=== PATIENT | female | born 1980 | race Caucasian/White ===

== ENCOUNTER 2017-07-25 18:23 | Observation (INO) | payer BC ==
--- OUTSIDE RECORDS SUMMARY | 2017-07-25 18:25 | XMS REPORT | Clinical Summary ---
:1980 Author Organization [facility] Address [address] [place] [address] Care Team Providers Name Role Phone Paul Pérez MD Primary Care Provider Allergies Active Allergy Reactions Severity Noted Date Comments Gabapentin Other (See Comments) 10/09/2015 Spasms seizures Current Medications Prescription Sig. Disp. Refills Start Date End Date Status ondansetron (ZOFRAN) 8 MG Take 8 mg by mouth Active tablet every 8 (eight) hours as needed for nausea or vomiting. topiramate (TOPAMAX) 100 Take 100 mg by Active MG tablet mouth 2 (two) times a day. tiZANidine (ZANAFLEX) 2 MG Take 2 mg by mouth Active tablet every 6 (six) hours as needed for muscle spasms. 6 mg promethazine (PHENERGAN) Take 25 mg by Active 25 MG tablet mouth every 8 (eight) hours as needed for nausea or vomiting. estrogens, conjugated, Take 1.25 mg by Active (PREMARIN) 1.25 MG tablet mouth daily. METHOTREXATE, PF, SUBQ Inject 25 mg under Active the skin once a week. Every Tuesday. on hold per patient for 2 weeks because she's taking antibiotics. folic acid (FOLVITE) 1 MG Take 1 mg by mouth Active tablet daily. fentaNYL (DURAGESIC) Place 1 patch on Active the skin every other day. Fentanyl patch12.5 ALPRAZolam (XANAX) 2 MG Take 2 mg by mouth Active tablet daily. FLUoxetine (PROzac) 20 MG Take 20 mg by Active capsule mouth daily. SUMAtriptan succinate 02/16/2016 Active (IMITREX) 6 mg/0.5 mL solution ENBREL SURECLICK 50 mg/mL 03/26/2016 Active (0.98 mL) pen injector fludrocortisone 0.1 mg Take 0.1 mg by Active tablet mouth daily. Active Problems Problem Noted Date Pilonidal cyst 05/16/2016 Rheumatoid arthritis 05/16/2016 Orthostatic hypotension 05/16/2016 Chest pain 05/15/2016 Bradycardia 10/09/2015 Reflex sympathetic dystrophy 10/09/2015 Fibromyalgia 10/09/2015 Immunizations Name Dates Previously Given Next Due INFLUENZA QUAD PF 05/07/2016 Influenza Trivalent 05/14/2014 Tdap 05/07/2016 Social History Tobacco Use Types Packs/Day Years Used Date Current Every Day Smoker Cigarettes 0.5 10 Smokeless Tobacco: Never Used Tobacco Cessation: Ready to Quit: No; Counseling Given: Yes Alcohol Use Drinks/Week oz/Week Comments No Sex Assigned at Date Recorded Not on file Last Filed Vital Signs Not on file Plan of Treatment Health Maintenance Due Date Last Done Comments PAP SMEAR 2001 INFLUENZA VACCINE 10/26/2017 05/07/2016, 05/14/2014 Results Not on fileafter 07/24/2016 Insurance Payer Benefit Plan / Group Subscriber ID Type Phone Address BCBS BS OUT OF STATE xxxxxxxxxxxxxxx PPO [phone] [id number]
[2017-07-25] MEDS ORDERED: NA CHLORIDE 0.9% 2,000 ML ONE (19:14)
[2017-07-25] MEDS ORDERED: ONDANSETRON 4 MG/2 ML VIAL ONE (19:14)
[2017-07-25] MEDS ORDERED: FENTANYL CITR 100 MCG/2 ML ONE (19:14)
[2017-07-25] MEDS ORDERED: PANTOPRAZOLE 40 MG INJ ONE (19:14)
[2017-07-25 20:16] LABS: Absolute Lymphocytes (CBC) 3.5 K/uL (0.7-4.9); Absolute Monocytes 0.6 K/uL (0.1-1.3); Absolute Neutrophil 7.8 K/uL (1.8-8.0); Basophils % 0.6 % (0-1.3); Eosinophils % 0.3 % (0-4.4); Hematocrit 43.3 % (36.0-45.0); MCH 31.7 pg (27.0-35.0); MCV 93.1 fL (80-100); MPV 7.9 fL (7.6-11.3); Monocytes % 5.2 % (3.3-12.3); RBC Red Blood Cell Count 4.65 M/uL (3.86-4.86)
[2017-07-25 20:21] LABS: Protime INR 0.97
[2017-07-25 20:28] LABS: Potassium 3.7 mEq/L (3.6-5.0)
[2017-07-25 20:34] LABS: Albumin 4.7 g/dL (3.2-5.5); Bilirubin Direct 0.1 mg/dL (0-0.2); Bilirubin Total 0.5 mg/dL (0.3-1.2); Magnesium 2.2 mg/dL (1.8-2.5); Protein, Total 8.3 g/dL (6.0-8.3)
[2017-07-25 20:37] LABS: CKMB Creatine Kinase MB 2.1 ng/ml (0.3-4.0)
[2017-07-25] MEDS ORDERED: PROMETHAZINE 25 MG/ML VIAL ONE (21:11)
--- NOTE | 2017-07-25 21:46 | ER ---
Nurse's Notes [facility] Name: Yun Saxena Age: 37 yrs Sex: Female : 1980 Arrival Date: 07/25/2017 Time: 18:25 Bed 30 Private MD: Ankur Koenig S Diagnosis: Abdominal tenderness;Other chest pain Presentation: 07/25 18:31 Presenting complaint: Patient states: N/V/D, upper abdominal pain, and abdominal hb swelling x 3 days. Pain radiated to chest and mid back. Denies fever. Hx diverticulitis, pancreatitis. Transition of care: patient was not received from another setting of care. Onset of symptoms was July 23, 2017. Initial Sepsis Screen: Does the patient meet any 2 criteria? No. Patient's initial sepsis screen is negative. Does the patient have a suspected source of infection? No. Patient's initial sepsis screen is negative. Care prior to arrival: None. 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 [Active]; Prozac 20 mg Oral cap 1 cap once daily [Active]; Xanax 2 mg Oral tab daily [Active]; Zofran (as hydrochloride) 8 mg Oral tab 1 tab as needed [Active]; 07/26 00:47 fentanyl 75 mcg/hr transdermal pt72 [Active]; tizanidine 4 mg oral tab [Active]; tl3 Topamax 150 mg Oral tab 2 caps daily [Active]; topiramate 150 mg oral CSpX 2 caps once daily [Active]; 00:49 Humira subcutaneous 50mg subcutaneous every two weeks [Active]; tl3 - PMHx: 07/25 18:35 Arthritis; complex regional pain syndrome stage 4; Fibromyalgia; Migraines; Reflective hb Sympathetic Dystrophy; Rheumatoid Arthritis; Pancreatitis; Diverticulitis; - PSHx: 18:35 Hysterectomy; Cholecystectomy; Hip - RIGHT; Tubal ; Back; Multiple abdoiminal hb sx; - Immunization history:: Adult Immunizations up to date. - Social history:: Smoking status: Patient/guardian denies using tobacco. Screenin:45 Abuse screen: Denies threats or abuse. Nutritional screening: No deficits noted. tl3 Tuberculosis screening: No symptoms or risk factors identified. Fall Risk None identified. Assessment: 18:45 General: Appears distressed, uncomfortable, obese, well groomed, well developed, well tl3 nourished, Behavior is cooperative, appropriate for age, anxious, restless. Pain: Complains of pain in left upper quadrant and right upper quadrant and epigastric area Pain currently is 10 out of 10 on a pain scale. Neuro: Level of Consciousness is awake, alert, obeys commands, Oriented to person, place, time, situation, Appropriate for age. Cardiovascular: Heart tones S1 S2 present Capillary refill < 3 seconds in bilateral fingers Patient's skin is warm and dry. Respiratory: Airway is patent Trachea midline Respiratory effort is even, labored, Respiratory pattern is regular, symmetrical, Breath sounds are clear bilaterally. GI: Bowel sounds present X 4 quads. Abdomen is tender to palpation X 4 quads. : No signs and/or symptoms were reported regarding the genitourinary system. EENT: No signs and/or symptoms were reported regarding the EENT system. Derm: No signs and/or symptoms reported regarding the dermatologic system. Musculoskeletal: No signs and/or symptoms reported regarding the musculoskeletal system. 20:20 Reassessment: No changes from previously documented assessment. Patient and/or family tl3 updated on plan of care and expected duration. Pain level reassessed. Patient is alert, oriented x 3, equal unlabored respirations, skin warm/dry/pink. pt still very uncomfortable, IV via ultrasound placed and meds given, xray at bedside. 21:26 Reassessment: No changes from previously documented assessment. Patient and/or family tl3 updated on plan of care and expected duration. Pain level reassessed. Patient is alert, oriented x 3, equal unlabored respirations, skin warm/dry/pink. 22:53 Reassessment: No changes from previously documented assessment. Patient and/or family tl3 updated on plan of care and expected duration. Pain level reassessed. Patient is alert, oriented x 3, equal unlabored respirations, skin warm/dry/pink. pt returned from CT. 07/26 00:11 Reassessment: No changes from previously documented assessment. Patient and/or family tl3 updated on plan of care and expected duration. Pain level reassessed. Patient is alert, oriented x 3, equal unlabored respirations, skin warm/dry/pink. plans for admit have changed, discharge papers being drawn up. 01:05 Reassessment: Patient appears in no apparent distress at this time. No changes from tl3 previously documented assessment. Patient and/or family updated on plan of care and expected duration. Pain level reassessed. Patient is alert, oriented x 3, equal unlabored respirations, skin warm/dry/pink. spoke with pt about discharge paperwork delay. Vital Signs: 07/25 18:31 BP 151 / 96; Pulse 88; Resp 18; Temp 98.7; Pulse Ox 100% on R/A; Pain 9/10; hb 20:20 BP 131 / 82; Pulse 70; Resp 18; Pulse Ox 100% on R/A; tl3 21:26 BP 141 / 85; Pulse 62; Resp 22; Pulse Ox 99% ; tl3 22:53 Pulse 71; Resp 18; Pulse Ox 100% ; tl3 07/26 00:14 BP 138 / 78; Pulse 70; Resp 18; Pulse Ox 100% ; tl3 01:05 BP 138 / 82; Pulse 62; Resp 18; Pulse Ox 100% ; tl3 ED Course: 07/25 18:25 Patient arrived in ED. as 18:26 Ankur Koenig MD is Private Physician. as 18:33 Triage completed. hb 18:35 Arm band placed on left wrist. hb 18:45 Appears restless. Appears tearful. Awaiting: IV start, Hermila to use ultra sound. tl3 18:45 Patient has correct armband on for positive identification. Placed in gown. Bed in low tl3 position. Side rails up X 1. Adult w/ patient. 18:45 No provider procedures requiring assistance completed. Missed attempt(s): 22 gauge in tl3 left in right wrist. forearm. Bleeding controlled, band aid applied, catheter tip intact. 18:54 Yanick Barker MD is Attending Physician. emily 19:11 Itzel Vang, ИВАН is Primary Nurse. tl3 20:00 Inserted 18 gauge 10 cm midline to right upper basilic vein on second attempt. Line fc with good blood return and flushes well. Blood drawn and sent to lab. 20:17 X-ray(s) taken. tl3 20:30 X-ray completed. Portable x-ray completed in exam room. Patient tolerated procedure kc2 well. 20:30 XRAY Chest (1 view) In Process Unspecified. EDMS 21:43 Hanna Guerra MD is Hospitalizing Provider. [facility] 07/26 01:43 IV discontinued. rk2 Administered Medications: 07/25 20:00 Drug: NS 0.9% 1000 ml Route: IV; Rate: 1 bolus; Site: right upper arm; fc 21:00 Follow up: IV Status: Completed infusion; IV Intake: 1000ml tl3 20:18 Drug: ProTONIX 40 mg Route: IVP; Infused Over: 3 mins; Site: left upper arm; tl3 22:57 Follow up: Response: No adverse reaction tl3 20:18 Drug: fentaNYL (PF) 50 mcg Route: IVP; Infused Over: 3 mins; Site: left upper arm; tl3 22:57 Follow up: Response: No adverse reaction; Pain is decreased tl3 20:18 Drug: Zofran 4 mg Route: IVP; Infused Over: 2 mins; Site: left upper arm; tl3 21:00 Follow up: Response: No adverse reaction tl3 21:24 Drug: fentaNYL (PF) 50 mcg Route: IVP; Infused Over: 3 mins; Site: right upper arm; tl3 22:00 Follow up: Response: No adverse reaction; Pain is decreased tl3 21:24 Drug: Phenergan 12.5 mg Route: IVP; Infused Over: 5 mins; Site: right upper arm; tl3 22:00 Follow up: Response: No adverse reaction; Nausea is decreased tl3 22:56 Drug: NS 0.9% 1000 ml Route: IV; Rate: 125 ml/hr; Site: right upper arm; tl3 22:56 Follow up: IV Status: Completed infusion; IV Intake: 1000ml tl3 Intake: 21:00 IV: 1000ml; Total: 1000ml. tl3 22:56 IV: 1000ml; Total: 2000ml. tl3 Outcome: 21:46 Decision to Hospitalize by Provider. [facility] 07/26 01:43 Discharged to home ambulatory. rk2 Condition: good Discharge instructions given to patient. 01:43 Patient left the ED. rk2 Signatures: Dispatcher [employer] EDYanick Trinh MD MD cha Chretien, Felicia, RN RN Tiesha Leonardo Heather, RN RN Marisol Wilson2 Alicia Ernandez RN RN rk2 Itzel Vang RN RN tl3 Corrections: (The following items were deleted from the chart) 00:51 07/25 18:35 Home Meds: amphetamine sulfate 15 mg Oral 1 tab 2 times per day; [facility] 07/26 00:07/25 18:35 Home Meds: Belbuca 150 mcg buccal film 1 film 2 times per day for Chronic tl3 pain, Severe Pain; 07/26 00:07/25 18:35 Home Meds: clonazepam 1 mg Oral tab 1 tab 2 times per day; [facility] 07/26 00:07/25 18:35 Home Meds: fentanyl 12 mcg/hr Topical pt72 1 patch every 72 hours; [facility] 07/26 00:07/25 18:35 Home Meds: tizanidine 6 mg Oral cap 1 cap as needed; 1-2 caps.; [facility] 07/26 00:07/25 18:35 Home Meds: Topamax 200 mg Oral tab daily; [facility] 07/26 00:07/25 18:35 Home Meds: topiramate 100 mg Oral CSpX 2 caps once daily; [facility] 07/26 00:07/25 18:35 Home Meds: venlafaxine 75 mg Oral cp24 1 cap twice daily.; [facility]
--- NOTE | 2017-07-25 21:47 | EDPHYS ---
Physician Documentation [facility] Name: Yun Saxena Age: 37 yrs Sex: Female : 1980 Arrival Date: 07/25/2017 Time: 18:25 Bed 30 Private MD: Ankur Koenig S ED Physician Yanick Barker HPI: 07/25 19:00 This 37 yrs old Female presents to ER via Ambulatory with complaints of emily Abdominal Pain, Chest Pain, Shortness Of Breath. 19:00 The patient or guardian reports chest pain that is located primarily in the substernal emily area, epigastric area. The pain radiates to Associated signs and symptoms: The patient has no apparent associated signs or symptoms. The chest pain is described as sharp. Severity of pain: At its worst the pain was moderate in the emergency department the pain is unchanged. 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 [Active]; Prozac 20 mg Oral cap 1 cap once daily [Active]; Xanax 2 mg Oral tab daily [Active]; Zofran (as hydrochloride) 8 mg Oral tab 1 tab as needed [Active]; 07/26 00:47 fentanyl 75 mcg/hr transdermal pt72 [Active]; tizanidine 4 mg oral tab [Active]; tl3 Topamax 150 mg Oral tab 2 caps daily [Active]; topiramate 150 mg oral CSpX 2 caps once daily [Active]; 00:49 Humira subcutaneous 50mg subcutaneous every two weeks [Active]; tl3 - PMHx: 07/25 18:35 Arthritis; complex regional pain syndrome stage 4; Fibromyalgia; Migraines; Reflective hb Sympathetic Dystrophy; Rheumatoid Arthritis; Pancreatitis; Diverticulitis; - PSHx: 18:35 Hysterectomy; Cholecystectomy; Hip - RIGHT; Tubal ; Back; Multiple abdoiminal hb sx; - Immunization history:: Adult Immunizations up to date. - Social history:: Smoking status: Patient/guardian denies using tobacco. ROS: 19:01 Constitutional: Negative for fever, chills, and weight loss, Eyes: Negative for injury, emily pain, redness, and discharge, ENT: Negative for injury, pain, and discharge, Neck: Negative for injury, pain, and swelling, Cardiovascular: Negative for chest pain, palpitations, and edema, Respiratory: Negative for shortness of breath, cough, wheezing, and pleuritic chest pain, Back: Negative for injury and pain, : Negative for injury, bleeding, discharge, and swelling, MS/Extremity: Negative for injury and deformity, Skin: Negative for injury, rash, and discoloration, Neuro: Negative for headache, weakness, numbness, tingling, and seizure, Psych: Negative for depression, anxiety, suicide ideation, homicidal ideation, and hallucinations, Allergy/Immunology: Negative for hives, rash, and allergies, Endocrine: Negative for neck swelling, polydipsia, polyuria, polyphagia, and marked weight changes, Hematologic/Lymphatic: Negative for swollen nodes, abnormal bleeding, and unusual bruising. 19:01 Abdomen/GI: Positive for abdominal pain, of the epigastric area, right upper quadrant and left upper quadrant. Exam: 19:01 Constitutional: This is a well developed, well nourished patient who is awake, alert, emily and in no acute distress. Head/Face: Normocephalic, atraumatic. Eyes: Pupils equal round and reactive to light, extra-ocular motions intact. Lids and lashes normal. Conjunctiva and sclera are non-icteric and not injected. Cornea within normal limits. Periorbital areas with no swelling, redness, or edema. ENT: Nares patent. No nasal discharge, no septal abnormalities noted. Tympanic membranes are normal and external auditory canals are clear. Oropharynx with no redness, swelling, or masses, exudates, or evidence of obstruction, uvula midline. Mucous membranes moist. Neck: Trachea midline, no thyromegaly or masses palpated, and no cervical lymphadenopathy. Supple, full range of motion without nuchal rigidity, or vertebral point tenderness. No Meningismus. Chest/axilla: Normal chest wall appearance and motion. Nontender with no deformity. No lesions are appreciated. Cardiovascular: Regular rate and rhythm with a normal S1 and S2. No gallops, murmurs, or rubs. Normal PMI, no JVD. No pulse deficits. Respiratory: Lungs have equal breath sounds bilaterally, clear to auscultation and percussion. No rales, rhonchi or wheezes noted. No increased work of breathing, no retractions or nasal flaring. Back: No spinal tenderness. No costovertebral tenderness. Full range of motion. Female : Normal external genitalia. Skin: Warm, dry with normal turgor. Normal color with no rashes, no lesions, and no evidence of cellulitis. MS/ Extremity: Pulses equal, no cyanosis. Neurovascular intact. Full, normal range of motion. Neuro: Awake and alert, GCS 15, oriented to person, place, time, and situation. Cranial nerves II-XII grossly intact. Motor strength 5/5 in all extremities. Sensory grossly intact. Cerebellar exam normal. Normal gait. Psych: Awake, alert, with orientation to person, place and time. Behavior, mood, and affect are within normal limits. 19:01 Abdomen/GI: Inspection: distension, Bowel sounds: hyperactive, Palpation: moderate abdominal tenderness, severe abdominal tenderness, in the epigastric area, right upper quadrant and left upper quadrant, Liver: no appreciated palpable abnormalities, Hernia: not appreciated. 21:46 Musculoskeletal/extremity: Extremities: all appear grossly normal, with no appreciated emily pain with palpation, DVT Exam: No signs of deep vein thrombosis. no pain, no swelling, no tenderness, negative Homans' sign noted on exam, no appreciated bluish discoloration, no erythema, no increased warmth. Vital Signs: 18:31 BP 151 / 96; Pulse 88; Resp 18; Temp 98.7; Pulse Ox 100% on R/A; Pain 9/10; hb 20:20 BP 131 / 82; Pulse 70; Resp 18; Pulse Ox 100% on R/A; tl3 21:26 BP 141 / 85; Pulse 62; Resp 22; Pulse Ox 99% ; tl3 22:53 Pulse 71; Resp 18; Pulse Ox 100% ; tl3 05 00:14 BP 138 / 78; Pulse 70; Resp 18; Pulse Ox 100% ; tl3 01:05 BP 138 / 82; Pulse 62; Resp 18; Pulse Ox 100% ; tl3 MDM: 07/25 18:54 Patient medically screened. [facility] 19:03 Data reviewed: vital signs, nurses notes, lab test result(s), EKG, radiologic studies, [facility] CT scan, plain films. 07/25 19:00 Order name: Basic Metabolic Panel; Complete Time: 21: [facility] 07/25 19:00 Order name: BNP; Complete Time: 21: [facility] 07/25 19:00 Order name: CBC with Diff; Complete Time: 21: [facility] 07/25 19:00 Order name: Ckmb; Complete Time: : [facility] 07/25 19:00 Order name: CPK; Complete Time: : [facility] 07/25 19:00 Order name: LFT's; Complete Time: : [facility] 07/25 19:00 Order name: Magnesium; Complete Time: : [facility] 07/25 19:00 Order name: PT-INR; Complete Time: : [facility] 07/25 19:00 Order name: Ptt, Activated; Complete Time: 21: [facility] 07/25 19:00 Order name: Troponin (emerg Dept Use Only); Complete Time: : [facility] 07/25 19:00 Order name: XRAY Chest (1 view); Complete Time: 01:11 [facility] 07/25 19:00 Order name: Lipase; Complete Time: 21: [facility] 07/25 19:00 Order name: CT Abd/Pelvis - W/Contrast [facility] 07/25 19:00 Order name: EKG; Complete Time: 19:00 [facility] 07/25 19:00 Order name: Cardiac monitoring; Complete Time: 20:49 [facility] 07/25 19:00 Order name: EKG - Nurse/Tech; Complete Time: 20:49 [facility] 07/25 19:00 Order name: IV Saline Lock; Complete Time: 20:49 [facility] 07/25 19:00 Order name: Labs collected and sent; Complete Time: 20:49 [facility] 07/25 19:00 Order name: O2 Per Protocol; Complete Time: 20:49 [facility] 07/25 19:00 Order name: O2 Sat Monitoring; Complete Time: 20:49 [facility] 07/25 19:00 Order name: Urine Dipstick-Ancillary (obtain specimen); Complete Time: 21:25 [facility] 07/25 21:51 Order name: CONS Physician Consult EDMS Administered Medications: 20:00 Drug: NS 0.9% 1000 ml Route: IV; Rate: 1 bolus; Site: right upper arm; 21:00 Follow up: IV Status: Completed infusion; IV Intake: 1000ml tl3 20:18 Drug: ProTONIX 40 mg Route: IVP; Infused Over: 3 mins; Site: left upper arm; tl3 22:57 Follow up: Response: No adverse reaction tl3 20:18 Drug: fentaNYL (PF) 50 mcg Route: IVP; Infused Over: 3 mins; Site: left upper arm; tl3 22:57 Follow up: Response: No adverse reaction; Pain is decreased tl3 20:18 Drug: Zofran 4 mg Route: IVP; Infused Over: 2 mins; Site: left upper arm; tl3 21:00 Follow up: Response: No adverse reaction tl3 21:24 Drug: fentaNYL (PF) 50 mcg Route: IVP; Infused Over: 3 mins; Site: right upper arm; tl3 22:00 Follow up: Response: No adverse reaction; Pain is decreased tl3 21:24 Drug: Phenergan 12.5 mg Route: IVP; Infused Over: 5 mins; Site: right upper arm; tl3 22:00 Follow up: Response: No adverse reaction; Nausea is decreased tl3 22:56 Drug: NS 0.9% 1000 ml Route: IV; Rate: 125 ml/hr; Site: right upper arm; tl3 22:56 Follow up: IV Status: Completed infusion; IV Intake: 1000ml tl3 Disposition: 07/25/17 21:46 Hospitalization ordered by Hanna Guerra for Observation. Preliminary diagnosis are Abdominal tenderness, Other chest pain. - Bed requested for Telemetry/MedSurg (observation). - Status is Observation. rk2 - Condition is Stable. - Problem is new. - Symptoms have improved. UTI on Admission? No Signatures: Dispatcher [employer] EDMS Rosa Brand RN RN mw Anderson, Corey, MD MD cha Lam, Pin, MD MD pkl Chretien, Felicia, RN RN fc Baxter, Heather, RN RN Alicia Ernandez RN RN rk2 Itzel Vang RN RN tl3 Corrections: (The following items were deleted from the chart) 07/26 00:51 07/25 18:35 Home Meds: amphetamine sulfate 15 mg Oral 1 tab 2 times per day; tl3 07/26 00:51 07/25 18:35 Home Meds: Belbuca 150 mcg buccal film 1 film 2 times per day for Chronic tl3 pain, Severe Pain; 07/27 99:07/25 18:35 Home Meds: clonazepam 1 mg Oral tab 1 tab 2 times per day; [facility] 07/27 99:07/25 18:35 Home Meds: fentanyl 12 mcg/hr Topical pt72 1 patch every 72 hours; [facility] 07/27 99:07/25 18:35 Home Meds: tizanidine 6 mg Oral cap 1 cap as needed; 1-2 caps.; [facility] 07/27 99:07/25 18:35 Home Meds: Topamax 200 mg Oral tab daily; [facility] 07/27 99:07/25 18:35 Home Meds: topiramate 100 mg Oral CSpX 2 caps once daily; [facility] 07/27 99:07/25 18:35 Home Meds: venlafaxine 75 mg Oral cp24 1 cap twice daily.; [facility]3
--- NOTE | 2017-07-25 22:05 | RAD REPORT ---
EXAM DESCRIPTION: Crow Single View07/25/2017 8:34 pm CLINICAL HISTORY: cough COMPARISON: 2016 FINDINGS: The lungs appear clear of acute infiltrate. The heart is normal size IMPRESSION: No acute abnormalities displayed
--- NOTE | 2017-07-26 00:09 | P.HP ---
Certification for Inpatient Patient admitted to: Observation With expected LOS: <2 Midnights Practitioner: I am a practitioner with admitting privileges, knowledge of patient current condition, hospital course, and medical plan of care. Services: Services provided to patient in accordance with Admission requirements found in Title 42 Section 412.3 of the Code of Federal Regulations Patient History Date of Service: 07/26/17 Reason for admission: abdominal pain History of Present Illness: Ms Saxena is a 37 years old woman with multiple medical problems including rheumatoid arthritis, Reflective Sympathetic Dystrophy, who start about 2 days ago with abdominal pain associated with nausea, vomiting and diarrhea. She denied fever or chills. No sweating episodes either. She states that the pain is in epigastric area, constant, 8/10. At arrival to ED she was afebrile, lab work shows WBC count 12K, elevated transaminases (not new), normal lipase. CT abd/pelvis was unremarkable. Allergies gabapentin Allergy (Severe, Verified 09/09/15 22:10) Shortness of breath Home Medications: Estrogens,Conjugated [Premarin] 1.25 mg PO DAILY 06/05/11 Ergocalciferol (Vitamin D2) [Vitamin D] 50,000 unit PO DAILY 08/06/15 Promethazine HCl 25 mg PO PRN 08/06/15 Alprazolam [Xanax Xr] 2 mg PO DAILY 09/09/15 Fluoxetine HCl [Prozac*] 20 mg PO DAILY 09/09/15 Omeprazole [Prilosec] 40 mg PO DAILY #30 capsule. 09/14/15 Fentanyl [Fentanyl] 12 mcg TD SEECOM 10/06/15 - Past Medical/Surgical History Diabetic: No -: Chronic pain syndrome -: Adult defecit disorder -: Depression -: Migraine headache -: Hormone replacement therapy -: Fibromyalgia -: RA -: Pain pump -: hysterectomy -: rufina - Family History Father -: Heart disease, Stroke - Social History Alcohol use: No CD- Drugs: No Caffeine use: No Review of Systems 10-point ROS is otherwise unremarkable Physical Examination - Physical Exam General: Alert, In no apparent distress HEENT: Atraumatic, PERRLA, Mucous membr. moist/pink, EOMI, Sclerae nonicteric Neck: Supple, 2+ carotid pulse no bruit, No LAD, Without JVD or thyroid abnormality Respiratory: Clear to auscultation bilaterally, Normal air movement Cardiovascular: Regular rate/rhythm, Normal S1 S2 Gastrointestinal: Normal bowel sounds, Tenderness (tenderness to palpation in epigastrium) Musculoskeletal: No tenderness Integumentary: No rashes Neurological: Normal speech, Normal strength at 5/5 x4 extr, Normal tone, Normal affect Lymphatics: No axilla or inguinal lymphadenopathy - Studies Laboratory Data (last 24 hrs) 07/25/17 20:00: PT 11.5, INR 0.97, APTT 26.1 07/25/17 20:00: WBC 12.0 H, Hgb 14.7, Hct 43.3, Plt Count 279 07/25/17 20:00: B-Natriuretic Peptide 158 H 07/25/17 20:00: Sodium 138, Potassium 3.7, BUN 13, Creatinine 0.95, Glucose 98, Magnesium 2.2 D, Total Bilirubin 0.5, AST 54 H, ALT 78 H, Alkaline Phosphatase 73, Lipase 34 Assessment and Plan - Problems (Diagnosis) (1) Nausea and vomiting Current Visit: Yes Status: Acute Qualifiers: Vomiting type: unspecified (2) Diarrhea Current Visit: Yes Status: Acute Qualifiers: Diarrhea type: unspecified type Qualified Code(s): R19.7 - Diarrhea, unspecified (3) Abdominal pain Onset Date: 09/10/15 Current Visit: No Status: Acute Qualifiers: Abdominal location: epigastric Qualified Code(s): R10.13 - Epigastric pain - Plan Ms aSxena had a CT abd/pelvis which is negative. No signs of obstruction or intestinal perforation. She is afebrile, WBC mildly elevated. Since her work up is mostly benign, I think she will benefit from outpatient follow up by her PCP. She will be discharge home in stable condition. Will resume her home medication without modifications. - Advance Directives Does patient have a Living Will: No Does patient have a Durable POA for Healthcare: No - Code Status/Comfort Care Code Status Assessed: Yes Code Status: Full Code Home Medications: Estrogens,Conjugated [Premarin] 1.25 mg PO DAILY 06/05/11 Ergocalciferol (Vitamin D2) [Vitamin D] 50,000 unit PO DAILY 08/06/15 Promethazine HCl 25 mg PO PRN 08/06/15 Alprazolam [Xanax Xr] 2 mg PO DAILY 09/09/15 Fluoxetine HCl [Prozac*] 20 mg PO DAILY 09/09/15 Omeprazole [Prilosec] 40 mg PO DAILY #30 capsule. 09/14/15 Fentanyl [Fentanyl] 12 mcg TD SEECOM 10/06/15 Diet: GI soft Activity: Ad av Time spent managing pt's care (in minutes): 60
[2017-07-26 01:47] VITALS: TEMP 98.7
[2017-07-26 01:50] VITALS: O2SAT 100
[2017-07-26 01:53] VITALS: BP 138/82
--- NOTE | 2017-07-26 07:07 | RAD REPORT ---
EXAM DESCRIPTION: CT - Abdomen Pelvis W Contrast - 07/26/2017 4:04 am CLINICAL HISTORY: Abdominal pain. A preliminary written report was provided at the time of the study, and the report was reviewed prio r to final dictation. COMPARISON: CT December 2012 TECHNIQUE: Biphasic, helical CT imaging of the abdomen and pelvis was performed following 100 ml non -ionic IV contrast. Oral contrast was given. All CT scans are performed using dose optimization technique as appropriate and may include automated exposure control or mA/KV adjustment according to patient size. FINDINGS: No suspicious findings in the lung bases. The liver, spleen, and pancreas show no suspicious findings. Liver is borderline fatty infiltrated. S mall accessory splenic nodule noted. Cholecystectomy clips are present with no biliary tree dilatatio n. Symmetric renal function is seen with no hydronephrosis or suspicious renal mass. No pyelonephritis o r acute renal parenchymal process. Urinary bladder is normal. Uterus is absent. Ovaries are absent or atrophic. No gastric dilatation or gastric wall thickening. No dilated large or small bowel loops. Moderate sto ol volume is present in the rectosigmoid colon. Sigmoid colon is quite tortuous and redundant along t he floor of the pelvis. No free air or pneumatosis seen. There is a trace amount of fluid in the dep endent portion of the pelvis. Exam is limited in assessment of the colon, particularly the rectum, fo r mucosal lesions. No hernia, mass or bulky lymphadenopathy. No adrenal abnormality. No suspicious bony findings. IMPRESSION: No obstruction, free air or surgically emergent finding. Trace amount of free fluid in stranding in the dependent portion of the pelvis. Exam is considered li mited in evaluation of the rectum. Cholecystectomy clips with no abnormal biliary tree dilatation. No acute pancreatic finding and the l iver shows borderline fatty infiltration.
--- NOTE | 2017-07-26 14:39 | EKG ---
Test Date: 2017-07-25 Test Time: 20:56:30 Street Vendor: TL MEASUREMENT RESULTS: Intervals: Rate: 58 DC: 150 QRSD: 90 QT: 434 QTc: 426 [place]: P: 29 DC: 150 QRS: 52 T: 21 INTERPRETIVE STATEMENTS: Sinus bradycardia Otherwise normal ECG Compared to ECG 08/06/2015 07:19:37 Sinus rhythm no longer present Early repolarization no longer present Electronically Signed On 07-26-17 14:34:26 CDT by Coleman Singleton
--- NOTE | 2017-07-26 14:39 | EKG ---
Test Date: 2017-07-25 Test Time: 20:57:26 Beef Trimmer: TL MEASUREMENT RESULTS: Intervals: Rate: 61 MA: 152 QRSD: 84 QT: 430 QTc: 432 [place]: P: 52 MA: 152 QRS: 51 T: 18 INTERPRETIVE STATEMENTS: Normal sinus rhythm Normal ECG Compared to ECG 08/06/2015 07:19:37 Early repolarization no longer present Electronically Signed On 07-26-17 14:34:25 CDT by Coleman Singleton
== END 2017-07-26 01:44 | disposition home or self-care (01) ==
LOC: ER 18:23 → ERHOLD 21:48
PROVIDERS: ADMIT Internal Medicine; ATTEND Internal Medicine
DX: R11.2 Nausea with vomiting, unspecified (principal); R19.7 Diarrhea, unspecified; R10.13 Epigastric pain; M06.9 Rheumatoid arthritis, unspecified; G90.50 Complex regional pain syndrome I, unspecified
CPT/HCPCS: 36415; 71045; 74177; 80048; 80076; 82550; 82553; 83690; 83735; 83880; 84484; 85025; 85610; 85730; 93005; 99283; C9113; G0378; J2405; J2550; J3010; J7030; Q9967

== ENCOUNTER 2019-04-23 15:41 | Emergency (ER) | payer BC ==
--- OUTSIDE RECORDS SUMMARY | 2019-04-23 15:45 | XMS REPORT ---
:1980 [facility] Address [address] [place] [address] Dr. Menendez [address] [place] [id number] Care Team Providers Name Role Phone Unavailable Unavailable Unavailable Problems This patient has no known problems. Allergies, Adverse Reactions, Alerts This patient has no known allergies or adverse reactions. Medications This patient has no known medications.
[2019-04-23 16:27] LABS: Basophils % 0.9 % (0-1.3); Hematocrit 42.6 % (36.0-45.0); Lymphocytes % 49.7 % (15.3-44.8); MPV 7.7 fL (7.6-11.3); RBC Red Blood Cell Count 4.52 M/uL (3.86-4.86)
[2019-04-23] MEDS ORDERED: ONDANSETRON 4 MG/2 ML VIAL ONE (16:28)
[2019-04-23] MEDS ORDERED: NA CHLORIDE 0.9% 1,000 ML ONE (16:28)
[2019-04-23] MEDS ORDERED: MORPHINE 4 MG/ML SYR ONE (16:28)
[2019-04-23 16:57] LABS: ALT/SGPT 34 U/L (12-78); AST/SGOT 34 U/L (15-37); Albumin 4.2 g/dL (3.4-5.0); Alkaline Phosphatase 90 U/L (45-117); BUN Blood Urea Nitrogen 13 mg/dL (7-18); Bicarbonate 25 mmol/L (21-32); Bilirubin Direct < 0.1 mg/dL (0-0.2); Bilirubin Total 0.3 mg/dL (0.2-1.0); Glucose Level 89 mg/dL (74-106); Lipase 54 U/L (73-393); Potassium 4.5 mmol/L (3.5-5.1); Protein, Total 8.3 g/dL (6.4-8.2); Sodium Level 138 mmol/L (136-145)
[2019-04-23] MEDS ORDERED: FENTANYL CITR 100 MCG/2 ML ONE (17:26)
--- NOTE | 2019-04-23 17:41 | RAD REPORT ---
EXAM DESCRIPTION: CTAbdomen Pelvis W Contrast - 04/23/2019 5:32 pm CLINICAL HISTORY: Abdominal pain. ABD PAIN COMPARISON: Abdomen Pelvis W Contrast dated 07/25/2017; CT ABD PELVIS W CONTRAST dated 01/03/2013 TECHNIQUE: Biphasic CT imaging of the abdomen and pelvis was performed with 100 ml non-ionic IV cont rast. All CT scans are performed using dose optimization technique as appropriate and may include automated exposure control or mA/KV adjustment according to patient size. FINDINGS: The lung bases are clear. The liver, spleen, pancreas, adrenal glands and kidneys are within normal limits. Cholecystectomy. No bowel obstruction, free air, free fluid or abscess. Moderate stool is present throughout the colon . Normal appendix. No evidence of significant lymphadenopathy. No suspicious bony findings. IMPRESSION: No acute intra-abdominal or pelvic finding. Moderate fecal retention.
--- NOTE | 2019-04-23 17:55 | ER ---
Nurse's Notes [facility] Name: Yun Saxena Age: 39 yrs Sex: Female : 1980 Arrival Date: 04/23/2019 Time: 15:48 Bed 13 Private MD: Diagnosis: Abdominal and pelvic pain Presentation: 04/23 15:50 Presenting complaint: Patient states: i am from dr. Vuong office, i started hurting a tw2 few hours ago, i had an episode Tuesday, with lower right pain, it is better if i pull my knees up to my abdomen, and i am nauseous. Transition of care: patient was not received from another setting of care. Onset of symptoms was April 23, 2019. Risk Assessment: Do you want to hurt yourself or someone else? Patient reports no desire to harm self or others. Initial Sepsis Screen: Does the patient meet any 2 criteria? No. Patient's initial sepsis screen is negative. Does the patient have a suspected source of infection? No. Patient's initial sepsis screen is negative. Care prior to arrival: None. 15:50 Method Of Arrival: Ambulatory tw2 15:50 Acuity: JEAN PIERRE 3 tw2 Triage Assessment: 15:54 General: Appears uncomfortable, Behavior is calm, cooperative, appropriate for age. tw2 Pain: Complains of pain in right lower quadrant. GI: Reports lower abdominal pain, nausea. CABIN CREW: 15:54 LMP N/A - Hysterectomy tw2 Historical: - Allergies: 15:54 GABAPENTIN; tw2 - Home Meds: 15:54 Zofran (as hydrochloride) 8 mg Oral tab 1 tab as needed [Active]; fentanyl 75 mcg/hr tw2 Topical pt72 [Active]; promethazine 25 mg Oral tab 1 tab every 8 hours as needed. [Active]; Phenergan 25 mg/mL injection soln 1 mL [Active]; Emend 80 mg oral cap 1 cap once daily [Active]; folic acid 1 mg Oral tab 1 tab once daily [Active]; Methotrexate Sodium 25mg Oral 0.8 0.8 ml IM once wkly [Active]; topiramate 150 mg Oral CSpX 2 caps once daily [Active]; Xanax 2 mg Oral tab daily [Active]; Topamax 150 mg Oral tab 2 caps daily [Active]; tizanidine 4 mg Oral tab [Active]; Prozac 20 mg Oral cap 1 cap once daily [Active]; Premarin 1.25 mg Oral tab 1 tab once daily [Active]; Humira 50mg subcutaneous every two weeks [Active]; - PMHx: 15:54 Rheumatoid Arthritis; Pancreatitis; Reflective Sympathetic Dystrophy; Diverticulitis; tw2 complex regional pain syndrome stage 4; Arthritis; Fibromyalgia; Migraines; - PSHx: 15:54 Multiple abdoiminal sx; Tubal ; Hysterectomy; Cholecystectomy; Hip - RIGHT; tw2 Back; - Immunization history:: Adult Immunizations. - Coronavirus screen:: The patient has NOT traveled to [place], [place], or [place] in the past 14 days. - Social history:: Smoking status: Patient reports the use of cigarette tobacco products, smokes one-half pack cigarettes per day. - Ebola Screening: : Patient denies travel to an Ebola-affected area in the 21 days before illness onset. Screenin:11 Abuse screen: Denies threats or abuse. Denies injuries from another. Nutritional ca1 screening: No deficits noted. Tuberculosis screening: No symptoms or risk factors identified. Fall Risk IV access (20 points). Assessment: 16:11 General: Appears in no apparent distress. uncomfortable, Behavior is cooperative, ca1 appropriate for age, crying. Pain: Complains of pain in right lower quadrant Pain does not radiate. Pain currently is 10 out of 10 on a pain scale. Quality of pain is described as sharp, Pain began 2 hours ago. Is continuous. Pain: Also complains of nausea. Neuro: Level of Consciousness is awake, alert, obeys commands, Oriented to person, place, time, situation, Appropriate for age. Cardiovascular: Heart tones S1 S2 present Capillary refill Patient's skin is warm and dry. Respiratory: Airway is patent Trachea midline Respiratory effort is even, unlabored, Respiratory pattern is regular, symmetrical, Breath sounds are clear bilaterally. GI: Abdomen is round non-distended, Bowel sounds present X 4 quads. Abd is soft X 4 quads Abdomen is tender to palpation X 4 quads. Reports nausea. : No deficits noted. No signs and/or symptoms were reported regarding the genitourinary system. EENT: No deficits noted. No signs and/or symptoms were reported regarding the EENT system. Derm: Skin is intact, is healthy with good turgor, Skin is pink, warm \T\ dry. Musculoskeletal: Circulation, motion, and sensation intact. Capillary refill < 3 seconds. 17:07 Reassessment: Patient appears in no apparent distress at this time. Patient and/or ca1 family updated on plan of care and expected duration. Pain level reassessed. Patient is alert, oriented x 3, equal unlabored respirations, skin warm/dry/pink. 18:00 Reassessment: Patient appears in no apparent distress at this time. Patient is alert, ca1 oriented x 3, equal unlabored respirations, skin warm/dry/pink. Patient states feeling better. Vital Signs: 15:51 BP 121 / 84; Pulse 85; Resp 17; Temp 98.3(TE); Pulse Ox 95% on R/A; Weight 73.94 kg tw2 (R); Height 5 ft. 2 in. (157.48 cm); Pain 10/10; 17:09 BP 94 / 49; Pulse 68; Resp 17; Pulse Ox 98% on R/A; ca1 18:00 BP 98 / 66; Pulse 73; Resp 17 S; Pulse Ox 98% on R/A; ca1 15:51 Body Mass Index 29.81 (73.94 kg, 157.48 cm) tw2 15:51 and i am on a fentanyl patch as well and i am still hurting tw2 ED Course: 15:48 Patient arrived in ED. mr 15:51 Triage completed. tw2 15:54 Arm band placed on. tw2 15:58 Misty Tucker, RN is Primary Nurse. ca1 16:11 Patient has correct armband on for positive identification. Placed in gown. Bed in low ca1 position. Call light in reach. Side rails up X 1. Pulse ox on. NIBP on. Warm blanket given. 16:11 No provider procedures requiring assistance completed. Initial lab(s) drawn, by me, ca1 sent to lab. Inserted saline lock: 20 gauge in right upper arm, using aseptic technique. Blood collected. 16:12 Rob Etienne FNP-C is PHCP. la1 16:12 Yanick Barker MD is Attending Physician. la1 17:32 CT Abd/Pelvis - IV Contrast Only In Process Unspecified. EDMS 18:15 IV discontinued, intact, bleeding controlled, No redness/swelling at site. Pressure ca1 dressing applied. Administered Medications: 16:25 Drug: NS 0.9% 1000 ml Route: IV; Rate: 1000 ml; Site: right upper arm; ca1 17:25 Follow up: Response: No adverse reaction; IV Status: Completed infusion; IV Intake: ca1 1000ml 16:26 Drug: Zofran 4 mg Route: IVP; Site: right upper arm; ca1 17:25 Follow up: Response: No adverse reaction; Nausea is decreased ca1 16:31 Drug: morphine 4 mg {Note: RASS - 0.} Route: IVP; Site: right upper arm; ca1 17:24 Follow up: Response: No adverse reaction; Pain is unchanged, physician notified; RASS: ca1 Alert and Calm (0) 17:24 Drug: fentaNYL (PF) 50 mcg {Note: RASS - 0.} Route: IVP; Site: right upper arm; ca1 18:07 Follow up: Response: No adverse reaction; Pain is decreased; RASS: Alert and Calm (0) ca1 Intake: 17:25 IV: 1000ml; Total: 1000ml. ca1 Outcome: 17:55 Discharge ordered by MD. nichols 18:15 Discharged to home ambulatory, with significant other. ca1 18:15 Condition: stable 18:15 Discharge instructions given to patient, Instructed on discharge instructions, follow up and referral plans. medication usage, Demonstrated understanding of instructions, follow-up care, medications, Prescriptions given X 1. 18:27 Patient left the ED. ca1 Signatures: Dispatcher [employer] KATELYNNCA Naveen Mary EtienneRob, MILLINERY DEPARTMENT MANAGER-C MILLINERY DEPARTMENT MANAGER-Cla1 Estela Alfonso RN RN tw2 Misty Tucker RN RN ca1
--- NOTE | 2019-04-23 17:55 | EDPHYS ---
Physician Documentation [facility] Name: Yun Saxena Age: 39 yrs Sex: Female : 1980 Arrival Date: 04/23/2019 Time: 15:48 Bed 13 Private MD: ED Physician Yanick Barker HPI: 04/23 17:14 This 39 yrs old Female presents to ER via Ambulatory with complaints of la1 Abdominal Pain. 17:14 The patient presents with abdominal pain right lower quadrant. Onset: The la1 symptoms/episode began/occurred 2 hour(s) ago. The symptoms do not radiate. Associated signs and symptoms: Pertinent negatives: constipation, diarrhea, dysuria, fever, headache, hematuria. The symptoms are described as sharp, stabbing. Modifying factors: The symptoms are alleviated by remaining still, the symptoms are aggravated by. Severity of pain: At its worst the pain was moderate in the emergency department the pain has improved. The patient has not experienced similar symptoms in the past. 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 [Active]; Phenergan 25 mg/mL injection soln 1 mL [Active]; Emend 80 mg oral cap 1 cap once daily [Active]; folic acid 1 mg Oral tab 1 tab once daily [Active]; Methotrexate Sodium 25mg Oral 0.8 0.8 ml IM once wkly [Active]; topiramate 150 mg Oral CSpX 2 caps once daily [Active]; Xanax 2 mg Oral tab daily [Active]; Topamax 150 mg Oral tab 2 caps daily [Active]; tizanidine 4 mg Oral tab [Active]; Prozac 20 mg Oral cap 1 cap once daily [Active]; Premarin 1.25 mg Oral tab 1 tab once daily [Active]; Humira 50mg subcutaneous every two weeks [Active]; - PMHx: 15:54 Rheumatoid Arthritis; Pancreatitis; Reflective Sympathetic Dystrophy; Diverticulitis; tw2 complex regional pain syndrome stage 4; Arthritis; Fibromyalgia; Migraines; - PSHx: 15:54 Multiple abdoiminal sx; Tubal ; Hysterectomy; Cholecystectomy; Hip - RIGHT; tw2 Back; - Immunization history:: Adult Immunizations. - Coronavirus screen:: The patient has NOT traveled to [place], [place], or [place] in the past 14 days. - Social history:: Smoking status: Patient reports the use of cigarette tobacco products, smokes one-half pack cigarettes per day. - Ebola Screening: : Patient denies travel to an Ebola-affected area in the 21 days before illness onset. ROS: 17:16 Constitutional: Negative for fever, chills, and weight loss. la1 17:16 Eyes: Negative for injury, pain, redness, and discharge, Neck: Negative for injury, pain, and swelling, Cardiovascular: Negative for chest pain, palpitations, and edema, Respiratory: Negative for shortness of breath, cough, wheezing, and pleuritic chest pain. 17:16 Back: Negative for injury and pain, : Negative for injury, bleeding, discharge, and swelling, MS/Extremity: Negative for injury and deformity, Skin: Negative for injury, rash, and discoloration, Neuro: Negative for headache, weakness, numbness, tingling, and seizure, Endocrine: Negative for neck swelling, polydipsia, polyuria, polyphagia, and marked weight changes. 17:16 Abdomen/GI: Positive for abdominal pain. Exam: 17:16 Constitutional: This is a well developed, well nourished patient who is awake, alert, la1 and in no acute distress. 17:16 Head/Face: Normocephalic, atraumatic. Eyes: Pupils equal round and reactive to light, extra-ocular motions intact. Lids and lashes normal. Conjunctiva and sclera are non-icteric and not injected. Cornea within normal limits. Periorbital areas with no swelling, redness, or edema. ENT: Mucous membranes moist. Neck: Trachea midline Chest/axilla: Normal chest wall appearance and motion. Cardiovascular: Regular rate and rhythm with a normal S1 and S2. Respiratory: Lungs have equal breath sounds bilaterally, clear to auscultation 17:16 Back: No spinal tenderness. No costovertebral tenderness. Full range of motion. MS/ Extremity: Pulses equal, no cyanosis. Neurovascular intact. Full, normal range of motion. Neuro: Awake and alert, GCS 15, oriented to person, place, time, and situation. 17:16 Constitutional: The patient appears uncomfortable. 17:16 Abdomen/GI: Inspection: abdomen appears normal, Bowel sounds: normal, in all quadrants, Palpation: soft, in all quadrants, moderate abdominal tenderness, in the right lower quadrant, Indicators: McBurney's point is tender, Nam's sign is negative, Rovsing's sign is negative, Obturator sign is negative, Psoas sign is negative. Vital Signs: 15:51 BP 121 / 84; Pulse 85; Resp 17; Temp 98.3(TE); Pulse Ox 95% on R/A; Weight 73.94 kg tw2 (R); Height 5 ft. 2 in. (157.48 cm); Pain 10/10; 17:09 BP 94 / 49; Pulse 68; Resp 17; Pulse Ox 98% on R/A; ca1 18:00 BP 98 / 66; Pulse 73; Resp 17 S; Pulse Ox 98% on R/A; ca1 15:51 Body Mass Index 29.81 (73.94 kg, 157.48 cm) tw2 15:51 and i am on a fentanyl patch as well and i am still hurting tw2 MDM: 16:12 Patient medically screened. la1 17:51 Data reviewed: vital signs, nurses notes, lab test result(s), radiologic studies, I la1 have discussed the patient's presentation/case with the attending Emergency Department Physician; and as a result, I will discharge patient. Data interpreted: Pulse oximetry: on room air is 98 %. Interpretation: normal. Counseling: I had a detailed discussion with the patient and/or guardian regarding: the historical points, exam findings, and any diagnostic results supporting the discharge/admit diagnosis, lab results, radiology results, the need for outpatient follow up, a infertility medical assistant, to return to the emergency department if symptoms worsen or persist or if there are any questions or concerns that arise at home. Medication response: morphine markedly relieved the patient's pain. Symptoms have improved. Response to treatment: the patient's symptoms have markedly improved after treatment, and as a result, I will discharge patient. Special discussion: Based on the history and exam findings, there is no indication for further emergent testing or inpatient evaluation. I discussed with the patient/guardian the need to see the infertility medical assistant for further evaluation of the symptoms. ED course: CT negative for any acute findings, discussed stool retention and need for FU with GI, pt verbalizes understanding, feeling better at this time. Will get OTC stool softeners. Strict return precautions given. 04/23 16:10 Order name: Basic Metabolic Panel; Complete Time: 17:04 ca1 04/23 16:10 Order name: CBC with Diff; Complete Time: 17:04 ca1 04/23 16:10 Order name: Creatinine for Radiology; Complete Time: 17:04 ca1 04/23 16:10 Order name: Hepatic Function; Complete Time: 17:04 ca1 04/23 16:10 Order name: Lipase; Complete Time: 17:04 ca1 04/23 17:55 Order name: Urine Dipstick--Ancillary (enter results) bd 04/23 16:10 Order name: IV Saline Lock; Complete Time: 16:11 ca1 04/23 16:10 Order name: Labs collected and sent; Complete Time: 16:11 ca1 04/23 16:51 Order name: CT Abd/Pelvis - IV Contrast Only; Complete Time: 17:44 la1 04/23 17:55 Order name: Urine --Ancillary (enter results) bd 04/23 17:16 Order name: Urine Dipstick-Ancillary (obtain specimen); Complete Time: 17:48 la1 Administered Medications: 16:25 Drug: NS 0.9% 1000 ml Route: IV; Rate: 1000 ml; Site: right upper arm; ca1 17:25 Follow up: Response: No adverse reaction; IV Status: Completed infusion; IV Intake: ca1 1000ml 16:26 Drug: Zofran 4 mg Route: IVP; Site: right upper arm; ca1 17:25 Follow up: Response: No adverse reaction; Nausea is decreased ca1 16:31 Drug: morphine 4 mg {Note: RASS - 0.} Route: IVP; Site: right upper arm; ca1 17:24 Follow up: Response: No adverse reaction; Pain is unchanged, physician notified; RASS: ca1 Alert and Calm (0) 17:24 Drug: fentaNYL (PF) 50 mcg {Note: RASS - 0.} Route: IVP; Site: right upper arm; ca1 18:07 Follow up: Response: No adverse reaction; Pain is decreased; RASS: Alert and Calm (0) ca1 Disposition: 04/24 08:50 Co-signature as Attending Physician, Yanick Barker MD I agree with the assessment and emily plan of care. Disposition: 04/23/19 17:55 Discharged to Home. Impression: Abdominal and pelvic pain. - Condition is Stable. - Discharge Instructions: Abdominal Pain, Adult, Constipation, Adult, Abdominal Pain, Adult, [id number]. - Prescriptions for Bentyl 20 mg Oral Tablet - take 1 tablet by ORAL route every 6 hours As needed; 20 tablet. - Medication Reconciliation Form, Thank You Letter, Antibiotic Education, Work release form form. - Follow up: Private Physician; When: 2 - 3 days; Reason: Recheck today's complaints, Re-evaluation by your physician. Follow up: Emergency Department; When: As needed; Reason: Worsening of condition. - Problem is new. - Symptoms have improved. Signatures: Dispatcher [employer] Yanick Sotuh MD MD cha Williams, Irene, RN RN iw Rob Etienne, FACE BOSS-C FACE BOSS-Cla1 Estela Alfonso RN RN tw2 Misty Tucker RN RN ca1 Corrections: (The following items were deleted from the chart) 04/23 18:27 17:55 04/23/2019 17:55 Discharged to Home. Impression: Abdominal and pelvic pain. ca1 Condition is Stable. Forms are Medication Reconciliation Form, Thank You Letter, Antibiotic Education, Prescription Opioid Use. Follow up: Private Physician; When: 2 - 3 days; Reason: Recheck today's complaints, Re-evaluation by your physician. Follow up: Emergency Department; When: As needed; Reason: Worsening of condition. Problem is new. Symptoms have improved. la1
[2019-04-23 18:32] VITALS: TEMP 98.3
[2019-04-23 18:34] VITALS: BP 98/66; O2SAT 98
[2019-04-23 20:13] LABS: Urine Blood NEGATIVE (NEG); Urine Glucose NEGATIVE (NEG); Urine Protein NEGATIVE (NEG); Urine Specific Gravity 1.015 (1.005-1.030); Urine pH 8.5 (5.0-7.0)
== END 2019-04-23 18:27 | disposition home or self-care (01) ==
LOC: ER 15:41
DX: R10.2 Pelvic and perineal pain (principal); Z88.8 Allergy status to other drugs, medicaments and biological substances
CPT/HCPCS: 96361; 85025; 80048; 36415; 81025; 80076; 81003; 83690; 74177; 96375; 96374; 99284; Q9967; J3010; J7030; J2405

== ENCOUNTER 2020-01-20 14:18 | Emergency (ER) | payer BC ==
--- OUTSIDE RECORDS SUMMARY | 2020-01-20 14:20 | XMS REPORT | Clinical Summary ---
:1980 Author Organization [facility] Address [address] [place] [address] Care Team Providers Name Role Phone Paul Pérez MD Primary Care Provider Allergies Active Allergy Reactions Severity Noted Date Comments Gabapentin Other (See Comments) 10/09/2015 Spasms seizures Medications Medication Sig Dispensed Refills Start Date End Date Status ondansetron (ZOFRAN) 8 Take 8 mg by 0 Active MG tablet mouth every 8 (eight) hours as needed for nausea or vomiting. topiramate (TOPAMAX) 100 Take 100 mg by 0 Active MG tablet mouth 2 (two) times a day. tiZANidine (ZANAFLEX) 2 Take 2 mg by 0 Active MG tablet mouth every 6 (six) hours as needed for muscle spasms. 6 mg promethazine (PHENERGAN) Take 25 mg by 0 Active 25 MG tablet mouth every 8 (eight) hours as needed for nausea or vomiting. estrogens, conjugated, Take 1.25 mg by 0 Active (PREMARIN) 1.25 MG mouth daily. tablet METHOTREXATE, PF, SUBQ Inject 25 mg 0 Active under the skin once a week. Every Tuesday. on hold per patient for 2 weeks because she's taking antibiotics. folic acid (FOLVITE) 1 Take 1 mg by 0 Active MG tablet mouth daily. fentaNYL (DURAGESIC) Place 1 patch on 0 Active the skin every other day. Fentanyl patch12.5 ALPRAZolam (XANAX) 2 MG Take 2 mg by 0 Active tablet mouth daily. FLUoxetine (PROzac) 20 Take 20 mg by 0 Active MG capsule mouth daily. SUMAtriptan succinate 0 02/16/2016 Active (IMITREX) 6 mg/0.5 mL solution ENBREL SURECLICK 50 0 03/26/2016 Active mg/mL (0.98 mL) pen injector fludrocortisone 0.1 mg Take 0.1 mg by 0 Active tablet mouth daily. Active Problems Problem Noted Date Pilonidal cyst 05/16/2016 Rheumatoid arthritis 05/16/2016 Orthostatic hypotension 05/16/2016 Chest pain 05/15/2016 Bradycardia 10/09/2015 Reflex sympathetic dystrophy 10/09/2015 Fibromyalgia 10/09/2015 Encounters Date Type Specialty Care Team Description 11/28/2019 Hospital Encounter Radiology Augustus Cotto MD Gen eralized contraction of visual field, u nspecified eye 11/28/2019 Travel 11/26/2019 Travel 11/19/2019 Travel 11/14/2019 Travel 11/02/2019 Transcribe Orders Access Augustus Cotto MD Gene ralized contraction of visual field, u nspecified eye (Primary Dx ) after 01/19/2019 Immunizations Name Administration Dates Next Due FLUZONE QUAD PF 05/07/2016 Influenza Trivalent 05/14/2014 Tdap 05/07/2016 Surgical History Surgery Date Site/Laterality Comments CARPAL TUNNEL RELEASE CHOLECYSTECTOMY ECTOPIC SURGERY SPINE SURGERY for leaking spin al fluid TX TILT TABLE EVALUATION 10/14/2015 N/A Procedu re: Ep tilt table test; Surgeon: Bob Casey MD; Location: [facility]; Servi ce: Cardiovascular PROCTOSCOPY, DIAGNOSTIC 05/17/2016 Anus/N/A Procedur e: Incision and Draingae of Pilonidal Cys t ; Surgeon: Ermelinda Larose MD ; Location: [facility]; Servic e: General; Laterality: N/A; Medical History Medical History Date Comments Arthritis, rheumatoid (HCC) Reflex sympathetic dystrophy Migraine Fibromyalgia H/O: hysterectomy Carpal tunnel syndrome, bilateral with s urgery on both hands Complex regional pain syndrome stage 4 Bradycardia Colitis Bladder infection Social History Tobacco Use Types Packs/Day Years Used Date Current Every Day Smoker Cigarettes 0.5 10 Smokeless Tobacco: Never Used Tobacco Cessation: Ready to Quit: No; Co unseling Given: Yes Alcohol Use Drinks/Week oz/Week Comments No Sex Assigned at Date Recorded Not on file Last Filed Vital Signs Not on file Plan of Treatment Health Maintenance Due Date Last Done Comments CERVICAL CANCER SCREENING 05/17/2019 05/17/2016 INFLUENZA VACCINE 10/27/2019 05/07/2016, 05/14/2014 Procedures Procedure Name Priority Date/Time Associated Diagnosis Comme nts MRI BRAIN W WO Routine 11/28/2019 2:26 PM Generalized Result s for this CONTRAST CDT contraction of procedure are in visual field, the results unspecified eye section. after 01/19/2019 Results MRI Brain W Wo Contrast (11/28/2019 2:26 PM CDT) Specimen Narrative Performed At This result has an attachment that is no t available. EXAMINATION: MRI BRAIN W WO CONTRAST HM [facility] COMPARISON: June 29, 2015 CLINICAL HISTORY H53.489 Generalized con traction of visual field unspecified eye, Generalized contraction of visual field unspecified eye. TECHNIQUE: Multiplanar multisequence exa mination was performed with and without contrast FINDINGS: There is no significant diffusion restriction to sugge st acute. The ventricular system and subarachnoid spaces are normal for the patient's age. Tiny T2 signal hyperintensities are seen in the deep white matter appears stable. Previously noted areas of high T1 signal consistent with fat in the frontal horns have significantly regressed with only minimal residual fat signal in the area of the right frontal horn. There is no abnormal enhancing lesion wi thin the brain parenchyma or the leptomeninges. The orbits demonstrate no evidence of ma ss or exophthalmos. The globes, extraocular muscles, and optic nerves are unremarkable. Is no pituitary mass or compression of the optic chias m There are no interval changes since of the brain since 2016 IMPRESSION: No significant orbital or brain lesion. Previously noted fat droplets in the fro ntal horns are near completely resolved. No evidence of compression of the optic chiasm [facility]-[id number] Procedure Note Hm Interface, Radiology Results Incoming - 11/28/2019 2:38 PM CDT EXAMINATION: MRI BRAIN W WO CONTRAST COMPARISON: June 29, 2015 CLINICAL HISTORY H53.489 Generalized con traction of visual field unspecified eye, Generalized contraction of visual field unspecified eye. TECHNIQUE: Multiplanar multisequence exa mination was performed with and without contrast FINDINGS: There is no significant diffusion restri ction to suggest acute. The ventricular system and subarachnoid spaces are normal for the patient's age. Tiny T2 signal hyperintensities are seen in the deep white matter appears stable. Previously noted areas of high T1 signal consistent with fat in the frontal horns have significantly regressed with only minimal residual fat signal in the area of the right frontal horn. There is no abnormal enhancing lesion wi thin the brain parenchyma or the leptomeninges. The orbits demonstrate no evidence of ma ss or exophthalmos. The globes, extraocular muscles, and optic nerves are unremarkable. Is no pituitary mass or compression of t he optic chiasm There are no interval changes since of t he brain since 2016 IMPRESSION: No significant orbital or brain lesion. Previously noted fat droplets in the fro ntal horns are near completely resolved. No evidence of compression of the optic chiasm [facility]-[id number] Performing Organization Address City/State/ZIP Code [facility] [address] [place] [address] after 01/19/2019 Advance Directives For more information, please contact: [phone] Type Date Recorded Patient Director Of Retention Explanati on Advance Directives, Living Will and Medical Power of City Planning Engineer Code Status Date Activated Date Inactivated Comments Full Code 05/16/2016 12:37 AM 05/18/2016 9:12 PM Code Status decision reached by: Patient Full Code 10/09/2015 9:00 PM 10/17/2015 4:40 PM Code Status decision reached by: Patient
--- OUTSIDE RECORDS SUMMARY | 2020-01-20 14:20 | XMS REPORT ---
:1980 Author Organization [employer] Care Team Providers Name Role Phone Roberta Pratt Provider Role Unavailable Allergies, Adverse Reactions, Alerts Substance Reaction Event Type Gabapentin leg cramps Drug Allergy Problems Problem Type Condition Code Onset Dates Condition Statu s Problem Spasm of muscle M62.838 Active Problem Drug or medicinal substance T50.905A Active causing adverse effect in therapeutic use Problem Nausea without vomiting R11.0 Acti ve Problem Rash and nonspecific skin eruption R21 Active Assessment Transaminitis R74.0 Active Problem Vitamin B12 deficiency E53.8 Activ e Assessment Nausea without vomiting R11.0 Acti ve Assessment Vitamin B12 deficiency E53.8 Activ e Problem Psoriatic arthritis L40.50 Active Problem Fatigue R53.83 Active Problem Edema R60.9 Active Problem Transaminitis R74.0 Active Problem Vitamin D deficiency E55.9 Active Assessment Inflammatory 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 Active Assessment Other specified counseling Z71.89 A ctive Assessment Psoriatic arthritis L40.50 Active Problem Other malaise R53.81 Active Problem Myalgia M79.1 Active Assessment Insomnia G47.00 Active Problem Encounter for long-term (current) Z79.899 Active use of other medications Problem Inflammatory 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 Active Assessment Encounter for long-term (current) Z79.899 Active use of other medications Problem Insomnia G47.00 Active Problem Reflex sympathetic dystrophy of G90.59 Active other specified site Medications Medication Code Code Instructions Start End Status Dosage System Date Date Syringe NDC 70730308109 25G X 5/8 SQ May Active injecti on as once a week , directed with 2017 methotrexate Methotrexate Sodium [facility] [address]-5 25 MG/ML Active 0.8 cc 1 Injection once a week Needle (Disp) NDC 0 27G X 3/8 July Active as direc bell subcutaneously 11, once a week 2016 Methotrexate BD Luer-Fabian Syringe ND 03791885590 25G X 5/8" 3 ML Active USE DIRECTED ONCE A WEEK Hydroxychloroquine ND 38657589453 200 MG Active T VIVIAN 1 TABLET Sulfate BY MOUTH TWICE DAILY Humira Pen [facility] 01494894528 40 MG/0.8ML Active INJEC T ONE PEN (40 MG) SUBCUTANEOUSLY EVERY WEEK. REFRIGERATE. Premarin [facility] 64965675294 1.25 MG Orally Active 1 ta blet Once a day Dexilant [facility] 67858194240 60 MG Orally Active 1 caps ule Once a day Methotrexate Sodium [facility] 99329480647 25MG/ML Active INJECT 0.8CC EVERY WEEK Lamictal [facility] [address]-0 Orally three Active 1 ta blet 0 times a day Cimzia [facility] 91920774263 2 X 200 MG Active as direct ed Subcutaneous every 2 weeks Aimovig [facility] 81575541547 70 MG/ML Active 1 capsule Subcutaneous once a month Folic Acid [facility] 68772296700 1 MG orally Active TAKE 1 TABLET daily BY MOUTH EVERY DAY Sumatriptan [facility] 32639130697 4 MG/0.5ML Active as di rected Succinate Subcutaneous twice a day (bid) as needed (prn) Fluoxetine HCl [facility] 11869532198 40 MG Orally Active 1 capsule in Once a day the morning Fludrocortisone [facility] 11459286869 0.1 MG Orally Active 1 tablet Acetate Adderall [facility] 21290085136 15 MG Orally Active 1 tabl et Once a day as needed Fentanyl [facility] 37961778790 100 MCG/HR Active 1 patch to Transdermal skin every 48 hrs Methotrexate Sodium [facility] 62174705290 50 MG/2ML Active as directed Injection once a week Furosemide ND 15171151919 20 mg Orally Active 1 ta blet Once a day as directed Reglan [facility] 43347010956 10 MG Orally Active not def ined four times a day Topamax [facility] 64487012649 300 mg Orally Active 1 tabl et Once a day Xanax XR ND 91981927145 2 MG Orally Active 1 table t Once a day Results No Known Results Summary Purpose [employer] Submission
--- OUTSIDE RECORDS SUMMARY | 2020-01-20 14:20 | XMS REPORT | Continuity of Care Document ---
:1980 Author Organization [employer] Care Team Providers Name Role Phone Entrenarme Unavailable Un available Problems Problem Status Onset Classification Date Comments Sourc e Date Reported Inflammatory Active Problem 01/10/2020 [facility] poly[facility]ropathy [facility] Spasm of muscle Active Problem 01/10/2020 [facility] [place] Reflex sympathetic Active Problem 01/10/2020 [facility] dystrophy of other o f [place] specified site Transaminitis Active Problem 01/10/2020 [facility] [place] Vitamin D Active Problem 01/10/2020 [facility] deficiency of [place] Vitamin B12 Active Problem 01/10/2020 [facility] deficiency of [place] Drug or medicinal Active Problem 01/10/2020 [facility] substance causing of [place] adverse effect in therapeutic use Nausea without Active Problem 01/10/2020 [facility] vomiting of [place] Fatigue Active Problem 01/10/2020 [facility] [place] Edema Active Problem 01/10/2020 [facility] [place] Encounter for Active Diagnosis 01/10/2020 [facility] long-term (current) of [place] use of other medications Insomnia Active Diagnosis 01/10/2020 [facility] [place] Other malaise Active Problem 01/10/2020 [facility] [place] Myalgia Active Problem 01/10/2020 [facility] [place] Rash and Active Problem 01/10/2020 [facility] nonspecific skin of [place] eruption Psoriatic arthritis Active Problem 01/10/2020 [facility] [place] Other specified Active Diagnosis 01/10/2020 [facility] counseling [facility] [place] Rash Active Diagnosis 01/10/2020 [facility] [place] Medications Medication Details Route Status Patient Ordering Order Source Instructions Provider Date Cimzia Starter 2 ml Subcutaneou Active 6 X 200 MG/ML Vo 09/17/ Rheum Kit s Subcutaneous 2019 Ctr of day 0 day 14 [place] and day 28 Cimzia Prefilled 1 ml Subcutaneou Active 2 X 200 MG/ML Vo 09/17 / Rheum s Subcutaneous 2019 Ctr of every 2 weeks [place] Simponi 50 mg Subcutaneou Active 50 MG/0.5ML Vo 09/11/ Rheum s Subcutaneous 2019 Ctr of once a month [place] Kineret 0.67 ml Subcutaneou Active 100 MG/0.67ML Vo 08/01/ Rheum s Subcutaneous 2019 Ctr of once a day [place] Tizanidine HCl 1 tablet as Orally Active 4 MG Orally up Vo 04/18/ Rheum needed to three times 2019 Ctr of a day as needed [place] Folic Acid 1 tablet Orally Active 1 MG Orally Vo 04/18/ Rheum Once a day 2019 [facility] [place] Orencia ClickJect 1 ml Subcutaneou Active 125 MG/ML Vo 12/08/ Rheum s Subcutaneous 2018 Ctr of once a week [place] Tizanidine HCl 1 tablet as Orally Active 4 MG Orally Vo 12/04/ R heum needed Three times a 2018 Ctr of day [place] Phenergan 1 ml as Injection Active 25 MG/ML Vo 11/17/ Rheum needed Injection every 2018 Ctr of 6 hrs [place] Folic Acid 1 tablet Orally Active 1 MG Orally Vo 11/17/ Rheum Once a day 2018 [facility] [place] Tizanidine HCl 1 tablet as Orally Active 4 MG Orally Vo 07/05/ R heum needed four times a 2018 Ctr of day [place] Syringe injection as SQ Active 25G X 5/8 SQ Vo 06/21/ Rheum directed once a week 2017 Ctr of with [place] methotrexate Needle (Disp) as directed subcutaneou Active 27G X 3/8 Vo 08/05/ Rheum sly subcutaneously 2016 Ctr of once a week [place] Methotrexate Needle (Disp) as directed subcutaneou Active 27G X 3/8 Vo 06/10/ Rheum sly subcutaneously 2016 Ctr of once a week [place] with Methotrexate Humira Pen 40 mg Subcutaneou Active 40 MG/0.4ML Vo Rheum s Subcutaneous Ctr of once a week [place] Premarin 1 tablet Orally Active 1.25 MG Orally Vo Rheum Once a day [facility] [place] Sumatriptan as directed Subcutaneou Active 4 MG/0.5ML Vo R heum Succinate s Subcutaneous Ctr of twice a day [place] (bid) as needed (prn) Fluoxetine HCl 1 capsule in Orally Active 40 MG Orally Vo Rheum the morning Once a day [facility] [place] Methotrexate 0.8 cc Injection Active 25 MG/ML Vo Rheum Sodium Injection once Ctr of a week [place] Aimovig not defined NA Active Vo [facility] [place] Dexilant 1 capsule Orally Active 60 MG Orally Vo Rheum Once a day [facility] [place] Promethazine HCl TAKE 1 TABLET NA Active 25 MG Vo R heum BY MOUTH Ctr of EVERY 8 HOURS [place] NEEDED Topamax 1 tablet Orally Active 300 mg Orally Vo Rheum Once a day [facility] [place] Xanax XR 1 tablet Orally Active 2 MG Orally Vo Rheum Once a day [facility] [place] Reglan not defined Orally Active 10 MG Orally Vo Rheum four times a Ctr of day [place] Lamictal 1 tablet Orally Active Orally three Vo Rheum times a day [facility]tr of [place] Fludrocortisone 1 tablet Orally Active 0.1 MG Orally Vo R [facility]um Acetate [facility] [place] Adderall 1 tablet Orally Active 15 MG Orally Vo Rheum Once a day as Ctr of needed [place] Methotrexate INJECT 0.8CC NA Active 25MG/ML Vo Rheum Sodium EVERY WEEK [facility] of [place] Cyanocobalamin not defined NA Active Vo [facility] [place] Fentanyl 1 patch to Transdermal Active 75 MCG/HR Vo Rhe[facility] skin Transdermal Ctr of every 48 hrs [place] Furosemide 1 tablet Orally Active 20 mg Orally Vo Rheum Once a day as Ctr of directed [place] Humira Pen INJECT ONE NA Active 40 MG/0.8ML Vo Rheum PEN (40 MG) Ctr of SUBCUTANEOUSL [place] Y EVERY WEEK. REFRIGERATE. Folic Acid TAKE 1 TABLET NA Active 1 MG Vo Rheum BY MOUTH Ctr of EVERY DAY [place] Cimzia as directed Subcutaneou Active 2 X 200 MG Vo Rheum s Subcutaneous Ctr of every 2 weeks [place] Cyanocobalamin INJECT 2 ML NA Active 1000 MCG/ML Vo R heum INTRAMUSCULAR Ctr of LY EVERY WEEK [place] BD Luer-Fabian USE NA Active 25G X 5/8" 3 ML Vo Rheu m Syringe DIRECTED ONCE Ctr of A WEEK [place] BD Luer-Fabian USE TO INJECT NA Active 25G X 1" 3 ML Vo Rheum Syringe B-12 WEEKLY Ctr of [place] Hydroxychloroquin 1 tablet orally Active 200 MG orally Vo Rheum e Sulfate twice a day Ctr of (bid) [place] Aimovig 1 capsule Subcutaneou Active 70 MG/ML Vo Rheum s Subcutaneous Ctr of once a month [place] Fentanyl 1 patch to Transdermal Active 100 MCG/HR Vo Rheum skin Transdermal Ctr of every 48 hrs [place] Hydroxychloroquin TAKE 1 TABLET NA Active 200 MG Vo Rheum e Sulfate BY MOUTH Ctr of TWICE DAILY [place] Allergies, Adverse Reactions, Alerts Substance Category Reaction Severity Reaction Status Date Comments S ource type Reported Gabapentin Adverse leg cramps Adverse Active Rheum Reaction Reaction 0 [facility] [place] Immunizations No Data Provided for This Section Results No Data Provided for This Section Pathology Reports No Data Provided for This Section Diagnostic Reports No Data Provided for This Section Consultation Notes No Data Provided for This Section Discharge Summaries No Data Provided for This Section History and Physicals No Data Provided for This Section Vital Signs Vital Sign Value Date Comments Source Weight 158.2 12/07/2018 [facility] Height 64 12/07/2018 [facility] Heart Rate 61 12/07/2018 [facility] Diastolic (mm Hg) 71 12/07/2018 [facility] [place] Systolic (mm Hg) 123 12/07/2018 [facility] o f [place] Weight 166.8 07/20/2018 [facility] Height 64 07/20/2018 [facility] Heart Rate 64 07/20/2018 [facility] Diastolic (mm Hg) 76 07/20/2018 [facility] [place] Systolic (mm Hg) 112 07/20/2018 [facility] o [facility] [place] Encounters No Data Provided for This Section Procedures No Data Provided for This Section Assessment and Plan No Data Provided for This Section Plan of Care No Data Provided for This Section Social History No Data Provided for This Section Family History No Data Provided for This Section Advance Directives No Data Provided for This Section Functional Status No Data Provided for This Section
--- OUTSIDE RECORDS SUMMARY | 2020-01-20 14:20 | XMS REPORT ---
[...] and nonspecific skin eruption R21 Active Assessment Nausea without vomiting R11.0 Acti ve Problem Vitamin B12 deficiency E53.8 Activ e Assessment Vitamin B12 deficiency E53.8 Activ e Assessment Encounter for long-term (current) Z79.899 Active use of other medications Problem Psoriatic arthritis L40.50 Active Problem Fatigue R53.83 Active Problem Edema R60.9 Active Problem Transaminitis R74.0 Active Problem Vitamin D deficiency E55.9 Active Assessment Psoriatic arthritis L40.50 Active Assessment Other specified counseling Z71.89 A ctive Assessment Rash R21 Active Problem Other malaise R53.81 Active Problem Myalgia M79.1 Active Problem Encounter for long-term (current) Z79.899 Active use of other medications Problem Inflammatory 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 Active Assessment Insomnia G47.00 Active Problem Insomnia G47.00 Active Problem Reflex sympathetic dystrophy of G90.59 Active other specified site Medications Medication Code Code Instructions Start End Status Dosage System Date Date Needle (Disp) NDC 0 27G X 06/02 Active as direc bell subcutaneously 11, once a week 2016 Methotrexate Cimzia ND 61438243260 2 X 200 MG Inactive as direc bell Subcutaneous every 2 weeks Cyanocobalamin ND 07591656277 1000 MCG/ML Active I NJECT 2 ML INTRAMUSCULAR LY EVERY WEEK Topamax ND 87751773877 300 mg Orally Active 1 tabl et Once a day Sumatriptan ND 70530002683 4 MG/0.5ML Active as di rected Succinate Subcutaneous twice a day (bid) as needed ([place]) [place] [address]-5 Orally three Active 1 ta blet 0 times a day Premarin ND 01448022879 1.25 MG Orally Active 1 ta blet Once a day Xanax XR ND 22774924567 2 MG Orally Active 1 table t Once a day Methotrexate [facility] [address]-4 25 MG/ML Active 0.8 c c Sodium 1 Injection once a week BD Luer-Fabian [facility] 24553130235 25G X 5/8" 3 ML Active USE Syringe DIRECTED ONCE A WEEK BD Luer-Fabian [facility] 49790520865 25G X 1" 3 ML Active US E TO INJECT Syringe B-12 WEEKLY Hydroxychloroquine [facility] 29133657702 200 MG orally Act mickey 1 tablet Sulfate twice a day (bid) Furosemide [facility] 63314661372 20 mg Orally Active 1 ta blet Once a day as directed Aimovig [facility] 69581226964 70 MG/ML Active 1 capsule Subcutaneous once a month Fentanyl [facility] 57001543999 100 MCG/HR Active 1 patch to Transdermal skin every 48 hrs Fluoxetine HCl [facility] 37670181662 40 MG Orally Active 1 capsule in Once a day the morning Folic Acid [facility] 33543181571 1 MG Active TAKE 1 TA BLET BY MOUTH EVERY DAY Results No Known Results Summary Purpose [employer] Submission
--- OUTSIDE RECORDS SUMMARY | 2020-01-20 14:20 | XMS REPORT ---
:1980 Author Organization [employer] Care Team Providers Name Role Phone Roberta Pratt Provider Role Unavailable Allergies No Known Allergies Problems Problem Type Condition Code Onset Dates Condition Statu s Problem Spasm of muscle M62.838 Active Problem Drug or medicinal substance T50.905A Active causing adverse effect in therapeutic use Problem Nausea without vomiting R11.0 Acti ve Problem Rash and nonspecific skin eruption R21 Active Problem Vitamin B12 deficiency E53.8 Activ e Problem Psoriatic arthritis L40.50 Active Problem Fatigue R53.83 Active Problem Edema R60.9 Active Problem Transaminitis R74.0 Active Problem Vitamin D deficiency E55.9 Active Problem Other malaise R53.81 Active Problem Myalgia M79.1 Active Problem Encounter for long-term (current) Z79.899 Active use of other medications Problem Inflammatory 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
--- OUTSIDE RECORDS SUMMARY | 2020-01-20 14:21 | XMS REPORT | Summary of Care ---
:1980 Author Organization [facility] Address [address] [place] [address] Care Team Providers Name Role Phone MD Arya Primary Care Provider Reason for Referral Radiology Services (Routine) Status Reason Specialty Diagnoses / Referred By Referred To Procedures Contact Contact New Request Diagnostic Diagnoses Encounter for mammogram to establish baseline mammogram Family history of breast cancer Ekaterina Banks, Radiology Procedures BI SCREENING MAMMOGRAM BILATERAL [address] [place] [address] DrSophie [address] [place] [address] Reason for Visit Reason Comments Well Woman Exam Encounter Details Date Type Department Care Team Description 10/29/2019 Office Visit [facility] Ekaterina Banks MD Encounter for well woman exam with emiliano cooley gynecological exam (Primary Dx); [facility]- [address] Encounter for mammogram to e stablish baseline mammogram; [address] [place] [address] Family history of breast cancer; Drive, [address] Postmenopausal atrophic vaginitis; [place], [place] Surgical menopa use; [id number] Fungal infection of skin [phone] Allergies Active Allergy Reactions Severity Noted Date Comments Gabapentin Other - See comments 10/18/2014 documented as of this encounter (statuses as of 10/29/2019) Medications Medication Sig Dispensed Refills Start End Date Status Date tiZANidine Take 12 mg by 0 Activ e (ZANAFLEX) 4 mg mouth. capsule foLIC acid (FOLATE) Take 1 mg by 0 Active 1 mg tablet mouth. methotrexate 15 mg 0.8 mg. 0 A ctive tablet proMETHazine 25 mg Take 1 tablet 50 tablet 1 Active tablet by mouth 7 every 4 (four) hours as needed for Nausea and Vomiting (N/V). sumatriptan 100 mg Take 4 mg by 0 Active tablet mouth. fludrocortisone 0.1 Take 0.1 mg 0 Active mg tablet by mouth. HUMIRA PEN 40 mg/0.8 0 Active mL 8 injectionIndications : once weekly mupirocin 2 % Apply to 22 g 0 Active ointmentIndications: area(s) 3 8 Rash (three) times daily. methocarbamol 500 mg 0 Active tablet 8 TROKENDI XR 200 mg 0 A ctive Cp24 8 nystatin 100,000 Take 3 mL by 60 mL 0 Active unit/mL mouth 4 9 suspensionIndication (four) times s: Thrush daily. Scrub around mouth Aprepitant 125 mg 0 Ac tive (1)- 80 mg (2) CpPk 9 AIMOVIG AUTOINJECTOR 0 Active 140 mg/mL AtIn 9 ALPRAZolam 0.5 mg Take 1 tablet 30 tablet 1 Active tabletIndications: by mouth 3 0 Anxiety (three) times daily as needed (anxiety). PREMARIN 1.25 mg TAKE 1 TABLET 90 tablet 0 Active tablet BY MOUTH 0 EVERY DAY FLUOXETINE 20 mg TAKE 1 30 capsule 4 Ac tive capsuleIndications: CAPSULE BY 0 Anxiety MOUTH EVERY DAY ALPRAZOLAM 2 mg 24 TAKE 1 TABLET 30 tablet 4 Active hr BY MOUTH 0 tabletIndications: EVERY MORNING Anxiety methotrexate 25 0 Acti ve mg/mL injection 0 CIMZIA STARTER KIT 0 A ctive 400 mg/2 mL (200 0 mg/mL x 2) SyKt FENTanyl 100 mcg/hr 0 Active patch 0 cyanocobalamin 1,000 0 Active mcg/mL injection 0 lamoTRIgine 150 mg 0 A ctive tablet 0 Estradiol (VAGIFEM) Insert 1 14 tablet 0 Active 10 mcg tablet into 0 tabletIndications: vagina at Postmenopausal bedtime. atrophic vaginitis, Surgical menopause Estradiol (VAGIFEM) Insert 1 30 tablet 6 Active 10 mcg tablet into 0 tabletIndications: vagina every Postmenopausal 2 (two) days. atrophic vaginitis, Surgical menopause nystatin 100,000 Apply to 15 g 1 Act mickey unit/gram area(s) 2 0 powderIndications: (two) times Fungal infection of daily. Use skin for 2 weeks FENTanyl 75 mcg/hr Apply 1 Patch 0 0 Discontinued patch to skin every 20 (Dose 48 adjustment ) (forty-eight) hours. documented as of this encounter (statuses as of 10/29/2019) Active Problems Problem Noted Date Surgical menopause 10/29/2019 Postmenopausal atrophic vaginitis 10/29/2019 Family history of breast cancer 10/29/2019 Chronic migraine without aura without status migrainos us, not intractable 01/26/2017 Obesity (BMI 30-39.9) 10/03/2016 Anxiety 12/17/2015 Abdominal pain in female patient 05/31/2015 Rheumatoid arthritis 12/25/2014 Fibromyalgia 12/25/2014 Pseudomembranous colitis 12/24/2014 Vomiting 10/18/2014 documented as of this encounter (statuses as of 10/29/2019) Immunizations Name Administration Dates Next Due Influenza Virus Vaccine Quad IM 3+ YRS 12/22/2017 documented as of this encounter Social History Tobacco Use Types Packs/Day Years Used Date Current Every Day Smoker Cigarettes 8 Smokeless Tobacco: Never Used Comments: 3-4 cigarettes daily Alcohol Use Drinks/Week oz/Week Comments Yes rare Sex Assigned at Date Recorded Not on file COVID-19 Exposure Response Date Recorded In the last month, have you been in contact with No / Unsure 10/29/2019 1:21 PM CDT someone who was confirmed or suspected to have Coronavirus / COVID-19? documented as of this encounter Last Filed Vital Signs Vital Sign Reading Time Taken Comments Blood Pressure 117/75 10/29/2019 1:34 PM CDT Pulse 63 10/29/2019 1:34 PM CDT Temperature 36.8 C (98.3 F) 10/29/2019 1:34 PM CDT Respiratory Rate 18 10/29/2019 1:34 PM CDT Oxygen Saturation - - Inhaled Oxygen Concentration - - Weight 75.3 kg (166 lb) 10/29/2019 1:34 PM CDT Height 157.5 cm (5' 2") 10/29/2019 1:34 PM CDT Body Mass Index 30.36 10/29/2019 1:34 PM CDT documented in this encounter Patient Instructions Patient InstructionsNaya Lo MA - 10/29/2019 1:15 PM CDT Patient Education Prevention Guidelines,Women Ages 18 to 39 Screening tests and vaccines are an important part of managing your health. A screening test is doneto find possible disorders or diseases in people who don't have any symptoms. The goal is to find a disease early so lifestyle changes can be made and you can be watched more closely to reduce the riskof disease, or to detect it early enough to treat it most effectively. Screening tests are not considered diagnostic, but are used to determine if more testing is needed. Health counseling is essential, too. Below are guidelines for these, for women ages 18 to 39. Talk with your healthcare provider tomake sure youre up-to-date on what you need. Screening Who needs it How often Alcohol misuse All women in this age group At routine exams Blood pressure All women in this age group Yearly checkup if your blood pressure is normal Normal blood pressure is less than 120/80 mm Hg If your blood pressure reading is higher than normal, follow the advice of your healthcare provider Breast cancer All women in this age group should talk with their healthcare providers about the needfor clinical breast exams (CBE)1 Clinical breast exam every 3 years1 Cervical cancer Women ages 21 and older Women between ages 21 and 29 should have a Pap test every 3 years; women between ages 30 and 65 are advised to have a Pap test plus an HPV test every 5 years Chlamydia Sexually active women ages 25 and younger, and women at increased risk for infection (suchas having multiple sex partners) Every year if you're at risk or have symptoms Depression All women in this age group At routine exams Type 2 diabetes, prediabetes All women with no symptoms who are overweight or obese and have 1 or more other risk factors for diabetes At least every 3 years. Also, testing for diabetes during after the 24th week. Type 2 diabetes, prediabetes All women diagnosed with gestational diabetes Lifelong testing every 3 years Type 2 diabetes All women with prediabetes Every year Gonorrhea Sexually active women at increased risk for infection At routine exams Hepatitis C Anyone at increased risk At routine exams HIV All women should be tested at least once for HIV between the ages of 13 and 64 At routine exams.Those with risk factors for HIV should be tested at least annually. Obesity All women in this age group At routine exams Syphilis Women at increased risk for infection should talk with their healthcare provider At routineexams Tuberculosis Women at increased risk for infection should talk with their healthcare provider Ask your healthcare provider Vision All women in this age group At least 1 complete exam in your 20s, and 2 in your 30s Vaccine2 Who needs it How often Chickenpox (varicella) All women in this age group who have no record of this infection or vaccine 2doses; the second dose should be given 4 to 8 weeks after the first dose Hepatitis A Women at increased risk for infection should talk with their healthcare provider 2 dosesgiven at least 6 months apart Hepatitis B Women at increased risk for infection should talk with their healthcare provider 3 dosesover 6 months; second dose should be given 1 month after the first dose; the third dose should be given at least 2 months after the second dose and at least 4 months after the first dose Haemophilus influenzaeType B (HIB) Women at increased risk for infection should talk with their healthcare provider 1 to 3 doses Human papillomavirus (HPV) All women in this age group up to age 26 3 doses; the second dose should be given 1 to 2 months after the first dose and the third dose given 6 months after the first dose Influenza (flu) All women in this age group Once a year Measles, mumps, rubella (MMR) All women in this age group who have no record of these infections or vaccines 1 or 2 doses Meningococcal Women at increased risk for infection should talk with their healthcare provider 1 or more doses Pneumococcal conjugate vaccine (PCV13)and pneumococcal polysaccharidevaccine(PPSV23) Women at increased risk for infection should talk with their healthcare provider PCV13: 1 dose ages 19 to 65 (protects against 13 types of pneumococcal bacteria) PPSV23: 1 to2 doses through age 64, or 1 dose at 65 or older (protects against 23 types of pneumococcal bacteria) Tetanus/diphtheria/pertussis (Td/Tdap) booster All women in this age group Td every 10 years, or a one-time dose of Tdap instead of a Td booster after age 18, then Td every 10 years Counseling Who needs it How often BRCA gene mutation testing for breast and ovarian cancer susceptibility Women with increased risk for having gene mutation When your risk is known Breast cancer and chemoprevention Women at high risk for breast cancer When your risk is known Diet and exercise Women who are overweight or obese When diagnosed, and then at routine exams Domestic violence Women at the age in which they are able to have children At routine exams Sexually transmitted infection prevention Women who are sexually active At routine exams Skin cancer Prevention of skin cancer in fair-skinned adults At routine exams Use of tobacco and the health effects it can cause All women in this age group Every visit 1 According to the ACS, women ages 20 to 39 years should have a clinical breast exam (CBE) as part of their routine health exam every 3 years. Breast self-exams are an option for women starting in their 20s.But the USPSTF does not recommend CBE. Nixon kaylan reviewed this educational content on 12/26/201619995945-9016 [employer]. [address] [place] [address]. All rights reserved. This information is not intended as a substitute for professional medical care. Always follow your healthcare professional's instructions. Patient Education Clinical Breast Exam Many health organizations recommend a yearly clinical breast exam. This exam may be done by a manager plant, family healthcare provider, nurse practitioner, nurse flume maker, or specially trained nurse. Yearly breast exams help tomake surethat breast conditions are found early. Your healthcare providers role A healthcare professional knows the tests and follow-up care needed if a problem is found. Your clinical exam is also a great time to ask questions about breast self-exams. You can find out if yourechecking your breasts in the best way. Or you may want to ask how , breast implants, or breast reduction surgery affect the way you should check your breasts. Diagnostic tests If a clinical exam reveals a breast change, you may have other tests to find out more. These tests may include: Mammography. A low-dose X-ray of your breast tissue. Ultrasound. An imaging test that uses sound waves to create images of your breast. Biopsy. A small amount of breast tissue is removed by needle or by a cut (incision). The tissue is then checked under a microscope. Guidelines for having clinical breast exams The [employer] recommends that starting at age 29, you should have a clinical breast exam every 1 to 3 years. After age 40, have a clinical breast exam each year. If youre at higher risk for breast cancer, you may need exams more often. Risk factors for breast cancer may include: Being over 50 or postmenopausal Having a family history of breast cancer Having the BRCA1 or BRCA2 gene mutation or certain other gene mutations Having more menstrual periods due to starting menstruation early(before age 12) or having a late menopause (after age 55) Having no pregnancies Having a first after age 30 Being obese Having a history of radiation treatment to your chest area Exposure to [place] during your mother's Not being active Drinking too much alcohol Having dense breast tissue Taking hormone therapy after menopause Other health organizations have different recommendations. Talk with your healthcare provider about what is best for you. Nixon kaylan reviewed this educational content on 10/26/201619990910-9507 [facility] [employer] [facility]. [address] [place] [address]. All rights reserved. This information is not intended as a substitute for professional medical care. Always follow your healthcare professional's instructions. Patient Education Breast Health: Breast Self-Awareness What is breast self-awareness? Breast self-awareness is knowing how your breasts normally look and feel. Your breasts change as yougo through different stages of your life. So its important to learn what is normal for your breasts. Knowing about your breasts helps you spot any changes in them right away. Tell your healthcare provider about any changes. Why is breast self-awareness important? Many experts now say that women should focus on breast self-awareness instead of doing a breast self-examination (BSE). These experts include the [employer] and the [employer]. Some experts even advise not teaching women to do a BSE. Thats because research hasnt shown a clear benefit to doing BSEs. Breast self-awareness is different than a BSE. It isnt about following a certain method and schedule. Its about knowing what's normal for your breasts. That way you can spot even small changes right away. If you see any changes, tell your healthcare provider. Changes to look for Call your healthcare provider if you find any changes in your breasts that worry you. These changes may be: A lump Nipple discharge other than breastmilk, especially if it's bloody Swelling A change in size or shape Skin changes, such as redness, thickening, or dimpling of the skin Swollen lymph nodes in the armpit Nipple problems, such as pain or redness If you find a lump Call your provider if you find lumpiness in one breast. Also call if you feel something different inthe tissue or feel a definite lump. Sometimes lumpiness may be due to menstrual changes. But there may be reason for concern. Your provider may want to see you right away if you have: Nipple discharge that is bloody Skin changes on your breast, such as dimpling or puckering Its okay to be upset if you find a lump. Be sure to call your provider right away. Remember that most breast lumps are benign. This means they are not cancer. Nixon last reviewed this educational content on 10/26/201619995498-4244 [facility]. [address] [place] [address]. All rights reserved. This information is not intended as a substitute for professional medical care. Always follow your healthcare professional's instructions. documented in this encounter Progress Notes Ekaterina Banks MD - 10/29/2019 1:15 PM CDT Chief complaint: Chief Complaint Patient presents with Well Woman Exam 39 year-old presents for WWE She is has no specific concerns today but reports that 3 weeks ago she had vaginal bleeding for 3 days, scant amount, bright red and unprovoked.She has a MATTHEW +BSO 10 years ago for endometriosis and hasbeen on HRT even since( Premarin 1.25mg) which controls her vasomotor symptoms but she has noticed vaginal dryness associated with dyspraunia with intermittent episodes of postcoital bleeding. She denies history of abnormal pap smears. She is , denies domestic violence or immediate partner abuse. She reports a family history of breast cancer in her maternal aunty and accepted a baseline mammogram. Her other comorbidities are managed by her PCP and specialists Histories OB History Para Term AB Living 1 1 SAB TAB Ectopic Multiple Live Births 1 # Outcome Date GA Lbr Craig/2nd Weight Sex Delivery Anes PTL Lv 1 Ectopic 2009 Past Medical History: Diagnosis Date Anxiety B12 deficiency Crohn disease CRPS (complex regional pain syndrome) Fibromyalgia Gastroparesis Postmenopausal atrophic vaginitis 10/29/2019 Psoriatic arthritis Rheumatoid arthritis RSD (reflex sympathetic dystrophy) Family History Problem Relation Age of Onset Stroke Father Hypertension Father Diabetes Mother Hypertension Mother Breast Cancer Maternal Aunt 48 Melanoma Maternal Grandmother 36 Family Status Relation Name Status Fa Alive Mo Alive MAunt Alive MGMo Past Surgical History: Procedure Laterality Date CHOLECYSTECTOMY ERCP,SPHINCTEROTOMY ESOPHAGEAL DILATATION HYSTERECTOMY JOINT SURGERY R hip replacement- 01/11/17 PELVIS/HIP JOINT SURGERY UNLISTED R [place] HIT PAIN IMP PUMP KIMANI SALPINGO-OOPHORECTOMY Social History Socioeconomic History Marital status: Spouse name: Not on file Number of children: Not on file Years of education: Not on file Highest education level: Not on file Occupational History Not on file Social Needs Financial resource strain: Not on file Food insecurity Worry: Not on file Inability: Not on file Transportation needs Medical: Not on file Non-medical: Not on file Tobacco Use Smoking status: Current Every Day Smoker Years: 8.00 Types: Cigarettes Smokeless tobacco: Never Used Tobacco comment: 3-4 cigarettes daily Substance and Sexual Activity Alcohol use: Yes Comment: rare Drug use: No Sexual activity: Yes Partners: Male control/protection: Surgical Lifestyle Physical activity Days per week: Not on file Minutes per session: Not on file Stress: Not on file Relationships Social connections Talks on phone: Not on file Gets together: Not on file Attends sabianist service: Not on file Active member of club or organization: Not on file Attends meetings of clubs or organizations: Not on file Relationship status: Not on file Intimate partner violence Fear of current or ex partner: Not on file Emotionally abused: Not on file Physically abused: Not on file Forced sexual activity: Not on file Other Topics Concern Not on file Social History Narrative Lives at home with disability Social History Substance and Sexual Activity Sexual Activity Yes Partners: Male control/protection: Surgical Labs No new labs Radiology No new radiology. Allergies Yun is allergic to gabapentin. Medications Yun has a current medication list which includes the following prescription(s): cimzia starter kit, cyanocobalamin, estradiol, estradiol, fentanyl, lamotrigine, methotrexate, alprazolam, fluoxetine,premarin, nystatin, mupirocin, alprazolam, aimovig autoinjector, aprepitant, methocarbamol, trokendi xr, humira pen, fludrocortisone, sumatriptan, promethazine, folic acid, methotrexate, and tizanidine. Review of Systems Constitutional: Negative. HENT: Negative. Eyes: Negative. Respiratory: Negative. Breasts: Negative. Cardiovascular: Negative. Gastrointestinal: Negative. Genitourinary: Negative. Musculoskeletal: Negative. Skin: Negative. Neurological: Negative. Psychiatric/Behavioral: Negative. Endocrine: Endocrine negative BP 117/75 (BP Location: Left arm, Patient Position: Sitting, BP CUFF SIZE: Adult Medium) | Pulse 63 | Temp 36.8 C (98.3 F) (Oral) | Resp 18 | Ht 5' 2" (1.575 m) | Wt 166 lb (75.3 kg) | BMI 30.36 kg/m Pregravid BMI: Could not be calculated Physical Exam Vitals reviewed. Constitutional: She is oriented to person, place, and time. She appears well- developed and well-groomed. Neck: No tenderness and no mass. No thyroid nodules palpated. No neck adenopathy. Cardiovascular: Regular rate and rhythm. Pulmonary/Chest: Breath sounds clear to auscultation. Normal inspiratory effort. Abdominal: Abdomen is soft. No mass palpated. No tenderness present. There is no hepatosplenomegaly.There is no rigidity and no guarding. No hernia palpated or inspected. Neuro/Psychiatric: She has a normal mood and affect. She is oriented to person, place, and time. Skin: Skin normal. Lymphadenopathy: No neck adenopathy present. No axillary adenopathy present. No inguinal adenopathy present. Breast: Right breast exhibits no mass, no nipple discharge and no tenderness. Left breast exhibits no mass, no nipple discharge and no tenderness. Breasts are symmetrical. Fungal infection under the breasts External genitalia: Normal external genitalia appropriate for age. Urethral meatus: Normal urethral meatus Vagina: Atrophic vaginal mucosa but no lacerations, discolorations or lesions visualized Cervix: Cervix absent. Uterus: Uterus absent. Adnexa: Right adnexa without tenderness, ovary enlargement or mass. Left adnexa without tenderness, ovary enlargement or mass. No adnexal masses on rectal examination Assessment/Plan Encounter for well woman exam with routine gynecological exam (primary encounter diagnosis) Reviewed and encouraged good nutrition, regular exercise, use of sunscreen, awareness of her breasts. Recommend routine annuals and discussed mammograms from age 40. Also age appropriate vaccinationsand screening labs were reviewed. encouraged Bone health-adequate Vit D and calcium with weight bearing exercise. Encounter for mammogram to establish baseline mammogram Plan: BI SCREENING MAMMOGRAM BILATERAL Family history of breast cancer Plan: BI SCREENING MAMMOGRAM BILATERAL Postmenopausal atrophic vaginitis Comment: Vaginal mucosa is atrophic and we discussed using topical vaginal preps. I explained that the bleeding she had 3 weeks ago most likely was due to atrophy. She accepted to use the topical estrogen. Recommend daily for 2 weeks and then 2-3 times a week. She needs to notify me if she gets another episode of vaginal bleeding. Plan: Estradiol (VAGIFEM) 10 mcg tablet, Estradiol (VAGIFEM) 10 mcg tablet Surgical menopause Comment: Continue Premarin tabs for vasomotor symptoms as prescribed by her PCP and for other benefits given the surgical menopause at a young age. Plan: Estradiol (VAGIFEM) 10 mcg tablet, Estradiol (VAGIFEM) 10 mcg tablet Fungal infection of skin Comment: Keeping area dry recommended Plan: nystatin 100,000 unit/gram powder This visit did not involve counseling and coordination that comprised more than 50% of the visit time. Ekaterina Banks MD documented in this encounter Plan of Treatment Date Type Specialty Care Team Description 10/28/2020 Office Visit Obstetrics & Gynecology Mei Banks MD [address] [place] [address] Dr. [place] [phone] Name Type Priority Associated Diagnoses Order S chedule BI SCREENING MAMMOGRAM IMAGING Routine Encounter for mamm ogram Expected: 10/29/2019, BILATERAL to establish baseline s: 12/28/2020 mammogram Family history of breast cancer Health Maintenance Due Date Last Done Comments VARICELLA VACCINES (1 of 2 - 2-dose 1981 childhood series) PNEUMOCOCCAL 0-64 YEARS COMBINED 1986 SERIES (1 of 1 - PPSV23) Depression Screening 1992 DTaP,Tdap,and Td Vaccines (1 - Tdap) 1999 PAP SMEAR 2001 INFLUENZA VACCINE (#1) 2019 12/22/2017, 05/07/2016, 05/14/2014 documented as of this encounter Results Not on filedocumented in this encounter Visit Diagnoses Diagnosis Encounter for well woman exam with emiliano cooley gynecological exam - Primary Encounter for mammogram to establish bas fermin mammogram Other screening mammogram Family history of breast cancer Family history of malignant neoplasm of breast Postmenopausal atrophic vaginitis Surgical menopause Symptomatic states associated with artif icial menopause Fungal infection of skin Dermatomycosis, unspecified documented in this encounter Insurance Payer Benefit Plan Subscriber ID Effective Dates Phone Address Type / Group BCBS OF [facility] [id number] 2018-Jacques [phone] [address] PPO/POS [place] [id number] [place] [address] (Work) [id number] documented as of this encounter
--- OUTSIDE RECORDS SUMMARY | 2020-01-20 14:21 | XMS REPORT | Summary of Care ---
:1980 Author Organization [facility] Address [address] [place] [address] Care Team Providers Name Role Phone MD Arya Primary Care Provider Reason for Referral Radiology Services (Routine) Status Reason Specialty Diagnoses / Referred By Referred To Procedures Contact Contact New Request Diagnostic Diagnoses Encounter for mammogram to establish baseline mammogram Family history of breast cancer Ekaterina Banks, Radiology Procedures BI SCREENING MAMMOGRAM BILATERAL [address] [place] [address] DrSophie Hol[address] [place] [address] Reason for Visit Reason Comments Well Woman Exam Encounter Details Date Type Department Care Team Description 10/29/2019 Office Visit [facility] Women's Ekaterina Banks MD Encounter for well woman exam with emiliano cooley gynecological exam (Primary Dx); [facility]- [address] Encounter for mammogram to e stablish baseline mammogram; [address] [place] [address] Family history of breast cancer; Drive, [address] Postmenopausal atrophic vaginitis; [place], [place] Surgical menopa use; [phone] Fungal infection of skin [phone] Allergies Active Allergy Reactions Severity Noted Date [...] 20s.But the USPSTF does not recommend CBE. [employer] kaylan reviewed this educational content on 12/26/201619990745-[address] [place] [address]. All rights reserved. This information is not intended as a substitute for professional medical care. Always follow your healthcare professional's instructions. Patient Education Clinical Breast Exam Many health organizations recommend a yearly clinical breast exam. This exam may be done by a microfilm operator, family healthcare provider, nurse practitioner, nurse supervisor paper machine, or specially trained nurse. Yearly breast exams [...] Guidelines for having clinical breast exams The [place] [employer]nec[employer] recommends that [...] provider about what is best for you. [employer] kaylan reviewed this educational content on 10/26/201619990434-[address] [place] [address]. All rights reserved. This information is not [...] breast self-examination (BSE). These experts include the [place] [employer] and the [place] [employer]ians and Gynecologists. Some experts [...] benign. This means they are not cancer. [employer] last reviewed this educational content on 10/26/201619994238-[address] [place] [address]. All rights reserved. This information is not intended as a substitute for professional medical care. Always follow your healthcare professional's instructions. documented in this encounter Progress Notes Ekaterina Bansk MD - 10/29/2019 1:15 PM CDT Chief [...] replacement- 01/11/17 PELVIS/HIP JOINT SURGERY UNLISTED R NE HIT PAIN IMP PUMP KIMANI SALPINGO-OOPHORECTOMY Social [...] file Gets together: Not on file Attends adventist service: Not on file Active member of [...] Visit Obstetrics & Gynecology Mei Banks MD [address] [place] [address] Dr. Mensah [place] [phone] Name Type Priority Associated Diagnoses Order [...] Phone Address Type / Group BCBS OF [facility] [id number] 2018-Jacques [phone] [address] PPO/POS [place] [id number] [place] [address] (Work) [phone] documented as of this encounter
--- OUTSIDE RECORDS SUMMARY | 2020-01-20 14:22 | XMS REPORT | Summary of Care ---
:1980 Author Organization [facility] Address [address] [place] [id number] Care Team Providers Name Role Phone MD Arya Primary Care Provider Reason for Referral (WANDA) Status Reason Specialty Diagnoses / Referred By Referred To Procedures Contact Contact New Request Surgery Diagnoses Arm mass, left Ankur Koenig, Procedures CONSULT/REFERRAL GENERAL SURGERY MD [address] [place] [phone] Reason for Visit Reason Comments Mass 2 in upper arm right getting larger and tender to touch Encounter Details Date Type Department Care Team Description 12/05/2019 Office Visit [facility] Family Ibrahima Koenig MD Arm mass, left (Primary Dx); Medicine - [address] [phone] Allergies Active Allergy Reactions Severity Noted Date Comments Gabapentin Other - See comments 10/18/2014 documented as of this encounter (statuses as of 12/05/2019) Medications Medication Sig Dispensed Refills Start End [...] AUTOINJECTOR 0 Active 140 mg/mL AtIn 9 FLUOXETINE 20 mg TAKE 1 30 capsule 4 Ac tive capsuleIndications: CAPSULE BY 0 Anxiety MOUTH EVERY DAY methotrexate 25 0 Acti ve mg/mL injection [...] of daily. Use skin for 2 weeks PREMARIN 1.25 mg TAKE 1 TABLET 90 tablet 0 Active tabletIndications: BY MOUTH 0 Postmenopausal EVERY DAY atrophic vaginitis ALPRAZolam 0.5 mg Take 1 tablet 30 tablet 1 Active tabletIndications: by mouth 3 0 Anxiety (three) times daily as needed (anxiety). ALPRAZolam 2 mg 24 Take 1 tablet 30 tablet 4 Active hr by mouth 0 tabletIndications: every Anxiety morning. FLUoxetine 40 mg Take 1 30 capsule 5 Ac tive capsuleIndications: capsule by 0 Anxiety mouth daily. ALPRAZolam 0.5 mg Take 1 tablet 30 tablet 1 12/05/19 Discontinued tabletIndications: by mouth 3 0 20 (Reorder) Anxiety (three) times daily as needed (anxiety). ALPRAZOLAM 2 mg 24 TAKE 1 TABLET 30 tablet 4 0 Discontinued hr BY MOUTH 0 20 (Reorder) tabletIndications: EVERY MORNING Anxiety documented as of this encounter (statuses as of 12/05/2019) Active Problems Problem Noted Date Surgical menopause 10/29/2019 Postmenopausal atrophic vaginitis 10/29/2019 Family history of breast cancer 10/29/2019 Chronic migraine without aura without status migrainos us, not intractable 01/26/2017 Obesity (BMI 30-39.9) 10/03/2016 Anxiety 12/17/2015 Abdominal pain in female patient 05/31/2015 Rheumatoid arthritis 12/25/2014 Fibromyalgia 12/25/2014 Pseudomembranous colitis 12/24/2014 Vomiting 10/18/2014 documented as of this encounter (statuses as of 12/05/2019) Immunizations Name Administration Dates Next Due Influenza [...] been in contact with No / Unsure 12/05/2019 2:06 PM CDT someone who was confirmed or suspected to have Coronavirus / COVID-19? documented as of this encounter Last Filed Vital Signs Vital Sign Reading Time Taken Comments Blood Pressure 118/70 12/05/2019 2:01 PM CDT Pulse - - Temperature - - Respiratory Rate - - Oxygen Saturation - - Inhaled Oxygen Concentration - - Weight 74.4 kg (164 lb) 12/05/2019 2:01 PM CDT Height - - Body Mass Index 30 10/29/2019 1:34 PM CDT documented in this encounter Progress Notes Ankur Koenig MD - 12/05/2019 1:45 PM CDT Cc: mass L arm Chief Complaint Patient presents with Mass 2 in upper arm right getting larger and tender to touch Yun Saxena is a 39 year old female. Has mass in L arm, growing over 4 weeks Allergies Yun is allergic to gabapentin. Medications Outpatient Medications Prior to Visit Medication Sig Dispense Refill PREMARIN 1.25 mg tablet TAKE 1 TABLET BY MOUTH EVERY DAY 90 tablet 0 CIMZIA STARTER KIT 400 mg/2 mL (200 mg/mL x 2) SyKt cyanocobalamin 1,000 mcg/mL injection Estradiol (VAGIFEM) 10 mcg tablet Insert 1 tablet into vagina at bedtime. 14 tablet 0 Estradiol (VAGIFEM) 10 mcg tablet Insert 1 tablet into vagina every 2 (two) days. 30 tablet 6 FENTanyl 100 mcg/hr patch lamoTRIgine 150 mg tablet methotrexate 25 mg/mL injection nystatin 100,000 unit/gram powder Apply to area(s) 2 (two) times daily. Use for 2 weeks 15 g 1 ALPRAZOLAM 2 mg 24 hr tablet TAKE 1 TABLET BY MOUTH EVERY MORNING 30 tablet 4 FLUOXETINE 20 mg capsule TAKE 1 CAPSULE BY MOUTH EVERY DAY 30 capsule 4 ALPRAZolam 0.5 mg tablet Take 1 tablet by mouth 3 (three) times daily as needed (anxiety). 30 tablet 1 AIMOVIG AUTOINJECTOR 140 mg/mL AtIn Aprepitant 125 mg (1)- 80 mg (2) CpPk nystatin 100,000 unit/mL suspension Take 3 mL by mouth 4 (four) times daily. Scrub around mouth 60 mL 0 methocarbamol 500 mg tablet TROKENDI XR 200 mg Cp24 mupirocin 2 % ointment Apply to area(s) 3 (three) times daily. 22 g 0 HUMIRA PEN 40 mg/0.8 mL injection fludrocortisone 0.1 mg tablet Take 0.1 mg by mouth. sumatriptan 100 mg tablet Take 4 mg by mouth. proMETHazine 25 mg tablet Take 1 tablet by mouth every 4 (four) hours as needed for Nausea and Vomiting (N/V). 50 tablet 1 foLIC acid (FOLATE) 1 mg tablet Take 1 mg by mouth. methotrexate 15 mg tablet 0.8 mg. tiZANidine (ZANAFLEX) 4 mg capsule Take 12 mg by mouth. No facility-administered medications prior to visit. Histories Past Medical History: Diagnosis Date Anxiety B12 deficiency Crohn disease CRPS (complex regional pain syndrome) Fibromyalgia Gastroparesis Postmenopausal atrophic vaginitis 10/29/2019 Psoriatic arthritis Rheumatoid arthritis RSD (reflex sympathetic dystrophy) Past Surgical History: Procedure Laterality Date CHOLECYSTECTOMY ERCP,SPHINCTEROTOMY ESOPHAGEAL DILATATION HYSTERECTOMY JOINT SURGERY R hip replacement- 01/11/17 PELVIS/HIP JOINT SURGERY UNLISTED R AK HIT PAIN IMP PUMP KIMANI SALPINGO-OOPHORECTOMY Social [...] file Gets together: Not on file Attends latter-day service: Not on file Active member of [...] History Narrative Lives at home with disability Family History Problem Relation Age of Onset Stroke Father Hypertension Father Diabetes Mother Hypertension Mother Breast Cancer Maternal Aunt 48 Melanoma Maternal Grandmother 36 Review of Systems Vital Signs BP 118/70 | Wt 164 lb (74.4 kg) | BMI 30.00 kg/m Physical Exam Constitutional: Appearance: Normal appearance. HENT: Head: Normocephalic and atraumatic. Right Ear: Tympanic membrane normal. Left Ear: Tympanic membrane normal. Neck: Musculoskeletal: Normal range of motion and neck supple. Cardiovascular: Rate and Rhythm: Normal rate and regular rhythm. Pulses: Normal pulses. Heart sounds: Normal heart sounds. Pulmonary: Effort: Pulmonary effort is normal. Breath sounds: Normal breath sounds. Musculoskeletal: Normal range of motion. Skin: General: Skin is warm. Findings: Lesion (L upper arm, 3/4 inch) present. Neurological: Mental Status: She is alert. Assessment/Plan Mass upper arm, surgery consult Anxiety, medication refill This visit did not involve counseling and coordination that comprised more than 50% of the visit time. documented in this encounter Plan of Treatment Date Type Specialty Care Team Description 10/28/2020 Office Visit Obstetrics & Gynecology Mei Banks MD [address] [place] [address] Dr. Mensah [place] [phone] Health Maintenance Due Date Last Done Comments VARICELLA VACCINES (1 of 2 - 2-dose 1981 childhood series) PNEUMOCOCCAL 0-64 YEARS COMBINED 1986 SERIES (1 of 3 - PCV13) DTaP,Tdap,and Td Vaccines (1 - Tdap) 1999 PAP SMEAR 2001 INFLUENZA VACCINE (#1) 2019 12/22/2017, 05/07/2016, 05/14/2014 Depression Screening 12/04/2020 12/05/2019 documented as of this encounter Results Not on filedocumented in this encounter Visit Diagnoses Diagnosis Arm mass, left - Primary Anxiety Anxiety state, unspecified documented in this encounter Insurance Payer Benefit Plan Subscriber ID Effective Dates Phone Address Type / Group [facility] [id number] 2018-Jacques [phone] [address] PPO/POS [place] [id number] [place] [address] (Work) [id number] documented as of this encounter"
--- OUTSIDE RECORDS SUMMARY | 2020-01-20 14:22 | XMS REPORT | Continuity of Care Document ---
:1980 Author Organization [facility] t Address [address] [place] [address] Care Team Providers Name Role Phone Elisa MCKEON, J. Primary Care Physician Partha MCKEON Attending Clinician Yadiel MCKEON Attending Clinician Payers Payer Name Policy Type Policy Effective Date Expiration Date [facility] Express Number BCBSBCBS CHOICE [id number] 2018 [place] PPO/FEDERAL 00:00:00 [facility] EMPL [id number] 2018-Presen tPPO Problems Condition Condition Condition Status Onset Resolution Last Treating Co mments Source Name Details Category Date Date Treatment Clinician Date Pilonidal Pilonidal Disease Active [facility] ston cyst cyst 2-19 [facility] 00:00: st 00 Rheumatoid Rheumatoid Disease Active [place] arthritis arthritis 2-19 Meth apple 00:00: st 00 Orthostati Orthostati Disease Active [place] c c 2-19 [facility] hypotensio hypotensio 00:00: st n n 00 Chest pain Chest pain Disease Active [place] 2-18 [facility] 00:00: st 00 Bradycardi Bradycardi Disease Active [facility] [place] a a -14 Methodi 00:00: st 00 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 c c 00:00: st dystrophy dystrophy 00 Fibromyalg Fibromyalg Disease Active [place] ia ia 10-08 Methodi 00:00: st 00 Inflammato Problem Active 2020-01-10 M emoria ry 02:45:37 l polyarthro Keagan n edwin Inflammato ry polyarthro edwin Active Problem 01/10/2020 [facility] Spasm of Problem Active 2020-01-10 Mem oria muscle 02:45:37 l Spasm of Keagan n muscle Active Problem 01/10/2020 [facility] Reflex Problem Active 2020-01-10 Memor ia sympatheti 02:45:37 l c Reflex [place] dystrophy sympatheti of other c specified dystrophy site of other specified site Active Problem 01/10/2020 [facility] Transamini Problem Active 2020-01-10 M emoria tis 02:45:37 l [place] Transamini tis Active Problem 01/10/2020 [facility] Vitamin D Problem Active 2020-01-10 Me moria deficiency 02:45:37 l Vitamin [place] D deficiency Active Problem 01/10/2020 [facility] Vitamin Problem Active 2020-01-10 [facility] shaq B12 02:45:37 l deficiency Vitamin Her liu B12 deficiency Active Problem 01/10/2020 [facility] Drug or Problem Active 2020-01-10 [facility] shaq medicinal 02:45:37 l substance Drug or Herm mishel causing medicinal adverse substance effect in causing therapeuti adverse c use effect in therapeuti c use Active Problem 01/10/2020 [facility] Nausea Problem Active 2020-01-10 Memor ia without 02:45:37 l vomiting Nausea Keagan n without vomiting Active Problem 01/10/2020 [facility] Fatigue Problem Active 2020-01-10 Gunner shaq 02:45:37 l Fatigue [place] Active Problem 01/10/2020 [facility] Edema Problem Active 2020-01-10 Memor ia 02:45:37 l Edema [place] Active Problem 01/10/2020 [facility] Encounter Diagnosis Active 2020-01-10 Memoria for 02:45:37 l long-term [place] (current) Encounter use of for other long-term medication (current) s use of other medication s Active Diagnosis 01/10/2020 [facility] Insomnia Diagnosis Active 2020-01-10 M emoria 02:45:37 l Insomnia Keagan n Active Diagnosis 01/10/2020 [facility] Other Problem Active 2020-01-10 Memor ia malaise 02:45:37 l Other [place] malaise Active Problem 01/10/2020 [facility] Myalgia Problem Active 2020-01-10 Gunner shaq 02:45:37 l Myalgia [place] Active Problem 01/10/2020 [facility] Rash and Problem Active 2020-01-10 Mem oria nonspecifi 02:45:37 l c skin Rash and Keagan n eruption nonspecifi c skin eruption Active Problem 01/10/2020 [facility] Psoriatic Problem Active 2020-01-10 Me moria arthritis 02:45:37 l [place] Psoriatic arthritis Active Problem 01/10/2020 [facility] Other Diagnosis Active 2020-01-10 Mem oria specified 02:45:37 l counseling Other Beth nn specified counseling Active Diagnosis 01/10/2020 [facility] Allergies, Adverse Reactions, Alerts Allergy Allergy Status Severity Reaction(s) Onset Inactive Treating Comm ents Source Name Type Date Date Clinician Gabapent Gabapent Active leg cramps 2019-03 Me moria in in 0-14 l 00:00: [place] 00 Gabapent Propensi Active Other (See Spasmssei [place] in ty to Comments) 7-14 zures [facility]i adverse 00:00: st reaction 00 s to drug Social History Social Habit Start Date Stop Date Quantity Comments Source History of tobacco Cigarette Smoker [place] use [facility] [place] [facility] Cigarettes smoked 2016-05-19 2016-05-19 [place] current (pack per 00:00:00 00:00:[address] ) - Reported Cigarette 2016-05-19 2016-05-19 [place] pack-years 00:00:00 00:00:00 [facility] Tobacco use and 2016-05-19 2016-05-19 Never used [place] exposure 00:00:00 00:00:00 [facility] Alcohol intake 2016-05-19 2016-05-19 Current [place] 00:00:00 00:00:00 non-drinker of [facility] alcohol (finding) Smoking Status Start Date Stop Date Source Current every day smoker 2016-05-19 00:00:00 [facility] y[facility] Medications Ordered Filled Start Stop Current Ordering Indication Dosage Frequency Signature Comments Components Source Medication Medication Date Date Medication? Clinician (SIG) Name Name Lonny 2019-03 Yes Roberta 1 tablet Memoria 0-15 Vo l 02:45: [place] Sumatriptan 2019-03 Yes Roberta as Mem[facility] Succinate 0-15 Vo directed l 02:45: [place] Fluoxetine 2019-03 Yes Roberta 1 capsule Memoria HCl 0-15 Vo in the l 02:45: morning [place] Methotrexat 2019-03 Yes Roberta 0.8 cc Memoria e Sodium 0-15 Vo l 02:45: [place] Topamax 2019-03 Yes Roberta 1 tablet Memoria 0-15 Vo l 02:45: [place] Xanax XR 2019-03 Yes Roberta 1 tablet Memoria 0-15 Vo l 02:45: [place] Lamictal 2019-03 Yes Roberta 1 tablet Memoria 0-15 Vo l 02:45: [place] 37 Furosemide 2019-03 Yes Roberta 1 tablet Memoria 0-15 Vo l 02:45: [place] Folic Acid 2019-03 Yes Roberta TAKE 1 Memoria 0-15 Vo TABLET BY l 02:45: MOUTH [place] 37 EVERY DAY Cimzia 2019-03 Yes Roberta as Memor ia 0-15 Vo directed l 02:45: [place] Cyanocobala 2019-03 Yes Roberta INJECT 2 Memoria min 0-15 Vo ML l 02:45: INTRAMUSCU [place] 37 LARLY EVERY WEEK BD Luer-Fabian 2019-03 Yes Roberta USE Memoria Syringe 0-15 Vo DIRECTED l 02:45: ONCE A [place] 37 WEEK BD Luer-Fabian 2019-03 Yes Roberta USE TO Memoria Syringe 0-15 Vo INJECT l 02:45: B-12 [place] 37 WEEKLY Hydroxychlo 2019-03 Yes Roberta 1 tablet Memoria roquine 0-15 Vo l Sulfate 02:45: [place] Aimovig 2019-03 Yes Roberta 1 capsule Memoria 0-15 Vo l 02:45: [place] 37 Fentanyl 2019-03 Yes Roberta 1 patch to Memoria 0-15 Vo skin l 02:45: [place] 37 Dexilant 2020-0 Yes Roberta 1 capsule Memoria 8-19 Vo l 02:45: [place] 57 Reglan 2020-0 Yes Roberta not Memor ia 8-19 Vo defined l 02:45: [place] Fludrocorti 2020-0 Yes Roberta 1 tablet Memoria sone 8-19 Vo l Acetate 02:45: [place] Adderall 2020-0 Yes Roberta 1 tablet Memoria 8-19 Vo l 02:45: [place] Methotrexat 2019-0 Yes Roberta INJECT Memoria e Sodium 8-19 Vo 0.8CC l 02:45: EVERY WEEK [place] Humira Pen 2019-0 Yes Roberta INJECT ONE Memoria 8-19 Vo PEN (40 l 02:45: MG) [place] 57 SUBCUTANEO USLY EVERY WEEK. REFRIGERAT E. Hydroxychlo 2020-0 Yes Roberta TAKE 1 Memoria roquine 8-19 Vo TABLET BY l Sulfate 02:45: MOUTH [place] TWICE DAILY Cimzia 2020-0 Yes Roberta 2 ml Memor ia Starter Kit 6-23 Vo l 00:00: Cimzia 2020-0 Yes Roberta 1 ml Memor ia Prefilled 6-23 Vo l 00:00: Simponi 2020-0 Yes Roberta 50 mg Mem oria 6-17 Vo l 00:00: Kineret 2020-0 Yes Roberta 0.67 ml M emoria 5-07 Vo l 00:00: Tizanidine 2020-0 Yes Roberta 1 tablet Memoria HCl 1-22 Vo as needed l 00:00: Folic Acid 2020-0 Yes Roberta 1 tablet Memoria 1-22 Vo l 00:00: Humira Pen 2019-0 Yes Roberta 40 mg Memoria 9-22 Vo l 02:45: Aimovig 2019-0 Yes Roberta not Gunner shaq 9-22 Vo defined l 02:45: Promethazin 2019-0 Yes Roberta TAKE 1 Memoria e HCl 9-22 Vo TABLET BY l 02:45: MOUTH [place] EVERY 8 HOURS NEEDED Cyanocobala 2019-0 Yes Roberta not Memoria min 9-22 Vo defined l 02:45: Fentanyl 2019-0 Yes Roberta 1 patch to Memoria 9-22 Vo skin l 02:45: Orencia 2018-0 Yes Roberta 1 ml Gunner shaq ClickJect 9-13 Vo l 00:00: Tizanidine 0 Yes Roberta 1 tablet Memoria HCl 9-09 Vo as needed l 00:00: Phenergan 2018-0 Yes Roberta 1 ml as Memoria 8-23 Vo needed l 00:00: Folic Acid 0 Yes Roberta 1 tablet Memoria 8-23 Vo l 00:00: Tizanidine 0 Yes Roberta 1 tablet Memoria HCl 4-10 Vo as needed l 00:00: Syringe 2017-0 Yes Roberta injection Memoria 3-27 Vo as l 00:00: directed Needle 2016-0 Yes Roberta as Memor ia (Disp) 5-11 Vo directed l 00:00: Needle 0 Yes Roberta as Memor ia (Disp) 3-16 Vo directed l 00:00: ondansetron 2016-0 Yes 8mg Q8H Take 8 mg [place] (ZOFRAN) 8 2-21 by mouth Metho di MG tablet 21:12: every 8 st 05 (eight) hours as needed for nausea or vomiting. topiramate 2016-0 Yes 100mg Q.5D Take 100 [place] (TOPAMAX) 2-21 mg by [facility] 100 MG 21:12: mouth 2 st tablet 05 (two) times a day. tiZANidine 0 Yes 2mg Q6H Take 2 mg [place] (ZANAFLEX) 2-21 by mouth Metho di 2 MG tablet 21:12: every 6 st 05 (six) hours as needed for muscle spasms. 6 mg estrogens, 2017-0 Yes 1.25mg QD Take 1.25 Kaye conjugated, 2-21 mg by [facility] (PREMARIN) 21:12: mouth st 1.25 MG 05 daily. tablet folic acid 0 Yes 1mg QD Take 1 mg [place] (FOLVITE) 1 2-21 by mouth Meth apple MG tablet 21:12: daily. st 05 fentaNYL 2017-0 Yes 1{patch Q48H Place 1 [facility] ston (DURAGESIC) 2-21 } patch on Meth apple 21:12: the skin st 05 every other day. Fentanyl patch12.5 ALPRAZolam 2017-0 Yes 2mg QD Take 2 mg [place] (XANAX) 2 2-21 by mouth Method i MG tablet 21:12: daily. st 05 FLUoxetine 2017- Yes 20mg QD Take 20 mg [place] (PROzac) 20 2-21 by mouth Meth apple MG capsule 21:12: daily. st 05 fludrocorti 2017- Yes .1mg QD Take 0.1 Ho lauren sone 0.1 mg 2-21 mg by [facility] tablet 21:12: mouth st 05 daily. promethazin 2017-0 Yes 25mg Q8H Take 25 mg Kaye e 2-21 by mouth [facility] (PHENERGAN) 19:12: every 8 st 25 MG 03 (eight) tablet hours as needed for nausea or vomiting. METHOTREXAT 2017-0 Yes 25mg Q7D Inject 25 [place] E, PF, SUBQ 2-21 mg under Meth apple 19:12: the skin st 03 once a week. Every Tuesday. on hold per patient for 2 weeks because she's taking antibiotic s. ENBREL 2015- Yes [place] SURECLICK 2-30 [facility] 50 mg/mL 00:00: st (0.98 mL) 00 pen injector [facility] (IMITREX) 6 00:00: st mg/0.5 mL 00 solution Immunizations Ordered Immunization Filled Immunization Date Status Commen ts Source Name Name FLUZONE QUAD PF 2016-05-07 Completed [place] 00:00:00 [facility] Tdap 2016-05-07 Completed [place] 00:00:00 [facility] Influenza Trivalent 2014-05-14 Completed [facility] on 00:00:00 [facility] Vital Signs Vital Name Observation Time Observation Value Comments Source Weight 2018-12-07 19:15:00 [facility] Height 2018-12-07 19:15:00 [facility] Heart Rate 2018-12-07 19:15:00 [facility] Diastolic (mm Hg) 2018-12-07 19:15:00 Mem orial [place] Systolic (mm Hg) 2018-12-07 19:15:00 [facility] rial [place] Weight 2018-07-20 16:00:00 [facility] [place] Height 2018-07-20 16:00:00 [facility] [place] Heart Rate 2018-07-20 16:00:00 [facility] [place] Diastolic (mm Hg) 2018-07-20 16:00:00 Mem orial [place] Systolic (mm Hg) 2018-07-20 16:00:00 Gunner rial [place] Procedures Procedure Date / Time Performed Performing Clinician [facility] e MRI BRAIN W WO CONTRAST 2019-11-28 14:26:51 Raheem Cotto [facility] Plan of Care Planned Activity Planned Date Details Comments Source Future Scheduled 2019-10-27 INFLUENZA VACCINE Trace [facility] Test 00:00:00 [code = INFLUENZA VACCINE] Future Scheduled 2019-05-17 Screening for [facility] thodist Test 00:00:00 malignant neoplasm of cervix (procedure) [code = 431202559] Encounters Start End Encounter Admission Attending Care Care Encounter Source Date/Time Date/Time Type Type Clinicians Facility Department ID 2020-01-09 2020-01-09 Outpatient ELIZABETH - [facility] - [id number] eClinic 12:45:00 12:45:00 [facility] 2020-01-07 2020-01-07 Office Partha [facility] [id number] 10:09:02 11:06:03 Visit Fadumo [place] [id number] Ledy [id number] Profdilma [id number] [address] 2019-11-28 2019-11-28 [facility] [id number] 145 [place] 00:00:00 00:00:00 [address]EM [address] 2019-11-13 2019-11-13 Outpatient ELIZABETH ELIZABETH - [id number] eClinic 15:05:00 15:05:00 [facility] 2019-11-13 2019-11-13 Outpatient PRL - PRL - [id number] eClinic 13:45:00 13:45:00 [facility] 2019-10-08 2019-10-08 Outpatient ELIZABETH Crista ELIZABETH - [id number] eClinic 15:15:00 15:15:00 [facility] 2019-06-11 2019-06-11 Outpatient PRL - PRL - [id number] eClinic 15:29:00 15:29:00 [facility] 2019-05-21 2019-05-21 Outpatient PRL - PRL - [id number] eClinic 13:01:00 13:01:00 [facility] 2019-04-18 2019-04-18 Outpatient PRL - PRL - [id number] eClinic 14:33:00 14:33:00 [facility] 2019-04-18 2019-04-18 Outpatient ELIZABETH Crista ELIZABETH - [id number] eClinic 12:25:00 12:25:00 [facility] 2019-03-22 2019-03-22 Outpatient PRL - PRL - [id number] eClinic 13:59:00 13:59:00 [facility] 2019-03-12 2019-03-12 Outpatient PRL - PRL - [id number] eClinic 06:20:00 06:20:00 [facility] 2019-02-14 2019-02-14 Outpatient PRL - PRL - [id number] eClinic 20:50:00 20:50:00 [facility] 2019-02-12 2019-02-12 Outpatient PRL - PRL - [id number] eClinic 11:34:00 11:34:00 [facility] 2018-12-30 2018-12-30 Outpatient ELIZABETH - ELIZABETH - [id number] eClinic 12:48:00 12:48:00 [facility] 2018-12-24 2018-12-24 Outpatient ELIZABETH - ELIZABETH - [id number] eClinic 10:36:00 10:36:00 [facility] 2018-12-07 2018-12-07 Outpatient ELIZABETH - ELIZABETH - [id number] eClinic 15:29:00 15:29:00 [facility] 2018-12-07 2018-12-07 Outpatient PRL - PRL - [id number] eClinic 14:15:00 14:15:00 [facility] 2018-11-23 2018-11-23 Outpatient ELIZABETH - ELIZABETH - [id number] eClinic 21:44:00 21:44:00 [facility] 2018-08-10 2018-08-10 Outpatient ELIZABETH - ELIZABETH - [id number] eClinic 11:50:00 11:50:00 [facility] 2018-08-10 2018-08-10 Outpatient ELIZABETH - ELIZABETH - [id number] eClinic 11:41:00 11:41:00 [facility] 2018-07-20 2018-07-20 Outpatient [facility] - PRL - [id number] eClinic 11:00:00 11:00:00 [facility] Results Test Description Test Time Test Comments Results Result Sourc e Comments MRI Brain W Wo [facility] Contrast [address] 14:35:16 11/28/2019 2:38 PM CDTEXAMINATION: MRI BRAIN W WO CONTRASTCOMPARISON: June 29, 2015CLINICAL HISTORY H53.489 Generalized contraction of visual field unspecified eye, Generalized contraction of visual field unspecified eye. TECHNIQUE: Multiplanar multisequence examination was performed with and without contrastFINDINGS:Ther e is no significant diffusion restriction to suggest acute.The ventricular system and subarachnoid spaces are normal for the patient's age.Tiny T2 signal hyperintensities are seen in the deep white matter appears stable.Previously noted areas of high T1 signal consistent with fat in the frontal horns have significantly regressed with only minimal residual fat signal in the area of the right frontal horn.There is no abnormal enhancing lesion within the brain parenchyma or the leptomeninges.The orbits demonstrate no evidence of mass or exophthalmos. The globes, extraocular muscles, and optic nerves are unremarkable.Is no pituitary mass or compression of the optic chiasmThere are no interval changes since of the brain since 2016IMPRESSION:No significant orbital or brain lesion.Previously noted fat droplets in the frontal horns are near completely resolved.No evidence of compression of the optic [facility]asmEAST [id number]
--- OUTSIDE RECORDS SUMMARY | 2020-01-20 14:22 | XMS REPORT | Summary of Care ---
:1980 Author Organization [facility] - [facility] Address [address] [place] [address] Care Team Providers Name Role Phone MD Arya Primary Care Provider Reason for Visit Reason Comments Rx Concern/Question Encounter Details Date Type Department Care Team Description 12/07/2019 Telephone [facility] Women's Ekaterina Banks MD Rx Concern/Question Healthcare- [address] Saab [facility] [address], [address] [place] [phone] Allergies Active Allergy Reactions Severity Noted Date Comments Gabapentin Other - See comments 10/18/2014 documented as of this encounter (statuses as of 12/07/2019) Medications Medication Sig Dispensed Refills Start Date End Date Status tiZANidine (ZANAFLEX) 4 Take 12 mg by 0 Active mg capsule mouth. foLIC acid (FOLATE) 1 Take 1 mg by 0 Active mg tablet mouth. methotrexate 15 mg 0.8 mg. 0 A ctive tablet proMETHazine 25 mg Take 1 tablet by 50 tablet 1 07/26/2016 Active tablet mouth every 4 (four) hours as needed for Nausea and Vomiting (N/V). sumatriptan 100 mg Take 4 mg by 0 Active tablet mouth. fludrocortisone 0.1 mg Take 0.1 mg by 0 Active tablet mouth. HUMIRA PEN 40 mg/0.8 mL 0 04/14/2017 Active injectionIndications: once weekly mupirocin 2 % Apply to 22 g 0 11/12/2017 Activ e ointmentIndications: area(s) 3 Rash (three) times daily. methocarbamol 500 mg 0 01/04/2018 Active tablet TROKENDI XR 200 mg Cp24 0 02/21/2018 Active nystatin 100,000 Take 3 mL by 60 mL 0 05/28/2018 Active unit/mL mouth 4 (four) suspensionIndications: times daily. Thrush Scrub around mouth Aprepitant 125 mg (1)- 0 02/27/2019 Active 80 mg (2) CpPk AIMOVIG AUTOINJECTOR 0 02/19/2019 Active 140 mg/mL AtIn FLUOXETINE 20 mg TAKE 1 CAPSULE 30 capsule 4 09/05/2019 Active capsuleIndications: BY MOUTH EVERY Anxiety DAY methotrexate 25 mg/mL 0 10/09/2019 Active injection CIMZIA STARTER KIT 400 0 09/27/2019 Active mg/2 mL (200 mg/mL x 2) SyKt FENTanyl 100 mcg/hr 0 10/06/2019 Active patch cyanocobalamin 1,000 0 10/10/2019 Active mcg/mL injection lamoTRIgine 150 mg 0 10/09/2019 Active tablet Estradiol (VAGIFEM) 10 Insert 1 tablet 14 tablet 0 10/29/2019 Active mcg tabletIndications: into vagina at Postmenopausal atrophic bedtime. vaginitis, Surgical menopause Estradiol (VAGIFEM) 10 Insert 1 tablet 30 tablet 6 10/29/2019 Active mcg tabletIndications: into vagina Postmenopausal atrophic every 2 (two) vaginitis, Surgical days. menopause nystatin 100,000 Apply to 15 g 1 10/29/2019 Ac tive unit/gram area(s) 2 (two) powderIndications: times daily. Use Fungal infection of for 2 weeks skin PREMARIN 1.25 mg TAKE 1 TABLET BY 90 tablet 0 11/06/2019 Active tabletIndications: MOUTH EVERY DAY Postmenopausal atrophic vaginitis ALPRAZolam 0.5 mg Take 1 tablet by 30 tablet 1 12/05/2019 Active tabletIndications: mouth 3 (three) Anxiety times daily as needed (anxiety). ALPRAZolam 2 mg 24 hr Take 1 tablet by 30 tablet 4 12/05/2019 Active tabletIndications: mouth every Anxiety morning. FLUoxetine 40 mg Take 1 capsule 30 capsule 5 12/05/2019 Active capsuleIndications: by mouth daily. Anxiety documented as of this encounter (statuses as of 12/07/2019) Active Problems Problem Noted Date Surgical menopause 10/29/2019 Postmenopausal atrophic vaginitis 10/29/2019 Family history of breast cancer 10/29/2019 Chronic migraine without aura without status migrainos us, not intractable 01/26/2017 Obesity (BMI 30-39.9) 10/03/2016 Anxiety 12/17/2015 Abdominal pain in female patient 05/31/2015 Rheumatoid arthritis 12/25/2014 Fibromyalgia 12/25/2014 Pseudomembranous colitis 12/24/2014 Vomiting 10/18/2014 documented as of this encounter (statuses as of 12/07/2019) Immunizations Name Administration Dates Next Due Influenza [...] of this encounter Last Filed Vital Signs Not on filedocumented in this encounter Miscellaneous Notes Telephone Encounter - Meka Reza RN - 12/07/2019 4:56 PM CDTCalled to speak with Shailesh from [facility], he is calling to clarify directions on Vagifem that was ordered on 10/29/2019. Rx orders read back to pharmacist. No additional information needed. elephone Encounter - Cristin Mota - 12/07/2019 10:12 AM CDT Shailesh with [facility] in [place] is needing clarification on estradiol medication. documented in this encounter Plan of Treatment Date Type Specialty Care Team Description 12/11/2019 Office Visit Surgery Fadumo Chavis MD [address] [facility] [address] [place] [address] [phone] 10/28/2020 Office Visit Obstetrics & Gynecology Adrosalia, Mei Schuler MD [address] [place] [address] Dr. [place] [phone] Health Maintenance Due Date Last Done Comments VARICELLA VACCINES (1 of 2 - 2-dose 1981 childhood series) PNEUMOCOCCAL 0-64 YEARS COMBINED 1986 SERIES (1 of 3 - PCV13) DTaP,Tdap,and Td Vaccines (1 - Tdap) 1999 PAP SMEAR 2001 INFLUENZA VACCINE (#1) 2019 12/22/2017, 05/07/2016, 05/14/2014 Depression Screening 12/04/2020 12/05/2019 documented as of this encounter Results Not on filedocumented in this encounter Insurance Payer Benefit Plan Subscriber ID Effective Dates Phone Address Type / Group [facility] [id number] 2018-Jacques [phone] [address] PPO/POS [place] t 7 [id number] [place] [address] documented as of this encounter
--- OUTSIDE RECORDS SUMMARY | 2020-01-20 14:22 | XMS REPORT | Summary of Care ---
:1980 Author Organization [facility] Address [address] [place] [id number] Care Team Providers Name Role Phone MD Arya Primary Care Provider Reason for Referral (WANDA) Status Reason Specialty Diagnoses / Referred By Referred To Procedures Contact Contact New Request Surgery Diagnoses Arm mass, left Ankur Koenig, Procedures CONSULT/REFERRAL GENERAL SURGERY MD [address] [place] [phone] Reason for Visit Reason Comments Mass 2 in upper arm right getting larger and tender to touch Encounter Details Date Type Department Care Team Description 12/05/2019 Office Visit [facility] Family Ibrahima Koenig MD Arm mass, left (Primary Dx); Medicine - [address] [phone] Allergies Active Allergy Reactions [...] replacement- 01/11/17 PELVIS/HIP JOINT SURGERY UNLISTED R MA HIT PAIN IMP PUMP KIMANI SALPINGO-OOPHORECTOMY Social [...] file Gets together: Not on file Attends jehovah's witness service: Not on file Active member of [...] Visit Obstetrics & Gynecology Mei Banks MD [address] [place] [address] Dr. Mensah [place] [phone] [phone] Health Maintenance Due Date Last Done [...] Effective Dates Phone Address Type / Group [facility] [id number] 2018-Jacques [phone] [address] PPO/POS [place] t 7 [id number] [place] [address] (Work) [address] documented as of this encounter"
--- OUTSIDE RECORDS SUMMARY | 2020-01-20 14:22 | XMS REPORT | Summary of Care ---
:1980 Author Organization [facility] - [facility] Address [address] [place] [address] Care Team Providers Name Role Phone MD Arya Primary Care Provider Reason for Visit Reason Comments Refill Request Encounter Details Date Type Department Care Team Description 11/05/[address] [facility] Family Medicine Ankur Nicolas MD Refill Request - [address] [place] [address] [place] [address] [phone] Allergies Active Allergy Reactions Severity Noted Date Comments Gabapentin Other - See comments 10/18/2014 documented as of this encounter (statuses as of 11/06/2019) Medications Medication Sig Dispensed Refills Start Date End Date Status tiZANidine (ZANAFLEX) Take 12 mg by 0 Active 4 mg capsule mouth. foLIC acid (FOLATE) 1 Take 1 mg by 0 Active mg tablet mouth. methotrexate 15 mg 0.8 mg. 0 A ctive tablet proMETHazine 25 mg Take 1 tablet 50 tablet 1 07/26/2016 Active tablet by mouth every 4 (four) hours as needed for Nausea and Vomiting (N/V). sumatriptan 100 mg Take 4 mg by 0 Active tablet mouth. fludrocortisone 0.1 Take 0.1 mg 0 Active mg tablet by mouth. HUMIRA PEN 40 mg/0.8 0 04/14/2017 Active mL injectionIndications: once weekly mupirocin 2 % Apply to 22 g 0 11/12/2017 Activ e ointmentIndications: area(s) 3 Rash (three) times daily. methocarbamol 500 mg 0 01/04/2018 Active tablet TROKENDI XR 200 mg 0 02/21/2018 Active Cp24 nystatin 100,000 Take 3 mL by 60 mL 0 05/28/2018 Active unit/mL mouth 4 suspensionIndications (four) times : Thrush daily. Scrub around mouth Aprepitant 125 mg 0 02/27/2019 A ctive (1)- 80 mg (2) CpPk AIMOVIG AUTOINJECTOR 0 02/19/2019 Active 140 mg/mL AtIn ALPRAZolam 0.5 mg Take 1 tablet 30 tablet 1 07/13/2019 Active tabletIndications: by mouth 3 Anxiety (three) times daily as needed (anxiety). FLUOXETINE 20 mg TAKE 1 30 capsule 4 09/05/2019 A ctive capsuleIndications: CAPSULE BY Anxiety MOUTH EVERY DAY ALPRAZOLAM 2 mg 24 hr TAKE 1 TABLET 30 tablet 4 09/10/2019 Active tabletIndications: BY MOUTH Anxiety EVERY MORNING methotrexate 25 mg/mL 0 10/09/2019 Active injection CIMZIA STARTER KIT 0 09/27/2019 Active 400 mg/2 mL (200 mg/mL x 2) SyKt FENTanyl 100 mcg/hr 0 10/06/2019 Active patch cyanocobalamin 1,000 0 10/10/2019 Active mcg/mL injection lamoTRIgine 150 mg 0 10/09/2019 Active tablet Estradiol (VAGIFEM) Insert 1 14 tablet 0 10/29/2019 Active 10 mcg tablet into tabletIndications: vagina at Postmenopausal bedtime. atrophic vaginitis, Surgical menopause Estradiol (VAGIFEM) Insert 1 30 tablet 6 10/29/2019 Active 10 mcg tablet into tabletIndications: vagina every Postmenopausal 2 (two) days. atrophic vaginitis, Surgical menopause nystatin 100,000 Apply to 15 g 1 10/29/2019 Ac tive unit/gram area(s) 2 powderIndications: (two) times Fungal infection of daily. Use skin for 2 weeks PREMARIN 1.25 mg TAKE 1 TABLET 90 tablet 0 11/06/2019 Active tabletIndications: BY MOUTH Postmenopausal EVERY DAY atrophic vaginitis PREMARIN 1.25 mg TAKE 1 TABLET 90 tablet 0 08/03/2019 11/06/19 2 Discontinued tablet BY MOUTH 0 EVERY DAY documented as of this encounter (statuses as of 11/06/2019) Active Problems Problem Noted Date Surgical menopause 10/29/2019 Postmenopausal atrophic vaginitis 10/29/2019 Family history of breast cancer 10/29/2019 Chronic migraine without aura without status migrainos us, not intractable 01/26/2017 Obesity (BMI 30-39.9) 10/03/2016 Anxiety 12/17/2015 Abdominal pain in female patient 05/31/2015 Rheumatoid arthritis 12/25/2014 Fibromyalgia 12/25/2014 Pseudomembranous colitis 12/24/2014 Vomiting 10/18/2014 documented as of this encounter (statuses as of 11/06/2019) Immunizations Name Administration Dates Next Due Influenza [...] this encounter Miscellaneous Notes Telephone Encounter - Connie Rahman LVN - 11/06/2019 9:00 AM CDT 3 months ago (08/03/2019) PREMARIN 1.25 mg tablet [facility] [place], [place] - [address] [place] [address] T H APPOINTMENT 07/13/2019 documented in this encounter Plan of Treatment Date Type Specialty Care Team Description 11/06/2019 Appointment Radiology Ekaterina Banks MD [address] [place] [address] Dr. Wren [address] [place] [phone] 10/28/2020 Office Visit Obstetrics & Gynecology Mei Banks MD [address] [place] [address] Dr. Mensah [place], [place] [phone] Health Maintenance Due Date Last Done [...] filedocumented in this encounter Visit Diagnoses Diagnosis Postmenopausal atrophic vaginitis - Prim aleshia documented in this encounter Insurance Payer Benefit Plan Subscriber ID Effective Dates Phone Address Type / Group BCBS OF [facility] [id number] 2018-Jacques [phone] [address] PPO/POS [place] t [id number] [place] [address] documented as of this encounter
--- OUTSIDE RECORDS SUMMARY | 2020-01-20 14:23 | XMS REPORT | Summary of Care ---
:1980 Author Organization [facility] - [facility] Address [address] [place] [address] Care Team Providers Name Role Phone MD Arya Primary Care Provider Reason for Visit Reason Comments Follow-up Post Op Skin Lesion Encounter Details Date Type Department Care Team Description 01/07/2020 Office Visit [facility] General Fadumo Chavis Ski n lesion of left arm (Primary Dx); Surgery- [place] Fol[facility]ulitis; [address] [place] [address] [address] [facility] Visit for suture removal [address] [facility] 2.[address] [address] [place], [place] [phone] [address] [phone] Allergies Active Allergy Reactions Severity Noted Date Comments Gabapentin Other - See comments 10/18/2014 documented as of this encounter (statuses as of 01/07/2020) Medications Medication Sig Dispensed Refills Start Date [...] as of this encounter (statuses as of 01/07/2020) Active Problems Problem Noted Date Surgical menopause 10/29/2019 Postmenopausal atrophic vaginitis 10/29/2019 Family history of breast cancer 10/29/2019 Chronic migraine without aura without status migrainos us, not intractable 01/26/2017 Obesity (BMI 30-39.9) 10/03/2016 Anxiety 12/17/2015 Abdominal pain in female patient 05/31/2015 Rheumatoid arthritis 12/25/2014 Fibromyalgia 12/25/2014 Pseudomembranous colitis 12/24/2014 Vomiting 10/18/2014 documented as of this encounter (statuses as of 01/07/2020) Immunizations Name Administration Dates Next Due Influenza [...] been in contact with No / Unsure 01/07/2020 10:31 AM CDT someone who was confirmed or suspected to have Coronavirus / COVID-19? documented as of this encounter Last Filed Vital Signs Vital Sign Reading Time Taken Comments Blood Pressure 107/70 01/07/2020 10:32 AM CDT Pulse 74 01/07/2020 10:32 AM CDT Temperature - - Respiratory Rate - - Oxygen Saturation - - Inhaled Oxygen Concentration - - Weight 74.8 kg (164 lb 12.8 oz) 01/07/2020 10:32 AM CDT Height 160 cm (5' 3") 01/07/2020 10:32 AM CDT Body Mass Index 29.19 01/07/2020 10:32 AM CDT documented in this encounter Progress Notes Layla Rider - 01/07/2020 9:45 AM CDT Patient Name: Yun Saxena Date of : 1980 Post Operative Clinic Visit 01/07/2020 S: Yun Saxena is a 39 year old female with PMH as described below presenting to clinic today for 2 week follow up from excision of a L. Upper arm lesion in clinic on 12/23. She denies any fevers or chills but reports soreness in the area for the past few days, and minimal purulent/bloody discharge noted yesterday. She is scheduled for suture removal in clinic today. O: BP 107/70 | Pulse 74 | Ht 1.6 m (5' 3") | Wt 74.8 kg (164 lb 12.8 oz) | BMI 29.19 kg/m Gen: AOx3 CV: RRR Resp: No increased WOB Abd: Soft, NT, ND Incision: Mildly indurated with minimal purulent discharge. Sutures removed in clinic today. Surrounding skin without erythema, dry and somewhat scaly. Pathology: 12/24/2019 Final Diagnosis A. SKIN, LEFT ARM, BELOW ELBOW, SHAVE BIOPSY: - RUPTURED FOLLICULITIS WITH ACUTE INFLAMMATION AND GIANT CELL REACTIONS A/P: Yun Saxena is a 39 year old female s/p excision of a left upper inner arm lesion inclinic on 12/23. Sutures were removed in clinic today. Patient was instructed to follow up in clinic in 4 weeks and cover the incision with a bandage if any drainage is noticed. - Follow up in clinic in 4 weeks to assess wound healing Layla Rider, [id number] signed by Fadumo Chavis MD at 01/07/2020 4:56 PM CDTHFadumo tsang MD - 01/07/2020 9:45 AM CDT GENERAL SURGERY POSTOPERATIVE CLINIC NOTE Patient Name: Yun Saxena Date of : 1980 Date: 01/07/2020 Subjective: Yun Saxena is a 39 year old female who presents for follow up. She is doing well but reports some minor pain and drainage from the incision site. Past Medical History: Past Medical History: Diagnosis Date Allergic rhinitis Anxiety B12 deficiency Crohn disease CRPS (complex regional pain syndrome) Esophageal reflux Fibromyalgia Gastroparesis Hyperlipidemia Kidney stone Postmenopausal atrophic vaginitis 10/29/2019 Psoriatic arthritis Rheumatoid arthritis RSD (reflex sympathetic dystrophy) Past Surgical History: Past Surgical History: Procedure Laterality Date CHOLECYSTECTOMY ERCP,SPHINCTEROTOMY ESOPHAGEAL DILATATION HYSTERECTOMY JOINT SURGERY R hip replacement- 01/11/17 PELVIS/HIP JOINT SURGERY UNLISTED R NH HIT PAIN IMP PUMP KIMANI SALPINGO-OOPHORECTOMY Allergies: Allergies Allergen Reactions Gabapentin Other - See comments Medications: Patient's Medications START taking these medications No medications on file CONTINUE taking these medications which have NOT CHANGED AIMOVIG AUTOINJECTOR 140 MG/ML ATIN ALPRAZOLAM 0.5 MG TABLET Take 1 tablet by mouth 3 (three) times daily as needed (anxiety). ALPRAZOLAM 2 MG 24 HR TABLET Take 1 tablet by mouth every morning. APREPITANT 125 MG (1)- 80 MG (2) CPPK CIMZIA STARTER KIT 400 MG/2 ML (200 MG/ML X 2) SYKT CYANOCOBALAMIN 1,000 MCG/ML INJECTION ESTRADIOL (VAGIFEM) 10 MCG TABLET Insert 1 tablet into vagina at bedtime. ESTRADIOL (VAGIFEM) 10 MCG TABLET Insert 1 tablet into vagina every 2 (two) days. FENTANYL 100 MCG/HR PATCH FLUDROCORTISONE 0.1 MG TABLET Take 0.1 mg by mouth. FLUOXETINE 20 MG CAPSULE TAKE 1 CAPSULE BY MOUTH EVERY DAY FLUOXETINE 40 MG CAPSULE Take 1 capsule by mouth daily. FOLIC ACID (FOLATE) 1 MG TABLET Take 1 mg by mouth. HUMIRA PEN 40 MG/0.8 ML INJECTION LAMOTRIGINE 150 MG TABLET METHOCARBAMOL 500 MG TABLET METHOTREXATE 15 MG TABLET 0.8 mg. METHOTREXATE 25 MG/ML INJECTION MUPIROCIN 2 % OINTMENT Apply to area(s) 3 (three) times daily. NYSTATIN 100,000 UNIT/GRAM POWDER Apply to area(s) 2 (two) times daily. Use for 2 weeks NYSTATIN 100,000 UNIT/ML SUSPENSION Take 3 mL by mouth 4 (four) times daily. Scrub around mouth PREMARIN 1.25 MG TABLET TAKE 1 TABLET BY MOUTH EVERY DAY PROMETHAZINE 25 MG TABLET Take 1 tablet by mouth every 4 (four) hours as needed for Nausea and Vomiting (N/V). SUMATRIPTAN 100 MG TABLET Take 4 mg by mouth. TIZANIDINE (ZANAFLEX) 4 MG CAPSULE Take 12 mg by mouth. TROKENDI XR 200 MG CP24 START taking Modified Medications as Prescribed No medications on file STOP taking these medications No medications on file Current Outpatient Medications Medication Sig Dispense Refill ALPRAZolam 0.5 mg tablet Take 1 tablet by mouth 3 (three) times daily as needed (anxiety). 30 tablet 1 ALPRAZolam 2 mg 24 hr tablet Take 1 tablet by mouth every morning. 30 tablet 4 FLUoxetine 40 mg capsule Take 1 capsule by mouth daily. 30 capsule 5 PREMARIN 1.25 mg tablet TAKE 1 TABLET [...] Use for 2 weeks 15 g 1 FLUOXETINE 20 mg capsule TAKE 1 CAPSULE BY MOUTH EVERY DAY 30 capsule 4 AIMOVIG AUTOINJECTOR 140 mg/mL AtIn Aprepitant 125 [...] capsule Take 12 mg by mouth. No current facility-administered medications for this visit. Family History: Family History Problem Relation Age of Onset Stroke Father Hypertension Father Diabetes Mother Hypertension Mother Breast Cancer Maternal Aunt 48 Melanoma Maternal Grandmother 36 Social History: Social History Socioeconomic History Marital status: Spouse [...] file Gets together: Not on file Attends gnosticist service: Not on file Active member of [...] History Narrative Lives at home with disability Physical Exam: BP 107/70 | Pulse 74 | Ht 1.6 m (5' 3") | Wt 74.8 kg (164 lb 12.8 oz) | BMI 29.19 kg/m Constitutional: Awake, alert, oriented, in no acute distress Head: Normocephalic, atraumatic Eyes: Extraocular movements grossly intact, pupils equal and reactive to light and accomodation, anicteric sclerae Ears: Normal external exam Nose: Normal external exam Mouth: Moist mucous membranes Neck: Supple, no jugular venous distention Cardiovascular: Regular rate and rhythm without murmurs Respiratory: No respiratory distress Musculoskeletal: Normal tone and strength, normal range of motion Vascular: Radial and dorsalis pedis pulses palpable bilaterally Neurologic: CN II through XII grossly intact, no focal deficits Skin: Warm and dry, capillary refill <2 seconds, no jaundice, rashes, lesions, or erythema, the sutures have pulled away from the dermis, sutures removed, no underlying infection Psychiatric: Appropriate mood and affect, no obvious deficits of insight or judgment Pathology: SURGICAL PATHOLOGY EXAM: [id number] Order: [id number] Collected: 12/24/2019 14:03 Status: Final result Visible to patient: No (not released) Dx: Skin lesion of left arm Component Final Diagnosis A. SKIN, LEFT ARM, BELOW ELBOW, SHAVE BIOPSY: - RUPTURED FOLLICULITIS WITH ACUTE INFLAMMATION AND GIANT CELL REACTIONS Assessment: Yun Saxena is a 39 year old female s/p excision of a left upper extremity epidermal inclusion cyst. Pathology discussed with the patient. Plan: 1. RTC 4 weeks to assess wound healing Fadumo Chavis M.D. 01/07/2020 10:58 rinity Campo - 01/07/2020 9:45 AM Damien Marlene Saxena is a 39 year old female comes to clinic independent in ambulation for Post-OpSkin Lesion. Pt comes alone . Pt in NAD w/ pain reported 07/05. Pt preferred language is Rwandan. Pt. denies fall in last 12 months. Allergies and medications reviewed and updated. Trinity Bhardwaj 01/07/2020 10:33 AM documented in this encounter Plan of Treatment Date Type Specialty Care Team Description 02/04/2020 Office Visit Surgery Fadumo Chavis MD [address] [facility] [address] [place] [address] [phone] 10/28/2020 Office Visit Obstetrics & Gynecology Adrosalia, Mei Schuler MD [address] [place] [address] [address] Health Maintenance Due Date Last Done [...] filedocumented in this encounter Visit Diagnoses Diagnosis Skin lesion of left arm - Primary Unspecified disorder of skin and subcuta neous tissue Folliculitis Other specified disease of hair and hair follicles Visit for suture removal Encounter for removal of sutures documented in this encounter Insurance Payer Benefit Plan Subscriber ID Effective Dates Phone Address Type / Group BCBS OF [facility] [place] [id number] 2018-Jacques [phone] [address] PPO/POS [place] t 7 [id number] [place] [address] (Work) [id number] documented as of this encounter
--- OUTSIDE RECORDS SUMMARY | 2020-01-20 14:23 | XMS REPORT | Summary of Care ---
:[address] [facility] - [facility] Address [address] [place] [address] Care Team Providers Name Role Phone MD Arya Primary Care Provider Reason for Visit Reason Comments Cyst left arm Encounter Details Date Type Department Care Team Description 12/24/2019 Office Visit [facility] General Fadumo Chavis Ski n lesion of left Surgery- Marquise MCKEON arm (Primary Dx) [facility] [address] [facility] [address] [facility] [address] [address] [place], [place] [phone] [address] Allergies Active Allergy Reactions Severity Noted Date Comments Gabapentin Other - See comments 10/18/2014 documented as of this encounter (statuses as of 12/25/2019) Medications Medication Sig Dispensed Refills Start Date [...] as of this encounter (statuses as of 12/25/2019) Active Problems Problem Noted Date Surgical menopause 10/29/2019 Postmenopausal atrophic vaginitis 10/29/2019 Family history of breast cancer 10/29/2019 Chronic migraine without aura without status migrainos us, not intractable 01/26/2017 Obesity (BMI 30-39.9) 10/03/2016 Anxiety 12/17/2015 Abdominal pain in female patient 05/31/2015 Rheumatoid arthritis 12/25/2014 Fibromyalgia 12/25/2014 Pseudomembranous colitis 12/24/2014 Vomiting 10/18/2014 documented as of this encounter (statuses as of 12/25/2019) Immunizations Name Administration Dates Next Due Influenza [...] been in contact with No / Unsure 12/24/2019 11:10 AM CDT someone who was confirmed or suspected to have Coronavirus / COVID-19? documented as of this encounter Last Filed Vital Signs Vital Sign Reading Time Taken Comments Blood Pressure 98/64 12/24/2019 11:11 AM CDT Pulse 55 12/24/2019 11:11 AM CDT Temperature 36.4 C (97.6 F) 12/24/2019 11:11 AM CDT Respiratory Rate 18 12/24/2019 11:11 AM CDT Oxygen Saturation - - Inhaled Oxygen Concentration - - Weight 72.8 kg (160 lb 9.6 oz) 12/24/2019 11:11 AM CDT Height - - Body Mass Index 29.37 10/29/2019 1:34 PM CDT documented in this encounter Progress Notes Fadumo Chavis MD - 12/24/2019 10:30 AM CDT GENERAL SURGERY CLINIC NOTE Reason for Visit / Chief Complaint: Left arm lesion History of Present Illness: Yun Saxena is a 39 year old female with PMHx as below who presents for follow up of left upper inner arm lesion. She was last seen in clinic 12/11/19 and at the time the lesion had been changing colors and growing in size. There was also mild tenderness. She reports that since then, the lesion has continued to grow and she accidentally nicked it while shaving a few days ago. Associated with pain and bleeding at the time, some mild tenderness today but no evidence of further bleeding Past Medical History: Past Medical History: Diagnosis [...] replacement- 01/11/17 PELVIS/HIP JOINT SURGERY UNLISTED R SC HIT PAIN IMP PUMP KIMANI SALPINGO-OOPHORECTOMY Allergies: Allergies Allergen Reactions Gabapentin Other - See comments Medications: Current Outpatient Medications Medication Sig Dispense Refill [...] file Gets together: Not on file Attends hindu service: Not on file Active member of [...] History Narrative Lives at home with disability Review of Systems (BOLDED if positive. Otherwise negative.) General: weight changes, fatigue, fever Eyes: corrective lenses, pain, blurred vision ENT: hearing problems, earaches, allergies, nose bleeds Skin: rashes, lumps Respiratory: cough, wheeze, shortness of breath Cardiac: chest discomfort, palpitations Gastrointestinal: swallowing problems, nausea/vomiting, blood in stool, abdominal pain Musculoskeletal: muscle cramps, back pain, joint pain, weakness, tingling, pain in feet Immunologic: food allergies, recurrent infections Urinary: increased frequency, burning, urinating at night, incontinence, blood in urine Psychiatric: anxiety, depression Endocrine: thyroid trouble, diabetes Neurologic: fainting, seizures, loss of memory, headaches, numbness, stroke Hematologic: anemia, bleeding problems, transfusion reaction Physical Exam: BP 98/64 (BP Location: Right arm, Patient Position: Sitting, BP CUFF SIZE: Adult Medium) | Pulse 55 | Temp 36.4 C (97.6 F) (Temporal Artery) | Resp 18 | Wt 72.8 kg (160 lb 9.6 oz) | BMI 29.37 kg/m General: alert and oriented in no apparent distress Head: normocephalic, atraumatic Eyes: extraocular movements intact; no scleral icterus ENT: no rhinorrhea, moist mucus membranes Neck: supple, trachea midline CV: hemodynamically stable Resp: unlabored, no increased work of breathing, equal bilateral chest rise Gi: abdomen soft, nondistended, no tenderness to palpation, no peritonitis Extremities/Musculoskeletal: moves extremities well, no edema or cyanosis Skin: skin color, texture, and turgor normal; no rashes or lesions, left upper inner arm lesion thatis a pink and purple discoloration, raised, minimally tender, approx 1.5cm diameter, no drainage Neuro: unremarkable without focal findings Psych: normal mood and affect; judgement intact PROCEDURE - BEDSIDE EXCISION OF LEFT ARM LESION Date of Procedure: 12/24/2019 Pre Operative Diagnosis: Left arm skin lesion Post Operative Diagnosis: Left arm skin lesion Title of Operation: excision of left arm skin lesion Faculty: Fadumo Chavis MD Resident : Ed Putnam MD Anesthesia: local 1% lidocaine with epinephrine Procedure in Detail: Consent was obtained prior to the procedure. The skin was cleaned with betadine prep. Lidocaine 1% w/ epinephrine was then injected subcutaneously into the surrounding skin. The rest of the procedure was then accomplished in the standard sterile fashion. An elliptical incision approximately 3cm long was made around the lesion with a 15 blade scalpel. Using sharp dissection, the lesion was then excised from the underlying subcutaneous tissue. The lesionwas sent off as a specimen. Hemostasis was achieved with compression. The skin edges were approximated with 3-0 Prolene suture in a simple interrupted fashion. Sterile gauze and tape were applied over the incision. Estimated Blood Loss: 2 cc Specimens: Wound culture Complications: none Specific Instructions: Ok to shower in 24 hours. Ok to apply dressing if needed. Do not soak or scrub incisions. Return to clinic in 2 weeks for suture removal. Assessment: Yun Saxena is a 39 year old female who presents with a left inner arm lesion, here today for excision Plan: 1. Consent obtained in clinic 2. Left arm skin lesion excised in clinic, see above procedure note for further details 3. Return to clinic in 2 weeks for suture removal 4. Follow up pathology results Patient seen with faculty Dr. Partha Putnam MD General Surgery PGY-2 Attending Attestation: I personally evaluated and examined the patient on 12/25/[address] Putnam's clinic and procedure notes as written. I actively participated in the decision-making process. Please see the resident's note for additional details. Left arm sebaceous cyst excised and submitted for pathology. RTC 2weeks for suture removal. Fadumo Chavis M.D. 12/25/2019 13:11 Maylin Reddy - 12/24/2019 10:30 AM Damien Marlene Saxena is a 39 year old female comes to clinic independent in ambulation for cyst left arm. Pt comes alone . Pt in NAD w/ pain reported 10/04. Pt preferred language is Ukrainian. Pt. denies fall in last 12 months. Allergies and medications reviewed and updated. [facility] - [place], [place] - [address] [place] [address] Maylin Awan 12/24/2019 11:12 AM documented in this encounter Plan of Treatment Date Type Specialty Care Team Description 01/07/2020 Office [place] [address] [place] [address] [address] [place] [address] [phone] 10/28/2020 Office Visit Obstetrics & Gynecology Mei Banks MD [address] [place] [address] Dr. Mensah [place], [place] [phone] Name Type Priority Associated Diagnoses Date/Ti me SURGICAL PATHOLOGY EXAM LAB Routine Skin lesion of le ft arm 12/24/2019 2:03 PM CDT Name Type Priority Associated Diagnoses Order S chedule SURGICAL PATHOLOGY EXAM LAB Routine Skin lesion of le ft arm Expected: 12/24/2019, Expires: 2020 Health Maintenance Due Date Last Done Comments [...] disorder of skin and subcuta neous tissue documented in this encounter Insurance Payer Benefit Plan Subscriber ID Effective Dates Phone Address Type / Group BCBS [facility] [id number] 2018-Jacques [phone] [address] PPO/POS [place] t 7 [id number] [place] [address] documented as of this encounter"
--- OUTSIDE RECORDS SUMMARY | 2020-01-20 14:23 | XMS REPORT | Summary of Care ---
:1980 Author Organization [facility] Address [address] [place] [address] Care Team Providers Name Role Phone MD Arya Primary Care Provider Reason for Visit Reason Comments New Patient Mass left arm (WANDA) Status Reason Specialty Diagnoses / Referred By Referred To Procedures Contact Contact Authorized JHON-SURGERY / Diagnoses Arm mass, left Ankur Koenig Humphrey, Surgery Procedures CONSULT/REFERRAL GENERAL SURGERY MD Fadumo MD [address] [place] [address].[address] [place], [place] Phone: [phone] Phone: Encounter Details Date Type Department Care Team Description 12/11/2019 Office Visit [facility] General Fadumo Chavis Ski n lesion of left Surgery- Marquise MKCEON arm (Primary Dx) [address] [place] [address] [address] [place], [place] [address] [place], [place] [phone] Allergies Active Allergy Reactions Severity Noted Date Comments Gabapentin Other - See comments 10/18/2014 documented as of this encounter (statuses as of 12/14/2019) Medications Medication Sig Dispensed Refills Start Date [...] as of this encounter (statuses as of 12/14/2019) Active Problems Problem Noted Date Surgical menopause 10/29/2019 Postmenopausal atrophic vaginitis 10/29/2019 Family history of breast cancer 10/29/2019 Chronic migraine without aura without status migrainos us, not intractable 01/26/2017 Obesity (BMI 30-39.9) 10/03/2016 Anxiety 12/17/2015 Abdominal pain in female patient 05/31/2015 Rheumatoid arthritis 12/25/2014 Fibromyalgia 12/25/2014 Pseudomembranous colitis 12/24/2014 Vomiting 10/18/2014 documented as of this encounter (statuses as of 12/14/2019) Immunizations Name Administration Dates Next Due Influenza [...] been in contact with No / Unsure 12/11/2019 3:49 PM CDT someone who was confirmed or suspected to have Coronavirus / COVID-19? documented as of this encounter Last Filed Vital Signs Vital Sign Reading Time Taken Comments Blood Pressure 109/72 12/11/2019 3:50 PM CDT Pulse 73 12/11/2019 3:50 PM CDT Temperature 36.8 C (98.3 F) 12/11/2019 3:50 PM CDT Respiratory Rate 18 12/11/2019 3:50 PM CDT Oxygen Saturation - - Inhaled Oxygen Concentration - - Weight 73.6 kg (162 lb 3.2 oz) 12/11/2019 3:50 PM CDT Height - - Body Mass Index 29.67 10/29/2019 1:34 PM CDT documented in this encounter Progress Notes Fadumo Chavis MD - 12/11/2019 3:00 PM CDT GENERAL SURGERY CLINIC NOTE Reason for Visit / Chief Complaint: Left arm skin lesion History of Present Illness: Yun Saxena is a 39 year old female with PMHx as below who presents for evaluation of a left upper inner arm lesion. The lesion has been present for several weeks. She reports the lesion has increased in size and has changed colors since she first noticed it. Shereports mild tenderness over the lesion. She denies drainage from the lesion. Past Medical History: Past Medical History: Diagnosis Date Anxiety B12 deficiency Crohn disease CRPS (complex regional pain syndrome) Fibromyalgia Gastroparesis Postmenopausal atrophic vaginitis 10/29/2019 Psoriatic arthritis Rheumatoid arthritis RSD (reflex sympathetic dystrophy) Past Surgical History: Past Surgical History: Procedure Laterality Date CHOLECYSTECTOMY ERCP,SPHINCTEROTOMY ESOPHAGEAL DILATATION HYSTERECTOMY JOINT SURGERY R hip replacement- 01/11/17 PELVIS/HIP JOINT SURGERY UNLISTED R [place] HIT PAIN IMP PUMP KIMANI SALPINGO-OOPHORECTOMY Allergies: [...] file Gets together: Not on file Attends synagogue service: Not on file Active member of [...] Lives at home with disability Review of Systems: A 14 point ROS was obtained, only positive responses are in BOLD Constitutional: Fever, chills, loss of appetite, fatigue, unexplained weight loss, unexplained weight gain, weakness Head/Ears/Nose/Mouth/Throat: Head: Headache, head injury, neck pain, neck stiffness Ears: Ear discharge, hearing loss, ear pain, tinnitus Nose: Nose bleeds, sinus congestion, runny nose, postnasal drip, sneezing, sinus pressure Mouth: Dental problems, mouth sores, sore tongue, dry mouth Throat: Sore throat, trouble swallowing, voice change Eyes: Discharge, itching, pain, redness, pain, vision disturbance, blurred vision, vision loss, cataracts, glaucoma CV: Chest pain, palpitations, arrhythmias, dyspnea on exertion, othopnea, claudication, edema, coronary artery disease/history of [place] Respiratory: Cough, sputum production, hemoptysis, wheezing, shortness of breath, sleep apnea GI: Dysphagia, abdominal pain, abdominal distention, indigestion, nausea, vomiting, diarrhea, constipation, hematemesis, blood in stool or dark stool, rectal bleeding, rectal pain, jaundice : Frequency, urgency, pain or burning with urination, flank pain, hematuria, incontinence, change in urinary stream, discharge, bleeding, pelvic pain, irregular menses Musculoskeletal: Muscle pain, joint pain, joint swelling, neck pain, back pain, stiffness, weakness,limitation of motion, arthritis, trauma Integumentary/Breast: Integumentary: Rash, itching, pigmented lesions, lumps, tenderness, swelling, wound Breast: Pain, lumps, nipple discharge, skin changes Neurological: Weakness, sensory changes, syncope, seizures, headache, numbness, tingling, tremor, trauma Hematologic/Lymphatic: Hematologic: Bleeding tendency, easy bruising, history of blood clots, anticoagulation/antiplatelet therapy Lymphatic: Lymphadenopathy Endocrine: Polyuria, polydipsia, polyphagia, heat or cold intolerance, hair loss, appetite changes Allergic/Immunologic: Allergic: Allergic reactions Immunologic: Recurrent infections Psychiatric: Agitation, confusion, decreased concentration, hallucinations, anxiety, self-injury, sleep disturbance, suicidal ideation Physical Exam: BP 109/72 (BP Location: Left arm, Patient Position: Sitting, BP CUFF SIZE: Adult Medium) | Pulse 73 | Temp 36.8 C (98.3 F) (Temporal Artery) | Resp 18 | Wt 73.6 kg (162 lb 3.2 oz) | BMI 29.67 kg/m Constitutional: Awake, alert, oriented, in no acute distress Head: Normocephalic, atraumatic Eyes: Extraocular movements grossly intact, pupils equal and reactive to light and accomodation, anicteric sclerae Ears: Normal external exam Nose: Normal external exam Mouth: Moist mucous membranes Neck: Supple, no jugular venous distention Respiratory: No respiratory distress GI: Soft, nontender, non-distended Musculoskeletal: Normal tone and strength, normal range of motion Neurologic: CN II through XII grossly intact, no focal deficits Skin: Warm and dry, capillary refill <2 seconds, no jaundice, 5 mm skin lesion to upper inner left arm with associated mild erythema, minimally tender, no drainage Hematologic/lymphatic: No axillary, or inguinal lymphadenopathy Psychiatric: Appropriate mood and affect, no obvious deficits of insight or judgment Assessment: Yun Saxena is a 39 year old female with left upper inner arm skin lesion which has been present for several weeks and has increased in size. Treatment options discussed with thepatient, she wishes to proceed with excision of the skin lesion. Plan: 1. RTC for excision of the skin lesion Fadumo Chavis M.D. 12/11/2019 16:13 Manny Powell - 12/11/2019 3:00 PM CDT Surgery Progress Note Date of Service: 12/11/2019 16:13 Chief Complaint: Mass above left elbow HPI: Yun Saxena is a 39 year old /White female who came in with a chief complaint ofmass above her left elbow. She first started noticing the mass 5 weeks ago and it has progressively enlarged and developed skin discoloration. The area is only painful if she presses it. She denies F/C, N/V, diarrhea and constipation. Objective: Temp: [36.8 C (98.3 F)] Pulse: [73] Resp: [18] BP: (109)/(72) Vitals: 12/11/19 1550 BP: 109/72 BP Location: Left arm Patient Position: Sitting BP CUFF SIZE: Adult Medium Pulse: 73 Resp: 18 Temp: 36.8 C (98.3 F) TempSrc: Temporal Artery Weight: 162 lb 3.2 oz (73.6 kg) Physical Exam General: Alert and oriented X 4, no apparent distress HEENT: NCAT, extraocular movements intact, mucous membranes moist Lungs: Clear to auscultation bilaterally CV: RRR, no murmurs heard, JVP not elevated. Abdomen: soft, nontender/nondistended, bowel sounds normoactive Extremities: no cyanosis, clubbing or edema, Patient has a mass above her left elbow that is erythematous, but does not produce any drainage. Neuro: no focal neural deficits Assessment/Plan: Yun Saxena is a 39 year old female with a mass above her left elbow. The mass has an erythematous surface without drainage. Only mildly tender on palpation. The mass is suspected to be a sebaceous cyst or hydradenitis. - Schedule an excision of mass in two weeks - Call clinic as needed for worsening symptoms Manny Mckeon MS4 Maylin Awan - 12/11/2019 3:00 PM CDTBprecious Marlene Saxena is a 39 year old female comes to clinic independent in ambulation for new patient mass left arm. Pt comes alone . Pt in NAD w/ pain reported 0/10. Pt preferred language is Panamanian. Pt. denies fall in last 12 months. Allergies and medications reviewed and updated. [facility] [place], [place] - [address] [place] [address] Maylin Awan 12/11/2019 3:51 PM documented in this encounter Plan of Treatment Date Type Specialty Care Team Description 12/24/2019 Office Visit Surgery Fadumo Chavis MD [address] [facility] [address] [place], [place] [id number] 10/28/2020 Office Visit Obstetrics & Gynecology Adrosalia, Mei Schuler MD [address] [place] [address] [address] [place], [place] [address] Health Maintenance Due Date [...] Dates Phone Address Type / Group BCBS [facility] [id number] 2018-Jacques [phone] [address] PPO/POS [place] t 7 [phone] [place] [address] (Work) [phone] documented as of this encounter"
--- OUTSIDE RECORDS SUMMARY | 2020-01-20 14:23 | XMS REPORT | Summary of Care ---
:1980 Author Organization [facility] Address [address] [place] [address] Care Team Providers Name Role Phone MD Arya Primary Care Provider Reason for Visit Reason Comments New Patient Mass left arm (WANDA) Status Reason Specialty Diagnoses / Referred By Referred To Procedures Contact Contact Authorized JHON-SURGERY / Diagnoses Arm mass, left Ankur Koenig Humphrey, Surgery Procedures CONSULT/REFERRAL GENERAL SURGERY MD Fadumo MD [address] [place] [address] [place], [place] Phone: [phone] Phone: Encounter Details Date Type Department Care Team Description 12/11/2019 Office Visit [facility] General Fadumo Chavis Ski n lesion of left Surgery- Marquise MCKEON arm (Primary Dx) [address] [place] [address] [address] [place], [place] [address] [place], [place] [phone] [address] Allergies Active Allergy Reactions Severity Noted [...] replacement- 01/11/17 PELVIS/HIP JOINT SURGERY UNLISTED R CT HIT PAIN IMP PUMP KIMANI SALPINGO-OOPHORECTOMY Allergies: [...] file Gets together: Not on file Attends protestant service: Not on file Active member of [...] othopnea, claudication, edema, coronary artery disease/history of [place] Respiratory: Cough, sputum production, hemoptysis, wheezing, shortness [...] pain reported 0/10. Pt preferred language is [place]. Pt. denies fall in last 12 months. Allergies and medications reviewed and updated. [facility] - [place], [place] - [address] [place] [address] Maylin Awan 12/11/2019 3:51 PM documented in this encounter Plan of Treatment Date Type Specialty Care Team Description 12/24/2019 Office Visit Surgery Fadumo Chavis MD [address] [facility] [address] [place], [place] [address] 10/28/2020 Office Visit Obstetrics & Gynecology Adrosalia, Mei Schuler MD [address] [place] [address] [address] [place], [place] [address] Health Maintenance Due Date [...] Dates Phone Address Type / Group BCBS [facility] [id number] 2018-Jacques [phone] [address] PPO/POS [place] t 7 [id number] [place] [address] (Work) [phone] documented as of this encounter"
--- OUTSIDE RECORDS SUMMARY | 2020-01-20 14:23 | XMS REPORT | Summary of Care ---
:1980 Author Organization [facility] Address [address] [place] [address] Care Team Providers Name Role Phone MD Arya Primary Care Provider Encounter Details Date Type Department Care Team Description 12/24/2019 Orders Only [facility] Doctor Unassigned, No [address] [facility] Name [place] [phone] [place] [address] Allergies Active Allergy Reactions Severity Noted Date [...] Signs Not on filedocumented in this encounter Plan of Treatment Date Type Specialty Care Team Description 01/07/2020 Office Visit Surgery Fadumo Chavis MD [address] [facility] [address] [place] [address] [phone] 10/28/2020 Office Visit Obstetrics & Gynecology Mei Banks MD [address] [place] [address] [address] [place] [phone] Health Maintenance Due Date Last Done Comments VARICELLA VACCINES (1 of 2 - 2-dose 1981 childhood series) PNEUMOCOCCAL 0-64 YEARS COMBINED 1986 SERIES (1 of 3 - PCV13) DTaP,Tdap,and Td Vaccines (1 - Tdap) 1999 PAP SMEAR 2001 INFLUENZA VACCINE (#1) 2019 12/22/2017, 05/07/2016, 05/14/2014 Depression Screening 12/04/2020 12/05/2019 documented as of this encounter Procedures Procedure Name Priority Date/Time Associated Diagnosis Comme nts DISCLOSURE AND CONSENT, Routine 12/24/2019 12:01 AM MEDICAL AND SURGICAL CDT PROCEDURES documented in this encounter Results Not on filedocumented in this encounter Insurance Payer Benefit Plan Subscriber ID Effective Dates Phone Address Type / Group BCBS [employer] [place] [id number] 2018-Jacques [phone] [address] PPO/POS [place] t 7 [id number] [place] [address] documented as of this encounter
--- OUTSIDE RECORDS SUMMARY | 2020-01-20 14:23 | XMS REPORT | Summary of Care ---
:1980 Author Organization [facility] Address [address] [place] [address] Care Team Providers Name Role Phone MD Arya Primary Care Provider Reason for Visit Reason Comments Cyst left arm Encounter Details Date Type Department Care Team Description 12/24/2019 Office Visit [facility] General Fadumo Chavis Ski n lesion of left Surgery- Marquise MCKEON arm (Primary Dx) [facility] [address] [facility] [address] [facility] 2.[address] [place], [place] [phone] Allergies Active Allergy Reactions Severity Noted Date [...] replacement- 01/11/17 PELVIS/HIP JOINT SURGERY UNLISTED R [place] HIT PAIN IMP PUMP KIMANI SALPINGO-OOPHORECTOMY Allergies: [...] file Gets together: Not on file Attends christian service: Not on file Active member of [...] pain reported 10/04. Pt preferred language is Mosotho. Pt. denies fall in last 12 months. Allergies and medications reviewed and updated. [facility] - [place], [place] - [address] [place] [address] Maylin Awan 12/24/2019 11:12 AM documented in this encounter Plan of Treatment Date Type Specialty Care Team Description 01/07/2020 Office [place] [address] [place] [address] [address] [place] [address] [phone] 10/28/2020 Office Visit Obstetrics & Gynecology Mei Banks MD [address] [place] [address] Dr. [address] [place], [place] [address] Name Type Priority Associated [...] Dates Phone Address Type / Group BCBS [facility] [id number] 2018-Jacques [phone] [address] PPO/POS [place] t 7 [id number] [place] [address] documented as of this encounter"
--- OUTSIDE RECORDS SUMMARY | 2020-01-20 14:24 | XMS REPORT | Summary of Care ---
:1980 Author Organization [facility] Address [address] [place] [address] Care Team Providers Name Role Phone MD Arya Primary Care Provider Reason for Visit Reason Comments Follow-up Post Op Skin Lesion Encounter Details Date Type Department Care Team Description 01/07/2020 Office Visit [facility] General Fadumo Chavis Ski n lesion of left arm (Primary Dx); Surgery- [place] Folliculitis; [address] [place] [address] [facility] Visit for suture removal [address] [facility] 2.[address] [place], [place] [phone] [address] [phone] Allergies Active Allergy Reactions Severity Noted Date [...] weeks to assess wound healing Layla Rider, [id number] signed by Fadumo Chavis MD at 01/07/2020 [...] replacement- 01/11/17 PELVIS/HIP JOINT SURGERY UNLISTED R [place] HIT PAIN IMP PUMP KIMANI SALPINGO-OOPHORECTOMY Allergies: [...] file Gets together: Not on file Attends yazidi service: Not on file Active member of [...] insight or judgment Pathology: SURGICAL PATHOLOGY EXAM: [id number] Order: [id number] Collected: 12/24/2019 14:03 Status: Final result Visible [...] pain reported 07/05. Pt preferred language is [place]an. Pt. denies fall in last 12 months. Allergies and medications reviewed and updated. Trinity Bhardwaj 01/07/2020 10:33 AM documented in this encounter Plan of Treatment Date Type Specialty Care Team Description 02/04/2020 Office Visit Surgery Fadumo Chavis MD [address] [facility] [address] [place] [address] [phone] 10/28/2020 Office Visit Obstetrics & Gynecology Adrosalia, Mei Schuler MD [address] [place] [address] 77 [address] Health Maintenance Due Date [...] Phone Address Type / Group BCBS OF [facility] [id number] 2018-Jacques [phone] [address] PPO/POS [place] t 7 [id number] [place] [address] (Work) [phone] documented as of this encounter
[2020-01-20] MEDS ORDERED: FENTANYL CITR 100 MCG/2 ML ONE (14:47)
--- NOTE | 2020-01-20 15:57 | RAD REPORT ---
EXAM DESCRIPTION: Shoulder Right 2 View - 01/20/2020 3:28 pm CLINICAL HISTORY: fall last night;Pain COMPARISON: <Comparisons> TECHNIQUE: Internal and external rotation views of the right shoulder were obtained. FINDINGS: There is no fracture or dislocation. Acromial humeral joint space is normal. No abnormal s oft tissue calcifications. AC joint is normal in appearance. Ribs and parenchyma of the upper chest u nremarkable. No significant or suspicious findings noted. IMPRESSION: Negative two-view right shoulder examination.
--- NOTE | 2020-01-20 16:20 | ER ---
Nurse's Notes [facility] Name: Yun Saxena Age: 39 yrs Sex: Female : 1980 Arrival Date: 01/20/2020 Time: 14:19 Bed 2 Private MD: Ankur Koenig S Diagnosis: Pain in right shoulder;Fall on same level from slipping, tripping and stumbling Presentation: 01/19 14:24 Risk Assessment: Do you want to hurt yourself or someone else? Patient reports no sv desire to harm self or others. 14:24 Method Of Arrival: Wheelchair sv 14:30 Chief complaint: Patient states: Tripped in her driveway at 0100 last night. Right ll1 shoulder pain and right hip pain since. Limited ROM R shoulder. PMS intact. Coronavirus screen: Client denies travel out of the [place] in the last 14 days. At this time, the client does not indicate any symptoms associated with coronavirus-19. Ebola Screen: Patient denies travel to an Ebola-affected area in the 21 days before illness onset. Initial Sepsis Screen: Does the patient meet any 2 criteria? No. Patient's initial sepsis screen is negative. Does the patient have a suspected source of infection? Yes: Bone or joint infection. Onset of symptoms was January 20, 2020. 14:30 Acuity: JEAN PIERRE 3 ll1 Triage Assessment: 14:25 General: Appears in no apparent distress. uncomfortable, well groomed, well developed, sv Behavior is cooperative, appropriate for age. Pain: Complains of pain in anterior aspect of right shoulder Pain currently is 9 out of 10 on a pain scale. Pain began 1 day ago. Is intermittent, Aggravated by increased activity. Neuro: Level of Consciousness is awake, alert, obeys commands, Oriented to person, place, time, situation, Moves all extremities. Full function Gait is steady. Respiratory: Respiratory effort is even, unlabored, Respiratory pattern is regular, symmetrical. Derm: Skin is pink, warm \T\ dry. Musculoskeletal: Range of motion: limited in right shoulder. FIRE CHIEF: 14:25 LMP N/A - Hysterectomy sv Historical: - Allergies: 14:24 GABAPENTIN; sv - PMHx: 14:24 Arthritis; Diverticulitis; complex regional pain syndrome stage 4; Fibromyalgia; sv Migraines; Pancreatitis; Reflective Sympathetic Dystrophy; Rheumatoid Arthritis; - PSHx: 14:24 Hysterectomy; Cholecystectomy; Multiple abdoiminal sx; Tubal ; Hip - RIGHT; sv Back; - Immunization history:: Flu vaccine is not up to date. - Social history:: Smoking status: Patient reports the use of cigarette tobacco products, smokes one-half pack cigarettes per day. Screenin:23 Abuse screen: Denies threats or abuse. Denies injuries from another. Nutritional sv screening: No deficits noted. Tuberculosis screening: No symptoms or risk factors identified. 14:50 Fall Risk Fall in past 12 months (25 points). No secondary diagnosis (0 pts). IV access sv (20 points). Ambulatory Aid- None/Bed Rest/Nurse Assist (0 pts). Gait- Normal/Bed Rest/Wheelchair (0 pts) Mental Status- Oriented to own ability (0 pts). Total Rueda Fall Scale indicates No Risk (0-24 pts). Assessment: 14:50 Reassessment: Patient appears in no apparent distress at this time. No changes from sv previously documented assessment. Patient and/or family updated on plan of care and expected duration. Pain level reassessed. Patient is alert, oriented x 3, equal unlabored respirations, skin warm/dry/pink. 15:12 Reassessment: Xray at the bedside. sv 15:20 Reassessment: Patient appears in no apparent distress at this time. No changes from sv previously documented assessment. Patient and/or family updated on plan of care and expected duration. Pain level reassessed. Patient is alert, oriented x 3, equal unlabored respirations, skin warm/dry/pink. 16:49 Reassessment: Patient appears in no apparent distress at this time. Patient and/or sv family updated on plan of care and expected duration. Pain level reassessed. Patient is alert, oriented x 3, equal unlabored respirations, skin warm/dry/pink. Vital Signs: 14:30 BP 121 / 93; Pulse 89; Resp 20; Temp 97.8; Pulse Ox 99% ; Weight 68.04 kg; Height 5 ft. ll1 4 in. (162.56 cm); Pain 9/10; 15:05 BP 93 / 69; Pulse 79; Resp 16; Pulse Ox 96% ; sv 14:30 Body Mass Index 25.75 (68.04 kg, 162.56 cm) ll1 ED Course: 14:19 Patient arrived in ED. mr 14:20 Ankur Koenig MD is Private Physician. mr 14:23 Alaina Roberts RN is Primary Nurse. sv 14:23 Yanick Valdez PA is PHCP. cp 14:23 Wood Manzanares MD is Attending Physician. cp 14:23 Arm band placed on Patient placed in an exam room, on a stretcher. sv 14:23 Patient has correct armband on for positive identification. Bed in low position. Call sv light in reach. Pulse ox on. NIBP on. 14:31 Triage completed. ll1 14:50 Inserted saline lock: 24 gauge in left wrist, using aseptic technique. Flushed left sv with 2 ml normal saline. 15:05 Awaiting for x-ray. sv 15:29 XRAY Shoulder RIGHT 2 view In Process Unspecified. EDMS 16:19 Steve Miller MD is Referral Physician. cp 16:40 Sling applied to right arm. sv 16:48 No provider procedures requiring assistance completed. IV discontinued, intact, sv bleeding controlled, No redness/swelling at site. Pressure dressing applied. Administered Medications: 14:50 Drug: fentaNYL (PF) 25 mcg Route: IVP; Site: left wrist; sv 15:20 Follow up: Response: No adverse reaction; No change in condition; Pain is unchanged, sv physician notified; RASS: Agitated (+2) 15:20 Drug: fentaNYL (PF) 50 mcg {Note: rass2.} Route: IVP; Site: left wrist; sv 16:48 Follow up: Response: No adverse reaction; RASS: Restless (+1) sv Outcome: 16:19 Discharge ordered by MD. cp 16:49 Discharged to home ambulatory, with family. sv 16:49 Condition: stable 16:49 Discharge instructions given to patient, family, Instructed on discharge instructions, follow up and referral plans. medication usage, arm sling application Demonstrated understanding of instructions, follow-up care, medications, arm sling application Prescriptions given X 2. 16:49 Patient left the ED. sv Signatures: Dispatcher [employer] EDMS Alaina Roberts, ИВАН OATES Mary Hodge mr Yanick Valdez PA PA cp Lewis, Lynsay, RN RN ll1
--- NOTE | 2020-01-20 16:20 | EDPHYS ---
Physician Documentation [facility] Name: Yun Saxena Age: 39 yrs Sex: Female : 1980 Arrival Date: 01/20/2020 Time: 14:19 Bed 2 Private MD: Ankur Koenig S ED Physician Wood Manzanares HPI: 01/19 14:35 This 39 yrs old Female presents to ER via Wheelchair with complaints of Arm cp Injury. 14:35 The patient or guardian complains of decreased range of motion, injury, pain, that is cp acute. The complaints affect the right shoulder. Context: resulted from a fall. Onset: The symptoms/episode began/occurred yesterday, and became worse today. Treatment prior to arrival includes: fentanyl patch. 14:35 Associated signs and symptoms: Pertinent negatives: deformity. 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 - Social history:: Smoking status: Patient reports the use of cigarette tobacco products, smokes one-half pack cigarettes per day. ROS: 14:40 Constitutional: Negative for chills, fever, poor PO intake. cp 14:40 Eyes: Negative for injury, pain, redness, and discharge. cp 14:40 Neck: Negative for pain with movement, pain at rest, stiffness, tenderness. 14:40 Cardiovascular: Negative for chest pain, palpitations. 14:40 Respiratory: Negative for cough, shortness of breath, wheezing. 14:40 Abdomen/GI: Negative for abdominal pain, nausea, vomiting, and diarrhea. 14:40 Back: Negative for pain at rest, pain with movement. 14:40 MS/extremity: Positive for pain, tenderness, of the right shoulder, Negative for deformity. 14:40 Neuro: Negative for altered mental status, headache, loss of consciousness, syncope, weakness. 14:40 All other systems are negative. Exam: 14:50 Constitutional: The patient appears in no acute distress, alert, awake, cp non-diaphoretic, non-toxic, well developed, well nourished. 14:50 Head/Face: Normocephalic, atraumatic. cp 14:50 Eyes: Periorbital structures: appear normal, Conjunctiva: normal, no exudate, no injection, Sclera: no appreciated abnormality, Lids and lashes: appear normal, bilaterally. 14:50 ENT: External ear(s): are unremarkable, Nose: is normal, Mouth: Lips: moist, Oral mucosa: moist, Posterior pharynx: Airway: no evidence of obstruction, patent. 14:50 Neck: C-spine: vertebral tenderness, is not appreciated, crepitus, is not appreciated, ROM/movement: is normal, is supple, without pain, no range of motions limitations. 14:50 Chest/axilla: Inspection: normal, Palpation: is normal, no crepitus, no tenderness. 14:50 Cardiovascular: Rate: normal, Rhythm: regular, Pulses: Pulses are 2+ in right radial artery and left radial artery. 14:50 Respiratory: the patient does not display signs of respiratory distress, Respirations: normal, no use of accessory muscles, no retractions, labored breathing, is not present, Breath sounds: are clear throughout, no decreased breath sounds, no stridor, no wheezing. 14:50 Abdomen/GI: Inspection: abdomen appears normal, Bowel sounds: active, all quadrants, Palpation: abdomen is soft and non-tender, in all quadrants. 14:50 Back: pain, is absent, ROM is normal. 14:50 Musculoskeletal/extremity: Extremities: grossly normal except: noted in the right shoulder: pain, tenderness, There is no evidence of deformity, ROM: limited passive range of motion due to pain, in the right shoulder, Perfusion: the extremity is normally perfused throughout, Sensation intact. 14:50 Skin: no rash present. 14:50 Neuro: Orientation: to person, place \T\ time. Mentation: is normal. Vital Signs: 14:30 BP 121 / 93; Pulse 89; Resp 20; Temp 97.8; Pulse Ox 99% ; Weight 68.04 kg; Height 5 ft. ll1 4 in. (162.56 cm); Pain 9/10; 15:05 BP 93 / 69; Pulse 79; Resp 16; Pulse Ox 96% ; sv 14:30 Body Mass Index 25.75 (68.04 kg, 162.56 cm) ll1 Procedures: 16:25 Splinting: Splint applied to right shoulder using sling, applied by nurse. Examined by cp me, post splint application: neurovascular intact, Patient tolerated well. MDM: 14:27 Patient medically screened. cp 14:45 Differential diagnosis: dislocation, closed fracture, contusion, rotator cuff tear. cp 16:18 Data reviewed: vital signs, nurses notes, radiologic studies, plain films. cp 16:18 Counseling: I had a detailed discussion with the patient and/or guardian regarding: the cp historical points, exam findings, and any diagnostic results supporting the discharge/admit diagnosis, radiology results, the need for outpatient follow up, a orthopedic surgeon, to return to the emergency department if symptoms worsen or persist or if there are any questions or concerns that arise at home. Response to treatment: the patient's symptoms have markedly improved after treatment, VSS. Pain improved. Will discharge to home for continued monitoring. 01/19 14:29 Order name: XRAY Shoulder RIGHT 2 view; Complete Time: 16:10 cp 01/19 16:10 Interpretation: Reviewed. cp 01/19 14:29 Order name: IV; Complete Time: 14:50 cp 01/19 15:25 Order name: Sling; Complete Time: 16:47 cp Administered Medications: 14:50 Drug: fentaNYL (PF) 25 mcg Route: IVP; Site: left wrist; sv 15:20 Follow up: Response: No adverse reaction; No change in condition; Pain is unchanged, sv physician notified; RASS: Agitated (+2) 15:20 Drug: fentaNYL (PF) 50 mcg {Note: rass2.} Route: IVP; Site: left wrist; sv 16:48 Follow up: Response: No adverse reaction; RASS: Restless (+1) sv Disposition: 18:56 Co-signature as Attending Physician, Wood Manzanares MD. rn Disposition: 01/20/20 16:19 Discharged to Home. Impression: Pain in right shoulder, Fall on same level from slipping, tripping and stumbling. - Condition is Stable. - Discharge Instructions: Shoulder Pain, Shoulder Range of Motion Exercises. - Prescriptions for Cyclobenzaprine 10 mg Oral Tablet - take 1 tablet by ORAL route every 8 hours As needed; 20 tablet. Diclofenac Sodium 75 mg Oral Tablet Sustained Release - take 1 tablet by ORAL route 2 times per day; 30 tablet. - Medication Reconciliation Form, Thank You Letter, Antibiotic Education, Prescription Opioid Use form. - Follow up: Steve Miller MD; When: 2 - 3 days; Reason: Recheck today's complaints. Signatures: Dispatcher [employer] Alaina Catherine RN RN sv Wood Manzanares MD MD rn Page, Corey, PA PA cp Kaylee Jung RN RN ll1 Corrections: (The following items were deleted from the chart) 14:31 14:29 Urine Test ordered. [facility] 14:50 14:29 Urine Dipstick-Ancillary ordered. [facility] 16:49 16:19 01/20/2020 16:19 Discharged to Home. Impression: Pain in right shoulder; Fall on sv same level from slipping, tripping and stumbling. Condition is Stable. Forms are Medication Reconciliation Form, Thank You Letter, Antibiotic Education, Prescription Opioid Use. Follow up: Steve Miller; When: 2 - 3 days; Reason: Recheck today's complaints. cp
[2020-01-20 17:05] VITALS: TEMP 97.8
[2020-01-20 17:06] VITALS: BP 93/69; O2SAT 96
== END 2020-01-20 16:49 | disposition home or self-care (01) ==
LOC: ER 14:18
DX: M25.511 Pain in right shoulder (principal); W01.0XXA Fall on same level from slipping, tripping and stumbling without subsequent striking against object, initial encounter; Y93.89 Activity, other specified; Y92.89 Other specified places as the place of occurrence of the external cause; Z88.8 Allergy status to other drugs, medicaments and biological substances; F17.210 Nicotine dependence, cigarettes, uncomplicated
CPT/HCPCS: 73030; 96374; 99284; J3010

== ENCOUNTER 2022-04-17 08:43 | Emergency (ER) | payer BC ==
--- OUTSIDE RECORDS SUMMARY | 2022-04-17 08:51 | XMS REPORT | Continuity of Care Document ---
:1980 Author Organization [facility] t Address [address] [place] [address] Care Team Providers Name Role Phone Ankur Noonan MD Primary Care Physician nAkur Noonan MD Attending Clinician Doctor Unassigned, Theodore Attending Clinician Unavailable ANKUR NOONAN Attending Clinician Unavailable Shailesh Carr Attending Clinician Alondra MCKEON, Romeo Ding Attending Clinician Marcia MCKEON, Pascual Monae Attending Clinician [phone] Noe Sewell DO Attending Clinician Gurwinder MCKEON, Dagoberto Patiño Attending Clinician Shelly MCKEON, Amee Modi Attending Clinician Jose Tom CRNA Attending Clinician Evon Frazier MA Attending Clinician Unavailable Shivam March MD Attending Clinician Radha Blake APRN Attending Clinician Len Bueno MD Attending Clinician Raheem Cotto MD Attending Clinician Lemuel MCKEON, James Navarro Attending Clinician Ulisses Aleman MD Attending Clinician [phone] Len Clark MD Attending Clinician EKATERINA BANKS Attending Clinician Unavailable KATIA OLIVERA Attending Clinician Unavailable Adebayo MCKEON, Jun Cassidy Attending Clinician [phone] Ekaterina Banks MD Attending Clinician Lab, Adc Fam Pob I Attending Clinician Unavailable FADUMO CHAVIS Attending Clinician Unavailable Fadumo Chavis MD Attending Clinician LEN BUENO Attending Clinician Unavailable PASCUAL KENNEDY Admitting Clinician Unavailable DAGOBERTO PURDY Admitting Clinician Unavailable JAMES PORETR Admitting Clinician Unavailable Payers Payer Name Policy Type Policy Number Effective Date Expiration Date S ource Problems Condition Condition Condition Status Onset Resolution Last Treating Co mments Source Name Details Category Date Date Treatment Clinician Date Acute Acute Disease Active Methodi intractabl intractabl 6-17 st e e 00:00: Hospita tension-ty tension-ty 00 l pe pe headache headache Chronic Chronic Disease Active Methodi pain pain 4-04 st disorder disorder 00:00: Hospit a 00 l Hyperlipid Hyperlipid Disease Active 2019-03 U nivers emia, emia, 1- ity of unspecifie [place] Medical hyperlipid hyperlipid Br anch emia type emia type Type 2 Type 2 Disease Active 2019-03 Univers diabetes diabetes 1- ity of mellitus mellitus 00:00: [place] without without 00 Medical complicati complicati Br anch on, on, without without long-term long-term current current use of use of insulin insulin Surgical Surgical Disease Active Unive rs menopause menopause 8- ity of 00:00: [place] 00 Medical Branch Postmenopa Postmenopa Disease Active 2020- U nivers usal usal 8- ity of atrophic atrophic 00:00: [place] vaginitis vaginitis 00 [facility] Branch Family Family Disease Active 2019- Univers history of history of 10-28 it y of breast breast 00:00: [place] cancer cancer 00 Medical Branch Chronic Chronic Disease Active 2016-03 Univers migraine migraine - ity of without without 00:00: [place] aura aura 00 Medical without without Branch status status migrainosu migrainosu s, not s, not intractabl intractabl e e Obesity Obesity Disease Active Univers (BMI (BMI 7- ity of 30-39.9) 30-39.9) 00:00: [place] 00 Medical Branch Pilonidal Pilonidal Disease Active Met hodi cyst cyst 05-16 st 00:00: Hospita 00 l Rheumatoid Rheumatoid Disease Active M ethodi arthritis arthritis 05-16 st 00:00: Hospita 00 l Orthostati Orthostati Disease Active M ethodi c c 05-16 st hypotensio hypotensio 00:00: Ho spita n n 00 l Chest pain Chest pain Disease Active [address] 00:00: Hospita 00 l Anxiety Anxiety Disease Active Univers 9- ity of 00:00: [place] 00 Medical Branch Bradycardi Bradycardi Disease Active 2016-0 M ethodi a a 10-08 st 00:00: Hospita 00 l 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 10-08 st c c 00:00: Hospita dystrophy dystrophy 00 l Fibromyalg Fibromyalg Disease Recurre Methodi ia ia nce 10-08 st 00:00: Hospita 00 l Abdominal Abdominal Disease Active Uni vers pain in pain in 3-05 ity of female female 00:00: [place] patient patient 00 Medical Branch Rheumatoid Rheumatoid Disease Active U nivers arthritis arthritis 12-25 ity of 00:00: [place] 00 Medical Branch Fibromyalg Fibromyalg Disease Active U nivers ia ia 12-25 ity of 00:00: [place] 00 Medical Branch Pseudomemb Pseudomemb Disease Active U cathleen ranous ranous 9- ity of colitis colitis 00:00: [place] 00 Medical Branch Vomiting Vomiting Disease Active Unive rs 7-24 ity of 00:00: [place] 00 Medical Branch Fibromyalg Fibromyalg Disease Active 2012-03 [facility] gilda ia ia 2-12 College 00:00: of 00 Medicin e Rheumatic Rheumatic Disease Active 2012-03 [facility] joint joint 0-27 College disease disease 00:00: of 00 Medicin e Abdominal Abdominal Disease Active [facility] pain, pain, 7-13 College unspecifie unspecifie 00:00: of d site d site 00 Medicin e Other and Other and Disease Active [facility] unspecifie unspecifie 7-13 Co llege d ovarian d ovarian 00:00: of cyst cyst 00 Medicin e Pelvic Pelvic Disease Active [facility] peritoneal peritoneal 2-24 Co llege adhesions, adhesions, 00:00: of female female 00 Medicin (postopera (postopera e tive) tive) (postinfec (postinfec tion) tion) Pelvic Pelvic Disease Active [facility] pain pain 2-24 College 00:00: of 00 Medicin e Female Female Disease Active 2008-03 [facility] Infertilit Infertilit 0-01 Co llege y of Tubal y of Tubal 00:00: of Origin Origin 00 Medicin e ECTOPIC ECTOPIC Disease Active [facility] 2-25 Marcelo ege 00:00: of 00 Medicin e Disease Active [facility] EXAMINATIO EXAMINATIO 2-13 Co llege N/TEST N/TEST 00:00: of 00 Medi mike UNCONFIRME UNCONFIRME e D D OTHER OTHER Disease Active [facility] ELEVATED ELEVATED 2-12 Colleg e WHITE WHITE 00:00: of BLOOD CELL BLOOD CELL 00 Me dicin COUNT COUNT e Inflammato Inflammat Problem Active 2021-09-15 Memoria ry ory 02:45:35 l polyarthro polyarthro He rmann edwin edwin Active Problem 09/15/2021 [facility] Spasm of Spasm of Problem Active 2021-09-15 Memoria muscle muscle 02:45:35 l Active [place] Problem 09/15/2021 [facility] Reflex Reflex Problem Active 2021-09-15 Gunner shaq sympatheti sympatheti 02:45:35 l c c [place] dystrophy dystrophy of other of other specified specified site site Active Problem 09/15/2021 [facility] Transamini Transamin Problem Active 2021-09-15 Memoria tis itis 02:45:35 l Active [place] Problem 09/15/2021 [facility] Vitamin D Vitamin Problem Active 2021-09-15 Memoria deficiency D 02:45:35 l deficiency Keagan n Active Problem 09/15/2021 [facility] Vitamin Vitamin Problem Active 2021-09-15 Me moria B12 B12 02:45:35 l deficiency deficiency He rmann Active Problem 09/15/2021 [facility] Drug or Drug or Problem Active 2021-09-15 Me moria medicinal medicinal 02:45:35 l substance substance Herm mishel causing causing adverse adverse effect in effect in therapeuti therapeuti c use c use Active Problem 09/15/2021 [facility] Nausea Nausea Problem Active 2021-09-15 Gunner shaq without without 02:45:35 l vomiting vomiting Keagan n Active Problem 09/15/2021 [facility] Fatigue Fatigue Problem Active 2021-09-15 Me moria Active 02:45:35 l Problem [place] 09/15/2021 [facility] Edema Edema Problem Active 2021-09-15 Memor ia Active 02:45:35 l Problem [place] 09/15/2021 [facility] Encounter Encounter Problem Active 2021-09-15 Memoria for for 02:45:35 l long-term long-term Herm mishel (current) (current) use of use of other other medication medication s s Active Problem 09/15/2021 [facility] Insomnia Insomnia Problem Active 2021-09-15 Memoria Active 02:45:35 l Problem [place] 09/15/2021 [facility] Other Other Problem Active 2021-09-15 Memor ia malaise malaise 02:45:35 l Active [place] Problem 09/15/2021 [facility] Myalgia Myalgia Diagnosis Active 2021-09-15 Memoria Active 02:45:35 l Diagnosis [place] 09/15/2021 [facility] Psoriatic Psoriatic Problem Active 2021-09-15 [facility]oria arthritis arthritis 02:45:35 l Active [place] Problem 09/15/2021 [facility] Rash and Rash and Problem Active 2021-09-15 Memoria nonspecifi nonspecifi 02:45:35 l c skin c skin [place] eruption eruption Active Problem 09/15/2021 [facility] 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 02:45:35 l Active [place] Problem 09/15/2021 [facility] Other Other Diagnosis Active 2020-01-10 Me spears specified specified 02:45:37 l counseling counseling He rmann Active Diagnosis 01/10/2020 [facility] Blurry Blurry Diagnosis Active 2021-07-14 Me spe[facility] vision, vision, 02:46:33 l left eye left eye Keagan n Active Diagnosis 07/14/2021 [facility] Bilateral Bilateral Problem Active 2021-09-15 Memoria leg leg 02:45:35 l paresthesi paresthesi He rmann a a Active Problem 09/15/2021 [facility] Allergies, Adverse Reactions, Alerts Allergy Allergy Status Severity Reaction(s) Onset Inactive Treating Comm ents Source Name Type Date Date Clinician Gabapent Gabapent Active leg cramps Me spears in in 4-18 l 00:00: [place] 00 Gabapent Propensi Active Other (See Spasmssei Methodi in ty to Comments) 7-[address] adverse 00:00: Hospita reaction 00 l s to drug Gabapent Propensi Active Other - See U nivers in ty to comments 7 ity of adverse 00:00: [place] reaction 00 Medical s Branch [facility] Propensi Active [facility] pentin ty to 04-08 [place] adverse 00:00: of reaction 00 Medicin s to e drug Social History Social Habit Start Date Stop Date Quantity Comments Source History of tobacco Cigarette Smoker [facility] Exposure to 2021-10-23 2021-11-02 Not sure University SARS-CoV-2 (event) 00:00:00 12:59:[address] [facility] Alcohol intake 2021-09-16 2021-09-16 Current [facility] 00:00:00 00:00:00 non-drinker of Hospital alcohol (finding) Cigarettes smoked 2021-08-12 2021-08-12 [facility] current (pack per 00:00:00 00:00:00 Hospita l day) - Reported Cigarette 2021-08-12 2021-08-12 [facility] pack-[facility] 00:00:00 00:00:00 Hospital Tobacco use and 2021-08-12 2021-08-12 Smokeless tobacco [facility] exposure 00:00:00 00:00:00 non-user Hospital History [facility] 2019-10-29 2019-10-29 99 University o f Alcohol Frequency 00:00:00 00:00:00 [facility] edical Branch History SDGA 2019-10-29 2019-10-29 99 University o f Alcohol Std Drinks 00:00:00 00:00:00 [place] [facility] History [facility] 2019-10-29 2019-10-29 99 University o f Alcohol Binge 00:00:00 00:00:00 [place] [facility] al Branch Alcohol Comment 2019-10-29 2019-10-29 rare Universit y of 00:00:00 00:00:[address] [facility] Tobacco Comment 2019-10-29 2019-10-29 3-4 cigarettes Unive rsity of 00:00:00 00:00:[address] [facility] Sex Ass[birth year] At [birth year] [facility] 00:00:00 00:[facility]:00 Hospital Smoking Status Start Date Stop Date Source Smokes tobacco daily 2021-08-12 00:00:00 [facility] Current some day smoker 2020-05-01 00:00:00 [facility] Medications Ordered Filled Start Stop Current Ordering Indication Dosage Frequency Signature Comments Components Source Medication Medication Date Date Medication? Clinician (SIG) Name Name ALPRAZOLAM Yes [id number] 2mg TAKE 1 U nivers 2 mg 24 hr 1-18 TABLET BY ity of tablet 00:00: MOUTH [place] 00 EVERY Medical MORNING. Branch ALPRAZOLAM 2021-03 Yes [id number] 2mg TAKE 1 U nivers 2 mg 24 hr 2-13 TABLET BY ity of tablet 00:00: MOUTH [place] 00 EVERY Medical MORNING. Branch ALPRAZOLAM 2021-03- No [id number] 2mg TAKE 1 Univers 2 mg 24 hr 2-13 01-18 TABLET BY ity of tablet 00:00: 00:00 MOUTH [place] 00 :00 EVERY Medical MORNING. [place] ALPRAZOLAM 2021- No [id number] 2mg TAKE 1 Univers 2 mg 24 hr 8-31 12-13 TABLET BY ity of tablet 00:00: 00:00 MOUTH [place] 00 :00 EVERY Medical MORNING. [place] ALPRAZolam Yes [id number] .5mg Take 1 U nivers 0.5 mg 8-08 tablet by ity of tablet 00:00: mouth 3 [place] 00 (three) Medical times Branch daily as needed for Other (anxiety). FLUoxetine Yes [id number] 60mg Take 3 U nivers 20 mg 8-08 capsules ity of capsule 00:00: by mouth [place] 00 in the Medical morning. [place] conjugated Yes [id number] 1.25mg Take 1 Univers estrogens 8-08 tablet by ity o f (PREMARIN) 00:00: mouth in Ac as 1.25 mg 00 the Medical tablet morning. [place] ALPRAZolam Yes [id number] .5mg Take 1 U nivers 0.5 mg 8-08 tablet by ity of tablet 00:00: mouth 3 [place] 00 (three) Medical times Branch daily as needed for Other (anxiety). FLUoxetine Yes [id number] 60mg Take 3 U nivers 20 mg 8-08 capsules ity of capsule 00:00: by mouth [place] 00 in the Medical morning. [place] conjugated Yes [id number] 1.25mg Take 1 Univers estrogens 8-08 tablet by ity o f (PREMARIN) 00:00: mouth in Ac as 1.25 mg 00 the Medical tablet morning. [place] ALPRAZOLAM 2021- No [id number] 2mg TAKE 1 Univers 2 mg 24 hr 6-27 08-08 TABLET BY ity of tablet 00:00: 00:00 MOUTH [place] 00 :00 EVERY Medical MORNING. [place] ondansetron 0 Yes 8mg Q8H Take 8 mg M ethodi (ZOFRAN) 8 -[address] MG tablet 17:37: every 8 Hospi ta 30 (eight) l hours as needed for nausea or vomiting. tiZANidine 2021-0 Yes 2mg Q6H Take 2 mg Me thodi (ZANAFLEX) 6-[address] 2 MG tablet 17:37: every 6 Hos amos 30 (six) l hours as needed for muscle spasms. 6 mg promethazin 2021-0 Yes 25mg Q8H Take 25 mg Methodi e 6-[address] (PHENERGAN) 17:37: every 8 Hos amos 25 MG 30 (eight) l tablet hours as needed for nausea or vomiting. estrogens, 2021-0 Yes 1.25mg QD Take 1.25 Methodi conjugated, 6-[address] (PREMARIN) 17:37: mouth Hospit a 1.25 MG 30 every l tablet morning. METHOTREXAT 2021-0 Yes 25mg Q7D Inject 25 M ethodi E, PF, SUBQ 6-[address] 17:37: the skin Hospita 30 once a l week. Every Tuesday. ALPRAZolam 2021-0 Yes 2mg QD Take 2 mg Me thodi XR (XANAX 6-[address] XR) 2 MG 24 17:37: every Hospi ta hr tablet 30 morning. l topiramate 2021-0 Yes 200mg QD Take 200 Me thodi (Trokendi 6-[address] XR) 200 mg 17:37: mouth Hospit a capsule,ext 30 every l ended morning. release 24hr erenumab-ao 2021-0 Yes 140mg Q28D Inject 140 Methodi oe (Aimovig 6-[address] Autoinjecto 17:37: the skin Ho spita r) 140 30 every 28 l mg/mL days. syringe secukinumab 2021-0 Yes 300mg Q30D Inject 300 Methodi (Cosentyx) 6-[address] 150 mg/mL 17:37: the skin Hosp bill syringe 30 every 30 l (thirty) days. ondansetron 2-0 Yes 8mg Q8H Take 8 mg M ethodi (ZOFRAN) 8 6-[address] MG tablet 17:37: every 8 Hospi ta 30 (eight) l hours as needed for nausea or vomiting. tiZANidine 2-0 Yes 2mg Q6H Take 2 mg Me thodi (ZANAFLEX) 6-[address] 2 MG tablet 17:37: every 6 Hos amos 30 (six) l hours as needed for muscle spasms. 6 mg promethazin 2022-0 Yes 25mg Q8H Take 25 mg Methodi e 6-[address] (PHENERGAN) 17:37: every 8 Hos amos 25 MG 30 (eight) l tablet hours as needed for nausea or vomiting. estrogens, 0 Yes 1.25mg QD Take 1.25 Methodi conjugated, 6-[address] (PREMARIN) 17:37: mouth Hospit a 1.25 MG 30 every l tablet morning. METHOTREXAT 0 Yes 25mg Q7D Inject 25 M ethodi E, PF, SUBQ 6-[address] 17:37: the skin Hospita 30 once a l week. Every Tuesday. ALPRAZolam 0 Yes 2mg QD Take 2 mg Me thodi XR (XANAX 6-[address] XR) 2 MG 24 17:37: every Hospi ta hr tablet 30 morning. l topiramate 0 Yes 200mg QD Take 200 Me thodi (Trokendi 6-[address] XR) 200 mg 17:37: mouth Hospit a capsule,ext 30 every l ended morning. release 24hr erenumab-ao 0 Yes 140mg Q28D Inject 140 Methodi oe (Aimovig 6-[address] Autoinjecto 17:37: the skin Ho spita r) 140 30 every 28 l mg/mL days. syringe secukinumab 0 Yes 300mg Q30D Inject 300 Methodi (Cosentyx) 6-[address] 150 mg/mL 17:37: the skin Hosp bill syringe 30 every 30 l (thirty) days. cefepime 2021-0 2022- No 2g Q8H Infuse 2 g Me thodi IVPB 2 gram -17 10-[address] Mini-Bag 00:00: 04:59 venous Hospit [facility] 00 :00 catheter l every 8 (eight) hours for 27 days. cefepime 2022-0 2022- No 2g Q8H Infuse 2 g Me thodi IVPB 2 gram 6- 07-[address] Mini-Bag 00:00: 04:59 venous Hospit [facility] 00 :00 catheter l every 8 (eight) hours for 27 days. Methotrexat 2021-0 Yes Roberta INJECT Memoria e Sodium 6-21 Vo 0.8ML l 02:45: EVERY WEEK [place] 35 DIRECTED BD Luer-Fabian Yes Roberta USE Memoria Syringe 6-21 Vo DIRECTED l 02:45: TO INJECT [place] 35 METHOTREXA TE EVERY WEEK Tizanidine Yes Roberta TAKE 1 Memoria HCl 6-21 Vo TABLET BY l 02:45: MOUTH [place] 35 THREE TIMES DAILY Folic Acid Yes Roberta TAKE 1 Memoria 6-21 Vo TABLET BY l 02:45: MOUTH [place] 35 EVERY DAY lamoTRIgine 2021- No 300mg QD Take 300 Methodi (LaMICtal) 6-17 06-[address] 100 MG 15:25: 00:00 mouth Hospita tablet 05 :00 every l morning. lamoTRIgine 2021- No 300mg QD Take 300 Methodi (LaMICtal) 6-17 06-[address] 100 MG 15:25: 00:00 mouth Hospita tablet 05 :00 every l morning. fentaNYL 2021- No [id number] 1{patch Q72H Place 1 M ethodi (DURAGESIC) 6-17 -17 } patch on st 50 mcg/hr 15:14: 00:00 the skin Hos amos 40 :00 every l third day .chronic pain. fentaNYL 2021- No [id number] 1{patch Q72H Place 1 M ethodi (DURAGESIC) 17 -17 } patch on st 50 mcg/hr 15:14: 00:00 the skin Hos amos 40 :00 every l third day .chronic pain. FLUoxetine Yes 40mg QD Take 40 mg M ethodi (PROzac) 20 5-[address] MG capsule 00:00: every Hospit a 00 morning. l FLUoxetine Yes 40mg QD Take 40 mg M ethodi (PROzac) 20 5-[address] MG capsule 00:00: every Hospit a 00 morning. l FLUOXETINE 2021- No [id number] TAKE 1 Univers 40 mg 5-27 08-08 CAPSULE BY ity of capsule 00:00: 00:00 MOUTH [place] 00 :00 EVERY DAY Medical Branch folic acid 2022-0 Yes 1mg QD Take 1 mg Me thodi (FOLVITE) 1 5-[address] MG tablet 00:00: every Hospita 00 morning. l lamoTRIgine 2021-0 Yes 300mg QD Take 300 M ethodi (LaMICtal) 5-[address] 150 MG 00:00: mouth Hospita tablet 00 daily. l folic acid 2021-0 Yes 1mg QD Take 1 mg Me thodi (FOLVITE) 1 5-[address] MG tablet 00:00: every Hospita 00 morning. l lamoTRIgine 2021-0 Yes 300mg QD Take 300 M ethodi (LaMICtal) 5-[address] 150 MG 00:00: mouth Hospita tablet 00 daily. l doxycycline 2021-0 2021- No 100mg Q.5D Take 1 Me [facility]odi (VIBRAMYCIN 5-24 - capsule st ) 100 MG 00:00: 04:59 (100 mg Hospi ta capsule 00 :00 total) by l mouth 2 (two) times a day for 7 days. HYDROcodone 2021-2021- [place] [id number] 1{tbl} Q6H Take 1 Methodi -acetaminop -18 09- tablet by st hen (VISUALPLANT) 00:00: 04:59 mouth Hosp bill 10-325 mg 00 :00 every 6 l per tablet (six) hours as needed for moderate pain for up to 7 days .acute pain. Max Daily Amount: 4 tablets doxycycline 2021-0 2021- No 100mg Q.5D Take 1 Me [facility]odi (VIBRAMYCIN 5-24 - capsule st ) 100 MG 00:00: 04:59 (100 mg Hospi ta capsule 00 :00 total) by l mouth 2 (two) times a day for 7 days. HYDROcodone 2021-0 2021- No [id number] 1{tbl} Q6H Take 1 Methodi -acetaminop 5-24 06-[address] hen (VISUALPLANT) 00:00: 04:59 mouth Hosp bill 10-325 mg 00 :00 every 6 l per tablet (six) hours as needed for moderate pain for up to 7 days .acute pain. Max Daily Amount: 4 tablets topiramate 2021-0 2021- No 100mg Q.5D Take 100 M ethodi (TOPAMAX) 5-18 05-[address] 100 MG 18:48: 00:00 mouth 2 Hospita tablet 20 :00 (two) l times a day. topiramate 2021- No 100mg Q.5D Take 100 M ethodi (TOPAMAX) 5-18 05-[address] 100 MG 18:48: 00:00 mouth 2 Hospita tablet 20 :00 (two) l times a day. fludrocorti 2021- No .1mg QD Take 0.1 M ethodi sone 0.1 mg 5-18 05-[address] tablet 18:46: 00:00 mouth Hospita 06 :00 daily. l fludrocorti 2021-2021- No .1mg QD Take 0.1 M ethodi sone 0.1 mg 5-18 05-[address] tablet 18:46: 00:00 mouth Hospita 06 :00 daily. l ALPRAZolam 2021- No 2mg QD Take 2 mg M ethodi (XANAX) 2 5-18 05-[address] MG tablet 18:43: 00:00 daily. Hospi ta 27 :00 l ALPRAZolam 2021-2021- No 2mg QD Take 2 mg M ethodi (XANAX) 2 5-18 05-[address] MG tablet 18:43: 00:00 daily. Hospi ta 27 :00 l fentaNYL 2021-2021- No 1{patch Q48H Place 1 Me thodi (DURAGESIC) 5-18 05-18 } patch on st 18:41: 00:00 the skin Hospita 01 :00 every l other day. Fentanyl patch12.5 fentaNYL 2021- No 1{patch Q48H Place 1 Me thodi (DURAGESIC) 5-18 05-18 } patch on st 18:41: 00:00 the skin Hospita 01 :00 every l other day. Fentanyl patch12.5 Cosentyx Yes Roberta 150 MG/ML Memoria Sensoready 5-11 Vo l Pen 02:45: [place] 32 Premarin 0 Yes Roberta 1 tablet Memoria 5-11 Vo l 02:45: [place] 32 Sumatriptan Yes Roberta as Memoria Succinate 5-11 Vo directed l 02:45: [place] Topamax 0 Yes Roberta 1 tablet Memoria 5-11 Vo l 02:45: [place] Xanax XR 0 Yes Roberta 1 tablet Memoria 5-11 Vo l 02:45: [place] Lamictal 0 Yes Roberta 1 tablet Memoria 5-11 Vo l 02:45: [place] [id number] Aimovig 0 Yes Roberta 1 capsule Memoria 5-11 Vo l 02:45: [place] [id number] Fentanyl 0 Yes Roberta 1 patch to Memoria 5-11 Vo skin l 02:45: [place] Cyanocobala Yes Roberta INJECT 2 Memoria min 5-11 Vo ML l 02:45: INTRAMUSCU [place] LARLY EVERY WEEK Fluoxetine Yes Roberta 1 capsule Memoria HCl 5-11 Vo in the l 02:45: morning [place] Promethazin Yes Roberta 0.5 ml as Memoria e HCl 5-10 Vo needed l 00:00: Promethazin 0 Yes Roberta 1 tablet Memoria e HCl 5-06 Vo as needed l 00:00: PREMARIN 2021-0 2021- No [id number] TAKE 1 Un lissette 1.25 mg 4-26 08-08 TABLET BY ity of tablet 00:00: 00:00 MOUTH [place] 00 :00 EVERY DAY Medical Branch monomethyl 0 Yes 190mg Q.5D Take 190 [facility] fumarate 4-[address] [facility]: mouth 2 Hos amos 95 mg 00 (two) l capsule,del times a ayed day. release(DR/ EC) monomethyl 0 Yes 190mg Q.5D Take 190 Me thodi fumarate 4-[address] (Bafiertam) 00:00: mouth 2 Hos amos 95 mg 00 (two) l capsule,del times a ayed day. release(DR/ EC) Methotrexat 0 Yes Roberta 0.8 cc Memoria e Sodium 4-02 Vo l 03:05: Folic Acid 0 Yes Roberta TAKE 1 Memoria 4-02 Vo TABLET BY l 03:00: MOUTH [place] 15 EVERY DAY Furosemide 0 Yes Roberta 1 tablet Memoria 4-02 Vo l 02:56: [place] 32 methotrexat 0 Yes .8mg 0.8 mg. Uni vers e 15 mg 3-14 ity of tablet 14:57: [address] methotrexat 2021-0 Yes .8mg 0.8 mg. Uni vers e 15 mg 3-14 ity of tablet 14:57: [address] methotrexat 0 Yes .8mg 0.8 mg. Uni vers e 15 mg 3-14 ity of tablet 14:57: [address] ALPRAZolam 2021- No [id number] .5mg Take 1 Univers 0.5 mg 3-14 08-08 tablet by ity of tablet 00:00: 00:00 mouth 3 [place] 00 :00 (three) Medical times Branch daily as needed for Other (anxiety). Hydroxychlo Yes Angélica TAKE 1 Mem oria roquine 5-20 Vilardo TABLET BY l Sulfate 02:45: MOUTH [place] 13 TWICE DAILY ALPRAZOLAM Yes Anxiety 2mg TAKE 1 Un lissette 2 mg 24 hr 5-07 TABLET BY ity of tablet 00:00: MOUTH [place] 00 EVERY Medical MORNING Branch PREMARIN 0 Yes Postmenopau TAKE 1 Univers 1.25 mg 5-07 rachel TABLET BY ity of tablet 00:00: atrophic MOUTH [place] 00 vaginitis EVERY DAY Medic al Branch Tizanidine Yes Roberta 1 tablet Memoria HCl 4-20 Vo as needed l 00:00: [place] 00 ALPRAZOLAM Yes Anxiety TAKE 1 Un lissette 0.5 mg 2-22 TABLET BY ity of tablet 00:00: MOUTH [place] 00 THREE Medical TIMES Branch DAILY NEEDED FOR ANXIETY PREMARIN 2020-0 2020- No Postmenopau TAKE 1 Univers 1.25 mg 2-08 05-07 rachel TABLET BY ity of tablet 00:00: 00:00 atrophic MOUTH [place] 00 :00 vaginitis EVERY DAY Medic al Branch Secukinumab 0 Yes 150mg Inject 150 [facility] (COSENTYX 2-04 mg into College SENSOREADY 14:29: the skin of PEN) 150 21 every 7 Medicin MG/ML Auto days. e Injector AMBIEN 10 2020- No 10mg Take 10 mg B aylor MG TABS 05-01 by mouth [place] 14:28: 00:00 nightly as of 10 :00 needed for Medicin Sleep. e Dexlansopra 2020- No Take by Chandrakant coto zole 05-01 mouth. [place] (DEXILANT) 14:28: 00:00 of 60 MG CPDR 10 :00 Medicin e HYDROmorpho 2020- No Take by Chandrakant coto ne HCl ER 05-01 mouth. [place] 12 MG T24A 14:28: 00:00 of 10 :00 Medicin e HYDROmorpho 2020- No Inject [place] lucero ne 05-01 into the College (DILAUDID) 14:28: 00:00 vein every of 1 mg/mL 10 :00 hour as Medicin injection needed. e amphetamine 2020- No 15mg Take 15 mg Jareth -dextroamph 05-01 by mouth Col lege etamine 14:28: 00:00 daily. of (ADDERALL) 10 :00 Medicin 15 MG e tablet fludrocorti Yes .1mg Take 0.1 Ba yeimyor sone 2-04 mg by [place] (FLORINEF) 14:28: mouth. of 0.1 MG 09 Medicin tablet e ondansetron Yes 8mg Take 8 mg B aylor (ZOFRAN) 8 04 by mouth. Marcelo ege mg tablet 14:28: of 08 Medicin e fentanyl Yes [facility] (DURAGESIC) 04-25 [place] 100 MCG/HR 00:00: of patch 00 Medicin e TROKENDI XR Yes [facility] 200 MG CP24 04-07 [place] 00:00: of 00 Medicin e methocarbam Yes [facility] ol 04-07 [place] (ROBAXIN) 00:00: of 500 MG 00 Medicin tablet e lamotrigine Yes [facility] (LAMICTAL) 04-07 [place] 150 MG 00:00: of tablet 00 Medicin e hydroxychlo Yes [facility] roquine 1-11 College (PLAQUINIL) 00:00: of 200 MG 00 Medicin tablet e fluoxetine Yes [facility] (PROZAC) 40 1-11 College MG capsule 00:00: of 00 Medicin e AIMOVIG 140 Yes Jareth MG/ML 1-11 College Autoinjecto 00:00: of r 00 Medicin e ALPRAZOLAM Yes [facility] XR 2 MG XR 1-11 College tablet 00:00: of 00 Medicin e acyclovir 2019-03 Yes [facility] (ZOVIRAX) 2-28 [facility] 800 MG 00:00: of tablet 00 Medicin e Methotrexat 2019-03 Yes Roberta 0.8 ml Memoria e Sodium 2-09 Vo l 00:00: FLUoxetine 2019-03 Yes Anxiety 40mg Take 1 Un lissette 40 mg 1-23 capsule by ity of capsule 00:00: mouth [place] 00 daily. Medical Branch ALPRAZolam 2019-03 No Anxiety 2mg Take 1 U nivers 2 mg 24 hr 1-23 05-07 tablet by ity of tablet 00:00: 00:00 mouth [place] 00 :00 every Medical morning. Branch Cosentyx 2019-03 Yes Roberta 1 ml Mem oria 0-26 Vo l 00:00: Cosentyx 2019-03 Yes Angélica 150 MG/ML Mem oria Sensoready 0-26 Vilardo l Pen 00:00: Fluoxetine 2019-03 Yes Roberta 1 capsule Memoria HCl 0-15 Vo in the l 02:45: morning Cimzia 2019-03 Yes Roberta as Memor ia 0-15 Vo directed l 02:45: BD Luer-Fabian 2019-03 Yes Roberta USE TO Memoria Syringe 0-15 Vo INJECT l 02:45: B-12 [place] 37 WEEKLY Cosentyx 2019-03 Yes Roberta 1 ml Mem oria 0-14 Vo l 00:00: Dexilant 2019- Yes Roberta 1 capsule Memoria 8-19 Vo l 02:45: Reglan 2019-0 Yes Roberta not Memor ia 8-19 Vo defined l 02:45: [place] 57 Fludrocorti Yes Roberta 1 tablet Memoria sone 8- Vo l Acetate 02:45: [place] 57 Adderall 2020-0 Yes Roberta 1 tablet Memoria - Vo l 02:45: [place] 57 Humira Pen 2020-0 Yes Roberta INJECT ONE Memoria - Vo PEN (40 l 02:45: MG) [place] 57 SUBCUTANEO USLY EVERY WEEK. REFRIGERAT E. Hydroxychlo 2020-0 Yes Roberta TAKE 1 Memoria roquine - Vo TABLET BY l Sulfate 02:45: MOUTH [place] 57 TWICE DAILY methotrexat 2020-0 Yes .8mg 0.8 mg. Uni vers e 15 mg 8- ity of tablet 18:44: [place] 19 Medical Branch Estradiol 2020-0 Yes Surgical 10ug Insert 1 Univers (VAGIFEM) 8- menopause tablet ity of 10 mcg 00:00: into [place] tablet 00 vagina Medical every 2 Branch (two) days. nystatin 2020-0 Yes Fungal Apply to Uni vers 100,000 8- infection area(s) 2 it y of unit/gram 00:00: of [place] (two[place] powder 00 times Medical daily. Use Branch for 2 weeks nystatin 2020-0 Yes Apply [facility] (MYCOSTATIN 8-03 topically. Co llege ) powder 00:00: of 00 Medicin e Estradiol 2020-[address] 10 Bayl or 10 MCG TABS 8-03 mcg College 00:00: vaginally. of 00 Medicin e Estradiol 2020-0 Yes [id number] 10ug Insert 1 Univers (VAGIFEM) 8- tablet ity of 10 mcg 00:00: into [place] tablet 00 vagina Medical every 2 Branch (two) days. nystatin 2020-0 Yes [id number] Apply to U nivers 100,000 8-03 area(s) 2 ity of unit/gram 00:00: (two) [place] powder 00 times Medical daily. Use Branch for 2 weeks Estradiol 2020-0 Yes [id number] 10ug Insert 1 Univers (VAGIFEM) 8-03 tablet ity of 10 mcg 00:00: into [place] tablet 00 vagina Medical every 2 Branch (two) days. nystatin 2020-0 Yes [id number] Apply to U nivers 100,000 8-03 area(s) 2 ity of unit/gram 00:00: (two) [place] powder 00 times Medical daily. Use Branch for 2 weeks Estradiol 2020-0 Yes [id number] 10ug Insert 1 Univers (VAGIFEM) 8 tablet ity of 10 mcg 00:00: into [place] tablet 00 vagina Medical every 2 Branch (two) days. nystatin 2020-0 Yes [id number] Apply to link bird 100,000 8-03 area(s) 2 ity of unit/gram 00:00: (two) [place] powder 00 times Medical daily. Use Branch for 2 weeks cyanocobala 2020-0 Yes Univer s min 1,000 7-15 ity of mcg/mL 00:00: [place] injection 00 Medical Branch cyanocobala 2020-0 Yes Univer s min 1,000 7-15 ity of mcg/mL 00:00: [place] injection 00 Medical Branch cyanocobala 2020-0 Yes Univer s min 1,000 7-15 ity of mcg/mL 00:00: [place] injection 00 Medical Branch cyanocobala 2020-0 Yes Univer s min 1,000 7-15 ity of mcg/mL 00:00: [place] injection 00 Medical Branch methotrexat 2020-0 Yes Univer s e 25 mg/mL 7-14 ity of injection 00:00: 00 Medical Branch methotrexat 2020-0 Yes Univer s e 25 mg/mL 7-14 ity of injection 00:00: [place] 00 Medical Branch methotrexat 2020-0 Yes Univer s e 25 mg/mL 7-14 ity of injection 00:00: [place] 00 Medical Branch methotrexat 2020-0 Yes Univer s e 25 mg/mL 7-14 ity of injection 00:00: [place] 00 Medical Branch FENTanyl 2020-0 Yes Univers 100 mcg/hr 7-11 ity of patch 00:00: [place] 00 Medical Branch FENTanyl 2020-0 Yes Univers 100 mcg/hr 7-11 ity of patch 00:00: [place] 00 Medical Branch FENTanyl 2020-0 Yes Univers 100 mcg/hr 7-11 ity of patch 00:00: [place] 00 Medical Branch FENTanyl 2020-0 Yes Univers 100 mcg/hr 7-11 ity of patch 00:00: [place] 00 Medical Branch CIMZIA 2020-0 Yes Univers STARTER KIT 7-02 ity of 400 mg/2 mL 00:00: [place] (200 mg/mL 00 Medical x 2) SyKt Branch CIMZIA 2020-0 Yes Univers STARTER KIT 7- ity of 400 mg/2 mL 00:00: [place] (200 mg/mL 00 Medical x 2) SyKt Branch CIMZIA 2020-0 Yes Univers STARTER KIT 7- ity of 400 mg/2 mL 00:00: [place] (200 mg/mL 00 Medical x 2) SyKt Branch CIMZIA 2020-0 Yes Univers STARTER KIT 7- ity of 400 mg/2 mL 00:00: [place] (200 mg/mL 00 Medical x 2) SyKt Branch Cimzia 2020-0 Yes Roberta 2 ml Memor ia Starter Kit 6-23 Vo l 00:00: Cimzia 2020-0 Yes Roberta 1 ml Memor ia Prefilled 6-23 Vo l 00:00: Simponi 2020-0 Yes Roberta 50 mg Mem oria 6-17 Vo l 00:00: Kineret 2020-0 Yes Roberta 0.67 ml M emoria 5-07 Vo l 00:00: tiZANidine 2020-0 Yes 12mg Take 12 mg U nivers (ZANAFLEX) 4-17 by mouth. ity of 4 mg 18:22: [address] foLIC acid 2020-0 Yes 1mg Take 1 mg Un lissette (FOLATE) 1 4-17 by mouth. ity of mg tablet 18:22: [address] sumatriptan 2019-0 Yes 4mg Take 4 mg U nivers 100 mg 4-17 by mouth. ity of tablet 18:22: [address] fludrocorti 2019-0 Yes .1mg Take 0.1 Un lissette sone 0.1 mg 4-17 mg by ity of tablet 18:22: mouth. [address] tiZANidine 2020-0 Yes 12mg Take 12 mg U nivers (ZANAFLEX) 4-17 by mouth. ity of 4 mg 13:22: [address] foLIC acid 2020-0 Yes 1mg Take 1 mg Un lissette (FOLATE) 1 4-17 by mouth. ity of mg tablet 13:22: [address] sumatriptan 2020-0 Yes 4mg Take 4 mg U nivers 100 mg 4-17 by mouth. ity of tablet 13:22: [address] fludrocorti 2020-0 Yes .1mg Take 0.1 Un lisstete sone 0.1 mg 4-17 mg by ity of tablet 13:22: mouth. [address] tiZANidine 2020-0 Yes 12mg Take 12 mg U nivers (ZANAFLEX) 4-17 by mouth. ity of 4 mg 13:22: [place] capsule [address] [place] [address] foLIC acid 2020-0 Yes 1mg Take 1 mg Un lissette (FOLATE) 1 4-17 by mouth. ity of mg tablet 13:22: [address] sumatriptan 2020-0 Yes 4mg Take 4 mg U nivers 100 mg 4-17 by mouth. ity of tablet 13:22: [address] fludrocorti 2020-0 Yes .1mg Take 0.1 Un lissette sone 0.1 mg 4-17 mg by ity of tablet 13:22: mouth. [address] tiZANidine 2020-0 Yes 12mg Take 12 mg U nivers (ZANAFLEX) 4-17 by mouth. ity of 4 mg 13:22: [address] foLIC acid 2020-0 Yes 1mg Take 1 mg Un lissette (FOLATE) 1 4-17 by mouth. ity of mg tablet 13:22: [address] sumatriptan 2020-0 Yes 4mg Take 4 mg U nivers 100 mg 4-17 by mouth. ity of tablet 13:22: [address] fludrocorti 2020-0 Yes .1mg Take 0.1 Un lissette sone 0.1 mg 4-17 mg by ity of tablet 13:22: mouth. [address] Tizanidine 2020-0 Yes Roberta 1 tablet Memoria HCl -22 Vo as needed l 00:00: [place] Folic Acid 2020-0 Yes Roberta 1 tablet Memoria -22 Vo l 00:00: [place] Aprepitant 2018-03 Yes Univers 125 mg (1)- 2-03 ity of 80 mg (2) 00:00: [address] Aprepitant 2018-03 Yes Univers 125 mg (1)- 2-03 ity of 80 mg (2) 00:00: [address] Aprepitant 2018-03 Yes Univers 125 mg (1)- 2-03 ity of 80 mg (2) 00:00: [place] [address] Medical Branch Aprepitant 2019- Yes Univers 125 mg (1)- 2-03 ity of 80 mg (2) 00:00: [place] [address] Medical Branch AIMOVIG 2018-03 Yes Univers AUTOINJECTO 1-25 ity of R 140 mg/mL 00:00: [place] [address] Medical Branch AIMOVIG 2018-03 Yes Univers AUTOINJECTO 1-25 ity of R 140 mg/mL 00:00: [place] [address] Medical Branch AIMOVIG 2018-03 Yes Univers AUTOINJECTO 1-25 ity of R 140 mg/mL 00:00: [place] [address] Medical Branch AIMOVIG 2018-03 Yes Univers AUTOINJECTO 1-25 ity of R 140 mg/mL 00:00: [address] Branch Humira Pen 2018- Yes Roberta 40 mg Memoria 9-22 Vo l 02:45: Aimovig Yes Roberta not Gunner shaq 9-22 Vo defined l 02:45: Promethazin 2018-0 Yes Roberta TAKE 1 Memoria e HCl 9-22 Vo TABLET BY l 02:45: MOUTH EVERY 8 HOURS NEEDED Cyanocobala 2018-0 Yes Roberta not Memoria min 9-22 Vo defined l 02:45: Fentanyl 2018-0 Yes Roberta 1 patch to Memoria 9-22 Vo skin l 02:45: Orencia 2019-0 Yes Roberta 1 ml Gunner shaq ClickJect 9-13 Vo l 00:00: Tizanidine 2019-0 Yes Roberta 1 tablet Memoria HCl 9-09 Vo as needed l 00:00: Phenergan 2018-0 Yes Roberta 1 ml as Memoria 8-23 Vo needed l 00:00: Folic Acid 2018-0 Yes Roberta 1 tablet Memoria 8-23 Vo l 00:00: Tizanidine 2018-0 Yes Roberta 1 tablet Memoria HCl 4-10 Vo as needed l 00:00: nystatin 2019-0 Yes Thrush [id number] Take 3 mL Univers 100,000 3-03 by mouth 4 ity of unit/mL 00:00: (four) [place] suspension 00 times Medical daily. Branch Scrub around mouth nystatin 2019-0 Yes [id number] Take 3 mL Univers 100,000 3-03 by mouth 4 ity of unit/mL 00:00: (four) [place] suspension 00 times Medical daily. Branch Scrub around mouth nystatin 2019-0 Yes [id number] Take 3 mL Univers 100,000 3-03 by mouth 4 ity of unit/mL 00:00: (four) [place] suspension 00 times Medical daily. Branch Scrub around mouth nystatin 2019-0 Yes [id number] Take 3 mL Univers 100,000 3-03 by mouth 4 ity of unit/mL 00:00: (four) [place] suspension 00 times Medical daily. Branch Scrub around mouth TROKENDI XR 2017-1 Yes Univer s 200 mg Cp24 1-27 ity of 00:00: [place] Medical Branch TROKENDI XR 2017-1 Yes Univer s 200 mg Cp24 1-27 ity of 00:00: [place] [facility] TROKENDI XR 2018-1 Yes Univer s 200 mg Cp24 1-27 ity of 00:00: [place] [facility] TROKENDI XR 2018-1 Yes Univer s 200 mg Cp24 1-27 ity of 00:00: [place] [facility] methocarbam 2018-1 Yes Univer s ol 500 mg 0-10 ity of tablet 00:00: [place] [facility] methocarbam 2018-1 Yes Univer s ol 500 mg 0-10 ity of tablet 00:00: [place] [facility] methocarbam 2018-1 Yes Univer s ol 500 mg 0-10 ity of tablet 00:00: [place] [facility] methocarbam 2018-1 Yes Univer s ol 500 mg 0-10 ity of tablet 00:00: [place] Medical [facility] mupirocin 2 2017-0 Yes Rash Apply to Un lissette % ointment 8-18 area(s) 3 ity of 00:00: (three) [place] 00 times Medical daily. Branch mupirocin 2 2017- Yes [id number] Apply to Univers % ointment 8-18 area(s) 3 ity of 00:00: (three) [place] 00 times Medical daily. Branch mupirocin 2 2017- Yes [id number] Apply to Univers % ointment 8-18 area(s) 3 ity of 00:00: (three) [place] 00 times Medical daily. Branch mupirocin 2 2018-0 Yes [id number] Apply to Univers % ointment 8-18 area(s) 3 ity of 00:00: (three) [place] 00 times Medical daily. Branch Syringe 0 Yes Roberta injection Memoria 3-27 Vo as l 00:00: directed [place] 00 HUMIRA PEN 2017-0 Yes Univers 40 mg/0.8 1-18 ity of mL 00:00: [place] injection 00 Medical Branch HUMIRA PEN 2018-0 Yes Univers 40 mg/0.8 1-18 ity of mL 00:00: [place] injection 00 Medical Branch HUMIRA PEN 2018-0 Yes Univers 40 mg/0.8 1-18 ity of mL 00:00: [place] injection 00 Medical Branch HUMIRA PEN 0 Yes Univers 40 mg/0.8 1-18 ity of mL 00:00: [place] injection 00 Medical Branch Needle Yes Roberta as Memor ia (Disp) 5-11 Vo directed l 00:00: [place] 00 proMETHazin 2017-0 Yes 25mg Take 1 Univ ers e 25 mg 5-01 tablet by ity of tablet 00:00: mouth [place] 00 every 4 Medical (four) Branch hours as needed for Nausea and Vomiting (N/V). proMETHazin 2017-0 Yes 25mg Take 1 Univ ers e 25 mg 5-01 tablet by ity of tablet 00:00: mouth [place] 00 every 4 Medical (four) Branch hours as needed for Nausea and Vomiting (N/V). proMETHazin 2017-0 Yes 25mg Take 1 Univ ers e 25 mg 5-01 tablet by ity of tablet 00:00: mouth [place] 00 every 4 Medical (four) Branch hours as needed for Nausea and Vomiting (N/V). proMETHazin 2017-0 Yes 25mg Take 1 Univ ers e 25 mg 5-01 tablet by ity of tablet 00:00: mouth [place] 00 every 4 Medical (four) Branch hours as needed for Nausea and Vomiting (N/V). Needle Yes Roberta as Memor ia (Disp) 3-16 Vo directed l 00:00: [place] 00 ENBREL 2015-03- No [facility] SURECLICK 2-30 05-18 st 50 mg/mL 00:00: 00:00 [facility]osp[facility] (0.98 mL) 00 :00 l pen injector ENBREL 2015-03- No [facility] SURECLICK 2-30 -18 st 50 mg/mL 00:00: 00:00 [facility]osp[facility] (0.98 mL) 00 :00 l pen injector SUMAtriptan 2015-03- No Metho di succinate 04-17-18 st (IMITREX) 6 00:00: 00:00 Hospi ta mg/0.5 mL 00 :00 l solution SUMAtriptan 2015-03- No Metho di succinate 04-17-18 st (IMITREX) 6 00:00: 00:00 Hospi ta mg/0.5 mL 00 :00 l solution CLONAZEPAM Yes .5mg Take 0.5 [place] lucero 0.5 MG 6-01 mg by [place] tablet 20:00: mouth 2 of 18 times Medicin daily. e topiramate Yes 100mg Take 100 Ba ylor (TOPAMAX) 6-01 mg by [place] 100 MG 20:00: mouth two of tablet 18 times Medicin daily. e estrogens, Yes 1.25mg Take 1.25 Jareth conjugated, 6-01 mg by [place] (PREMARIN) 20:00: mouth of 1.25 MG 18 daily. Medicin tablet e promethazin Yes Inject Bayl or e - into the [place] (PHENERGAN) 20:00: vein once. of 25 mg/mL 18 Medicin injection e folic acid Yes 1mg Take 1 mg Ba [facility] (FOLVITE) 1 08-26 by mouth Marcelo ege MG tablet 20:00: daily. of 18 Medicin e tizanidine Yes 4mg Take 4 mg [facility] (ZANAFLEX) 08-26 by mouth Colle ge 4 MG tablet 20:00: every 6 of 18 hours as Medicin needed. e furosemide Yes 20mg Take 20 mg B aylor (LASIX) 20 6- by mouth Colle ge MG tablet 20:00: daily. of 18 Medicin e INFLIXIMAB Yes Inject Baylo r IV 08-26 into the College 20:00: vein. of 18 Medicin e SUMATRIPTAN Yes Take by [place] lucero SUCCINATE 6 mouth. College OR 20:00: of 18 Medicin e cyanocobala Yes 100ug Inject 100 Jareth min 1000 1-12 mcg into College MCG/ML 20:10: the muscle of injection 06 once. Medicin e METHOTREXAT Yes QS need 4 B aylor E SODIUM 25 2-25 ml RX College MG/ML IJ 00:00: administer of SOLN 00 100mg IM Medicin e Immunizations Ordered Filled Immunization Date Status Comments Sour e Immunization Name Name Influenza Virus 2017-12-22 Completed Universit y of Vaccine Quad IM 3+ 00:00:00 [facility] Influenza Virus 2017-12-22 Completed Universit y of Vaccine Quad IM 3+ 00:00:00 [facility] Influenza Virus 2017-12-22 Completed Universit y of Vaccine Quad IM 3+ 00:00:00 [facility] Influenza Virus 2017-12-22 Completed Universit y of Vaccine Quad IM 3+ 00:00:00 [facility] FLUZONE QUAD PF 2016-05-07 Completed [facility] 00:00:00 [facility] 2016-05-07 Completed [facility] 00:00:00 [facility] 2016-05-07 Completed University of 00:00:[address] [facility] Influenza Virus 2016-05-07 Completed Universit y of Vaccine Quad IM 3+ 00:00:00 [facility] FLUZONE QUAD PF 2016-05-07 Completed [facility] 00:00:00 [facility] 2016-05-07 Completed [facility] 00:00:00 [facility] 2016-05-07 Completed University of 00:00:[address] [facility] Influenza Virus 2016-05-07 Completed Universit y of Vaccine Quad IM 3+ 00:00:00 [facility] TDAP 2016-05-07 Completed University of 00:00:[address] [facility] Influenza Virus 2016-05-07 Completed Universit y of Vaccine Quad IM 3+ 00:00:00 [facility] TDAP 2016-05-07 Completed University of 00:00:[address] [facility] Influenza Virus 2016-05-07 Completed Universit y of Vaccine Quad IM 3+ 00:00:00 [facility] Influenza Trivalent 2014-05-14 Completed Metho dist 00:00:00 [facility] Influenza Virus 2014-05-14 Completed Universit y of Vaccine Quad .5 mL 00:00:00 [facility] IM 6+ MO Branch Influenza Virus 2014-05-14 Completed Universit y of Vaccine (3+ yrs) 00:00:[address] [facility] dical [place] Influenza Trivalent 2014-05-14 Completed Metho dist 00:00:00 Hospital Influenza Virus 2014-05-14 Completed Universit y of Vaccine Quad .5 mL 00:00:00 [facility] IM 6+ MO Branch Influenza Virus 2014-05-14 Completed Universit y of Vaccine (3+ yrs) 00:00:00 [facility] dicmt Branch Influenza Virus 2014-05-14 Completed Universit y of Vaccine Quad .5 mL 00:00:00 [facility] IM 6+ MO Branch Influenza Virus 2014-05-14 Completed Universit y of Vaccine (3+ yrs) 00:00:00 [facility] Influenza Virus 2014-05-14 Completed Universit y of Vaccine Quad .5 mL 00:00:00 [facility] 6+ MO Branch Influenza Virus 2014-05-14 Completed Universit y of Vaccine (3+ yrs) 00:00:00 [facility] Vital Signs Vital Name Observation Time Observation Value Comments Source Systolic blood 2020-05-01 14:22:00 104 mm[Hg] [facility] pressure Medicine Diastolic blood 2020-05-01 14:22:00 72 mm[Hg] [facility] Medicine Heart rate 2020-05-01 14:22:00 65 /min [facility] Body height 2020-05-01 14:22:00 154.9 cm [facility] Body weight 2020-05-01 14:22:00 78.472 kg [facility] BMI 2020-05-01 14:22:00 32.69 kg/m2 [facility] Systolic blood 2021-09-17 16:28:25 124 mm[Hg] [facility] pressure Diastolic blood 2021-09-17 16:28:25 73 mm[Hg[facility] pressure Heart rate 2021-09-17 16:28:25 68 /min [facility] Body temperature 2021-09-17 16:28:25 36.44 Shannan [facility] rate 2021-09-17 16:28:25 18 /min [facility] Oxygen saturation in 2021-09-17 16:28:25 96 /min [facility] Arterial blood by Pulse oximetry Body height 2021-09-11 14:15:00 160 cm [facility] Body weight 2021-09-11 14:15:00 75.751 kg [facility] BMI 2021-09-11 14:15:00 29.58 kg/m2 [facility] Weight 2018-12-07 19:15:00 [facility] Height 2018-12-07 19:15:00 [facility] Heart Rate 2018-12-07 19:15:00 [facility] Diastolic (mm Hg) 2018-12-07 19:15:00 Mem orial [place] Systolic (mm Hg) 2018-12-07 19:15:00 Gunner rial [place] Weight 2018-07-20 16:00:00 [facility] [place] Height 2018-07-20 16:00:00 [facility] [place] Heart Rate 2018-07-20 16:00:00 [facility] [place] Diastolic (mm Hg) 2018-07-20 16:00:00 Mem orial [place] Systolic (mm Hg) 2018-07-20 16:00:00 Gunner rial [place] Procedures Procedure Date / Time Performing Clinician Source Performed HC COMPLETE BLD COUNT 2021-09-17 09:11:00 [facility] W/AUTO DIFF BASIC METABOLIC PANEL 2021-09-17 09:11:00 [facility] ESTIMATED GFR 2021-09-17 09:11:00 Pascual Kennedy [facility] [place] HC COMPLETE BLD COUNT 2021-09-16 11:23:00 [facility] W/AUTO DIFF BASIC METABOLIC PANEL 2021-09-16 11:23:00 [facility] ESTIMATED GFR 2021-09-16 11:23:00 Pascual Kennedy [facility] [place] XR PICC CHEST PORTABLE 2021-09-15 14:59:00 Pascual Kennedy [facility] XR PICC CHEST PORTABLE 2021-09-15 14:58:21 Pascual Kennedy [facility] Fasat PICC INSERTION REQUEST 2021-09-15 14:30:34 Romeo, Nicholas [facility] HC COMPLETE BLD COUNT 2021-09-15 09:39[facility] BASIC METABOLIC PANEL 2021-09-15 09:39:[facility] 2021-09-15 09:39:00 Eber [facility] [place] ANAEROBIC CULTURE 2021-09-14 21:31:00 Gurwinder [facility] FUNGUS CULTURE 2021-09-14 21:31:00 Gurwinder Amir [facility] AEROBIC CULTURE 2021-09-14 21:31:00 Gurwinder Amir [facility] AF[employer] CULTURE 2021-09-14 21:31:00 Gurwinder Amir [facility] GRAM STAIN 2021-09-14 21:31:00 [facility]inder [facility] [employer] STAIN 2021-09-14 21:31:00 Rubenscleopatra [facility] ANAEROBIC CULTURE 2021-09-14 21:30:00 Rubenscleopatra [facility] FUNGUS CULTURE 2021-09-14 21:30:00 Gurwinder [facility] AEROBIC CULTURE 2021-09-14 21:30:00 Rubenscleopatra [facility] [employer] CULTURE 2021-09-14 21:30:00 Rubenscleopatra Amir [facility] GRAM STAIN 2021-09-14 21:30:00 Rubenscleopatra Amir [facility] [employer] STAIN 2021-09-14 21:30:00 Rubenscleopatra [facility] ANAEROBIC CULTURE 2021-09-14 21:27:00 Gurwinder [facility] FUNGUS CULTURE 2021-09-14 21:27:00 Gurwinder [facility] AEROBIC CULTURE 2021-09-14 21:27:00 Gurwinder [facility] [employer] CULTURE 2021-09-14 21:27:00 Gurwinder [facility] GRAM STAIN 2021-09-14 21:27:00 Gurwinder [facility] [employer] STAIN 2021-09-14 21:27:00 [facility] ANAEROBIC CULTURE 2021-09-14 21:26:00 [facility] FUNGUS CULTURE 2021-09-14 21:26:00 Gurwinder [facility] AEROBIC CULTURE 2021-09-14 21:26:00 Gurwinder [facility] AFB CULTURE 2021-09-14 21:26:00 [facility] GRAM STAIN 2021-09-14 21:26:00 Gurwinder [facility] AFB STAIN 2021-09-14 21:26:00 [facility] IA AN ELECTIVE 2021-09-14 21:02:00 Jose Tom [facility] ENDOTRACHEAL AIRWAY INSERTION OR REVISION, 2021-09-14 20:53:00 [facility] PUMP, INTRATHECAL SURGICAL PATHOLOGY 2021-09-14 13:27:00 [facility] HC COMPLETE BLD COUNT 2021-09-14 09:27:00 [facility] W/AUTO DIFF BASIC METABOLIC PANEL 2021-09-14 09:27:00 [facility] HEPATIC FUNCTION PANEL 2021-09-14 09:27:00 [facility] ESTIMATED GFR 2021-09-14 09:27:00 Marcia [facility] POC GLUCOSE 2021-09-13 22:39:00 Marcia [facility] COVID-19 QUALITATIVE 2021-09-13 17:53:00 Jorge Luis Bradford Efrem [facility] RT-PCR TYPE AND SCREEN 2021-09-13 17:46:[address] [facility] PR[facility] TIME WITH INR 2021-09-13 17:46:00 [facility] PARTIAL THROMBOPLASTIN 2021-09-13 17:46:00 [facility] TIME (PTT) POC GLUCOSE 2021-09-13 17:26:00 Pascual Kennedy [facility] spital [place] POC GLUCOSE 2021-09-13 14:03:00 Pascual [facility] spital Fasahat COVID-19 ANTI-SPIKE IGG 2021-09-13 10:04:00 [facility] ANTIBODY TITER Elie HC COMPLETE BLD COUNT 2021-09-13 10:04[facility]00 [facility] DIFF BASIC METABOLIC PANEL 2021-09-13 10:04:00 [facility] HE[facility] FUNCTION PANEL 2021-09-13 10:04:00 Marcia [facility] Fasat COVID-19 SEROLOGY PATIENT 2021-09-13 10:04:00 Juan David Rawls [facility] SURVEILLANCE Elie ESTIMATED GFR 2021-09-13 10:04:00 Pascual [facility] [place] POC GLUCOSE 2021-09-13 01:57:00 [facility] CBC HEMOGRAM 2021-09-12 11:52:00 Pascual Kennedy spital [place] BASIC METABOLIC PANEL 2021-09-12 10:40:00 [facility] FUNCTION PANEL 2021-09-12 10:40:00 Marcia [facility] VANCOMYCIN LEVEL, RANDOM 2021-09-12 10:40:00 Pascual Kennedy [facility] Fasat ESTIMATED GFR 2021-09-12 10:40:00 [facility]ual [facility] SEDIMENTATION RATE 2021-09-11 18:43:00 Kennedy, [facility] C-REACTIVE PROTEIN 2021-09-11 18:43:00 Marcia [facility] LACTIC ACID LEVEL, SEPSIS 2021-09-11 18:43:00 Pascual Kennedy [facility] - NOW AND REPEAT 2X EVERY [facility] 3 HOURS IR EPIDURAL BLOOD PATCH 2021-09-11 16:05:00 [facility] IR LUMBAR PUNCTURE 2021-09-11 16:04:00 [facility] CSF CULTURE 2021-09-11 15:54:00 [facility] Marlene FUNGUS CULTURE 2021-09-11 15:54:00 [facility] CULTURE 2021-09-11 15:54:00 [facility] Marlene CRYPTOCOCCAL ANTIGEN 2021-09-11 15:54:00 [facility] Marlene GRAM STAIN 2021-09-11 15:54:00 [facility] CELL COUNT WITH 2021-09-11 15:51:00 [facility] DIFFERENTIAL Marlene PROTEIN, CSF 2021-09-11 15:51:00 [facility] Marlene GLUCOSE LEVEL, CSF 2021-09-11 15:51:00 [facility] Marlene ECG ED PRELIMINARY 2021-09-11 13:19:55 [facility] INTERPRETATION XR CHEST 1 VW PORTABLE 2021-09-11 12:21:10 [facility] ECG 12-LEAD 2021-09-11 11:42:32 [facility] BLOOD CULTURE, AEROBIC & 2021-09-11 11:30:00 Pascual Kennedy [facility] ANAEROBIC [facility] HC COMPLETE BLD COUNT 2021-09-11 11:27:00 [facility] W/AUTO DIFF COMPREHENSIVE METABOLIC 2021-09-11 11:27:00 [facility] PANEL ESTIMATED GFR 2021-09-11 11:27:00 [facility] LACTIC ACID LEVEL, SEPSIS 2021-09-11 11:27:00 [facility] 2X EVERY Fasahat 3 HOURS TROPONIN T 2021-09-11 11:27:00 [facility] B NATRIURETIC PEPTIDE 2021-09-11 11:27:00 [facility] OR [place] < 1 HOUR 2021-08-18 19:30:00 [facility] INSERTION OR REVISION, 2021-08-18 18:21:00 [facility] PUMP, INTRATHECAL ABO AND RH CONFIRMATION 2021-08-18 17:11:00 [facility] BY PROTOCOL URINE CULTURE 2021-08-13 16:24:00 Hayden [facility] URINALYSIS SCREEN AND 2021-08-13 16:24:00 Radha Blake [facility] MICROSCOPY, WITH REFLEX TO CULTURE COVID-19 QUALITATIVE 2021-08-13 16:18:00 [facility] RT-PCR HEMOGLOBIN A1C 2021-08-13 16:18:00 Hayden [facility] HC COMPLETE BLD COUNT 2021-08-13 16:18:00 Hayden Radhacatie Kemp [facility] W/AUTO DIFF COMPREHENSIVE METABOLIC 2021-08-13 16:18:00 [facility] PANEL ESTIMATED GFR 2021-08-13 16:18:00 Hayden, [facility] TYPE AND SCREEN 2021-08-13 16:18:00 [facility] ECG PRE/POST OP 2021-08-13 16:06:06 Hayden [facility] HC COMPLETE BLD COUNT 2021-06-30 10:15:00 [facility] W/AUTO DIFF B NATRIURETIC PEPTIDE 2021-06-30 10:15:00 Lemuel, Manoj [facility] BASIC METABOLIC PANEL 2021-06-30 10:15:00 Lemuel, Manoj [facility] MAGNESIUM LEVEL 2021-06-30 10:15:00 [facility] PHOSPHORUS LEVEL 2021-06-30 10:15:00 James Porter [facility] ESTIMATED GFR 2021-06-30 10:15:00 James [facility] OR [place] < 1 HOUR 2021-06-29 19:09:00 Raheem Cottoist Ho spital INSERTION OR REVISION, 2021-06-29 18:50:00 Raheem Cotto [facility] PUMP, INTRATHECAL Plan of Care Planned Activity Planned Date Details Comments Source Future Scheduled 2026-05-07 DTaP,Tdap,and Td Univers ity of Test 00:00:00 Vaccines (2 - Td) [facility] [code = Branch DTaP,Tdap,and Td Vaccines (2 - Td)] Future Scheduled 2022-03-18 COVID-[address] Test 16:55:45 (#1) [code = Hospital COVID-19 VACCINE (#1)] Future Scheduled 2022-03-18 Pneumococcal [facility] 16:55:45 Vaccine: [facility] Hospital (0 to 5 Years) and At-Risk Patients (6 to 64 Years) (1 - PCV) [code = Pneumococcal Vaccine: Pediatrics (0 to 5 Years) and At-Risk Patients (6 to 64 Years) (1 - PCV)] Future Scheduled 2022-03-18 Screening for [facility] 16:55:45 malignant neoplasm Hospital of cervix (procedure) [code = 097275855] Future Scheduled 2022-03-18 BREAST CANCER [facility] 16:55:45 SCREENING [code = Hospital BREAST CANCER SCREENING] Future Scheduled 2022-03-18 INFLUENZA VACCINE Method ist Test 16:55:45 [code = INFLUENZA Hospital VACCINE] Future Scheduled 2021-11-25 HEPATITIS B [facility] 09:53:32 VACCINES (1 of 3 - Hospital 3-dose series) [code = HEPATITIS B VACCINES (1 of 3 - 3-dose series)] Future Scheduled 2021-11-25 COVID-[address] Test 09:53:32 (#1) [code = Hospital COVID-19 VACCINE (#1)] Future Scheduled 2021-11-25 Pneumococcal [facility] 09:53:32 Vaccine: [facility] Hospital (0 to 5 Years) and At-Risk Patients (6 to 64 Years) (1 - PCV) [code = Pneumococcal Vaccine: Pediatrics (0 to 5 Years) and At-Risk Patients (6 to 64 Years) (1 - PCV)] Future Scheduled 2021-11-25 Screening for [facility] 09:53:32 malignant neoplasm Hospital of cervix (procedure) [code = 259853992] Future Scheduled 2021-11-25 BREAST CANCER [facility] 09:53:32 SCREENING [code = Hospital BREAST CANCER SCREENING] Future Scheduled 2021-11-25 INFLUENZA VACCINE Method ist Test 09:53:32 [code = INFLUENZA Hospital VACCINE] Future Scheduled 2020-12-04 Depression University of Test 00:00:00 screening [facility] (procedure) [code = Branch 421910698] Future Scheduled 2020-11-26 INFLUENZA VACCINE Univer sity of Test 00:00:00 (Season Ended) [facility] [code = INFLUENZA Branch VACCINE (Season Ended)] Future Scheduled 2020 Screening for University of Test 00:00:00 malignant neoplasm [place] [facility] of breast Branch (procedure) [code = 839995586] Future Scheduled 2018-11-14 Creatinine University of Test 00:00:00 measurement [facility] (procedure) [code = Branch 34163737] Future Scheduled 2015-04-21 Hemoglobin A1c Universit y of Test 00:00:00 measurement [facility] (procedure) [code = Branch 98899033] Future Scheduled 2001 Screening for University of Test 00:00:00 malignant neoplasm [place] [facility] of cervix Branch (procedure) [code = 102372143] Future Scheduled 1998 Diabetic foot University of Test 00:00:00 examination [facility] (regime/therapy) Branch [code = 409150415] Future Scheduled 1996 SARS-CoV-2 University of Test 00:00:00 (COVID-19) Vaccine [place] [facility] (1) [code = Branch SARS-CoV-2 (COVID-19) Vaccine (1)] Future Scheduled 1990 Examination of Universit y of Test 00:00:00 retina (procedure) [place] [facility] [code = 873670174] Branch Future Scheduled 1990 Calculated low Universit y of Test 00:00:00 density lipoprotein [place] [facility] cholesterol level Branch (procedure) [code = 625848140] Future Scheduled 1990 Microalbumin University of Test 00:00:00 measurement, urine, [place] [facility] quantitative [facility] (procedure) [code = 887091061] Future Scheduled 1986 PNEUMOCOCCAL 0-64 Univer sity of Test 00:00:00 YEARS COMBINED [facility] SERIES (1 of 3 - Branch PCV13) [code = PNEUMOCOCCAL 0-64 YEARS COMBINED SERIES (1 of 3 - PCV13)] Future Scheduled 1981 VARICELLA VACCINES Unive rsity of Test 00:00:00 (1 of 2 - 2-dose [place] [facility] childhood series) Branch [code = VARICELLA VACCINES (1 of 2 - 2-dose childhood series)] Future Scheduled HEPATITIS C [facility] ege of Test SCREENING [code = Medicine HEPATITIS C SCREENING] Future Scheduled HIV SCREENING [code [employer] [facility] Test = HIV SCREENING] Medicine Future Scheduled CERVICAL CANCER [facility] ollege of Test SCREENING 3 YEAR Medicine FOLLOW UP [code = CERVICAL CANCER SCREENING 3 YEAR FOLLOW UP] Future Scheduled FLU VACCINE > 6 [facility] C ollege of Test MONTHS [code = FLU Medicine VACCINE > 6 MONTHS] Future Scheduled TETANUS SHOT [facility] ege of Test (ADULT) [code = Medicine TETANUS SHOT (ADULT)] Future Scheduled COVID-19 Vaccine [facility] Test Evaluation [code = Medicine COVID-19 Vaccine Evaluation] Future Scheduled MAMMOGRAM ANNUAL [facility] Test [code = MAMMOGRAM Medicine ANNUAL] Future Scheduled MRI BRAIN W WO 1 Occurrences [facility] ollege of Test CONTRAST [code = starting Medicine 42918-0] 05/01/2020 until 11/29/2020 Future Scheduled MRI CERVICAL SPINE 1 Occurrences [facility] or [facility] of Test W WO CONTRAST [code starting Medicine = 00445-7] 05/01/2020 until 11/29/2020 Future Scheduled MRI THORACIC SPINE 1 Occurrences [facility] or [place] of Test W WO CONTRAST [code starting Medicine = 86560-2] 05/01/2020 until 11/29/2020 Encounters Start End Encounter Admission Attending Care Care Encounter Source Date/Time Date/Time Type Type Clinicians Facility Department ID 2022-04-13 2022-04-13 Outpatient MHIE CARLOS [id number] Memoria 10:45:00 10:45:00 06 violet Young 2022-04-13 2022-04-13 KALI Franco 1.2.840.114 [id number] Univers 00:00:00 00:00:00 [facility] 350.1.13.10 it y of [place] 4.2.7.2.686 Ac as JESSICA?BLEA [id number] [address] MEDICAL OFF[address] [facility] 2022-03-08 2022-03-08 [facility] 1.2.840.114 [id number] Univers 00:00:00 00:00:00 [facility] 350.1.13.10 it [facility] 4.2.7.2.686 Ac as JESSICA?BLEA [id number] [address] 2022-01-20 2022-01-20 Outpatient MHIE IE [id number] Memoria 13:15:00 13:15:00 05 violet Young 2021-12-09 2021-12-09 Outpatient MHIE MHIE [id number] Memoria 11:00:00 11:00:00 04 violet NaylorMarshall 2021-12-04 2021-12-04 Orders Doctor RICHI 1.2.840.114 [id number] Univers 00:00:00 00:00:00 Only Unassigned, [place] 350.1.13.[address] [facility] 4.2.7.2.686 Ac as [id number] [address] 2021-11-25 2021-11-25 [facility]richar [facility] 1.2.840.114 [id number] Univers 00:00:00 00:00:00 [facility] 350.1.13.10 it y [facility] 4.2.7.2.686 Ac as JESSICA?BLEA [id number] [address] [facility] 2021-11-02 2021-11-02 Office [facility] 1.2.840.114 [id number] Univers 13:00:00 13:15:00 Visit [facility] 350.1.13.10 it y [facility] 4.2.7.2.686 Ac as JESSICA?BLEA [id number] [address] [facility] 2021-11-02 2021-11-02 [facility] [id number] Univers 13:00:00 13:00:00 ANKUR patel [facility] 2021-11-02 2021-11-02 Outpatient Cl[facility]ilde [facility] [id number] Univers 13:00:00 13:00:00 ANKUR chana [facility] 2021-11-02 2021-11-02 Orders Doctor RICHI 1.2.840.114 [id number] Univers 00:00:00 00:00:00 Only Unassigned, [place] 350.1.13.10 [facility] 4.2.7.2.686 Ac as [id number] [address] 2021-10-13 2021-10-13 Telephone [facility] 1.2.168.946 [id number] Univers 00:00:00 00:00:00 [facility] 350.1.13.10 it y [facility] 4.2.7.2.686 Ac as JESSICA?BLEA [id number] [address] [facility] 2021-10-13 2021-10-13 Telephone [facility] 1.2.300.777 [id number] Univers 00:00:00 00:00:00 [facility] 350.1.13.10 it y [facility] 4.2.7.2.686 Ac as JESSICA?BLEA [id number] [address] [facility] 2021-10-06 2021-10-06 Documentat Bruno, 1.2.840.1 [id number] Methodi 00:00:00 00:00:00 ion Shailesh You 16296.1.1 676 s t 3.430.2.7 Hospit a .3.716146 l .8 2021-10-06 2021-10-06 Documentat Bruno, 1.2.840.1 [id number] Methodi 00:00:00 00:00:00 ion Shailesh You 50806.1.1 676 s t 3.430.2.7 Hospit a .3.589118 l .8 2021-09-30 2021-09-30 Outpatient [facility]ilde [facility] [id number] Univers 14:30:00 14:30:00 ANKUR ity of [facility] 2021-09-21 2021-09-21 Refill [facility] 1.2.840.114 [id number] Univers 00:00:00 00:00:00 [facility] 350.1.13.10 [facility] 4.2.7.2.686 Ac as JESSICA?BLEA [id number] [address] [facility] 2021-09-18 2021-09-18 Telephone Arya [facility] 1.2.400.442 [id number] Univers 00:00:00 00:00:00 Ankur HEALTH 350.1.13.10 it y of [place] 4.2.7.2.686 Ac as JESSICA?BLEA [id number] [address] [facility] 2021-09-18 2021-09-18 Orders Doctor STODDARD 1.2.840.114 [id number] Univers 00:00:00 00:00:00 Only Unassigned, [place] 350.1.13.[address] [facility] 4.2.7.2.686 Ac as [id number] [address] 2021-09-11 2021-09-17 [facility] 1.2.840.1 [id number] Methodi 04:13:00 17:37:00 Encounter Pascual Kennedy 68387.1.1 [facility]66 [facility]ita .3.627910 l .8 2021-09-11 2021-09-17 [facility] Timur 1.2.840.1 [id number] Methodi 04:13:00 17:37:00 Encounter Pascual Kennedy 85142.1.1 866 Noe [place] 3.430.2.7 Hospita .3.031572 l .8 2021-09-14 2021-09-14 Surgery [facility], 1.2.840.1 [id number] Methodi 16:10:00 18:05:[address] [place] 3.430.2.7 Hospit a .3.858870 l .8 2021-09-14 2021-09-14 Surgery Gurwinder, 1.2.840.1 [id number] 9152 Methodi 16:10:00 18:05:[address] [place] 3.430.2.7 Hospit a .3.662107 l .8 2021-09-14 2021-09-14 Anesthesia Minaguillermina Amee Modi 1.2.840.1 [id number] Methodi 15:53:00 17:36:00 Event Jose Tom 02645.1.[address] 3.430.2.7 Hospit a .3.211506 l .8 2021-09-14 2021-09-14 Anesthesia MinaAmee lopez Rian 1.2.840.1 [id number] Methodi 15:53:00 17:36:00 Event Jose Tom 22555.1.[address] 3.430.2.7 Hospit a .3.412080 l .8 2021-09-12 2021-09-12 Outpatient PRL - PRL - [id number] eClinic 17:40:00 17:40:00 Rheumatol Rheumatolog alGiorgi smith [facility] 2021-09-11 2021-09-11 Travel 1.2.840.1 1.2.101.037 [id number] [id number] Methodi 00:00:00 00:00:[address] 3.430.2.7 0.2.7.3.698 Ho spita .3.034702 084.8 l .8 2021-09-11 2021-09-11 Travel 1.2.840.1 1.2.322.356 8756 [id number] Methodi 00:00:00 00:00:[address] 3.430.2.7 0.2.7.3.698 Ho spita .3.423365 084.8 l .8 2021-09-10 2021-09-10 Nurse Freddie, 1.2.840.1 [id number] Methodi 00:00:00 00:00:00 Triage Evon 54561.1.[address] 3.430.2.7 Hospit a .3.053929 l .8 2021-09-10 2021-09-10 Nurse Freddie, 1.2.840.1 [id number] Methodi 00:00:00 00:00:00 Triage Evon 89965.1.[address] 3.430.2.7 Hospit a .3.958526 l .8 2021-09-08 2021-09-08 Outpatient MHIE IE [id number] [facility] 14:15:00 14:15:00 03 violet Young 2021-08-21 2021-08-21 oSmmer Noonan [facility] 1.2.840.114 [id number] Univers 00:00:00 00:00:00 [facility] 350.1.13.10 it y of [place] 4.2.7.2.686 Ac as JESSICA?BLEA [id number] [address] MEDICAL OFFICE BUILDING 2021-08-18 2021-08-18 [facility], 1.2.840.1 [id number] Methodi 11:15:00 18:45:00 Encounter Amir 01444.1.[address] [place] 3.430.2.7 Hospit a .3.883690 l .8 2021-08-18 2021-08-18 [facility], 1.2.840.1 [id number] Methodi 11:15:00 18:45:00 Encounter Amir 13735.1.[address] [place] 3.430.2.7 Hospit a .3.700916 l .8 2021-08-18 2021-08-[address] [facility], 1.2.840.1 [id number] Methodi 13:15:00 15:20:[address] [place] 3.430.2.7 Hospit a .3.386039 l .8 2021-08-18 2021-08-18 Surgery Lali, 1.2.840.1 [id number] Methodi 13:15:00 15:20:[address] [place] 3.430.2.7 Hospit a .3.998654 l .8 2021-08-18 2021-08-18 Anesthesia Jess Marchchad 1.2.840.1 [id number] Methodi 13:21:00 15:05:00 Event Radha Blake 77982.1.[address] 3.430.2.7 Hospit a .3.915557 l .8 2021-08-18 2021-08-18 Anesthesia Shivam March 1.2.840.1 [id number] Methodi 13:21:00 15:05:00 Event Hayden Radhacatie Kemp 24115.1.[address] 3.430.2.7 Hospit a .3.820153 l .8 2021-08-18 2021-08-18 Outpatient [facility] [id number] [facility] 13:45:00 13:45:00 02 l Hector 2021-08-18 2021-08-18 Travel 1.2.840.1 1.2.816.018 7132 [id number] Methodi 00:00:00 00:00:[address] 3.430.2.7 0.2.7.3.698 Ho spita .3.194874 084.8 l .8 2021-08-18 2021-08-18 Travel 1.2.840.1 1.2.017.860 4341 699026 Methodi 00:00:00 00:00:[address] 3.430.2.7 0.2.7.3.698 Ho spita .3.880836 084.8 l .8 2021-08-13 2021-08-13 Pre-Admiss Dagoberto Purdy 1.2.840.1 [id number] Methodi 10:00:00 11:00:00 Radha Pat. 73607.1.[address] Testing 3.430.2.7 Hospit a .3.837897 l .8 2021-08-13 2021-08-13 Pre-Admiss Dagoberto Purdy 1.2.840.1 [id number] Methodi 10:00:00 11:00:00 Radha Pat. 68076.1.[address] Testing 3.430.2.7 Hospit a .3.216904 l .8 2021-08-13 2021-08-13 Travel 1.2.840.1 1.2.637.844 3435 [id number] Methodi 00:00:00 00:00:[address] 3.430.2.7 0.2.7.3.698 Ho spita .3.976799 084.8 l .8 2021-08-13 2021-08-13 Travel 1.2.840.1 1.2.208.619 2200 432373 Methodi 00:00:00 00:00:[address] 3.430.2.7 0.2.7.3.698 Ho spita .3.151481 084.8 l .8 2021-08-03 2021-08-03 Prep for [place], 1.2.840.1 [id number] 21 [id number] Methodi 00:00:00 00:00:00 Surgery Evon 13976.1.[address] 3.430.2.7 Hospit a .3.034307 l .8 2021-08-03 2021-08-03 Prep for [place], 1.2.840.1 [id number] 21 [id number] Methodi 00:00:00 00:00:00 Surgery Evon 69157.1.[address] 3.430.2.7 Hospit a .3.053085 l .8 2021-07-29 2021-07-29 Office Gurwinder, 1.2.840.1 [id number] 5391 Methodi 13:00:00 14:34:30 Visit Amir 34780.1.[address] [place] 3.430.2.7 Hospit a .3.321530 l .8 2021-07-29 2021-07-29 Office Gurwinder, 1.2.840.1 [id number] 1253 Methodi 13:00:00 14:34:30 Visit Amir 15980.1.[address] [place] 3.430.2.7 Hospit a .3.516990 l .8 2021-07-29 2021-07-29 Travel 1.2.840.1 1.2.806.493 9762 124338 Methodi 00:00:00 00:00:[address] 3.430.2.7 0.2.7.3.698 Ho spita .3.233772 084.8 l .8 2021-07-29 2021-07-29 Travel 1.2.840.1 1.2.894.938 2006 [id number] Methodi 00:00:00 00:00:[address] 3.430.2.7 0.2.7.3.698 Ho spita .3.051510 084.8 l .8 2021-07-27 2021-07-27 Outpatient PRL - PRL - [id number] eClinic 20:52:00 20:52:00 Rheumatol Rheumatolog alWorks ogy y [facility] 2021-07-23 2021-07-23 Sommer Noonan TXSHERYL 1.2.840.114 [id number] Univers 00:00:00 00:00:00 [facility] 350.1.13.10 it y of [place] 4.2.7.2.686 Ac as JESSICA?BLEA [id number] [address] OFFICE BUILDING 2021-07-21 2021-07-21 [facility]ar [facility] 1.2.840.114 [id number] Univers 00:00:00 00:00:00 Len [facility] 350.1.13.10 it y of [place] 4.2.7.2.686 Ac as PROFESSIO [id number] [facility] ANALY [address] [place] [address] OFFICE BUILDING ONE 2021-07-21 2021-07-21 [facility] 1.2.840.114 [id number] Univers 00:00:00 00:00:00 Ankur HEALTH 350.1.13.10 it y of [place] 4.2.7.2.686 Ac as PROFESSIO [id number] [address] OFFICE BUILDING ONE 2021-07-13 2021-07-13 Outpatient CHRISTINA - CHRISTINA - [id number] eClinic 13:00:00 13:00:00 Rheumatol Rheumatolog alWorks ogy y [facility] 2021-07-06 2021-07-06 Outpatient MHIE MHIE [id number] Memoria 13:15:00 13:15:00 01 l Hector 2021-06-29 2021-06-30 [facility] 1.2.840.1 [id number] Methodi 10:52:00 14:32:00 Encounter James Porter 91833.1.[address] 3.430.2.7 Hospit a .3.561473 l .8 2021-06-29 2021-06-30 [facility] 1.2.840.1 [id number] Methodi 10:52:00 14:32:00 Encounter James Porter 89856.1.[address] 3.430.2.7 Hospit a .3.301800 l .8 2021-06-29 2021-06-29 Anesthesia Ulisses Aleman 1.2.840 .1 [id number] Methodi 13:50:00 14:12:00 Event Len Clark 09428.1.[address] 3.430.2.7 Hospit a .3.440661 l .8 2021-06-29 2021-06-29 Anesthesia AlemanUlisses greenfield 1.2.840 .1 [id number] Methodi 13:50:00 14:12:00 Event Len Clark 41862.1.[address] 3.430.2.7 Hospit a .3.607073 l .8 2021-06-29 2021-06-29 Surgery Satija, 1.2.840.1 [id number] Methodi 13:00:00 13:45:[address] 3.430.2.7 Hospit a .3.058244 l .8 2021-06-29 2021-06-29 Surgery Satija, 1.2.840.1 [id number] 7375 Methodi 13:00:00 13:45:[address] 3.430.2.7 Hospit a .3.125135 l .8 2021-06-29 2021-06-29 Documentat Satija, 1.2.840.1 [id number] Methodi 00:00:00 00:00:00 ion Raheem 63923.1.[address] 3.430.2.7 Hospit a .3.154664 l .8 2021-06-29 2021-06-29 Travel 1.2.840.1 1.2.109.973 3495 431051 Methodi 00:00:00 00:00:[address] 3.430.2.7 0.2.7.3.698 Ho spita .3.838344 084.8 l .8 2021-06-29 2021-06-29 Documentat Satija, 1.2.840.1 [id number] 580 [id number] Methodi 00:00:00 00:00:00 ion Raheem 95327.1.[address] 3.430.2.7 Hospit a .3.587027 l .8 2021-06-29 2021-06-29 Travel 1.2.840.1 1.2.240.678 7726 484600 Methodi 00:00:00 00:00:[address] 3.430.2.7 0.2.7.3.698 Ho spita .3.146448 084.8 l .8 2021-06-25 2021-06-25 [facility] 1.2.840.114 [id number] Univers 00:00:00 00:00:00 [facility] 350.1.13.10 it y of [place] 4.2.7.2.686 Ac as PROFESSIO [id number] [address] ONE 2021-06-08 2021-06-08 [facility] [id number] Univers 14:30:00 14:30:00 ANKUR patel [facility] 2021-06-08 2021-06-08 Outpatient CHRISTINA - CHRISTINA - [id number] eClinic 09:25:00 09:25:00 [facility]umat[facility] 2021-[facility]-02 2021-06-02 [facility] 1.2.840.114 [id number] Univers 00:00:00 00:00:00 [facility] 350.1.13.10 it y of [place] 4.2.7.2.686 Ac as PROFESSIO [id number] [address] ONE 2021-05-20 2021-05-20 [facility] 1.2.840.114 [id number] 90 Univers 00:00:00 00:00:00 [facility] 350.1.13.10 it y of [place] 4.2.7.2.686 Ac as PROFESSIO [id number] [address] ONE 2021-04-29 2021-04-29 Outpatient CARLOS GONZALEZ [id number] Memoria 15:00:00 15:00:00 00 l Hector 2021-04-27 2021-04-27 [facility] 1.2.840.114 [id number] Univers 00:00:00 00:00:00 [facility] 350.1.13.10 it y of [place] 4.2.7.2.686 Ac as PROFESSIO [id number] [address] ONE 2021-04-21 2021-04-21 Orders Doctor RICHI 1.2.840.114 [id number] Univers 00:00:00 00:00:00 Only Unassigned, [place] 350.1.13.[address]y [address] [facility] 4.2.7.2.686 Ac as [id number] [address] 2021-04-09 2021-04-09 Outpatient CHRISTINA JOHNSON - [id number] eClinic 13:00:00 13:00:00 Rheumatol Rheumatolog alWorks ogy y [facility] 2021-03-23 2021-03-23 [facility] 1.2.840.114 [id number] Univers 00:00:00 00:00:00 [facility] 350.1.13.10 it y of [place] 4.2.7.2.686 Ac as PROFESSIO [id number] [address] ONE 2021-02-23 2021-02-23 [facility] 1.2.840.114 [id number] Univers 00:00:00 00:00:00 [facility] 350.1.13.10 it y of [place] 4.2.7.2.686 Ac as PROFESSIO [id number] [address] ONE 2021-02-17 2021-02-17 [facility] 1.2.840.114 [id number] Univers 00:00:00 00:00:00 [facility] 350.1.13.10 it y of [place] 4.2.7.2.686 Ac as PROFESSIO [phone] [address] ONE 2021-02-02 2021-02-02 Outpatient CHRISTINA JOHNSON - [id number] eClinic 08:50:00 08:50:00 Rheumatol Rheumatolog alWorks ogy y [facility] 2020-12-27 2020-12-27 Outpatient PRL - PRL - [id number] eClinic 12:53:00 12:53:00 Rheumatol Rheumatolog alWorks ogy y [facility] 2020-12-23 2020-12-23 [facility]richar [facility] 1.2.840.114 [id number] Univers 00:00:00 00:00:00 [facility] 350.1.13.10 it y of [place] 4.2.7.2.686 Ac as Professio [phone] Ne dical nal 044 [facility] 2020-12-23 2020-12-23 [facility] 1.2.840.114 [id number] Univers 00:00:00 00:00:00 [facility] 350.1.13.10 it y of [place] 4.2.7.2.686 Ac as Professio [phone] [address] 2020-12-05 2020-12-05 Outpatient PRL - PRL - [id number] eClinic 09:02:00 09:02:00 Rheumatol Rheumatolog alWorks ogy y [facility] 2020-11-13 2020-11-13 Outpatient CHRISTINA - CHRISTINA - [id number] eClinic 11:20:00 11:20:00 Rheumatol Rheumatolog alWorks ogy y [facility] 2020-10-28 2020-10-28 Outpatient R [facility] [id number] Univers 13:00:00 13:00:00 EKATERINA patel [facility] 2020-10-24 2020-10-24 Outpatient R JOSELIN [facility] [id number] Univers 13:00:00 13:00:00 KATIA patel [facility] 2020-09-29 2020-09-29 Office [facility] 1.2.840.114 [id number] Univers 09:53:23 10:08:23 Visit [facility] 350.1.13.10 it y of [place] 4.2.7.2.686 Ac as Professio [id number] [address] Office [facility] One 2020-09-29 2020-09-29 Outpatient Clotilde NOONAN [facility] [id number] Univers 09:45:00 09:45:00 ANKUR patel [facility] 2020-09-29 2020-09-29 Orders Doctor RICHI 1.2.840.114 [id number] Univers 00:00:00 00:00:00 Only Unassigned, [place] 350.1.13.10 ity of [facility] 4.2.7.2.686 Ac as [id number] [address] 2020-09-25 2020-09-25 [facility] 1.2.840.114 [id number] Univers 00:00:00 00:00:00 [facility] 350.1.13.10 it y of [place] 4.2.7.2.686 Ac as Professio [id number] [address] One 2020-09-18 2020-09-18 Outpatient Clotilde NOONAN [facility] [id number] Univers 14:30:00 14:30:00 ANKUR chana [facility] 2020-09-16 2020-09-16 [facility] [id number] Univers 07:45:00 07:45:00 ANKUR ity [facility] 2020-09-04 2020-09-04 Outpatient [facility]ilde [facility] [id number] Univers 13:45:00 13:45:00 ANKUR chana [facility] 2020-09-04 2020-09-04 [facility] 1.2.840.114 [id number] Univers 00:00:00 00:00:00 [facility] 350.1.13.10 it y of [place] 4.2.7.2.686 Ac as Professio [phone] [address] 2020-09-01 2020-09-01 [facility] 1.2.840.114 [id number] Univers 00:00:00 00:00:00 [facility] 350.1.13.10 it y of [place] 4.2.7.2.686 Ac as Professio [id number] [address] One 2020-08-27 2020-08-27 Sommer Noonan TXSHERYL 1.2.840.114 [id number] Univers 00:00:00 00:00:00 [facility] 350.1.13.10 it y of [place] 4.2.7.2.686 Ac as Professio [id number] [address] One 2020-08-26 2020-08-26 [facility] 1.2.840.114 [id number] Univers 00:00:00 00:00:00 [facility] 350.1.13.10 it y of [place] 4.2.7.2.686 Ac as Professio [id number] [address] 2020-08-13 2020-08-13 Outpatient CHRISTINA CHRISTINA - [id number] eClinic 09:20:00 09:20:00 Rheumatol Rheumatolog alWorks ogy y [facility] 2020-07-31 2020-07-31 [facility] 1.2.840.114 [id number] Univers 00:00:00 00:00:00 [facility] 350.1.13.10 it y of [place] 4.2.7.2.686 Ac as Professio [phone] [address] One 2020-07-15 2020-07-15 Outpatient PRL - PRL - [id number] eClinic 13:20:00 13:20:00 Rheumatol Rheumatolog alWorks ogy y [facility] 2020-05-28 2020-05-28 Orders Doctor STODDARD 1.2.840.114 [id number] Univers 00:00:00 00:00:00 Only Unassigned, C[place] 350.1.13.[address] [facility] 4.2.7.2.686 Ac as [id number] [address] 2020-05-19 2020-05-19 [facility] 1.2.840.114 [id number] Univers 00:00:00 00:00:00 [facility] 350.1.13.10 it y of [place] 4.2.7.2.686 Ac as Professio [phone] Ne dical nal 044 [facility] One 2020-05-16 2020-05-16 Maxx [facility] 1.2.039.210 [id number] Univers 00:00:00 00:00:00 [facility] 350.1.13.10 it y of [place] 4.2.7.2.686 Ac as Professio [id number] Ne dical nal 044 [facility] One 2020-05-01 2020-05-01 Outpatient PRL - PRL - [id number] eClinic 12:50:00 12:50:00 Rheumatol Rheumatolog alWorks ogy y [facility] 2020-05-01 2020-05-01 Office MAGDALENO Fiore 1.2.840.[id number] [place] [address] 08:17:02 09:46:09 Visit Jun AMBULATOR 350.1.13.21 [place] Khanh Y 0.2.7.2.686 of [id number] [facility] 830 e 2020-04-17 2020-04-17 Refrichar BanksMIMBRES [facility] 1.2.840.114 [id number] Univers 00:00:00 00:00:00 Ekaterina Munguia 350.1.13.10 ity of [place].2.[place] Profess[place] [phone] Ne dical nal 134 [facility] 2020-04-14 2020-04-14 Outpatient PRL - PRL - [id number] eClinic 14:40:00 14:40:00 Rheumatol Rheumatolog alWorks ogy y [facility] 2020-04-14 2020-04-14 Outpatient CHRISTINA - CHRISTINA - [id number] eClinic 07:43:00 07:43:00 Rheumatol Rheumatolog alWorks ogy y [facility] 2020-04-10 2020-04-10 Outpatient PRL - PRL - [id number] eClinic 17:16:00 17:16:00 Rheumatol Rheumatolog alWorks ogy y [facility] 2020-04-10 2020-04-10 Outpatient PRL - PRL - [id number] eClinic 17:15:00 17:15:00 Rheumatol Rheumatolog alWorks ogy y [facility] 2020-04-09 2020-04-09 Outpatient PRL - PRL - [id number] eClinic 16:59:00 16:59:00 Rheumatol Rheumatolog alWorks ogy y [facility] 2020-04-07 2020-04-07 Outpatient CHRISTINA - CHRISTINA - [id number] eClinic 15:01:00 15:01:00 Rheumatol Rheumatolog alWorks ogy y [facility] 2020-03-17 2020-03-[address] [facility] 1.2.871.235 [id number] Univers 00:00:00 00:00:00 Ankur Munguia 350.1.13.10 i [place] 4.2.7.2.686 Irene s Professio [id number] [address] 2020-03-05 2020-03-05 Outpatient CHRISTINAEmma FRANCISU - [id number] eClinic 15:55:00 15:55:00 Rheumatol Rheumatolog alWorks ogy y [facility] 2020-02-19 2020-02-19 [facility] [id number] Univers 09:40:00 09:40:00 ANKUR patel [facility] 2020-02-18 2020-02-18 [place] [facility] F[facility] Pob I [facility] 1.2. 840.114 [id number] Univers 12:37:58 13:31:14 Visit Ankur Noonan [facility] 350.1.13.10 [place] 4.2.7.2.686 Ac as Professio [id number] [address] Office Building One 2020-02-18 2020-02-18 Office [facility] 1.2.840.114 [id number] Univers 12:16:38 12:31:38 Visit Ankur [facility] 350.1.13.10 it y of [place] 4.2.7.2.686 Ac as Professio [phone] Ne dical nal 0[address] [place] Office [facility] 2020-02-18 2020-02-18 Outpatient Clotilde NOONAN [facility] [id number] Univers 12:15:00 12:15:00 ANKUR patel [facility] 2020-02-14 2020-02-14 Orders Doctor STODDARD 1.2.840.114 [id number] Univers 00:00:00 00:00:00 Only Unassigned, CLAYTON 350.1.13.10 [facility] 4.2.7.2.686 Ac as [id number] [address] 2020-02-04 2020-02-04 Outpatient Clotilde CHAVIS [facility] [id number] Univers 10:30:00 10:30:00 FADUMO patel [facility] 2020-01-31 2020-01-31 Refrichar [facility] 1.2.840.114 [id number] Univers 00:00:00 00:00:00 [facility] 350.1.13.10 it y of [place] 4.2.7.2.686 Ac as Professio [phone] Ne dical nal [address] [place] [address] 2020-01-30 2020-01-30 Refrichar [facility] 1.2.840.114 [id number] Univers 00:00:00 00:00:00 [facility] 350.1.13.10 it y of [place] 4.2.7.2.686 Ac as Professio [phone] Ne dical nal [address] [place] [address] Office [facility] 2020-01-09 2020-01-09 Outpatient CHRISTINA - CHRISTINA - [id number] eClinic 13:17:00 13:17:00 Rheumatol Rheumatolog alWorks ogy y [facility] 2020-01-09 2020-01-09 Outpatient CHRISTINA - CHRISTINA - [id number] eClinic 12:45:00 12:45:00 Rheumatol Rheumatolog alWorks ogy y [facility] 2020-01-07 2020-01-07 Office Partha [facility] 1.2.638.023 [id number] 10:09:02 11:06:03 Visit Fadumo [place] 350.1.13.10 [place] 4.2.7.2.686 Professio [id number] [address] 2020-01-07 2020-01-07 Office [facility] 1.2.238.702 [id number] Univers 10:09:02 11:06:03 Visit Fadumo [place] 350.1.13.10 i ty of [place].2.7.2.[place] Profess[place] [phone] [address] 2020-01-07 2020-01-07 Outpatient [facility] [id number] Univers 09:45:00 09:45:00 FADUMO renatachana [facility] 2019-12-24 2019-12-24 Office [facility] 1.2.919.644 [id number] Univers 10:38:16 11:55:33 Visit Fadumo Munguia 350.1.13.10 i ty of [place] 4.2.7.2.686 [place] Profess[place] [phone] [address] 2019-12-24 2019-12-24 Outpatient R [facility] [id number] Univers 10:30:00 10:30:00 FADUMO renatachana [facility] 2019-12-24 2019-12-24 Orders Doctor RICHI 1.2.840.114 [id number] Univers 00:00:00 00:00:00 Only Unassigned, [place] 350.1.13.[address] [facility] 4.2.7.2.686 Ac as [id number] [address] 2019-12-11 2019-12-11 Office [facility] 1.2.360.190 [id number] Univers 16:54:05 16:54:05 Visit Fadumo [place] 350.1.13.10 i ty of [place] 4[place]2.7.2.[place] Profess[place] [phone] [address] 2019-12-11 2019-12-11 Outpatient R [facility] [id number] Univers 15:00:00 15:00:00 FADUMO patel [facility] 2019-12-07 2019-12-07 Telephone [facility] 1.2.976.294 [id number] Univers 00:00:00 00:00:00 Ekaterina Munguia 350.1.13.10 ity of [place]2.7.2.[place] Profess[place] [id number] [facility] 134 [facility] 2019-12-05 2019-12-05 Office [facility] 1.2.840.114 [id number] Univers 14:00:37 14:15:37 Visit eCoast 350.1.13.10 it y of [place] 4.2.7.2.686 Ac as Professio [id number] [facility] 044 [facility] 2019-12-05 2019-12-05 Outpatient R [facility] [id number] Univers 13:45:00 13:45:00 ANKUR patel [facility] 2019-11-28 2019-11-28 Outpatient [facility] [id number] [address] [place] [address] 00:00:00 00:00:[address]HEEM [address] 2019-11-13 2019-11-13 Outpatient CHRISTINA - CHRISTINA - [id number] eClinic 15:05:00 15:05:00 [facility] 2019-11-13 2019-11-13 Outpatient PRL - PRL - [id number] eClinic 13:45:00 13:45:00 Rheumatol Rheumatolog alWorks ogy y [facility] 2019-11-05 2019-11-05 Refill [facility] 1.2.840.114 [id number] Univers 00:00:00 00:00:00 AnkurERPLY 350.1.13.10 it y of [place] 4.2.7.2.686 Ac as Professio [phone] [facility] 044 [facility] 2019-10-29 2019-10-29 Office [facility] 1.2.840.114 [id number] Univers 13:25:06 14:38:15 Visit Ekaterina Munguia 350.1.13.10 ity of [place].2.[place] Profess[place] [phone] [facility] nal 134 [facility] 2019-10-29 2019-10-29 Outpatient Clotilde BANKS [facility] [id number] Univers 13:15:00 13:15:00 EKATERINASRUTHI patel [facility] 2019-10-08 2019-10-08 Outpatient CHRISTINA Crista CHRISTINA - [id number] eClinic 15:15:00 15:15:00 Rheumatol Rheumatolog alWorks ogy y [facility] 2019-09-10 2019-09-10 Refrichar [facility] 1.2.840.114 [id number] Univers 00:00:00 00:00:00 [facility] 350.1.13.10 it y of [place] 4.2.7.2.686 Ac as Professio [phone] [facility] 044 [facility] 2019-09-06 2019-09-06 Telephone [facility] 1.2.008.163 [id number] Univers 00:00:00 00:00:00 [facility] 350.1.13.10 it y of [place] 4.2.7.2.686 Ac as Professio [id number] [address] 2019-09-05 2019-09-05 Refrichar [facility] 1.2.840.114 [id number] Univers 00:00:00 00:00:00 [facility] 350.1.13.10 it y of [place] 4.2.7.2.686 Ac as Professio [id number] [address] 2019-08-03 2019-08-03 [facility] 1.2.840.114 [id number] Univers 00:00:00 00:00:00 [facility] 350.1.13.10 it y of [place] 4.2.7.2.686 Ac as Professio [id number] [address] 2019-07-13 2019-07-13 Outpatient R XIMENA [facility] [id number] Univers 13:30:00 13:30:00 LEN jorge [facility] 2019-07-13 2019-07-13 [facility] 1.2.840.114 [id number] Univers 07:13:17 07:28:17 ne Visit Len Munguia 350.1.13.10 ity of [place] 4[place]2.7.2.[place] Profess[place] [phone] Ne dical nal 044 [facility] 2019-06-11 2019-06-11 Outpatient PRL - PRL - [id number] eClinic 15:29:00 15:29:00 Rheumatol Rheumatolog alWorks ogy y [facility] 2019-05-21 2019-05-21 Outpatient PRL - PRL - [id number] eClinic 13:01:00 13:01:00 Rheumatol Rheumatolog alWorks ogy y [facility] 2019-05-16 2019-05-16 Refill [facility] 1.2.840.114 [id number] Univers 00:00:00 00:00:00 [facility] 350.1.13.10 it y of [place] 4.2.7.2.686 Ac as Professio [phone] Ne dical nal [address] [place] [address] 2019-05-02 2019-05-02 Telephone [facility] 1.2.741.619 [id number] Univers 00:00:00 00:00:00 [facility] 350.1.13.10 it y of [place] 4.2.7.2.686 Ac as Professio [phone] Ne dical nal [address] [place] [address] 2019-04-30 2019-04-30 Orders Doctor RICHI 1.2.840.114 [id number] Univers 00:00:00 00:00:00 Only Unassigned, CLAYTON 350.1.13.[address] [facility] 4.2.7.2.686 Ac as [id number] [address] 2019-04-18 2019-04-18 Outpatient PRL - PRL - [id number] eClinic 14:33:00 14:33:00 Rheumatol Rheumatolog alWorks ogy y [facility] 2019-04-18 2019-04-18 Outpatient CHRISTINA - CHRISTINA - [id number] eClinic 12:25:00 12:25:00 Rheumatol Rheumatolog alWorks ogy y [facility] 2019-03-22 2019-03-22 Outpatient PRL - PRL - [id number] eClinic 13:59:00 13:59:00 Rheumatol Rheumatolog alWorks ogy y [facility] 2019-03-12 2019-03-12 Outpatient PRL - PRL - [id number] eClinic 06:20:00 06:20:00 Rheumatol Rheumatolog alWorks ogy y [facility] 2019-02-14 2019-02-14 Outpatient PRL - PRL - [id number] eClinic 20:50:00 20:50:00 Rheumatol Rheumatolog alWorks ogy y [facility] 2019-02-12 2019-02-12 Outpatient PRL - PRL - [id number] eClinic 11:34:00 11:34:00 Rheumatol Rheumatolog alWorks ogy y [facility] 2018-12-30 2018-12-30 Outpatient CHRISTINA - CHRISTINA - [id number] eClinic 12:48:00 12:48:00 Rheumatol Rheumatolog alWorks ogy y [facility] 2018-12-24 2018-12-24 Outpatient CHRISTINA FRANCISU - [id number] eClinic 10:36:00 10:36:00 Rheumatol Rheumatolog alWorks ogy y [facility] 2018-12-15 2018-12-15 Outpatient CHRISTINA - CHRISTINA - [id number] eClinic 15:27:00 15:27:00 Rheumatol Rheumatolog alWorks ogy y [facility] 2018-12-07 2018-12-07 Outpatient CHRISTINA - CHRISTINA - [id number] eClinic 15:29:00 15:29:00 Rheumatol Rheumatolog alWorks ogy y [facility] 2018-12-07 2018-12-07 Outpatient PRL - PRL - [id number] eClinic 14:15:00 14:15:00 Rheumatol Rheumatolog alWorks ogy y [facility] 2018-11-23 2018-11-23 Outpatient CHRISTINA - CHRISTINA - [id number] eClinic 21:44:00 21:44:00 Rheumatol Rheumatolog alWorks ogy y [facility] 2018-08-10 2018-08-10 Outpatient CHRISTINA - CHRISTINA - [id number] eClinic 11:50:00 11:50:00 Rheumatol Rheumatolog alWorks ogy y [facility] 2018-08-10 2018-08-10 Outpatient CHRISTINA - CHRISTINA - [id number] eClinic 11:41:00 11:41:00 Rheumatol Rheumatolog alWorks ogy y [facility] 2018-07-20 2018-07-20 Outpatient PRL - PRL - [id number] eClinic 11:00:00 11:00:00 Rheumatol Rheumatolog alWorks ogy y [facility] Results Test Description Test Time Test Comments Results Result Comments Source AFB culture 2021-10-27 00:14:00 Test Item Value Reference Range Interpretation Comme nts AFB culture isolate No growth after 6 weeks of Specimen InformationSpecimen (test code = 543-9) incubation. Source: FluidSpecimen Site: Abdomen: ABDOMI NAL INCISION # [facility] [id number] 00:14:00 Test Item Value Reference Range Interpretation Comments AFB culture No growth Specimen isolate (test after 6 weeks InformationSp ecimen code = 543-9) of Source: FluidS pecimen incubation. Site: Abdomen: ABDOMINAL INCISION # 2 [facility] [id number] 00:16:00 Test Item Value Reference Range Interpretation Comments Fungus culture No growth Specimen isolate (test after 4 weeks InformationSp ecimen code = 580-1) of Source: FluidS pecimen incubation. Site: Abdomen: ABDOMINAL INCISION # 2 [facility] [id number] 00:16:00 Test Item Value Reference Range Interpretation Comments Fungus culture No growth Specimen isolate (test after 4 weeks InformationSp ecimen code = 580-1) of Source: FluidS pecimen incubation. Site: Abdomen: ABDOMINAL INCISION # 2 [facility] [id number] 19:10:14 Test Item Value Reference Range Interpretation Comments Case number (test code = [id number]) Surgical pathology See link below for report (test code = PDF Lab Report 3697) Result status (test code This is Final Report = [id number]) for [id number] [facility] [id number] 19:10:14 Test Item Value Reference Range Interpretation Comments Case number (test code = [id number]) Surgical pathology See link below for report (test code = PDF Lab Report 2255) Result status (test code This is Final Report = [id number]) for [id number] [facility] [id number] 12:15:00 Test Item Value Reference Range Interpretation Comments Anaerobic No anaerobic Specimen culture isolate organisms InformationS pecimen (test code = isolated. Source: FluidSp ecimen 38225-8) Site: Abdomen: ABDOMINAL INCISION # 2 [facility] [id number] 12:15:00 Test Item Value Reference Range Interpretation Comments Anaerobic No anaerobic Specimen culture isolate organisms InformationS pecimen (test code = isolated. Source: FluidSp ecimen 18860-6) Site: Abdomen: ABDOMINAL INCISION # 2 [facility] [id number] 18:46:00 Test Item Value Reference Range Interpretation Comments Fungus smear No fungi Specimen (test code = observed. InformationSpec imen Source: 1443) FluidSpecimen S ite: Abdomen: ABDOMI NAL INCISION # 2 [facility] [id number] 18:46:00 Test Item Value Reference Range Interpretation Comments Fungus smear No fungi Specimen (test code = observed. InformationSpec imen Source: 1443) FluidSpecimen S ite: Abdomen: ABDOMI NAL INCISION # 2 [facility] [id number] 16:46:00 Test Item Value Reference Range Interpretation Comments AFB stain No acid fast Specimen (test code = bacilli (AFB) InformationSpe cimen 676-7) seen. Source: FluidSp ecimen Site: Abdomen: ABDOMINAL INCISION # 2 [facility] [id number] 16:46:00 Test Item Value Reference Range Interpretation Comments AFB stain No acid fast Specimen (test code = bacilli (AFB) InformationSpe cimen 676-7) seen. Source: FluidSp ecimen Site: Abdomen: ABDOMINAL INCISION # 2 [facility] HospitalGram [id number] 04:10:00 Test Item Value Reference Range Interpretation Comments Gram stain No organisms Specimen isolate (test seen InformationSpe cimen code = 1469) Source: FluidSp ecimen Site: Abdomen: ABDOMINAL INCISION # 2 [facility] [id number] 04:10:00 Test Item Value Reference Range Interpretation Comments Gram stain No organisms Specimen isolate (test seen InformationSpe [facility] = 1469) Source: FluidSp ecimen Site: Abdomen: ABDOMINAL INCISION # 2 [facility] [id number] 22:41:00 Test Item Value Reference Range Interpretation Comments POC glucose (test code 105 mg/dL 65-99 H Opera tor Name: Umesh = 85573-1) GabriyelaDevice ID: [id number] able: [facility] Notified carpenter apprentice Interpretation Abnormal (test code = 00961-3) [facility] [id number] 22:41:00 Test Item Value Reference Range Interpretation Comments POC glucose (test code 105 mg/dL 65-99 H Opera tor Name: Umesh = 62696-7) GabriyelaDevice ID: [id number] able: [facility] Notified carpenter apprentice Interpretation Abnormal (test code = 98963-0) [facility] RNA [Presence] in Respiratory specimen by EMANUEL with probe [id number] 16:44:50 Test Item Value Reference Range Interpretation Comments SARS-CoV-2 (COVID-19) RNA Not detected [Presence] in Respiratory specimen by EMANUEL with probe detection (test code = 01874-3) Whether patient is employed in a Unknown healthcare setting (test code = 21842-2) Whether the patient has symptoms Unknown related to condition of interest (test code = 02773-2) Whether the patient was Unknown hospitalized for condition of interest (test code = 92293-3) Whether the patient was admitted Unknown to intensive care unit (ICU) for condition of interest (test code = 26043-1) Whether patient resides in a Unknown congregate care setting (test code = 35166-4) status (test code = Unknown 25029-8) Date and time of symptom onset Unknown (test code = 35941-1) [place] [id number] 16:46:55 Test Item Value Reference Range Interpretation Comments Ventricular rate (test code = 253) Atrial rate (test code = 255) IA interval (test code = 266) QRSD interval (test code = 260) QT interval (test code = 264) QTC interval (test code = 265) P axis 1 (test code = 267) QRS axis 1 (test code = 268) T wave axis (test code = 270) EKG impression (test code Sinus = 273) bradycardia-Electron ically Signed By Kashif Baer MD ([id number]) on 09/11/2021 11:46:52 AM [facility] 12 [id number] 16:46:55 Test Item Value Reference Range Interpretation Comments Ventricular rate (test code = 253) Atrial rate (test code = 255) IA interval (test code = 266) QRSD interval (test code = 260) QT interval (test code = 264) QTC interval (test code = 265) P axis 1 (test code = 267) QRS axis 1 (test code = 268) T wave axis (test code = 270) EKG impression (test code Sinus = 273) bradycardia-Electron ically Signed By Kashif Baer MD ([id number]) on 09/11/2021 11:46:52 AM [facility] ED Preliminary Interpretation - Not an [id number] 13:19:55 Test Item Value Reference Range Interpretation Comments LILLIAN (test code = LILLIAN) Romeo Cantu MD 09/14/2021 11:16 [place] ED Preliminary Interpretation - Not an OrderPerformed by: Romeo Cantu MDAuthorized by: Romeo Cantu MD ECG reviewed by ED Physician in the absence of a motor equipment commanding officer: yes Interpretation: Interpretation: abnormal Rate: ECG rate: 50 ECG rate assessment: normal Rhythm: Rhythm: sinus bradycardia QRS: QRS axis: Normal QRS intervals: NormalST segments: ST segments: Normal Lab Interpretation Abnormal (test code = 11676-4) [facility] ED Preliminary Interpretation - Not an [id number] 13:19:55 Test Item Value Reference Range Interpretation Comments LILLIAN (test code = LILLIAN) Romeo Cantu MD 09/14[facility]21 [facility] Interpretation - Not an OrderPerformed by: Romeo Cantu MDAuthorized by: Romeo Cantu MD ECG reviewed by ED Physician in the absence of a motor equipment commanding officer: yes Interpretation: Interpretation: abnormal Rate: ECG rate: 50 ECG rate assessment: normal Rhythm: Rhythm: sinus bradycardia QRS: QRS axis: Normal QRS intervals: NormalST segments: ST segments: Normal Lab Interpretation Abnormal (test code = 01123-1) [facility] Pre/Post [id number] 21:49:33 Test Item Value Reference Range Interpretation Comments Ventricular rate (test code = 253) Atrial rate (test code = 255) IA interval (test code = 266) QRSD interval (test code = 260) QT interval (test code = 264) QTC interval (test code = 265) P axis 1 (test code = 267) QRS axis 1 (test code = 268) T wave axis (test code = 270) EKG impression (test code Sinus = 273) bradycardia-Electron ically Signed By Kashif Baer MD ([id number]) on 08/13/2021 4:49:31 PM [facility] Pre/Post [id number] 21:49:33 Test Item Value Reference Range Interpretation Comments Ventricular rate (test code = 253) Atrial rate (test code = 255) IA interval (test code = 266) QRSD interval (test code = 260) QT interval (test code = 264) QTC interval (test code = 265) P axis 1 (test code = 267) QRS axis 1 (test code = 268) T wave axis (test code = 270) EKG impression (test code Sinus = 273) bradycardia-Electron ically Signed By Kashif Baer MD ([id number]) on 08/13/2021 4:49:31 PM [facility] [id number] 17:45:00 Test Item Value Reference Range Interpretation Comments Urine culture (test SEE COMMENT Bacteriu shaq screen code = 0110381) negative. [facility] [id number] 17:45:00 Test Item Value Reference Range Interpretation Comments Urine culture (test SEE COMMENT Bacteriu shaq screen code = 0191384) [facility] [Presence] in Respiratory specimen by EMANUEL with probe [id number] 17:14:40 Test Item Value Reference Range Interpretation Comments SARS-CoV-2 (COVID-19) RNA Not detected [Presence] in Respiratory specimen by EMANUEL with probe detection (test code = 84355-4) Whether patient is employed in a Unknown healthcare setting (test code = 64741-3) Whether the patient has symptoms Unknown related to condition of interest (test code = 24396-9) Whether the patient was Unknown hospitalized for condition of interest (test code = 38012-2) Whether the patient was admitted Unknown to intensive care unit (ICU) for condition of interest (test code = 19815-2) Whether patient resides in a Unknown congregate care setting (test code = 09564-2) status (test code = Unknown 41100-0) Date and time of symptom onset Unknown (test code = 47064-9) ENZO PAN
[2022-04-17] MEDS ORDERED: LORazepam 2 MG/ML VIAL ONE (09:22)
[2022-04-17] MEDS ORDERED: NA CHLORIDE 0.9% 1,000 ML ONE (09:22)
--- NOTE | 2022-04-17 09:40 | RAD REPORT ---
EXAM DESCRIPTION: RAD - Elbow Right 3 View - 04/17/2022 9:26 am CLINICAL HISTORY: PAIN COMPARISON: No comparisons FINDINGS/IMPRESSION: No acute fracture. No malalignment. No significant focal degenerative changes.
[2022-04-17 09:41] LABS: Absolute Lymphocytes (CBC) 1.4 K/uL (0.7-4.9); Hematocrit 39.1 % (36.0-45.0); Lymphocytes % 13.7 % (15.3-44.8); MCV 91.4 fL (80-100); MPV 6.9 fL (7.6-11.3); RBC Red Blood Cell Count 4.28 M/uL (3.86-4.86)
[2022-04-17 10:03] LABS: ALT/SGPT 24 U/L (13-56); AST/SGOT 22 U/L (15-37); Alkaline Phosphatase 75 U/L (45-117); BUN Blood Urea Nitrogen 11 mg/dL (7-18); Bicarbonate 21 mmol/L (21-32); Bilirubin Direct < 0.1 mg/dL (0-0.2); Bilirubin Total 0.3 mg/dL (0.2-1.0); Glomerular Filtration Rate 63 ml/min (=/>90); Glucose Level 124 mg/dL (74-106); Potassium 3.9 mmol/L (3.5-5.1); Protein, Total 8.1 g/dL (6.4-8.2); Sodium Level 141 mmol/L (136-145)
[2022-04-17 10:08] LABS: Urine Blood Negative (Negative); Urine Glucose Negative (Negative); Urine Protein Negative (Negative); Urine Specific Gravity 1.025 (1.005-1.030)
[2022-04-17 10:22] LABS: Barbiturates NEGATIVE (NEGATIVE); Benzodiazepines POSITIVE (NEGATIVE); Cocaine NEGATIVE (NEGATIVE); METHAMPHETAM NEGATIVE (NEGATIVE); Methadone NEGATIVE (NEGATIVE); Opiates NEGATIVE (NEGATIVE); Phencyclidine NEGATIVE (NEGATIVE); THC Cannibis POSITIVE (NEGATIVE)
[2022-04-17 10:23] LABS: Urine Specific Gravity/Preg 1.025 (1.005-1.030)
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
[2022-04-17 11:20] LABS: SARS-CoV-2 Antigen Rapid Res Negative (Negative)
[2022-04-17 13:29] LABS: Protime INR 1.1
[2022-04-17 17:02] VITALS: BP 118/75; TEMP 98.8; O2SAT 96
--- NOTE | 2022-04-19 16:56 | EKG ---
Test Date: 2022-04-17 Test Time: 09:32:34 Plastic Surgery Manager: ETHAN MEASUREMENT RESULTS: Intervals: Rate: 119 ME: 150 QRSD: 92 QT: 332 QTc: 467 [place]: P: 61 ME: 150 QRS: 68 T: 45 INTERPRETIVE STATEMENTS: Sinus tachycardia Possible Left atrial enlargement Borderline ECG Compared to ECG 07/25/2017 20:57:26 Sinus rhythm no longer present Electronically Signed On 04-19-22 16:54:55 PAINT BOOTH OPERATOR by Luis Rg
== END 2022-04-17 15:38 ==
LOC: ER 08:43
DX: R45.851 Suicidal ideations (principal); R41.82 Altered mental status, unspecified; R45.1 Restlessness and agitation; F17.210 Nicotine dependence, cigarettes, uncomplicated; Z20.822 Contact with and (suspected) exposure to COVID-19; Z88.8 Allergy status to other drugs, medicaments and biological substances
CPT/HCPCS: 96361; 93005; 85025; 80048; 36415; 81025; 85610; 80076; 85730; 81003; 80307; 70450; 72125; 73130; 73080; 73562; 96374; 99285; 87811; J7030; G0480 ×3

== ENCOUNTER 2022-10-01 21:54 | Emergency (ER) | payer BC ==
--- OUTSIDE RECORDS SUMMARY | 2022-10-01 22:23 | XMS REPORT | Continuity of Care Document ---
:1980 Author Organization [facility] t Address [address] [place] [address] [address] [place] [address] Care Team Providers Name Role Phone Arya MCKEON, Ankur Kelley Primary Care Physician [phone] ZULY MARTIN Attending Clinician Unavailable Doctor Unassigned, Bogart Attending Clinician Unavailable ZARI ALVES Attending Clinician Unavailable CASEY BURNETTE Attending Clinician Unavailable Zuly Paul Attending Clinician Casey Burnette MD Attending Clinician Aknur Noonan MD Attending Clinician ANKUR NOONAN Attending Clinician Unavailable JARRETT_Tony_Chanelle_ Attending Clinician Unavailable Lab, Ang - Db Attending Clinician Unavailable Shailesh Carr Attending Clinician Romeo Cantu MD Attending Clinician Marcia MCKEON, Pascual Monae Attending Clinician [phone] Noe Sewell DO Attending Clinician Gurwinder MCKEON, Dagoberto Patiño Attending Clinician Shelly MCKEON, Amee Modi Attending Clinician Jose Tom CRNA Attending Clinician Evon Frazier MA Attending Clinician Unavailable Anca MCKEON, Shivam Attending Clinician Radha Blake APRN Attending Clinician Benjamin MCKEON, Len Lara Attending Clinician Yadiel MCKEON, Raheem Attending Clinician Lemuel MCKEON, James Navarro Attending Clinician Ash MCKEON, Ulisses Hoyt Attending Clinician [phone] Len Clark MD Attending Clinician EKATERINA BANKS Attending Clinician Unavailable KATIA OLIVERA Attending Clinician Unavailable Ekaterina Banks MD Attending Clinician Lab, [facility] Pob I Attending Clinician Unavailable FADUMO CHAVIS Attending Clinician Unavailable Fadumo Chavis MD Attending Clinician LEN BUENO Attending Clinician Unavailable JARRETT_Tony_Jonatan Admitting Clinician Unavailable PASCUAL KENNEDY Admitting Clinician Unavailable DAGOBERTO PURDY Admitting Clinician Unavailable JAMES PORTER Admitting Clinician Unavailable Payers Payer Name Policy Type Policy Number Effective Date Expiration Date [place] [id number] 2018 00:00:00 OUT OF STATE [place] [id number] 2018 00:00:00 [id number] 2018 00[place] Problems Condition Condition Condition Status Onset Resolution [...] Disease Active 2019-03 U nivers emia, emia, 04-19 ity of unspecifie [place] hyperlipid hyperlipid Br anch emia type emia type Type 2 Type 2 Disease Active 2019-03 Univers diabetes diabetes 04-19 ity of mellitus mellitus 00:00: [place] without without 00 Medical complicati complicati Br anch on, on, without without long-term long-term current current use of use of insulin insulin Surgical Surgical Disease Active Unive rs menopause menopause 10-28 ity of 00:00: [place] 00 Medical Branch Postmenopa Postmenopa Disease Active U nivers usal usal 10-28 ity of atrophic atrophic 00:00: [place] vaginitis vaginitis 00 [facility] Family Family Disease Active Univers history of history of 10-28 it y of breast breast 00:00: [place] cancer cancer 00 Medical Branch Chronic Chronic Disease Active 2016-03 Univers migraine migraine 03-28 ity of without without 00:00: [place] aura aura 00 Medical without without Branch status status migrainosu migrainosu s, not s, not intractabl intractabl e e Obesity Obesity Disease Active Univers (BMI (BMI 7-09 ity of 30-39.9) 30-39.9) 00:00: [place] 00 Medical Branch Pilonidal Pilonidal Disease Active Met hodi cyst cyst 05-16 st 00:00: [facility]osp[facility] 00 l Rheumatoid Rheumatoid Disease Active M ethodi arthritis arthritis 05-16 st 00:00: Hospita 00 l Orthostati Orthostati Disease Active M ethodi c c 05-16 st hypotensio hypotensio 00:00: Ho spita n n 00 l Chest pain Chest pain Disease Active M ethodi [address] [facility] 00:00: Hospita 00 l Anxiety Anxiety Disease Active Univers 9- ity of 00:00: [place] 00 Medical Branch Bradycardi Bradycardi Disease Active M ethodi a a 10-08 st 00:00: [...] nivers arthritis arthritis 12-25 ity of 00:00: [place] [facility] Fibromyalg Fibromyalg Disease Active U nivers ia ia 12-25 ity of 00:00: Medical Branch Pseudomemb Pseudomemb Disease Active U nivers ranous ranous 12-24 ity of colitis colitis 00:00: Medical Branch Vomiting Vomiting Disease Active Unive rs 7 ity of 00:00: [place] 00 Medical Branch Rash and Rash and Problem Active 2021-09-15 Memoria nonspecifi nonspecifi 02:45:35 l c skin c skin [place] eruption eruption Active Problem 09/15/2021 [facility] Spasm of Spasm of Problem Active 2021-09-15 Memoria muscle muscle 02:45:35 l Active [place] Problem 09/15/2021 [facility] Reflex Reflex Problem Active 2021-09-15 Gunner shaq sympatheti sympatheti 02:45:35 l c c [place] dystrophy dystrophy of other of other specified specified site site Active Problem 09/15/2021 [facility] Transamini Transamin Problem Active 2021-09-15 Memoria tis itis 02:45:35 l Active [place] Problem 09/15/2021 [facility] Vitamin D Vitamin D Problem Active 2021-09-15 Memoria deficiency deficiency 02:45:35 l Active [place] Problem 09/15/2021 [facility] Vitamin Vitamin Problem Active 2021-09-15 M emoria B12 B12 02:45:35 l deficiency deficiency He [...] 2021-09-15 Me moria Active 02:45:35 l Problem [place] 09/15/2021 [facility] Edema Edema Problem Active 2021-09-15 Memor ia Active 02:45:35 l Problem [place] 09/15/2021 [facility] Encounter Encounter Problem Active 2021-09-15 Memoria for for 02:45:35 l long-term long-term Herm mishel (current) (current) use of use of other other medication medication s s Active Problem 09/15/2021 [facility] Insomnia Insomnia Problem Active 2021-09-15 Memoria Active 02:45:35 l Problem [place] 09/15/2021 [facility] Other Other Problem Active 2021-09-15 [facility]ner shaq malaise malaise 02:45:35 l Active [place] Problem 09/15/2021 [facility] Myalgia Myalgia Diagnosis Active 2021-09-15 Memoria Active 02:45:35 l Diagnosis [place] 09/15/2021 [facility] Psoriatic Psoriatic Problem Active 2021-09-15 [facility]oria arthritis arthritis 02:45:35 l Active [place] Problem 09/15/2021 [facility] 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 02:45:35 l Active [place] Problem 09/15/2021 [facility] Other Other Diagnosis Active 2020-01-10 [facility] oria specified specified 02:45:37 l counseling counseling He rmmishel Active Diagnosis 01/10/2020 [facility] Blurry Blurry Diagnosis Active 2021-07-14 Ak moria vision, vision, 02:46:33 l left eye left eye Keagan n Active Diagnosis 07/14/2021 [facility] Bilateral Bilateral Problem Active 2021-09-15 [facility] leg leg 02:45:35 l paresthesi paresthesi He rmann a a Active Problem 09/15/2021 [facility] Inflammato Inflammat Problem Active 2021-09-15 Memlion ry ory 02:45:35 l polyarthro polyarthro He rmmishel edwin edwin Active Problem 09/15/2021 [facility] Allergies, Adverse Reactions, Alerts Allergy Allergy Status Severity Reaction(s) Onset Inactive Treating Comm ents Source Name Type Date Date Clinician Gabapent Gabapent Active leg cramps Me moria in in -18 l 00:00: [place] 00 Gabapent Propensi Active Other (See Spasmssei Methodi in ty to Comments) 10-[address] adverse 00:00: Hosp[facility] reaction 00 l s to drug Gabapent Propensi Active Other - See Spasmsse i Univers in ty to comments 10-18 zures ity of adverse 00:00: [place] reaction 00 Medical s Branch GABAPENT DRUG Active Other-Cmnt Univ ers IN INGREDI 10-18 ity of 00:00: [place] 00 Medical Branch Social History Social Habit Start Date Stop Date Quantity Comments Source History of tobacco Cigarette Smoker University of use [facility] Gender identity [facility] Sexual orientation [facility] Exposure to 2022-08-08 2022-08-18 Not sure [facility] SARS-CoV-2 (event) 00:00:00 10:03:00 [facility] History of Social 2022-05-31 2022-05-[address] function 00:00:00 00:00:00 Hospital Tobacco Comment 2022-05-06 2022-05-06 3-4 cigarettes Unive rsity of 00:00:00 00:00:00 daily [facility] Alcohol intake 2021-09-16 2021-09-16 Current [facility] 00:00:00 00:00:00 non-drinker of Hospital alcohol (finding) Cigarettes smoked 2021-08-12 2021-08-[address] current (pack per 00:00:00 00:00:00 Hospita l day) - Reported Cigarette 2021-08-12 2021-08-12 [facility] pack-years 00:00:00 00:00:00 Hospital Tobacco use and 2021-08-12 2021-08-12 Smokeless tobacco [facility] exposure 00:00:00 00:00:00 non-user Hospital History SDWI 2019-10-29 2019-10-29 99 [place] o f Alcohol Frequency 00:00:00 00:00:00 [place] M [facility] History [facility] 2019-10-29 2019-10-29 99 [place] o f Alcohol Std Drinks 00:00:00 00:00:00 [place] [facility] History SDWI 2019-10-29 2019-10-29 99 [place] o f Alcohol Binge 00:00:00 00:00:00 [place] Medic al [facility] Alcohol Comment 2019-10-29 2019-10-29 rare Universit y of 00:00:00 00:00:00 [facility] Sex Ass[birth year] At [birth year] [facility] 00:00:00 00:00:00 Hospital Smoking Status Start Date Stop Date Source Smokes tobacco daily 2021-08-12 00:00:00 [facility] Medications Ordered Filled Start Stop Current Ordering Indication Dosage Frequency Signature Comments Components Source Medication Medication Date Date Medication? Clinician (SIG) Name Name VIANEY Yes [id number] TAKE 1 Uni vers 1.25 mg 6-27 TABLET BY ity of tablet 00:00: MOUTH IN [place] THE Medical MORNING. Branch PREMARIN Yes [id number] TAKE 1 Uni vers 1.25 mg 6-27 TABLET BY ity of tablet 00:00: MOUTH IN [place] THE Medical MORNING. Branch PREMARIN Yes [id number] TAKE 1 Uni vers 1.25 mg 6-27 TABLET BY ity of tablet 00:00: MOUTH IN [place] THE Medical MORNING. Branch PREMARIN Yes [id number] TAKE 1 Uni vers 1.25 mg 6-27 TABLET BY ity of tablet 00:00: MOUTH IN [place] THE Medical MORNING. Branch ALPRAZolam Yes [id number] 2mg Take 1 U nivers 2 mg 24 hr 5-24 tablet by ity of tablet 00:00: mouth [place] 00 every Medical morning. Branch ALPRAZolam Yes [id number] .5mg Take 1 U nivers 0.5 mg 5-24 tablet by ity of tablet 00:00: mouth 3 [place] 00 (three) Medical times Branch daily as needed for Other (anxiety). ALPRAZolam Yes [id number] 2mg Take 1 U nivers 2 mg 24 hr 5-24 tablet by ity of tablet 00:00: mouth [place] 00 every Medical morning. Branch ALPRAZolam 3-0 Yes [id number] .5mg Take 1 U nivers 0.5 mg 5-24 tablet by ity of tablet 00:00: mouth 3 [place] (three) Medical times Branch daily as needed for Other (anxiety). ALPRAZolam 3-0 Yes [id number] 2mg Take 1 U nivers 2 mg 24 hr 5-24 tablet by ity of tablet 00:00: mouth [place] 00 every Medical morning. Branch ALPRAZolam 3-0 Yes [id number] .5mg Take 1 U nivers 0.5 mg 5-24 tablet by ity of tablet 00:00: mouth 3 [place] (three) Medical times Branch daily as needed for Other (anxiety). ALPRAZolam 2022-0 Yes [id number] 2mg Take 1 U nivers 2 mg 24 hr 5-24 tablet by ity of tablet 00:00: mouth [place] 00 every Medical morning. Branch ALPRAZolam 3-0 Yes [id number] .5mg Take 1 U nivers 0.5 mg 5-24 tablet by ity of tablet 00:00: mouth 3 (three) Medical times Branch daily as needed for Other (anxiety). ALPRAZolam 2022-0 Yes [id number] 2mg Take 1 U nivers 2 mg 24 hr 5-24 tablet by ity of tablet 00:00: mouth [place] 00 every Medical morning. Branch ALPRAZolam 3-0 Yes [id number] .5mg Take 1 U nivers 0.5 mg 5-24 tablet by ity of tablet 00:00: mouth 3 (three) Medical times Branch daily as needed for Other (anxiety). ALPRAZolam 3-0 Yes [id number] 2mg Take 1 U nivers 2 mg 24 hr 5-24 tablet by ity of tablet 00:00: mouth [place] 00 every Medical morning. Branch ALPRAZolam 3-0 Yes [id number] .5mg Take 1 U nivers 0.5 mg 5-24 tablet by ity of tablet 00:00: mouth 3 [place] 00 (three) Medical times Branch daily as needed for Other (anxiety). ALPRAZolam 3-0 Yes [id number] 2mg Take 1 U nivers 2 mg 24 hr 5-24 tablet by ity of tablet 00:00: mouth [place] 00 every Medical morning. Branch ALPRAZolam 2022-0 Yes [id number] .5mg Take 1 U nivers 0.5 mg 5-24 tablet by ity of tablet 00:00: mouth 3 (three) Medical times Branch daily as needed for Other (anxiety). ALPRAZolam 2022-0 Yes [id number] 2mg Take 1 U nivers 2 mg 24 hr 5-24 tablet by ity of tablet 00:00: mouth [place] 00 every Medical morning. Branch ALPRAZolam 0 Yes [id number] .5mg Take 1 U nivers 0.5 mg 5-24 tablet by ity of tablet 00:00: mouth 3 (three) Medical times Branch daily as needed for Other (anxiety). ALPRAZolam 2022-0 Yes [id number] 2mg Take 1 U nivers 2 mg 24 hr 5-24 tablet by ity of tablet 00:00: mouth 00 every Medical morning. Branch ALPRAZolam 2022-0 Yes [id number] .5mg Take 1 U nivers 0.5 mg 5-24 tablet by ity of tablet 00:00: mouth 3 (three) Medical times Branch daily as needed for Other (anxiety). ALPRAZolam 2022-0 Yes [id number] 2mg Take 1 U nivers 2 mg 24 hr 5-24 tablet by ity of tablet 00:00: mouth 00 every Medical morning. Branch ALPRAZolam 0 Yes [id number] .5mg Take 1 U nivers 0.5 mg 5-24 tablet by ity of tablet 00:00: mouth 3 (three) Medical times Branch daily as needed for Other (anxiety). REXULTI 1 2022-0 Yes Univers mg Tab 5-11 ity of 00:00: [place] 00 Medical Branch REXULTI 1 2022-0 Yes Univers mg Tab 5-11 ity of 00:00: 00 Medical Branch REXULTI 1 2022-0 Yes Univers mg Tab 5-11 ity of 00:00: 00 Medical Branch REXULTI 1 2022-0 Yes Univers mg Tab 5-11 ity of 00:00: 00 Medical Branch REXULTI 1 2022-0 Yes Univers mg Tab 5-11 ity of 00:00: [place] 00 Medical Branch REXULTI 1 2022-0 Yes Univers mg Tab 5-11 ity of 00:00: [place] 00 Medical Branch REXULTI 1 2022-0 Yes Univers mg Tab 5-11 ity of 00:00: [place] 00 Medical Branch REXULTI 1 2022-0 Yes Univers mg Tab 5-11 ity of 00:00: [place] 00 Medical Branch REXULTI 1 2022-0 Yes Univers mg Tab 5-11 ity of 00:00: [place] 00 Medical Branch REXULTI 1 2022-0 Yes Univers mg Tab 5-11 ity of 00:00: [place] 00 Medical Branch FLUoxetine 2022-0 Yes [id number] 60mg Take 3 U nivers 20 mg 4-10 capsules ity of capsule 00:00: by mouth [place] 00 in the Medical morning. Branch ALPRAZolam 0 Yes [id number] 2mg Take 1 U nivers 2 mg 24 hr 4-10 tablet by ity of tablet 00:00: mouth [place] 00 every Medical morning. Branch conjugated 2022-0 Yes [id number] 1.25mg Take 1 Univers estrogens 4-10 tablet by ity o f (PREMARIN) 00:00: mouth [place] 1.25 mg 00 every Medical tablet morning. Branch FLUoxetine 2022-0 Yes [id number] 60mg Take 3 U nivers 20 mg 4-10 capsules ity of capsule 00:00: by mouth [place] 00 in the Medical morning. Branch ALPRAZolam 2022-0 Yes [id number] 2mg Take 1 U nivers 2 mg 24 hr 4-10 tablet by ity of tablet 00:00: mouth [place] 00 every Medical morning. Branch conjugated 2022-0 Yes [id number] 1.25mg Take 1 Univers estrogens 4-10 tablet by ity o f (PREMARIN) 00:00: mouth [place] 1.25 mg 00 every Medical tablet morning. Branch FLUoxetine 2022-0 Yes [id number] 60mg Take 3 U nivers 20 mg 4-10 capsules ity of capsule 00:00: by mouth [place] 00 in the Medical morning. Branch ALPRAZolam 2022-0 Yes [id number] 2mg Take 1 U nivers 2 mg 24 hr 4-10 tablet by ity of tablet 00:00: mouth [place] 00 every Medical morning. Branch conjugated 2022-0 Yes [id number] 1.25mg Take 1 Univers estrogens 4-10 tablet by ity o f (PREMARIN) 00:00: mouth [place] 1.25 mg 00 every Medical tablet morning. Branch FLUoxetine 2022-0 Yes [id number] 60mg Take 3 U nivers 20 mg 4-10 capsules ity of capsule 00:00: by mouth [place] 00 in the Medical morning. Branch ALPRAZolam 2022-0 Yes [id number] 2mg Take 1 U nivers 2 mg 24 hr 4-10 tablet by ity of tablet 00:00: mouth [place] 00 every Medical morning. Branch conjugated 2022-0 Yes [id number] 1.25mg Take 1 Univers estrogens 4-10 tablet by ity o f (PREMARIN) 00:00: mouth [place] 1.25 mg 00 every Medical tablet morning. Branch FLUoxetine 2022-0 Yes [id number] 60mg Take 3 U nivers 20 mg 4-10 capsules ity of capsule 00:00: by mouth [place] 00 in the Medical morning. Branch conjugated 2022-0 Yes [id number] 1.25mg Take 1 Univers estrogens 4-10 tablet by ity o f (PREMARIN) 00:00: mouth [place] 1.25 mg 00 every Medical tablet morning. Branch FLUoxetine 2022-0 Yes [id number] 60mg Take 3 U nivers 20 mg 4-10 capsules ity of capsule 00:00: by mouth [place] 00 in the Medical morning. Branch conjugated 3-0 Yes [id number] 1.25mg Take 1 Univers estrogens 4-10 tablet by ity o f (PREMARIN) 00:00: mouth [place] 1.25 mg 00 every Medical tablet morning. Branch FLUoxetine 2022-0 Yes [id number] 60mg Take 3 U nivers 20 mg 4-10 capsules ity of capsule 00:00: by mouth [place] 00 in the Medical morning. Branch conjugated 3-0 Yes [id number] 1.25mg Take 1 Univers estrogens 4-10 tablet by ity o f (PREMARIN) 00:00: mouth [place] 1.25 mg 00 every Medical tablet morning. Branch FLUoxetine 2022-0 Yes [id number] 60mg Take 3 U nivers 20 mg 4-10 capsules ity of capsule 00:00: by mouth [place] 00 in the Medical morning. Branch conjugated 3-0 Yes [id number] 1.25mg Take 1 Univers estrogens 4-10 tablet by ity o f (PREMARIN) 00:00: mouth [place] 1.25 mg 00 every Medical tablet morning. Branch FLUoxetine 3-0 Yes [id number] 60mg Take 3 U nivers 20 mg 4-10 capsules ity of capsule 00:00: by mouth [place] 00 in the Medical morning. Branch conjugated 3-0 Yes [id number] 1.25mg Take 1 Univers estrogens 4-10 tablet by ity o f (PREMARIN) 00:00: mouth [place] 1.25 mg 00 every Medical tablet morning. Branch FLUoxetine 2022-0 Yes [id number] 60mg Take 3 U nivers 20 mg 4-10 capsules ity of capsule 00:00: by mouth [place] 00 in the Medical morning. Branch conjugated 3-0 Yes [id number] 1.25mg Take 1 Univers estrogens 4-10 tablet by ity o f (PREMARIN) 00:00: mouth [place] 1.25 mg 00 every Medical tablet morning. Branch FLUoxetine 2022-0 Yes [id number] 60mg Take 3 U nivers 20 mg 4-10 capsules ity of capsule 00:00: by mouth [place] 00 in the Medical morning. Branch FLUoxetine 2022-0 Yes [id number] 60mg Take 3 U nivers 20 mg 4-10 capsules ity of capsule 00:00: by mouth [place] 00 in the Medical morning. Branch FLUoxetine 2022-0 Yes [id number] 60mg Take 3 U nivers 20 mg 4-10 capsules ity of capsule 00:00: by mouth [place] 00 in the Medical morning. Branch FLUoxetine 2022-0 Yes [id number] 60mg Take 3 U nivers 20 mg 4-10 capsules ity of capsule 00:00: by mouth [place] 00 in the Medical morning. Branch conjugated 3-0 3- No [id number] 1.25mg Take 1 Univers estrogens 4-10 06-27 tablet by ity of (PREMARIN) 00:00: 00:00 mouth [place] 1.25 mg 00 :00 every Medical tablet morning. Branch ALPRAZolam 2022-0 2023- No [id number] 2mg Take 1 Univers 2 mg 24 hr 4-10 05-24 tablet by ity of tablet 00:00: 00:00 mouth [place] 00 :00 every Medical morning. Branch ALPRAZolam 2022-0 3- No [id number] 2mg Take 1 Univers 2 mg 24 hr 4-10 05-24 tablet by ity of tablet 00:00: 00:00 mouth [place] 00 :00 every Medical morning. Branch PREMARIN 2022-0 Yes [id number] TAKE 1 Uni vers 1.25 mg 4-05 TABLET BY ity of tablet 00:00: MOUTH IN [place] 00 THE Medical MORNING. Branch PREMARIN 2022-0 2022- No [id number] TAKE 1 Un lissette 1.25 mg 4-05 04-10 TABLET BY ity of tablet 00:00: 00:00 MOUTH IN [place] 00 :00 THE Medical MORNING. Branch FLUOXETINE 0 Yes [id number] 60mg TAKE 3 U nivers 20 mg 2-21 CAPSULES ity of capsule 00:00: BY MOUTH [place] 00 IN THE Medical MORNING. Branch FLUOXETINE 0 Yes [id number] 60mg TAKE 3 U nivers 20 mg 2-21 CAPSULES ity of capsule 00:00: BY MOUTH [place] 00 IN THE Medical MORNING. Branch FLUOXETINE 0 2022- No [id number] 60mg TAKE 3 Univers 20 mg 2-21 04-10 CAPSULES ity of capsule 00:00: 00:00 BY MOUTH [place] 00 :00 IN THE Medical MORNING. Branch ALPRAZolam 0 Yes [id number] 2mg Take 1 U nivers 2 mg 24 hr 2-09 tablet by ity of tablet 00:00: mouth [place] 00 every Medical morning. Branch ALPRAZolam 0 Yes [id number] 2mg Take 1 U nivers 2 mg 24 hr 2-09 tablet by ity of tablet 00:00: mouth [place] 00 every Medical morning. Branch ALPRAZolam 0 Yes [id number] 2mg Take 1 U nivers 2 mg 24 hr 2-09 tablet by ity of tablet 00:00: mouth [place] 00 every Medical morning. Branch ALPRAZolam 0 Yes [id number] 2mg Take 1 U nivers 2 mg 24 hr 2-09 tablet by ity of tablet 00:00: mouth [place] 00 every Medical morning. Branch ALPRAZolam 0 Yes [id number] 2mg Take 1 U nivers 2 mg 24 hr 2-09 tablet by ity of tablet 00:00: mouth [place] 00 every Medical morning. Branch ALPRAZolam 0 Yes [id number] 2mg Take 1 U nivers 2 mg 24 hr 2-09 tablet by ity of tablet 00:00: mouth [place] 00 every Medical morning. Branch ALPRAZolam 0 2022- No [id number] 2mg Take 1 Univers 2 mg 24 hr 2-09 04-10 tablet by ity of tablet 00:00: 00:00 mouth [place] 00 :00 every Medical morning. Branch ALPRAZolam 2022-0 Yes [id number] .5mg Take 1 U nivers 0.5 mg 1-23 tablet by ity of tablet 00:00: mouth 3 00 (three) Medical times Branch daily as needed for Other (anxiety). ALPRAZolam 2022-0 Yes [id number] .5mg Take 1 U nivers 0.5 mg 1-23 tablet by ity of tablet 00:00: mouth 3 (three) Medical times Branch daily as needed for Other (anxiety). ALPRAZolam 2022-0 Yes [id number] .5mg Take 1 U nivers 0.5 mg 1-23 tablet by ity of tablet 00:00: mouth 3 00 (three) Medical times Branch daily as needed for Other (anxiety). ALPRAZolam 0 Yes [id number] .5mg Take 1 U nivers 0.5 mg 1-23 tablet by ity of tablet 00:00: mouth 3 (three) Medical times Branch daily as needed for Other (anxiety). ALPRAZolam 2022-0 Yes [id number] .5mg Take 1 U nivers 0.5 mg 1-23 tablet by ity of tablet 00:00: mouth 3 00 (three) Medical times Branch daily as needed for Other (anxiety). ALPRAZolam 2022-0 Yes [id number] .5mg Take 1 U nivers 0.5 mg 1-23 tablet by ity of tablet 00:00: mouth 3 (three) Medical times Branch daily as needed for Other (anxiety). ALPRAZolam 2022-0 Yes [id number] .5mg Take 1 U nivers 0.5 mg 1-23 tablet by ity of tablet 00:00: mouth 3 (three) Medical times Branch daily as needed for Other (anxiety). ALPRAZolam 2022-0 Yes [id number] .5mg Take 1 U nivers 0.5 mg 1-23 tablet by ity of tablet 00:00: mouth 3 (three) Medical times Branch daily as needed for Other (anxiety). ALPRAZolam 2023-0 Yes [id number] .5mg Take 1 U nivers 0.5 mg 1-23 tablet by ity of tablet 00:00: mouth 3 [place] 00 (three) Medical times Branch daily as needed for Other (anxiety). ALPRAZolam Yes [id number] .5mg Take 1 U nivers 0.5 mg 1-23 tablet by ity of tablet 00:00: mouth 3 [place] 00 (three) Medical times Branch daily as needed for Other (anxiety). ALPRAZolam Yes [id number] .5mg Take 1 U nivers 0.5 mg 1-23 tablet by ity of tablet 00:00: mouth 3 [place] 00 (three) Medical times Branch daily as needed for Other (anxiety). ALPRAZolam 3- No [id number] .5mg Take 1 Univers 0.5 mg 1-23 05-24 tablet by ity of tablet 00:00: 00:00 mouth 3 [place] 00 :00 (three) Medical times Branch daily as needed for Other (anxiety). ALPRAZolam 3- No [id number] .5mg Take 1 Univers 0.5 mg 1-23 05-24 tablet by ity of tablet 00:00: 00:00 mouth 3 [place] 00 :00 (three) Medical times Branch daily as needed for Other (anxiety). ALPRAZOLAM Yes [id number] 2mg TAKE 1 U nivers 2 mg 24 hr 1-18 TABLET BY ity of tablet 00:00: MOUTH [place] 00 EVERY Medical MORNING. Branch ALPRAZOLAM Yes [id number] 2mg TAKE 1 U nivers 2 mg 24 hr 1-18 TABLET BY ity of tablet 00:00: MOUTH [place] 00 EVERY Medical MORNING. Branch ALPRAZOLAM 0 2023- No [id number] 2mg TAKE 1 Univers 2 mg 24 hr 1-18 02-09 TABLET BY ity of tablet 00:00: 00:00 MOUTH [place] 00 :00 EVERY Medical MORNING. Branch ALPRAZOLAM 0 2023- No [id number] 2mg TAKE 1 Univers 2 mg 24 hr 1-18 02-09 TABLET BY ity of tablet 00:00: 00:00 MOUTH [place] 00 :00 EVERY Medical MORNING. Branch ALPRAZOLAM 0 3- No [id number] 2mg TAKE 1 Univers 2 mg 24 hr 18 02-09 TABLET BY ity of tablet 00:00: 00:00 MOUTH [place] 00 :00 EVERY Medical MORNING. [facility], Yes Univers EUA, 200 mg 1-03 ity of capsule 00:00: [address], Yes Univers EUA, 200 mg 1-03 ity of capsule 00:00: [address], Yes Univers EUA, 200 mg 1-03 ity of capsule 00:00: [place] [facility], Yes Univers EUA, 200 mg 1-03 ity of capsule 00:00: [address], Yes Univers EUA, 200 mg 1-03 ity of capsule 00:00: [place] [facility], Yes Univers EUA, 200 mg 1-03 ity of capsule 00:00: [place] [facility] Yes Univers EUA, 200 mg 1-03 ity of capsule 00:00: [place] [facility], Yes Univers EUA, 200 mg 1-03 ity of capsule 00:00: [address] Yes Univers EUA, 200 mg 1-03 ity of capsule 00:00: [place] [facility], Yes Univers EUA, 200 mg 1-03 ity of capsule 00:00: [address] Yes Univers EUA, 200 mg 1-03 ity of capsule 00:00: [place] [facility], Yes Univers EUA, 200 mg 1-03 ity of capsule 00:00: [address] Yes Univers EUA, 200 mg 1-03 ity of capsule 00:00: [address], Yes Univers EUA, 200 mg 1-03 ity of capsule 00:00: [address], Yes Univers EUA, 200 mg 1-03 ity of capsule 00:00: [address], 2023-0 Yes Univers EUA, 200 mg 1-03 ity of capsule 00:00: [place] 00 Medical [facility], 2022-0 Yes Univers EUA, 200 mg 1-03 ity of capsule 00:00: [place] [facility], 2022-0 Yes Univers EUA, 200 mg 1-03 ity of capsule 00:00: [place] [facility], 2022-0 Yes Univers EUA, 200 mg 1-03 ity of capsule 00:00: [place] [facility], 2022-0 Yes Univers EUA, 200 mg 1-03 ity of capsule 00:00: [place] 00 [facility] ALPRAZOLAM 2021-03 Yes [id number] 2mg TAKE 1 U nivers 2 mg 24 hr 2-13 TABLET BY ity of tablet 00:00: MOUTH [place] 00 EVERY Medical MORNING. Branch ALPRAZOLAM 2021-03- No [id number] 2mg TAKE 1 Univers 2 mg 24 hr 2-13 01-18 TABLET BY ity of tablet 00:00: 00:00 MOUTH [place] 00 :00 EVERY Medical MORNING. Branch methotrexat 2021-03 Yes Univer s e, PF, 25 2-12 ity of mg/mL 00:00: [place] injection 00 Medical Branch COSENTYX 2021-03 Yes Univers PEN 150 2-12 ity of mg/mL SC 00:00: [place] injection Medical Branch methotrexat 2021-03 Yes Univer s e, PF, 25 2-12 ity of mg/mL 00:00: [place] injection 00 Medical Branch COSENTYX 2021-03 Yes Univers PEN 150 2-12 ity of mg/mL SC 00:00: [place] injection Medical Branch methotrexat 2021-03 Yes Univer s e, PF, 25 2-12 ity of mg/mL 00:00: [place] injection 00 Medical Branch COSENTYX 2021-03 Yes Univers PEN 150 2-12 ity of mg/mL SC 00:00: [place] injection Medical Branch methotrexat 2021-03 Yes Univer s e, PF, 25 2-12 ity of mg/mL 00:00: [place] injection 00 Medical Branch COSENTYX 2021-03 Yes Univers PEN 150 2-12 ity of mg/mL SC 00:00: [place] injection 00 Medical Branch methotrexat 2021-03 Yes Univer s e, PF, 25 2-12 ity of mg/mL 00:00: [place] injection 00 Medical Branch COSENTYX 2021-03 Yes Univers PEN 150 2-12 ity of mg/mL SC 00:00: [place] injection 00 Medical Branch methotrexat 2021-03 Yes Univer s e, PF, 25 2-12 ity of mg/mL 00:00: [place] injection 00 Medical Branch COSENTYX 2021-03 Yes Univers PEN 150 2-12 ity of mg/mL SC 00:00: [place] injection 00 Medical Branch methotrexat 2021-03 Yes Univer s e, PF, 25 2-12 ity of mg/mL 00:00: [place] injection 00 Medical Branch COSENTYX 2021-03 Yes Univers PEN 150 2-12 ity of mg/mL SC 00:00: [place] injection 00 Medical Branch methotrexat 2021-03 Yes Univer s e, PF, 25 2-12 ity of mg/mL 00:00: [place] injection 00 Medical Branch COSENTYX 2021-03 Yes Univers PEN 150 2-12 ity of mg/mL SC 00:00: [place] injection 00 Medical Branch methotrexat 2021-03 Yes Univabida s e, PF, 25 2-12 ity of mg/mL 00:00: [place] injection 00 Medical Branch COSENTYX 2021-03 Yes Univers PEN 150 2-12 ity of mg/mL SC 00:00: [place] injection 00 Medical Branch methotrexat 2021-03 Yes Univer s e, PF, 25 2-12 ity of mg/mL 00:00: [place] injection 00 Medical Branch COSENTYX 2021-03 Yes Univers PEN 150 2-12 ity of mg/mL SC 00:00: [place] injection 00 Medical Branch methotrexat 2021-03 Yes Univer s e, PF, 25 2-12 ity of mg/mL 00:00: [place] injection 00 Medical Branch COSENTYX 2021-03 Yes Univers PEN 150 2-12 ity of mg/mL SC 00:00: [place] injection 00 Medical Branch methotrexat 2021-03 Yes Univer s e, PF, 25 2-12 ity of mg/mL 00:00: [place] injection 00 Medical Branch COSENTYX 2021-03 Yes Univers PEN 150 2-12 ity of mg/mL SC 00:00: [place] injection 00 Medical Branch methotrexat 2021-03 Yes Univer s e, PF, 25 2-12 ity of mg/mL 00:00: [place] injection 00 Medical Branch COSENTYX 2021-03 Yes Univers PEN 150 2-12 ity of mg/mL SC 00:00: [place] injection 00 Medical Branch methotrexat 2021-03 Yes Univer s e, PF, 25 2-12 ity of mg/mL 00:00: [place] injection 00 Medical Branch COSENTYX 2021-03 Yes Univers PEN 150 2-12 ity of mg/mL SC 00:00: [place] injection 00 Medical Branch methotrexat 2021-03 Yes Univer s e, PF, 25 2-12 ity of mg/mL 00:00: [place] injection 00 Medical Branch COSENTYX 2021-03 Yes Univers PEN 150 2-12 ity of mg/mL SC 00:00: [place] injection 00 Medical Branch methotrexat 2021-03 Yes Univer s e, PF, 25 2-12 ity of mg/mL 00:00: [place] injection 00 Medical Branch COSENTYX 2021-03 Yes Univers PEN 150 2-12 ity of mg/mL SC 00:00: [place] injection 00 Medical Branch methotrexat 2021-03 Yes Univer s e, PF, 25 2-12 ity of mg/mL 00:00: [place] injection 00 Medical Branch COSENTYX 2021-03 Yes Univers PEN 150 2-12 ity of mg/mL SC 00:00: [place] injection 00 Medical Branch methotrexat 2021-03 Yes Univer s e, PF, 25 2-12 ity of mg/mL 00:00: [place] injection 00 Medical Branch COSENTYX 2021-03 Yes Univers PEN 150 2-12 ity of mg/mL SC 00:00: [place] injection 00 Medical Branch methotrexat 2021-03 Yes Univer s e, PF, 25 2-12 ity of mg/mL 00:00: [place] injection 00 Medical Branch COSENTYX 2021-03 Yes Univers PEN 150 2-12 ity of mg/mL SC 00:00: [place] injection 00 Medical Branch methotrexat 2021-03 Yes Univer s e, PF, 25 2-12 ity of mg/mL 00:00: [place] injection 00 Medical Branch COSENTYX 2021-03 Yes Univers PEN 150 2-12 ity of mg/mL SC 00:00: [place] [facility] 00 Medical Branch lamoTRIgine 2021- Yes Univer s 150 mg 1-12 ity of tablet 00:00: [place] [facility] lamoTRIgine 2021- Yes Univer s 150 mg 1-12 ity of tablet 00:00: [place] [facility] lamoTRIgine 2021- Yes Univer s 150 mg 1-12 ity of tablet 00:00: [place] [facility] lamoTRIgine 2021- Yes Univer s 150 mg 1-12 ity of tablet 00:00: [place] [facility] lamoTRIgine 2021- Yes Univer s 150 mg 1-12 ity of tablet 00:00: [place] [address] Medical Branch lamoTRIgine 2021- Yes Univer s 150 mg 1-12 ity of tablet 00:00: [place] [address] Medical [place] lamoTRIgine 2021- Yes Univer s 150 mg 1-12 ity of tablet 00:00: [place] [address] Medical [place] lamoTRIgine 2021- Yes Univer s 150 mg 1-12 ity of tablet 00:00: [place] [facility] lamoTRIgine 2021- Yes Univer s 150 mg 1-12 ity of tablet 00:00: [place] [address] Medical [place] lamoTRIgine 2021- Yes Univer s 150 mg 1-12 ity of tablet 00:00: [place] [facility] lamoTRIgine 2021- Yes Univer s 150 mg 1-12 ity of tablet 00:00: [place] [address] Medical Branch lamoTRIgine 2021- Yes Univer s 150 mg 1-12 ity of tablet 00:00: [place] [facility] lamoTRIgine 2021-1 Yes Univer s 150 mg 1-12 ity of tablet 00:00: [place] [address] Medical Branch lamoTRIgine 2-1 Yes Univer s 150 mg 1-12 ity of tablet 00:00: [place] [address] Medical Branch lamoTRIgine 2021-1 Yes Univer s 150 mg 1-12 ity of tablet 00:00: [place] [address] Medical Branch lamoTRIgine 2021-1 Yes Univer s 150 mg 1-12 ity of tablet 00:00: [place] [address] Medical [place] lamoTRIgine 2021- Yes Univer s 150 mg 1-12 ity of tablet 00:00: [place] 00 Medical Branch lamoTRIgine 2021-03 Yes Univer s 150 mg 1-12 ity of tablet 00:00: [place] 00 Medical Branch lamoTRIgine 2021-03 Yes Univer s 150 mg 1-12 ity of tablet 00:00: [place] 00 Medical Branch lamoTRIgine 2021-03 Yes Univer s 150 mg 1-12 ity of tablet 00:00: [place] 00 Medical Branch ALPRAZOLAM 0 2021- No [id number] 2mg TAKE 1 Univers 2 mg 24 hr 8-31 12-13 TABLET BY ity of tablet 00:00: 00:00 MOUTH [place] 00 :00 EVERY Medical MORNING. Branch ALPRAZolam Yes [id number] .5mg Take 1 U nivers 0.5 mg 8-08 tablet by ity of tablet 00:00: mouth 3 [place] 00 (three) Medical times Branch daily as needed for Other (anxiety). FLUoxetine Yes [id number] 60mg Take 3 U nivers 20 mg 8-08 capsules ity of capsule 00:00: by mouth [place] 00 in the Medical morning. Branch conjugated 0 Yes [id number] 1.25mg Take 1 Univers estrogens 8-08 tablet by ity o f (PREMARIN) 00:00: mouth in [place] 1.25 mg 00 the Medical tablet morning. Branch ALPRAZolam 0 Yes [id number] .5mg Take 1 U nivers 0.5 mg 8-08 tablet by ity of tablet 00:00: mouth 3 [place] 00 (three) Medical times Branch daily as needed for Other (anxiety). FLUoxetine 0 Yes [id number] 60mg Take 3 U nivers 20 mg 8-08 capsules ity of capsule 00:00: by mouth [place] 00 in the Medical morning. Branch conjugated 2021-0 Yes [id number] 1.25mg Take 1 Univers estrogens 8-08 tablet by ity o f (PREMARIN) 00:00: mouth in [place] 1.25 mg 00 the Medical tablet morning. Branch FLUoxetine 2021-0 Yes [id number] 60mg Take 3 U nivers 20 mg 8-08 capsules ity of capsule 00:00: by mouth [place] 00 in the Medical morning. Branch conjugated 2021-0 Yes [id number] 1.25mg Take 1 Univers estrogens 8-08 tablet by ity o f (PREMARIN) 00:00: mouth in [place] 1.25 mg 00 the Medical tablet morning. Branch FLUoxetine 2021-0 Yes [id number] 60mg Take 3 U nivers 20 mg 8-08 capsules ity of capsule 00:00: by mouth [place] 00 in the Medical morning. Branch conjugated 2021-0 Yes [id number] 1.25mg Take 1 Univers estrogens 8-08 tablet by ity o f (PREMARIN) 00:00: mouth in [place] 1.25 mg 00 the Medical tablet morning. Branch FLUoxetine 2021-0 Yes [id number] 60mg Take 3 U nivers 20 mg 8-08 capsules ity of capsule 00:00: by mouth [place] 00 in the Medical morning. Branch conjugated 2021-0 Yes [id number] 1.25mg Take 1 Univers estrogens 8-08 tablet by ity o f (PREMARIN) 00:00: mouth in [place] 1.25 mg 00 the Medical tablet morning. Branch FLUoxetine 2021-0 Yes [id number] 60mg Take 3 U nivers 20 mg 8-08 capsules ity of capsule 00:00: by mouth [place] 00 in the Medical morning. Branch conjugated 2021-0 Yes [id number] 1.25mg Take 1 Univers estrogens 8-08 tablet by ity o f (PREMARIN) 00:00: mouth in [place] 1.25 mg 00 the Medical tablet morning. Branch FLUoxetine 2021-0 Yes [id number] 60mg Take 3 U nivers 20 mg 8-08 capsules ity of capsule 00:00: by mouth [place] 00 in the Medical morning. Branch conjugated 2021-0 Yes [id number] 1.25mg Take 1 Univers estrogens 8-08 tablet by ity o f (PREMARIN) 00:00: mouth in [place] 1.25 mg 00 the Medical tablet morning. Branch conjugated 2-0 Yes [id number] 1.25mg Take 1 Univers estrogens 8-08 tablet by ity o f (PREMARIN) 00:00: mouth in [place] 1.25 mg 00 the Medical tablet morning. Branch conjugated 2021-0 3- No [id number] 1.25mg Take 1 Univers estrogens 8-08 04-05 tablet by ity of (PREMARIN) 00:00: 00:00 mouth [place] 1.25 mg 00 :00 the Medical tablet morning. Branch FLUoxetine 2021-0 2023- No [id number] 60mg Take 3 Univers 20 mg 11-02 02-21 capsules ity of capsule 00:00: 00:00 by mouth [place] 00 :00 in the Medical morning. Branch ALPRAZolam 2022- No [id number] .5mg Take 1 Univers 0.5 mg 11-02 tablet by ity of tablet 00:00: 00:00 mouth 3 [place] 00 :00 (three) Medical times Branch daily as needed for Other (anxiety). ALPRAZOLAM 2021- No [id number] 2mg TAKE 1 Univers 2 mg 24 hr 608 TABLET BY ity of tablet 00:00: 00:00 MOUTH [place] 00 :00 EVERY Medical MORNING. Branch ondansetron Yes 8mg Q8H Take 8 mg M ethodi (ZOFRAN) 8 6-[address] MG tablet 17:37: every 8 Hospi ta 30 (eight) l hours as needed for nausea or vomiting. tiZANidine Yes 2mg Q6H Take 2 mg [facility] (ZANAFLEX) 6-[address] 2 MG tablet 17:37: every 6 Hos amos 30 (six) l hours as needed for muscle spasms. 6 mg promethazin Yes 25mg Q8H Take 25 mg Methodi e 6-[address] (PHENERGAN) 17:37: every 8 Hos amos 25 MG 30 (eight) l tablet hours as needed for nausea or vomiting. estrogens, Yes 1.25mg QD Take 1.25 Methodi conjugated, 6-[address] (PREMARIN) 17:37: mouth Hospit a 1.25 MG 30 every l tablet morning. METHOTREXAT Yes 25mg Q7D Inject 25 M ethodi E, PF, SUBQ 6-[address] 17:37: the skin Hospita 30 once a l week. Every Tuesday. ALPRAZolam Yes 2mg QD Take 2 mg [facility] XR (XANAX 6-[address] XR) 2 MG 24 17:37: every Hospi ta hr tablet 30 morning. l topiramate Yes 200mg QD Take 200 Me thodi [...] 30 every 30 l (thirty) days. ondansetron 2021-0 Yes 8mg Q8H Take 8 mg M [...] 30 every 30 l (thirty) days. ondansetron 2021-0 Yes 8mg Q8H Take 8 mg M [...] 30 every 30 l (thirty) days. ondansetron 2021-0 Yes 8mg Q8H Take 8 mg M [...] every l ended morning. release 24hr erenumab-ao 2-0 Yes 140mg Q28D Inject 140 Methodi oe (Aimovig 6-[address] Autoinjecto 17:37: the skin Ho spita r) 140 30 every 28 l mg/mL days. syringe secukinumab 2-0 Yes 300mg Q30D Inject 300 Methodi (Cosentyx) 6-[address] 150 mg/mL 17:37: the skin Hosp bill syringe 30 every 30 l (thirty) days. cefepime 2021- No 2g Q8H Infuse 2 g [facility] IVPB 2 gram 09-17- into a [facility] Mini-Bag 00:00: 04:59 [facility] 00 :[facility] catheter l every 8 (eight) hours for 27 days. cefepime 2021-0 2022- No 2g Q8H Infuse 2 g [facility] IVPB 2 gram 09-17- into a [facility] Mini-Bag 00:00: 04:59 [facility] 00 :00 catheter l every 8 (eight) hours for 27 days. cefepime 2021-0 2021- No 2g Q8H Infuse 2 g [facility] IVPB 2 gram 09-17- into a st Mini-Bag 00:00: 04:59 [facility] 00 :00 catheter l every 8 (eight) hours for 27 days. cefepime 2021-0 2021- No 2g Q8H Infuse 2 g [facility] IVPB 2 gram 09-17- into a st Mini-Bag 00:00: 04:59 [facility] 00 :00 catheter l every 8 (eight) hours for 27 days. Methotrexat Yes Roberta INJECT Memoria e Sodium 6-21 Vo 0.8ML l 02:45: EVERY WEEK [place] 35 DIRECTED BD Luer-Fabian Yes Roberta USE [facility] Syringe 6-21 Vo DIRECTED l 02:45: TO INJECT [place] 35 METHOTREXA TE EVERY WEEK Tizanidine Yes Roberta TAKE 1 [facility] HCl 6-21 Vo TABLET BY l 02:45: MOUTH [place] 35 THREE TIMES DAILY Methotrexat Yes Roberta INJECT Memoria e Sodium 6-21 Vo 0.8ML l 02:45: EVERY WEEK [place] 35 DIRECTED BD Luer-Fabian Yes Roberta USE [facility] Syringe 6-21 Vo DIRECTED l 02:45: TO INJECT [place] 35 METHOTREXA TE EVERY WEEK Tizanidine Yes Roberta TAKE 1 [facility] HCl 6-21 Vo TABLET BY l 02:45: MOUTH [place] 35 THREE TIMES DAILY Folic Acid Yes Roberta TAKE 1 [facility] 6-21 Vo TABLET BY l 02:45: MOUTH [place] 35 EVERY DAY Folic Acid Yes Roberta TAKE 1 [facility] 6-21 Vo TABLET BY l 02:45: MOUTH [place] 35 EVERY DAY lamoTRIgine 2021- No 300mg QD Take 300 Methodi (LaMICtal) 6-17 06-[address] 100 MG 15:25: 00:00 mouth Hospita tablet 05 :00 every l morning. lamoTRIgine 2021- No 300mg QD Take 300 [facility] (LaMICtal) 6-17 06-[address] 100 MG 15:25: 00:00 mouth Hospita tablet 05 :00 every l morning. fentaNYL 2021- [place] [id number] 1{patch Q72H Place 1 M ethodi (DURAGESIC) 09-11 } patch on st 50 mcg/hr 15:14: 00:00 the skin Hos amos 40 :00 every l third day .chronic pain. fentaNYL 2021- [place] [id number] 1{patch Q72H Place 1 M ethodi (DURAGESIC) 09-11 } patch on st 50 mcg/hr 15:14: 00:00 the skin Hos amos 40 :00 every l third day .chronic pain. FLUoxetine Yes 40mg QD Take 40 mg M ethodi (PROzac) 20 5-[address] MG capsule 00:00: every Hospit a morning. l FLUoxetine Yes 40mg QD Take 40 mg M ethodi (PROzac) 20 5-[address] MG capsule 00:00: every Hospit a 00 morning. l FLUoxetine 0 Yes 40mg QD Take 40 mg M ethodi (PROzac) 20 5-[address] MG capsule 00:00: every Hospit a 00 morning. l FLUoxetine 0 Yes 40mg QD Take 40 mg M ethodi (PROzac) 20 5-[address] MG capsule 00:00: every Hospit a 00 morning. l FLUOXETINE 2021- No [id number] TAKE 1 Univers 40 mg 5-27 08-08 CAPSULE BY ity of capsule 00:00: 00:00 MOUTH [place] 00 :00 EVERY DAY Medical Branch folic acid 2021-0 Yes 1mg QD Take 1 mg [facility] (FOLVITE) 1 5-[address] MG tablet 00:00: every Hospita 00 morning. l lamoTRIgine 2-0 Yes 300mg QD Take 300 M ethodi [...] 00:00: every Hospita 00 morning. l lamoTRIgine 2-0 Yes 300mg QD Take 300 M ethodi (LaMICtal) 5-[address] 150 MG 00:00: mouth Hospita tablet 00 daily. l folic acid 2021-0 Yes 1mg QD Take 1 mg [facility] (FOLVITE) 1 5-[address] MG tablet 00:00: every Hospita 00 morning. l lamoTRIgine 2-0 Yes 300mg QD Take 300 M ethodi (LaMICtal) 5-[address] 150 MG 00:00: mouth Hospita tablet 00 daily. l doxycycline 2021-0 2021- No 100mg Q.5D Take 1 [facility] (VIBRAMYCIN 08-18- capsule st ) 100 MG 00:00: 04:59 (100 mg Hospi ta capsule 00 :00 total) by l mouth 2 (two) times a day for 7 days. HYDROcodone 2021-0 2021- No [id number] 1{tbl} Q6H Take 1 Methodi -acetaminop -08-[address] hen ([place]) 00:00: 04:59 mouth Hosp bill 10-325 mg 00 :00 every 6 l per tablet (six) hours as needed for moderate pain for up to 7 days .acute pain. Max Daily Amount: 4 tablets doxycycline 2021-0 2- No 100mg Q.5D Take 1 [facility] (VIBRAMYCIN -18 09- capsule st ) 100 MG 00:00: 04:59 (100 mg Hospi ta capsule 00 :00 total) by l mouth 2 (two) times a day for 7 days. HYDROcodone 2021-2021- [place] [id number] 1{tbl} Q6H Take 1 Methodi -acetaminop 08-[address] hen ([place]) 00:00: 04:59 mouth Hosp bill 10-325 mg [...] :00 (two) l times a day. topiramate 2021-0 2021- No 100mg Q.5D Take 100 M ethodi (TOPAMAX) 5-18 05-[address] 100 MG 18:48: 00:00 mouth 2 Hospita tablet 20 :00 (two) l times a day. fludrocorti 2-0 2022- No .1mg QD Take 0.1 M ethodi sone 0.1 mg 5-18 05-[address] tablet 18:46: 00:00 mouth Hospita 06 :00 daily. l fludrocorti 2-0 2022- No .1mg QD Take 0.1 M ethodi sone 0.1 mg 5-18 05-[address] tablet 18:46: 00:00 mouth Hospita 06 :00 daily. l ALPRAZolam 2021-0 2- No 2mg QD Take 2 mg M ethodi (XANAX) 2 5-18 05-[address] MG tablet 18:43: 00:00 daily. Hospi ta 27 :00 l ALPRAZolam 2-0 2022- No 2mg QD Take 2 mg M ethodi (XANAX) 2 5-18 05-[address] MG tablet 18:43: 00:00 daily. Hospi ta 27 :00 l fentaNYL 2021-0 202- No 1{patch Q48H Place 1 Me [facility] (DURAGESIC) 5-18 05-18 } patch on st 18:41: 00:00 the skin Hospita 01 :00 every l other day. Fentanyl patch12.5 fentaNYL 2021-0 2- No 1{patch Q48H Place 1 Me [facility]odi (DURAGESIC) 5-18 05-18 } patch on st 18:41: 00:00 the skin Hospita 01 :00 every l other day. Fentanyl patch12.5 Premarin 2021-0 Yes Roberta 1 tablet [facility]oria 5-11 Vo l 02:45: [place] 32 Sumatriptan 2021-0 Yes Roberta as [facility] Succinate 5-11 Vo directed l 02:45: [place] 32 Topamax 2021-0 Yes Roberta 1 tablet [facility]oria 5-11 Vo l 02:45: [place] Xanax XR 2021-0 Yes Roberta 1 tablet [facility]oria 5-11 Vo l 02:45: [place] Lamictal 2021-0 Yes Roberta 1 tablet [facility]oria 5-11 Vo l 02:45: [place] Cosentyx 2021-0 Yes Roberta 150 MG/ML Memoria Sensoready 5-11 Vo l Pen 02:45: [place] Aimovig 2021-0 Yes Roberta 1 capsule [facility]oria 5-11 Vo l 02:45: [place] 32 Fentanyl 2021-0 Yes Roberta 1 patch to [facility] 5-11 Vo skin l 02:45: [place] 32 Cyanocobala 2021-0 Yes Roberta INJECT 2 [facility]oria min 5-11 Vo ML l 02:45: INTRAMUSCU [place] 32 LARLY EVERY WEEK Fluoxetine 2021-0 Yes Roberta 1 capsule [facility] HCl 5-11 Vo in the l 02:45: morning [place] 32 Cosentyx 2021-0 Yes Roberta 150 MG/ML Memoria Sensoready 5-11 Vo l Pen 02:45: [place] 32 Premarin 2021-0 Yes Roberta 1 tablet [facility] 5-11 Vo l 02:45: [place] Sumatriptan 2021-0 Yes Roberta as [facility]oria Succinate 5-11 Vo directed l 02:45: [place] 32 Topamax 0 Yes Roberta 1 tablet [facility]oria 5-11 Vo l 02:45: [place] 32 Xanax XR 0 Yes Roberta 1 tablet [facility]oria 5-11 Vo l 02:45: [place] 32 Lamictal 0 Yes Roberta 1 tablet [facility]oria 5-11 Vo l 02:45: [place] Aimovig 0 Yes Roberta 1 capsule [facility] 5-11 Vo l 02:45: [place] Fentanyl 0 Yes Roberta 1 patch to [facility]oria 5-11 Vo skin l 02:45: [place] Cyanocobala Yes Roberta INJECT 2 [facility] min 5-11 Vo ML l 02:45: INTRAMUSCU [place] LARLY EVERY WEEK Fluoxetine 0 Yes Roberta 1 capsule [facility] HCl 5-11 Vo in the l 02:45: morning [place] Promethazin Yes Roberta 0.5 ml as Memoria e HCl 5-10 Vo needed l 00:00: Promethazin 0 Yes Roberta 0.5 ml as Memoria e HCl 5-10 Vo needed l 00:00: Promethazin 0 Yes Roberta 1 tablet Memoria e HCl 5-06 Vo as needed l 00:00: Promethazin 0 Yes Rober[place] 1 tablet Memoria e HCl 5-06 Vo as needed l 00:00: PREMARIN 2021-0 2021- No [id number] TAKE 1 Un lissette 1.25 mg 4-26 [...] times a ayed day. release(DR/ EC) monomethyl 2021-0 Yes 190mg Q.5D Take 190 [facility] fumarate 4-[address] (Bafierta) 00:00: mouth 2 Hos amos 95 mg 00 (two) l capsule,del times a ayed day. release(DR/ EC) monomethyl 2021-0 Yes 190mg Q.5D Take 190 [facility] fumarate 4-[address] (Bafiertam) 00:00: mouth 2 Hos amos 95 mg 00 (two) l capsule,del times a ayed day. release(DR/ EC) Methotrexat 2021-0 Yes Roberta 0.8 cc Memoria e Sodium 4-02 Vo l 03:05: [place] 06 Methotrexat 2021-0 Yes Roberta 0.8 cc Memoria e Sodium 4-02 Vo l 03:05: [place] 06 Folic Acid 2021-0 Yes Roberta TAKE 1 [facility] 4-02 Vo TABLET BY l 03:00: MOUTH [place] 15 EVERY DAY Folic Acid 2021-0 Yes Roberta TAKE 1 [facility] 4-02 Vo TABLET BY l 03:00: MOUTH [place] 15 EVERY DAY Furosemide 2021-0 Yes Roberta 1 tablet [facility] 4-02 Vo l 02:56: [place] 32 Furosemide 2021-0 Yes Roberta 1 tablet [facility] 4-02 Vo l 02:56: [place] 32 methotrexat 2-0 Yes .8mg 0.8 mg. Uni vers e 15 mg 3-14 ity of tablet 14:57: [address] methotrexat 2022-0 Yes .8mg 0.8 mg. Uni vers e 15 mg 3-14 ity of tablet 14:57: [address] methotrexat 2022-0 Yes .8mg 0.8 mg. Uni vers e 15 mg 3-14 ity of tablet 14:57: [address] methotrexat 2022-0 Yes .8mg 0.8 mg. Uni vers e 15 mg 3-14 ity of tablet 14:57: [address] methotrexat 2022-0 Yes .8mg 0.8 mg. Uni vers e 15 mg 3-14 ity of tablet 14:57: [address] methotrexat 2022-0 Yes .8mg 0.8 mg. Uni vers e 15 mg 3-14 ity of tablet 14:57: [address] methotrexat 2022-0 Yes .8mg 0.8 mg. Uni vers e 15 mg 3-14 ity of tablet 14:57: [address] methotrexat 2022-0 Yes .8mg 0.8 mg. Uni vers e 15 mg 3-14 ity of tablet 14:57: [address] methotrexat 2022-0 Yes .8mg 0.8 mg. Uni vers e 15 mg 3-14 ity of tablet 14:57: [address] methotrexat 2022-0 Yes .8mg 0.8 mg. Uni vers e 15 mg 3-14 ity of tablet 14:57: [address] methotrexat 2022-0 Yes .8mg 0.8 mg. Uni vers e 15 mg 3-14 ity of tablet 14:57: [address] methotrexat 2022-0 Yes .8mg 0.8 mg. Uni vers e 15 mg 3-14 ity of tablet 14:57: [address] methotrexat 2022-0 Yes .8mg 0.8 mg. Uni vers e 15 mg 3-14 ity of tablet 14:57: [address] methotrexat 2022-0 Yes .8mg 0.8 mg. Uni vers e 15 mg 3-14 ity of tablet 14:57: [address] methotrexat 2022-0 Yes .8mg 0.8 mg. Uni vers e 15 mg 3-14 ity of tablet 14:57: [address] methotrexat 2022-0 Yes .8mg 0.8 mg. Uni vers e 15 mg 3-14 ity of tablet 14:57: [address] methotrexat 2022-0 Yes .8mg 0.8 mg. Uni vers e 15 mg 3-14 ity of tablet 14:57: [address] methotrexat 2022-0 Yes .8mg 0.8 mg. Uni vers e 15 mg 3-14 ity of tablet 14:57: [address] methotrexat 2022-0 Yes .8mg 0.8 mg. Uni vers e 15 mg 3-14 ity of tablet 14:57: [address] methotrexat 2022-0 Yes .8mg 0.8 mg. Uni vers e 15 mg 3-14 ity of tablet 14:57: [address] methotrexat 2021-0 Yes .8mg 0.8 mg. Uni vers e 15 mg 3-14 ity of tablet 14:57: [address] methotrexat 2021-0 Yes .8mg 0.8 mg. Uni vers e 15 mg 3-14 ity of tablet 14:57: [address] methotrexat 2021-0 Yes .8mg 0.8 mg. Uni vers e 15 mg 3-14 ity of tablet 14:57: [address] methotrexat 2021-0 Yes .8mg 0.8 mg. Uni vers e 15 mg 3-14 ity of tablet 14:57: [address] ALPRAZolam 2021- No [id number] .5mg Take 1 Univers 0.5 mg 3-14 08-08 tablet by ity of tablet 00:00: 00:00 mouth 3 [place] 00 :00 (three) Medical times Branch daily as needed for Other (anxiety). Hydroxychlo 0 Yes Angélica TAKE 1 Mem oria roquine 5-20 [place] TABLET BY l Sulfate 02:45: MOUTH [place] 13 TWICE DAILY Hydroxychlo 2020-0 Yes Angélica TAKE 1 Mem oria roquine 5-20 [place] TABLET BY l Sulfate 02:45: MOUTH [place] 13 TWICE DAILY Tizanidine 0 Yes Roberta 1 tablet [facility] HCl 4-20 Vo as needed l 00:00: Tizanidine 2020-0 Yes Roberta 1 tablet [facility] HCl 4-20 Vo as needed l 00:00: Methotrexat 2019-1 Yes Roberta 0.8 ml Memoria e Sodium 2-09 Vo l 00:00: Methotrexat 2019-1 Yes Roberta 0.8 ml Memoria e Sodium 2-09 Vo l 00:00: Cosentyx 2019-03 Yes Angélica 150 MG/ML Mem oria Sensoready 0-26 [place] l Pen 00:00: Cosentyx 2019-03 Yes Roberta 1 ml Mem oria 0-26 Vo l 00:00: Cosentyx 2019-03 Yes Roberta 1 ml Mem oria 0-26 Vo l 00:00: Cosentyx 2020-1 Yes Angélic[place] 150 MG/ML Mem oria Sensoready 0-26 [place] l Pen 00:00: Fluoxetine 2019- Yes Roberta 1 capsule [facility] HCl 0-15 Vo in the l 02:45: morning Cimzia 2019- Yes Roberta as Memor ia 0-15 Vo directed l 02:45: BD Luer-Fabian 2019- Yes Roberta USE TO [facility] Syringe 0-15 Vo INJECT l 02:45: B12 [place] 37 WEEKLY Fluoxetine 2019-03 Yes Roberta 1 capsule [facility] HCl 0-15 Vo in the l 02:45: morning Cimzia 2019-03 Yes Roberta as Memor ia 0-15 Vo directed l 02:45: BD Luer-Fabian 2019- Yes Roberta USE TO [facility] Syringe 0-15 Vo INJECT l 02:45: 12 [place] 37 WEEKLY Cosentyx 2019- Yes Roberta 1 ml Mem oria 0-14 Vo l 00:00: Cosentyx 2019-1 Yes Roberta 1 ml Mem oria 0-14 Vo l 00:00: Dexilant 2020-0 Yes Roberta 1 capsule Memoria 8-19 Vo l 02:45: [place] 57 Reglan 2020-0 Yes Roberta not Memor ia 8-19 Vo defined l 02:45: [place] 57 Fludrocorti 2020-0 Yes [place]ta 1 tablet [facility] sone 8-19 Vo l Acetate 02:45: [place] 57 Adderall 2020-0 Yes Roberta 1 tablet [facility]oria 8-19 Vo l 02:45: [place] 57 Humira Pen 2020-0 Yes [place]ta INJECT ONE [facility]oria 8-19 Vo PEN (40 l 02:45: MG) [place] 57 SUBCUTANEO USLY EVERY WEEK. REFRIGERAT E. Hydroxychlo 2020-0 Yes [place]ta TAKE 1 [facility] roquine 8-19 Vo TABLET BY l Sulfate 02:45: MOUTH [place] 57 TWICE DAILY Dexilant 2020-0 Yes Roberta 1 capsule [facility]oria 8-19 Vo l 02:45: [place] 57 Reglan 2020-0 Yes Roberta not Memor ia 8- Vo defined l 02:45: [place] 57 Fludrocorti 2020-0 Yes Roberta 1 tablet [facility]oria sone - Vo l Acetate 02:45: [place] 57 Adderall 2020-0 Yes Roberta 1 tablet Memoria - Vo l 02:45: [place] 57 Humira Pen 2020-0 Yes [place]ta INJECT ONE [facility]oria - Vo PEN (40 l 02:45: MG) [place] 57 SUBCUTANEO USLY EVERY WEEK. REFRIGERAT E. Hydroxychlo 2020-0 Yes [place]ta TAKE 1 [facility] roquine - Vo TABLET BY l Sulfate 02:45: MOUTH [place] 57 TWICE DAILY nystatin 2020-0 Yes [id number] Apply to U nivers 100,000 8-03 area(s) 2 ity of unit/gram 00:00: (two) [place] powder 00 times Medical daily. Use Branch for 2 weeks Estradiol 2020-0 Yes [id number] 10ug Insert 1 [facility] (VAGIFEM) 8-03 tablet ity of 10 mcg 00:00: into [place] tablet 00 vagina Medical every 2 Branch (two) days. nystatin 2020-0 Yes [id number] Apply to U nivers 100,000 8-03 area(s) 2 ity of unit/gram 00:00: (two) [place] powder 00 times Medical daily. Use Branch for 2 weeks Estradiol 2020-0 Yes [id number] 10ug Insert 1 [facility] (VAGIFEM) 8-03 tablet ity of 10 mcg 00:00: into [place] tablet 00 vagina Medical every 2 Branch (two) days. nystatin 2020-0 Yes [id number] Apply to U nivers 100,000 8-03 area(s) 2 ity of unit/gram 00:00: (two) [place] powder 00 times Medical daily. Use Branch for 2 weeks Estradiol 2020-0 Yes [id number] 10ug Insert 1 [facility] (VAGIFEM) 8-03 tablet ity of 10 mcg 00:00: into [place] tablet 00 vagina Medical every 2 Branch (two) days. nystatin 2020-0 Yes [id number] Apply to U nivers 100,000 8-03 area(s) 2 ity of unit/gram 00:00: (two) [place] powder 00 times Medical daily. Use Branch for 2 weeks Estradiol 2020-0 Yes [id number] 10ug Insert 1 [facility] (VAGIFEM) 8-03 tablet ity of 10 mcg 00:00: into [place] tablet 00 vagina Medical every 2 Branch (two) days. nystatin 2020-0 Yes [id number] Apply to U nivers 100,000 8-03 area(s) 2 ity of unit/gram 00:00: (two) [place] powder 00 times Medical daily. Use Branch for 2 weeks Estradiol 2020-0 Yes [id number] 10ug Insert 1 [facility] (VAGIFEM) 8-03 tablet ity of 10 mcg 00:00: into [place] tablet 00 vagina Medical every 2 Branch (two) days. nystatin 2020-0 Yes [id number] Apply to U nivers 100,000 8-03 area(s) 2 ity of unit/gram 00:00: (two) [place] powder 00 times Medical daily. Use Branch for 2 weeks Estradiol 2020-0 Yes [id number] 10ug Insert 1 [facility] (VAGIFEM) 8-03 tablet ity of 10 mcg 00:00: into [place] tablet 00 vagina Medical every 2 Branch (two) days. nystatin 2020-0 Yes [id number] Apply to U nivers 100,000 8-03 area(s) 2 ity of unit/gram 00:00: (two) [place] powder 00 times Medical daily. Use Branch for 2 weeks Estradiol 2020-0 Yes [id number] 10ug Insert 1 [facility] (VAGIFEM) 8-03 tablet ity of 10 mcg 00:00: into [place] tablet 00 vagina Medical every 2 Branch (two) days. nystatin 2020-0 Yes [id number] Apply to U nivers 100,000 8-03 area(s) 2 ity of unit/gram 00:00: (two) [place] powder 00 times Medical daily. Use Branch for 2 weeks Estradiol 2020-0 Yes [id number] 10ug Insert 1 [facility] (VAGIFEM) 8-03 tablet ity of 10 mcg 00:00: into [place] tablet 00 vagina Medical every 2 Branch (two) days. nystatin 2020-0 Yes [id number] Apply to U nivers 100,000 8-03 area(s) 2 ity of unit/gram 00:00: (two) [place] powder 00 times Medical daily. Use Branch for 2 weeks Estradiol 2020-0 Yes [id number] 10ug Insert 1 [facility] (VAGIFEM) 8-03 tablet ity of 10 mcg 00:00: into [place] tablet 00 vagina Medical every 2 Branch (two) days. nystatin 2020-0 Yes [id number] Apply to U nivers 100,000 8-03 area(s) 2 ity of unit/gram 00:00: (two) [place] powder 00 times Medical daily. Use Branch for 2 weeks Estradiol 2020-0 Yes [id number] 10ug Insert 1 [facility] (VAGIFEM) 8-03 tablet ity of 10 mcg 00:00: into [place] tablet 00 vagina Medical every 2 Branch (two) days. nystatin 2020-0 Yes [id number] Apply to U nivers 100,000 8-03 area(s) 2 ity of unit/gram 00:00: (two) [place] powder 00 times Medical daily. Use Branch for 2 weeks Estradiol 2020-0 Yes [id number] 10ug Insert 1 [facility] (VAGIFEM) 8-03 tablet ity of 10 mcg 00:00: into [place] tablet 00 vagina Medical every 2 Branch (two) days. nystatin 2020-0 Yes [id number] Apply to U nivers 100,000 8-03 area(s) 2 ity of unit/gram 00:00: (two) [place] powder 00 times Medical daily. Use Branch for 2 weeks Estradiol 2020-0 Yes [id number] 10ug Insert 1 [facility] (VAGIFEM) 8-03 tablet ity of 10 mcg 00:00: into [place] tablet 00 vagina Medical every 2 Branch (two) days. nystatin 2020-0 Yes [id number] Apply to U nivers 100,000 8-03 area(s) 2 ity of unit/gram 00:00: (two) [place] powder 00 times Medical daily. Use Branch for 2 weeks Estradiol 2020-0 Yes [id number] 10ug Insert 1 [facility] (VAGIFEM) 8-03 tablet ity of 10 mcg 00:00: into [place] tablet 00 vagina Medical every 2 Branch (two) days. nystatin 2020-0 Yes [id number] Apply to U nivers 100,000 8-03 area(s) 2 ity of unit/gram 00:00: (two) [place] powder 00 times Medical daily. Use Branch for 2 weeks Estradiol 2020-0 Yes [id number] 10ug Insert 1 [facility] (VAGIFEM) 8-03 tablet ity of 10 mcg 00:00: into [place] tablet 00 vagina Medical every 2 Branch (two) days. nystatin 2020-0 Yes [id number] Apply to U nivers 100,000 8-03 area(s) 2 ity of unit/gram 00:00: (two) [place] powder 00 times Medical daily. Use Branch for 2 weeks Estradiol 2020-0 Yes [id number] 10ug Insert 1 [facility] (VAGIFEM) 8-03 tablet ity of 10 mcg 00:00: into [place] tablet 00 vagina Medical every 2 Branch (two) days. nystatin 2020-0 Yes [id number] Apply to U nivers 100,000 8-03 area(s) 2 ity of unit/gram 00:00: (two) [place] powder 00 times Medical daily. Use Branch for 2 weeks Estradiol 2020-0 Yes [id number] 10ug Insert 1 [facility] (VAGIFEM) 8-03 tablet ity of 10 mcg 00:00: into [place] tablet 00 vagina Medical every 2 Branch (two) days. nystatin 2020-0 Yes [id number] Apply to U nivers 100,000 8-03 area(s) 2 ity of unit/gram 00:00: (two) [place] powder 00 times Medical daily. Use Branch for 2 weeks Estradiol 2020-0 Yes [id number] 10ug Insert 1 [facility] (VAGIFEM) 8-03 tablet ity of 10 mcg 00:00: into [place] tablet 00 vagina Medical every 2 Branch (two) days. nystatin 2020-0 Yes [id number] Apply to U nivers 100,000 8-03 area(s) 2 ity of unit/gram 00:00: (two) [place] powder 00 times Medical daily. Use Branch for 2 weeks Estradiol 2020-0 Yes [id number] 10ug Insert 1 [facility] (VAGIFEM) 8-03 tablet ity of 10 mcg 00:00: into [place] tablet 00 vagina Medical every 2 Branch (two) days. nystatin 2020-0 Yes [id number] Apply to U nivers 100,000 8-03 area(s) 2 ity of unit/gram 00:00: (two) [place] powder 00 times Medical daily. Use Branch for 2 weeks Estradiol 2020-0 Yes [id number] 10ug Insert 1 [facility] (VAGIFEM) 8-03 tablet ity of 10 mcg 00:00: into [place] tablet 00 vagina Medical every 2 Branch (two) days. nystatin 2020-0 Yes [id number] Apply to U nivers 100,000 8-03 area(s) 2 ity of unit/gram 00:00: (two) [place] powder 00 times Medical daily. Use Branch for 2 weeks Estradiol 2020-0 Yes [id number] 10ug Insert 1 [facility] (VAGIFEM) 8-03 tablet ity of 10 mcg 00:00: into [place] tablet 00 vagina Medical every 2 Branch (two) days. nystatin 2020-0 Yes [id number] Apply to U nivers 100,000 8-03 area(s) 2 ity of unit/gram 00:00: (two) [place] powder 00 times Medical daily. Use Branch for 2 weeks Estradiol 2020-0 Yes [id number] 10ug Insert 1 [facility] (VAGIFEM) 8-03 tablet ity of 10 mcg 00:00: into [place] tablet 00 vagina Medical every 2 Branch (two) days. nystatin 2020-0 Yes [id number] Apply to U nivers 100,000 8-03 area(s) 2 ity of unit/gram 00:00: (two) [place] powder 00 times Medical daily. Use Branch for 2 weeks Estradiol 2020-0 Yes [id number] 10ug Insert 1 [facility] (VAGIFEM) 8-03 tablet ity of 10 mcg 00:00: into [place] tablet 00 vagina Medical every 2 Branch (two) days. nystatin 2020-0 Yes [id number] Apply to U nivers 100,000 8-03 area(s) 2 ity of unit/gram 00:00: (two) [place] powder 00 times Medical daily. Use Branch for 2 weeks Estradiol 2020-0 Yes [id number] 10ug Insert 1 [facility] (VAGIFEM) 8-03 tablet ity of 10 mcg 00:00: into [place] tablet 00 vagina Medical every 2 Branch (two) days. nystatin 2020-0 Yes [id number] Apply to U nivers 100,000 8-03 area(s) 2 ity of unit/gram 00:00: (two) [place] powder 00 times Medical daily. Use Branch for 2 weeks Estradiol 2020-0 Yes [id number] 10ug Insert 1 [facility] (VAGIFEM) 8-03 tablet ity of 10 mcg 00:00: into [place] tablet 00 vagina Medical every 2 Branch (two) days. cyanocobala 2020-0 Yes Univer s min 1,000 [...] min 1,000 7-15 ity of mcg/mL 00:00: [place] injection 00 Medical Branch cyanocobala 2020-0 Yes Univer s min 1,000 7-15 ity of mcg/mL 00:00: [place] injection 00 Medical Branch cyanocobala 2020-0 Yes Univer s min 1,000 7-15 ity of mcg/mL 00:00: [place] injection 00 Medical Branch methotrexat 2020-0 Yes Univer s e 25 mg/mL 7-14 ity of injection 00:00: [place] [facility] methotrexat 2020-0 Yes Univer s e 25 mg/mL 7-14 ity of injection 00:00: [place] [facility] methotrexat 2020-0 Yes Univer s e 25 mg/mL 7-14 ity of injection 00:00: [place] 00 Medical Branch methotrexat 2020-0 Yes Univer s e 25 mg/mL 7-14 ity of injection 00:00: [place] 00 Medical Branch methotrexat 2020-0 Yes Univer s e 25 mg/mL 7-14 ity of injection 00:00: [place] 00 Medical Branch methotrexat 2020-0 Yes Univer s e 25 mg/mL 7-14 ity of injection 00:00: [place] 00 Medical Branch methotrexat 2020-0 Yes Univer s e 25 mg/mL 7-14 ity of injection 00:00: [place] 00 Medical Branch methotrexat 2020-0 Yes Univer s e 25 mg/mL 7-14 ity of injection 00:00: [place] 00 Medical Branch methotrexat 2020-0 Yes Univer s e 25 mg/mL 7-14 ity of injection 00:00: [place] 00 Medical Branch methotrexat 2020-0 Yes Univer s e 25 mg/mL 7-14 ity of injection 00:00: [place] [facility] methotrexat 2020-0 Yes Univer s e 25 mg/mL 7-14 ity of injection 00:00: [place] [address] Medical Branch methotrexat 2020-0 Yes Univer s e 25 mg/mL 7-14 ity of injection 00:00: [place] [facility] methotrexat 2020-0 Yes Univer s e 25 mg/mL 7-14 ity of injection 00:00: [place] [address] Medical Branch methotrexat 2020-0 Yes Univer s e 25 mg/mL 7-14 ity of injection 00:00: [place] [facility] methotrexat 2020-0 Yes Univer s e 25 mg/mL 7-14 ity of injection 00:00: [place] [address] Medical Branch methotrexat 2020-0 Yes Univer s e 25 mg/mL 7-14 ity of injection 00:00: [place] [facility] methotrexat 2020-0 Yes Univer s e 25 mg/mL 7-14 ity of injection 00:00: [place] [address] Medical Branch methotrexat 2020-0 Yes Univer s e 25 mg/mL 7-14 ity of injection 00:00: [place] [address] Medical Branch methotrexat 2020-0 Yes Univer s e 25 mg/mL 7-14 ity of injection 00:00: [place] [address] Medical Branch methotrexat 2020-0 Yes Univer s e 25 mg/mL 7-14 ity of injection 00:00: [place] [facility] methotrexat 2020-0 Yes Univer s e 25 mg/mL 7-14 ity of injection 00:00: [place] [facility] methotrexat 2020-0 Yes Univer s e 25 mg/mL 7-14 ity of injection 00:00: [place] [address] Medical Branch methotrexat 2020-0 Yes Univer s e 25 mg/mL 7-14 ity of injection 00:00: [place] [address] Medical Branch methotrexat 2020-0 Yes Univer s e 25 mg/mL 7-14 ity of injection 00:00: [place] [facility] FENTanyl 2020-0 Yes [facility] 100 mcg/hr 7-11 ity of patch 00:00: [place] [facility] FENTanyl 2020-0 Yes [facility] 100 mcg/hr 7-11 ity of patch 00:00: [place] [facility] FENTanyl 2020-0 Yes [facility] 100 mcg/hr 7-11 ity of patch 00:00: [place] [facility] FENTanyl 2020-0 Yes [facility] 100 mcg/hr 7-11 ity of patch 00:00: [place] [facility] FENTanyl 2020-0 Yes [facility] 100 mcg/hr 7-11 ity of patch 00:00: [place] [facility] FENTanyl 2020-0 Yes [facility] 100 mcg/hr 7-11 ity of patch 00:00: [place] [facility] FENTanyl 2020-0 Yes [facility] 100 mcg/hr 7-11 ity of patch 00:00: [place] [facility] FENTanyl 2020-0 Yes [facility] 100 mcg/hr 7-11 ity of patch 00:00: [place] [facility] FENTanyl 2020-0 Yes [facility] 100 mcg/hr 7-11 ity of patch 00:00: [place] [facility] FENTanyl 2020-0 Yes [facility] 100 mcg/hr 7-11 ity of patch 00:00: [place] [facility] FENTanyl 2020-0 Yes [facility] 100 mcg/hr 7-11 ity of patch 00:00: [place] [facility] FENTanyl 2020-0 Yes [facility] 100 mcg/hr 7-11 ity of patch 00:00: [place] [facility] FENTanyl 2020-0 Yes [facility] 100 mcg/hr 7-11 ity of patch 00:00: [place] [facility] FENTanyl 2020-0 Yes [facility] 100 mcg/hr 7-11 ity of patch 00:00: [place] [facility] FENTanyl 2020-0 Yes [facility] 100 mcg/hr 7-11 ity of patch 00:00: [place] [facility] FENTanyl 2020-0 Yes [facility] 100 mcg/hr 7-11 ity of patch 00:00: [place] [facility] FENTanyl 2020-0 Yes [facility] 100 mcg/hr 7-11 ity of patch 00:00: [place] [facility] FENTanyl 2020-0 Yes [facility] 100 mcg/hr 7-11 ity of patch 00:00: [place] [facility] FENTanyl 2020-0 Yes [facility] 100 mcg/hr 7-11 ity of patch 00:00: [place] [facility] FENTanyl 2020-0 Yes [facility] 100 mcg/hr 7-11 ity of patch 00:00: [place] [facility] FENTanyl 2020-0 Yes [facility] 100 mcg/hr 7-11 ity of patch 00:00: [place] [facility] FENTanyl 2020-0 Yes [facility] 100 mcg/hr 7- ity of patch 00:00: [place] 00 Medical Branch FENTanyl 2020-0 Yes [facility] 100 mcg/hr - ity of patch 00:00: [place] [facility] FENTanyl 2020-0 Yes [facility] 100 mcg/hr -11 ity of patch 00:00: [place] [facility] CIMZIA 2019-0 Yes [facility] STARTER KIT 7-02 ity of 400 mg/2 mL 00:00: [place] (200 mg/mL 00 Medical x 2) SyKt Branch CIMZIA 2019-0 Yes [facility] STARTER KIT 7-02 ity of 400 mg/2 mL 00:00: [place] (200 mg/mL 00 Medical x 2) SyKt Branch CIMZIA 2019-0 Yes [facility] STARTER KIT 7-02 ity of 400 mg/2 mL 00:00: [place] (200 mg/mL 00 Medical x 2) SyKt Branch CIMZIA 2019-0 Yes [facility] STARTER KIT 7-02 ity of 400 mg/2 mL 00:00: [place] (200 mg/mL 00 Medical x 2) SyKt Branch CIMZIA 2019-0 Yes [facility] STARTER KIT 7-02 ity of 400 mg/2 mL 00:00: [place] (200 mg/mL 00 Medical x 2) SyKt Branch CIMZIA 2019-0 Yes [facility] STARTER KIT 7-02 ity of 400 mg/2 mL 00:00: [place] (200 mg/mL 00 Medical x 2) SyKt Branch CIMZIA 2019-0 Yes [facility] STARTER KIT 7-02 ity of 400 mg/2 mL 00:00: [place] (200 mg/mL 00 Medical x 2) SyKt Branch CIMZIA 2019-0 Yes [facility] STARTER KIT 7-02 ity of 400 mg/2 mL 00:00: [place] (200 mg/mL 00 Medical x 2) SyKt Branch CIMZIA 2019-0 Yes [facility] STARTER KIT 7-02 ity of 400 mg/2 mL 00:00: [place] (200 mg/mL 00 Medical x 2) SyKt Branch CIMZIA 2019-0 Yes [facility] STARTER KIT 7-02 ity of 400 mg/2 mL 00:00: [place] (200 mg/mL 00 Medical x 2) SyKt Branch CIMZIA 2019-0 Yes [facility] STARTER KIT 7-02 ity of 400 mg/2 mL 00:00: [place] (200 mg/mL 00 Medical x 2) [facility] STARTER KIT 7- ity of 400 mg/2 mL 00:00: [place] (200 mg/mL 00 Medical x 2) [facility] STARTER KIT 7- ity of 400 mg/2 mL 00:00: [place] (200 mg/mL 00 Medical x 2) SyKt Branch [facility] 2019-0 Yes [facility] STARTER KIT 7- ity of 400 mg/2 mL 00:00: [place] (200 mg/mL 00 Medical x 2) [facility] Yes [facility] STARTER KIT 7- ity of 400 mg/2 mL 00:00: [place] (200 mg/mL 00 Medical x 2) SyKt Branch [facility] 0 Yes Univers STARTER KIT 7- ity of 400 mg/2 mL 00:00: [place] (200 mg/mL 00 Medical x 2) SyKt Branch [facility] 0 Yes Univers STARTER KIT 7- ity of 400 mg/2 mL 00:00: [place] (200 mg/mL 00 Medical x 2) SyKt Branch [facility] 0 Yes Univers STARTER KIT 7- ity of 400 mg/2 mL 00:00: [place] (200 mg/mL 00 Medical x 2) SyKt Branch [facility] 0 Yes Univers STARTER KIT 7- ity of 400 mg/2 mL 00:00: [place] (200 mg/mL 00 Medical x 2) SyKt Branch [facility] 2019-0 Yes Univers STARTER KIT 7- ity of 400 mg/2 mL 00:00: [place] (200 mg/mL 00 Medical x 2) SyKt Branch [facility] STARTER KIT 7- ity of 400 mg/2 mL 00:00: [place] (200 mg/mL 00 Medical x 2) SyK[facility] Branch [facility] Yes [facility] STARTER KIT 7- ity of 400 mg/2 mL 00:00: [place] (200 mg/mL 00 Medical x 2) Sy[facility] Branch [facility] Yes [facility] STARTER KIT 7- ity of 400 mg/2 mL 00:00: [place] (200 mg/mL 00 Medical x 2) SyKt Branch [facility] 2019-0 Yes [facility] STARTER KIT 7-02 ity of 400 mg/2 mL 00:00: [place] (200 mg/mL 00 [facility] Cim[facility]-0 Yes [place] 2 ml Memor ia Starter Kit 6- Vo l 00:00: Cimzia 2020-0 Yes [place] 1 ml Memor ia Prefilled 6-23 Vo l 00:00: Cimzia 2020-0 Yes [place] 2 ml Memor ia Starter Kit 6- Vo l 00:00: Cim[place] 2020-0 Yes [place] 1 ml Memor ia Prefilled 6-23 Vo l 00:00: [place] 2020-0 Yes [place] 50 mg Mem oria 6-17 Vo l 00:00: [place] 2020-0 Yes [place] 50 mg Mem oria 6-17 Vo l 00:00: [place] 2020-0 Yes Roberta 0.67 ml M emoria 5-07 Vo l 00:00: [place] 2020-0 Yes Roberta 0.67 ml M emoria 5-07 Vo l 00:00: tiZANidine 2020-0 Yes 12mg Take 12 mg U nivers (ZANAFLEX) 4-17 by mouth. ity of 4 mg 13:22: [address] Branch foLIC acid 2020-0 Yes 1mg Take 1 mg Un lissette (FOLATE) 1 4-17 by mouth. ity of mg tablet 13:22: [address] sumatriptan 2019-0 Yes 4mg Take 4 mg U nivers 100 mg 4-17 by mouth. ity of tablet 13:22: [address] fludrocorti 2019-0 Yes .1mg Take 0.1 Un lissette sone 0.1 mg 4-17 mg by ity of tablet 13:22: mouth. [address] tiZANidine 2020-0 Yes 12mg Take 12 mg U nivers (ZANAFLEX) 4-17 by mouth. ity of 4 mg 13:22: [address] Branch foLIC acid 2020-0 Yes 1mg Take 1 mg Un l[facility]ette (FOLATE) 1 4-17 by mouth. ity of mg tablet 13:22: [address] sumatriptan 2020-0 Yes 4mg Take 4 mg U nivers 100 mg 4-17 by mouth. ity of tablet 13:22: [address] fludrocorti 2020-0 Yes .1mg Take 0.1 Un lissette sone 0.1 mg 4-17 mg by ity of tablet 13:22: mouth. [address] tiZANidine 2020-0 Yes 12mg Take 12 mg U nivers (ZANAFLEX) 4-17 by mouth. ity of 4 mg 13:22: [address] foLIC acid 2020-0 Yes 1mg Take 1 mg Un l[facility]ette (FOLATE) 1 4-17 by mouth. ity of mg tablet 13:22: [address] sumatriptan 2020-0 Yes 4mg Take 4 mg U nivers 100 mg 4-17 by mouth. ity of tablet 13:22: [address] fludrocorti 2020-0 Yes .1mg Take 0.1 Un lissette sone 0.1 mg 4-17 mg by ity of tablet 13:22: mouth. [address] tiZANidine 2020-0 Yes 12mg Take 12 mg U nivers (ZANAFLEX) 4-17 by mouth. ity of 4 mg 13:22: [address] foLIC acid 2020-0 Yes 1mg Take 1 mg Un [facility] (FOLATE) 1 4-17 by mouth. ity of mg tablet 13:22: [address] sumatriptan 2020-0 Yes 4mg Take 4 mg U nivers 100 mg 4-17 by mouth. ity of tablet 13:22: [address] fludrocorti 2020-0 Yes .1mg Take 0.1 Un lissette sone 0.1 mg 4-17 mg by ity of tablet 13:22: mouth. [address] tiZANidine 2020-0 Yes 12mg Take 12 mg U nivers (ZANAFLEX) 4-17 by mouth. ity of 4 mg 13:22: [address] foLIC acid 2020-0 Yes 1mg Take 1 mg Un [facility] (FOLATE) 1 4-17 by mouth. ity of mg tablet 13:22: [address] sumatriptan 2020-0 Yes 4mg Take 4 mg U nivers 100 mg 4-17 by mouth. ity of tablet 13:22: [address] fludrocorti 2020-0 Yes .1mg Take 0.1 Un lissette sone 0.1 mg 4-17 mg by ity of tablet 13:22: mouth. [address] tiZANidine 2020-0 Yes 12mg Take 12 mg U nivers (ZANAFLEX) 4-17 by mouth. ity of 4 mg 13:22: [address] foLIC acid 2020-0 Yes 1mg Take 1 mg Un [facility] (FOLATE) 1 4-17 by mouth. ity of mg tablet 13:22: [address] sumatriptan 2020-0 Yes 4mg Take 4 mg U nivers 100 mg 4-17 by mouth. ity of tablet 13:22: [address] fludrocorti 2020-0 Yes .1mg Take 0.1 Un lissette sone 0.1 mg 4-17 mg by ity of tablet 13:22: mouth. [address] tiZANidine 2020-0 Yes 12mg Take 12 mg U nivers (ZANAFLEX) 4-17 by mouth. ity of 4 mg 13:22: [address] foLIC acid 2020-0 Yes 1mg Take 1 mg Un [facility] (FOLATE) 1 4-17 by mouth. ity of mg tablet 13:22: [address] sumatriptan 2020-0 Yes 4mg Take 4 mg U nivers 100 mg 4-17 by mouth. ity of tablet 13:22: [address] fludrocorti 2020-0 Yes .1mg Take 0.1 Un lissette sone 0.1 mg 4-17 mg by ity of tablet 13:22: mouth. [address] tiZANidine 2020-0 Yes 12mg Take 12 mg U nivers (ZANAFLEX) 4-17 by mouth. ity of 4 mg 13:22: [address] foLIC acid 2020-0 Yes 1mg Take 1 mg Un [facility] (FOLATE) 1 4-17 by mouth. ity of mg tablet 13:22: [address] sumatriptan 2020-0 Yes 4mg Take 4 mg U nivers 100 mg 4-17 by mouth. ity of tablet 13:22: [address] fludrocorti 2020-0 Yes .1mg Take 0.1 Un lissette sone 0.1 mg 4-17 mg by ity of tablet 13:22: mouth. [address] tiZANidine 2020-0 Yes 12mg Take 12 mg U nivers (ZANAFLEX) 4-17 by mouth. ity of 4 mg 13:22: [address] foLIC acid 2020-0 Yes 1mg Take 1 mg Un [facility] (FOLATE) 1 4-17 by mouth. ity of mg tablet 13:22: [address] sumatriptan 2020-0 Yes 4mg Take 4 mg U nivers 100 mg 4-17 by mouth. ity of tablet 13:22: [address] fludrocorti 2020-0 Yes .1mg Take 0.1 Un lissette sone 0.1 mg 4-17 mg by ity of tablet 13:22: mouth. [address] tiZANidine 2020-0 Yes 12mg Take 12 mg U nivers (ZANAFLEX) 4-17 by mouth. ity of 4 mg 13:22: [address] foLIC acid 2020-0 Yes 1mg Take 1 mg Un [facility] (FOLATE) 1 4-17 by mouth. ity of mg tablet 13:22: [address] sumatriptan 2020-0 Yes 4mg Take 4 mg U nivers 100 mg 4-17 by mouth. ity of tablet 13:22: [address] fludrocorti 2020-0 Yes .1mg Take 0.1 Un l[facility]ette sone 0.1 mg 4-17 mg by ity of tablet 13:22: mouth. [address] tiZANidine 2020-0 Yes 12mg Take 12 mg U nivers (ZANAFLEX) 4-17 by mouth. ity of 4 mg 13:22: [address] foLIC acid 2020-0 Yes 1mg Take 1 mg Un [facility] (FOLATE) 1 4-17 by mouth. ity of mg tablet 13:22: [address] sumatriptan 2020-0 Yes 4mg Take 4 mg U nivers 100 mg 4-17 by mouth. ity of tablet 13:22: [address] fludrocorti 2020-0 Yes .1mg Take 0.1 Un l[place]ette sone 0.1 mg 4-17 mg by ity of tablet 13:22: mouth. [address] tiZANidine 2020-0 Yes 12mg Take 12 mg U nivers (ZANAFLEX) 4-17 by mouth. ity of 4 mg 13:22: [address] foLIC acid 2020-0 Yes 1mg Take 1 mg Un [facility] (FOLATE) 1 4-17 by mouth. ity of mg tablet 13:22: [address] sumatriptan 2020-0 Yes 4mg Take 4 mg U nivers 100 mg 4-17 by mouth. ity of tablet 13:22: [address] fludrocorti 2020-0 Yes .1mg Take 0.1 Un l[place]ette sone 0.1 mg 4-17 mg by ity of tablet 13:22: mouth. [address] tiZANidine 2020-0 Yes 12mg Take 12 mg U nivers (ZANAFLEX) 4-17 by mouth. ity of 4 mg 13:22: [address] foLIC acid 2020-0 Yes 1mg Take 1 mg Un [facility] (FOLATE) 1 4-17 by mouth. ity of mg tablet 13:22: [address] sumatriptan 2020-0 Yes 4mg Take 4 mg U nivers 100 mg 4-17 by mouth. ity of tablet 13:22: [address] fludrocorti 2020-0 Yes .1mg Take 0.1 Un [place] sone 0.1 mg 4-17 mg by ity of tablet 13:22: mouth. [address] tiZANidine 2020-0 Yes 12mg Take 12 mg U nivers (ZANAFLEX) 4-17 by mouth. ity of 4 mg 13:22: [address] foLIC acid 2020-0 Yes 1mg Take 1 mg Un [facility] (FOLATE) 1 4-17 by mouth. ity of mg tablet 13:22: [address] sumatriptan 2020-0 Yes 4mg Take 4 mg U nivers 100 mg 4-17 by mouth. ity of tablet 13:22: [address] fludrocorti 2020-0 Yes .1mg Take 0.1 Un [place] sone 0.1 mg 4-17 mg by ity of tablet 13:22: mouth. [address] tiZANidine 2020-0 Yes 12mg Take 12 mg U nivers (ZANAFLEX) 4-17 by mouth. ity of 4 mg 13:22: [address] foLIC acid 2020-0 Yes 1mg Take 1 mg Un lissette (FOLATE) 1 4-17 by mouth. ity of mg tablet 13:22: [address] sumatriptan 2020-0 Yes 4mg Take 4 mg U nivers 100 mg 4-17 by mouth. ity of tablet 13:22: [address] fludrocorti 2020-0 Yes .1mg Take 0.1 Un lissette sone 0.1 mg 4-17 mg by ity of tablet 13:22: mouth. [address] tiZANidine 2020-0 Yes 12mg Take 12 mg U nivers (ZANAFLEX) 4-17 by mouth. ity of 4 mg 13:22: [address] foLIC acid 2020-0 Yes 1mg Take 1 mg Un lissette (FOLATE) 1 4-17 by mouth. ity of mg tablet 13:22: [address] sumatriptan 2020-0 Yes 4mg Take 4 mg U nivers 100 mg 4-17 by mouth. ity of tablet 13:22: [address] fludrocorti 2020-0 Yes .1mg Take 0.1 Un lissette sone 0.1 mg 4-17 mg by ity of tablet 13:22: mouth. [address] tiZANidine 2020-0 Yes 12mg Take 12 mg U nivers (ZANAFLEX) 4-17 by mouth. ity of 4 mg 13:22: [address] foLIC acid 2020-0 Yes 1mg Take 1 mg Un lissette (FOLATE) 1 4-17 by mouth. ity of mg tablet 13:22: [address] sumatriptan 2020-0 Yes 4mg Take 4 mg U nivers 100 mg 4-17 by mouth. ity of tablet 13:22: [address] fludrocorti 2020-0 Yes .1mg Take 0.1 Un l[place]ette sone 0.1 mg 4-17 mg by ity of tablet 13:22: mouth. [address] tiZANidine 2020-0 Yes 12mg Take 12 mg U nivers (ZANAFLEX) 4-17 by mouth. ity of 4 mg 13:22: [address] foLIC acid 2020-0 Yes 1mg Take 1 mg Un lissette (FOLATE) 1 4-17 by mouth. ity of mg tablet 13:22: [address] sumatriptan 2020-0 Yes 4mg Take 4 mg U nivers 100 mg 4-17 by mouth. ity of tablet 13:22: [address] fludrocorti 2020-0 Yes .1mg Take 0.1 Un [place]ette sone 0.1 mg 4-17 mg by ity of tablet 13:22: mouth. [address] tiZANidine 2020-0 Yes 12mg Take 12 mg U nivers (ZANAFLEX) 4-17 by mouth. ity of 4 mg 13:22: [address] foLIC acid 2020-0 Yes 1mg Take 1 mg Un l[place]ette (FOLATE) 1 4-17 by mouth. ity of mg tablet 13:22: [address] sumatriptan 2020-0 Yes 4mg Take 4 mg U nivers 100 mg 4-17 by mouth. ity of tablet 13:22: [address] fludrocorti 2020-0 Yes .1mg Take 0.1 Un [place] sone 0.1 mg 4-17 mg by ity of tablet 13:22: mouth. [address] tiZANidine 2020-0 Yes 12mg Take 12 mg U nivers (ZANAFLEX) 4-17 by mouth. ity of 4 mg 13:22: [address] foLIC acid 2020-0 Yes 1mg Take 1 mg Un l[place]ette (FOLATE) 1 4-17 by mouth. ity of mg tablet 13:22: [address] sumatriptan 2020-0 Yes 4mg Take 4 mg U nivers 100 mg 4-17 by mouth. ity of tablet 13:22: [address] fludrocorti 2020-0 Yes .1mg Take 0.1 Un [place] sone 0.1 mg 4-17 mg by ity of tablet 13:22: mouth. [address] tiZANidine 2020-0 Yes 12mg Take 12 mg U nivers (ZANAFLEX) 4-17 by mouth. ity of 4 mg 13:22: [address] foLIC acid 2020-0 Yes 1mg Take 1 mg Un l[place]ette (FOLATE) 1 4-17 by mouth. ity of mg tablet 13:22: [address] sumatriptan 2020-0 Yes 4mg Take 4 mg U nivers 100 mg 4-17 by mouth. ity of tablet 13:22: [address] fludrocorti 2020-0 Yes .1mg Take 0.1 Un l[place]ette sone 0.1 mg 4-17 mg by ity of tablet 13:22: mouth. [address] tiZANidine 2020-0 Yes 12mg Take 12 mg U nivers (ZANAFLEX) 4-17 by mouth. ity of 4 mg 13:22: [address] foLIC acid 2020-0 Yes 1mg Take 1 mg Un l[place]ette (FOLATE) 1 4-17 by mouth. ity of mg tablet 13:22: [address] sumatriptan 2020-0 Yes 4mg Take 4 mg U nivers 100 mg 4-17 by mouth. ity of tablet 13:22: [address] fludrocorti 2020-0 Yes .1mg Take 0.1 Un [place] sone 0.1 mg 4-17 mg by ity of tablet 13:22: mouth. [address] tiZANidine 2020-0 Yes 12mg Take 12 mg U nivers (ZANAFLEX) 4-17 by mouth. ity of 4 mg 13:22: [address] foLIC acid 2020-0 Yes 1mg Take 1 mg Un l[place]ette (FOLATE) 1 4-17 by mouth. ity of mg tablet 13:22: [address] sumatriptan 2020-0 Yes 4mg Take 4 mg U nivers 100 mg 4-17 by mouth. ity of tablet 13:22: [address] fludrocorti 2020-0 Yes .1mg Take 0.1 Un [place] sone 0.1 mg 4-17 mg by ity of tablet 13:22: mouth. [address] tiZANidine 2020-0 Yes 12mg Take 12 mg U nivers (ZANAFLEX) 4-17 by mouth. ity of 4 mg 13:22: [address] foLIC acid 2020-0 Yes 1mg Take 1 mg Un l[place]ette (FOLATE) 1 4-17 by mouth. ity of mg tablet 13:22: [address] sumatriptan 2020-0 Yes 4mg Take 4 mg U nivers 100 mg 4-17 by mouth. ity of tablet 13:22: [address] fludrocorti 2020-0 Yes .1mg Take 0.1 Un [place] sone 0.1 mg 4-17 mg by ity of tablet 13:22: mouth. [address] Folic Acid 0 Yes Roberta 1 tablet Memoria 1-22 Vo l 00:00: [place] Tizanidine 2019-0 Yes Roberta 1 tablet Memoria HCl 1-22 Vo as needed l 00:00: [place] Tizanidine 2019- Yes Roberta 1 tablet Memoria HCl 1-22 Vo as needed l 00:00: [place] Folic Acid 0 Yes Roberta 1 tablet Memoria 1-22 Vo l 00:00: [place] Aprepitant 2018-03 Yes Univers 125 mg (1)- 2-03 ity of 80 mg (2) 00:00: [address] Aprepitant 2018-03 Yes Univers 125 mg (1)- 2-03 ity of 80 mg (2) 00:00: [address] Aprepitant 2018-03 Yes Univers 125 mg (1)- 2-03 ity of 80 mg (2) 00:00: [address] Aprepitant 2018-03 Yes Univers 125 mg (1)- 2-03 ity of 80 mg (2) 00:00: [address] Aprepitant 2018-03 Yes Univers 125 mg (1)- 2-03 ity of 80 mg (2) 00:00: [address] Aprepitant 2018-03 Yes Univers 125 mg (1)- 2-03 ity of 80 mg (2) 00:00: [address] Aprepitant 2018-03 Yes Univers 125 mg (1)- 2-03 ity of 80 mg (2) 00:00: [address] Aprepitant 2018-03 Yes Univers 125 mg (1)- 2-03 ity of 80 mg (2) 00:00: [address] Aprepitant 2018-03 Yes Univers 125 mg (1)- 2-03 ity of 80 mg (2) 00:00: [address] Aprepitant 2018-03 Yes Univers 125 mg (1)- 2-03 ity of 80 mg (2) 00:00: [address] Aprepitant 2018-03 Yes Univers 125 mg (1)- 2-03 ity of 80 mg (2) 00:00: [place] [address] [facility] Branch Aprepitant 2019- Yes Univers 125 mg (1)- 2-03 ity of 80 mg (2) 00:00: [place] [address] [facility] Branch Aprepitant 2018- Yes Univers 125 mg (1)- 2-03 ity of 80 mg (2) 00:00: [address] Branch Aprepitant 2018-03 Yes Univers 125 mg (1)- 2-03 ity of 80 mg (2) 00:00: [place] [address] Medical Branch Aprepitant 2018-03 Yes Univers 125 mg (1)- 2-03 ity of 80 mg (2) 00:00: [address] Branch Aprepitant 2018-03 Yes Univers 125 mg (1)- 2-03 ity of 80 mg (2) 00:00: [address] Branch Aprepitant 2018-03 Yes Univers 125 mg (1)- 2-03 ity of 80 mg (2) 00:00: [address] Branch Aprepitant 2018-03 Yes Univers 125 mg (1)- 2-03 ity of 80 mg (2) 00:00: [address] Branch Aprepitant 2018-03 Yes Univers 125 mg (1)- 2-03 ity of 80 mg (2) 00:00: [address] Branch Aprepitant 2018- Yes Univers 125 mg (1)- 2-03 ity of 80 mg (2) 00:00: [address] Branch Aprepitant 2019 Yes Univers 125 mg (1)- 2-03 ity of 80 mg (2) 00:00: [address] Branch Aprepitant 2018-03 Yes Univers 125 mg (1)- 2-03 ity of 80 mg (2) 00:00: [address] Branch Aprepitant 2018-03 Yes Univers 125 mg (1)- 2-03 ity of 80 mg (2) 00:00: [address] Branch Aprepitant 2018-03 Yes Univers 125 mg (1)- 2-03 ity of 80 mg (2) 00:00: [address] AIMOVIG 2018-03 Yes Univers AUTOINJECTO 1-25 ity of R 140 mg/mL 00:[facility]: [facility] 2019- Yes Univers AUTOINJECTO 1-25 ity of R 140 mg/mL 00:00: [place] [facility] AIMOVI 2019- Yes Univers AUTOINJECTO 1-25 ity of R 140 mg/mL 00:00: [place] [facility] AIMOVI 2019- Yes Univers AUTOINJECTO 1-25 ity of R 140 mg/mL 00:00: [facility] Branch AIMOVI 2019- Yes Univers AUTOINJECTO 1-25 ity of R 140 mg/mL 00:00: [place] [facility] AIMOVI 2019- Yes Univers AUTOINJECTO 1-25 ity of R 140 mg/mL 00:00: [facility] Branch AIMOVI 2019- Yes Univers AUTOINJECTO 1-25 ity of R 140 mg/mL 00:00: [facility] Medical Branch AIMOVI 2019- Yes Univers AUTOINJECTO 1-25 ity of R 140 mg/mL 00:00: [facility] Medical Branch AIMOVI 2019- Yes Univers AUTOINJECTO 1-25 ity of R 140 mg/mL 00:00: [facility] Branch AIMOVI 2019- Yes Univers AUTOINJECTO 1-25 ity of R 140 mg/mL 00:00: [facility] Branch AIMOVI 2019- Yes Univers AUTOINJECTO 1-25 ity of R 140 mg/mL 00:00: [place] [facility] AIMOVI 2019- Yes Univers AUTOINJECTO 1-25 ity of R 140 mg/mL 00:00: [place] [facility] AIMOVI 2019-1 Yes Univers AUTOINJECTO 1-25 ity of R 140 mg/mL 00:00: [place] [facility] AIMOVI 2019- Yes Univers AUTOINJECTO 1-25 ity of R 140 mg/mL 00:00: [place] [facility] AIMOVI 2019- Yes Univers AUTOINJECTO 1-25 ity of R 140 mg/mL 00:00: [place] [facility] AIMOVI 2019- Yes Univers AUTOINJECTO 1-25 ity of R 140 mg/mL 00:00: [place] [facility] AIMOVI 2019- Yes Univers AUTOINJECTO 1-25 ity of R 140 mg/mL 00:00: [place] [facility] 00 [facility] AIMOVI 2019- Yes Univers AUTOINJECTO 1-25 ity of R 140 mg/mL 00:00: [place] [facility] AUTO[facility] 1-25 ity of R 140 mg/mL 00:00: [place] [facility] AUTOINJECTO 1-25 ity of R 140 mg/mL 00:00: [facility] Yes Univers AUTOINJECTO 1-25 ity of R 140 mg/mL 00:00: [facility] Univers AUTOINJECTO 1-25 ity of R 140 mg/mL 00:00: [facility] Yes Univers AUTOINJECTO 1-25 ity of R 140 mg/mL 00:00: [facility] Yes Univers AUTOINJECTO 1-25 ity of R 140 mg/mL 00:00: [place] [facility] 00 [facility] Humira Pen 2018- Yes Roberta 40 mg Memoria 9-22 Vo l 02:45: Aimovig 2018- Yes Roberta not Gunner shaq 9-22 Vo defined l 02:45: Promethazin 2018- Yes [place]ta TAKE 1 Memoria e HCl 9-22 Vo TABLET BY l 02:45: MOUTH [place] 06 EVERY 8 HOURS NEEDED Cyanocobala 2019-0 Yes Roberta not Memoria min 9-22 Vo defined l 02:45: Fentanyl 2019-0 Yes Roberta 1 patch to Memoria 9-22 Vo skin l 02:45: Humira Pen 2019-0 Yes Roberta 40 mg Memoria 9-22 Vo l 02:45: Aimovig 2019-0 Yes Roberta not Gunner shaq 9-22 Vo defined l 02:45: Promethazin Yes [place] TAKE 1 Memoria e HCl 9-22 Vo TABLET BY l 02:45: MOUTH [place] 06 EVERY 8 HOURS NEEDED Cyanocobala 2019-0 Yes Roberta not Memoria min 9-22 Vo defined l 02:45: [place] 06 Fentanyl 2019-0 Yes Roberta 1 patch to Memoria 9-22 Vo skin l 02:45: Orencia 2019-0 Yes Roberta 1 ml Gunner shaq ClickJect 9-13 Vo l 00:00: Orencia 2019-0 Yes Roberta 1 ml Gunner shaq [employer] 9-13 Vo l 00:00: Tizanidine 2019-0 Yes Roberta 1 tablet Memoria HCl 9-09 Vo as needed l 00:00: Tizanidine 2019-0 Yes Roberta 1 tablet Memoria HCl 9-09 Vo as needed l 00:00: Phenergan 2019-0 Yes Roberta 1 ml as Memoria 8-23 Vo needed l 00:00: Folic Acid 2019-0 Yes Roberta 1 tablet Memoria 8-23 Vo l 00:00: Phenergan 2019-0 Yes Roberta 1 ml as Memoria 8-23 Vo needed l 00:00: Folic Acid 2019-0 Yes Roberta 1 tablet Memoria 8-23 Vo l 00:00: Tizanidine 2019-0 Yes Roberta 1 tablet Memoria HCl 4-10 Vo as needed l 00:00: Tizanidine 2019-0 Yes Roberta 1 tablet Memoria HCl 4-10 Vo as needed l 00:00: nystatin 2019-0 Yes [id number] Take 3 mL Univers 100,000 3-03 by mouth 4 ity of unit/mL 00:00: (four) [place] suspension 00 times Medical daily. Branch Scrub around mouth nystatin 2019-0 Yes [id number] Take 3 mL Univers 100,000 3-03 by mouth 4 ity of unit/mL 00:00: (four) [place] suspension 00 times Medical daily. Branch Scrub around mouth nystatin 2019-0 Yes [id number] Take 3 mL Univers 100,000 3-03 by mouth 4 ity of unit/mL 00:00: (four) [place] suspension 00 times Medical daily. Branch Scrub around mouth nystatin 2019-0 Yes [id number] Take 3 mL Univers 100,000 3-03 by mouth 4 ity of unit/mL 00:00: (four) [place] suspension 00 times Medical daily. Branch Scrub around mouth nystatin 2019-0 Yes [id number] Take 3 mL Univers 100,000 3-03 by mouth 4 ity of unit/mL 00:00: (four) [place] suspension 00 times Medical daily. Branch Scrub around mouth nystatin 2019-0 Yes [id number] Take 3 mL Univers 100,000 3-03 by mouth 4 ity of unit/mL 00:00: (four) [place] suspension 00 times Medical daily. Branch Scrub around mouth nystatin 2019-0 Yes [id number] Take 3 mL Univers 100,000 3-03 by mouth 4 ity of unit/mL 00:00: (four) [place] suspension 00 times Medical daily. Branch Scrub around mouth nystatin 2019-0 Yes [id number] Take 3 mL Univers 100,000 3-03 by mouth 4 ity of unit/mL 00:00: (four) [place] suspension 00 times Medical daily. Branch Scrub around mouth nystatin 2019-0 Yes [id number] Take 3 mL Univers 100,000 3-03 by mouth 4 ity of unit/mL 00:00: (four) [place] suspension 00 times Medical daily. Branch Scrub around mouth nystatin 2019-0 Yes [id number] Take 3 mL Univers 100,000 3-03 by mouth 4 ity of unit/mL 00:00: (four) [place] suspension 00 times Medical daily. Branch Scrub around mouth nystatin 2019-0 Yes [id number] Take 3 mL Univers 100,000 3-03 by mouth 4 ity of unit/mL 00:00: (four) [place] suspension 00 times Medical daily. Branch Scrub around mouth nystatin 2019-0 Yes [id number] Take 3 mL Univers 100,000 3-03 by mouth 4 ity of unit/mL 00:00: (four) [place] suspension 00 times Medical daily. Branch Scrub around mouth nystatin 2019-0 Yes [id number] Take 3 mL Univers 100,000 3-03 by mouth 4 ity of unit/mL 00:00: (four) [place] suspension 00 times Medical daily. Branch Scrub around mouth nystatin 2019-0 Yes [id number] Take 3 mL Univers 100,000 3-03 by mouth 4 ity of unit/mL 00:00: (four) [place] suspension 00 times Medical daily. Branch Scrub around mouth nystatin 2019-0 Yes [id number] Take 3 mL Univers 100,000 3-03 by mouth 4 ity of unit/mL 00:00: (four) [place] suspension 00 times Medical daily. Branch Scrub around mouth nystatin 2019-0 Yes [id number] Take 3 mL Univers 100,000 3-03 by mouth 4 ity of unit/mL 00:00: (four) [place] suspension 00 times Medical daily. Branch Scrub around mouth nystatin 2019-0 Yes [id number] Take 3 mL Univers 100,000 3-03 by mouth 4 ity of unit/mL 00:00: (four) [place] suspension 00 times Medical daily. Branch Scrub around mouth nystatin 2019-0 Yes [id number] Take 3 mL Univers 100,000 3-03 by mouth 4 ity of unit/mL 00:00: (four) [place] suspension 00 times Medical daily. Branch Scrub around mouth nystatin 2019-0 Yes [id number] Take 3 mL Univers 100,000 3-03 by mouth 4 ity of unit/mL 00:00: (four) [place] suspension 00 times Medical daily. Branch Scrub around mouth nystatin 2019-0 Yes [id number] Take 3 mL Univers 100,000 3-03 by mouth 4 ity of unit/mL 00:00: (four) [place] suspension 00 times Medical daily. Branch Scrub around mouth nystatin 2019-0 Yes [id number] Take 3 mL Univers 100,000 3-03 by mouth 4 ity of unit/mL 00:00: (four) [place] suspension 00 times Medical daily. Branch Scrub around mouth nystatin 2019-0 Yes [id number] Take 3 mL Univers 100,000 3-03 by mouth 4 ity of unit/mL 00:00: (four) [place] suspension 00 times Medical daily. Branch Scrub around mouth nystatin 2019-0 Yes [id number] Take 3 mL Univers 100,000 3-03 by mouth 4 ity of unit/mL 00:00: (four) [place] suspension 00 times Medical daily. Branch Scrub around mouth nystatin 2019-0 Yes [id number] Take 3 mL Univers 100,000 3-03 by mouth 4 ity of unit/mL 00:00: (four) [place] suspension 00 times Medical daily. Branch Scrub around mouth TROKENDI XR 2017- Yes Univer s 200 mg Cp24 1-27 ity of 00:00: [place] 00 Medical Branch TROKENDI XR 2017- Yes Univer s 200 mg Cp24 1-27 ity of 00:00: [place] [facility] TROKENDI XR 2017- Yes Univer s 200 mg Cp24 1-27 ity of 00:00: [place] [facility] TROKENDI XR 2017- Yes Univer s 200 mg Cp24 1-27 ity of 00:00: [place] [facility] TROKENDI XR 2017- Yes Univer s 200 mg Cp24 1-27 ity of 00:00: [place] [facility] TROKENDI XR 2017- Yes Univer s 200 mg Cp24 1-27 ity of 00:00: [place] [facility] TROKENDI XR 2017-03 Yes Univer s 200 mg Cp24 1-27 ity of 00:00: [place] [facility] TROKENDI XR 2017- Yes Univer s 200 mg Cp24 1-27 ity of 00:00: [place] [facility] TROKENDI XR 2017- Yes Univer s 200 mg Cp24 1-27 ity of 00:00: [place] [facility] TROKENDI XR 2017- Yes Univer s 200 mg Cp24 1-27 ity of 00:00: [place] [facility] TROKENDI XR 2017- Yes Univer s 200 mg Cp24 1-27 ity of 00:00: [place] [facility] TROKENDI XR 2017- Yes Univer s 200 mg Cp24 1-27 ity of 00:00: [place] [facility] TROKENDI XR 2017- Yes Univer s 200 mg Cp24 1-27 ity of 00:00: [place] [facility] TROKENDI XR 2017- Yes Univer s 200 mg Cp24 1-27 ity of 00:00: [place] 00 [facility] TROKENDI XR 2017- Yes Univer s 200 mg Cp24 1-27 ity of 00:00: [place] 00 [facility] TROKENDI XR 2017- Yes Univer s 200 mg Cp24 1-27 ity of 00:00: [place] 00 [facility] TROKENDI XR 2017- Yes Univer s 200 mg Cp24 1-27 ity of 00:00: [place] [facility] TROKENDI XR 2017- Yes Univer s 200 mg Cp24 1-27 ity of 00:00: [place] [facility] TROKENDI XR 2017- Yes Univer s 200 mg Cp24 1-27 ity of 00:00: [place] [facility] TROKENDI XR 2017-03 Yes Univer s 200 mg Cp24 1-27 ity of 00:00: [place] [facility] TROKENDI XR 2017- Yes Univer s 200 mg Cp24 1-27 ity of 00:00: [place] [facility] TROKENDI XR 2017- Yes Univer s 200 mg Cp24 1-27 ity of 00:00: [place] [facility] TROKENDI XR 2017- Yes Univer s 200 mg Cp24 1-27 ity of 00:00: [place] [facility] TROKENDI XR 2017-03 Yes Univer s 200 mg Cp24 -27 ity of 00:00: [place] [facility] methocarbam 2018 Yes Univer s ol 500 mg 0-10 ity of tablet 00:00: [place] [facility] methocarbam 2017-03 Yes Univer s ol 500 mg 0-10 ity of tablet 00:00: [place] [facility] methocarbam 2018- Yes Univer s ol 500 mg 0-10 ity of tablet 00:00: [place] [facility] methocarbam 2017- Yes Univer s ol 500 mg 0-10 ity of tablet 00:00: [place] [facility] methocarbam 2018- Yes Univer s ol 500 mg 0-10 ity of tablet 00:00: [place] [facility] methocarbam 2018- Yes Univer s ol 500 mg 0-10 ity of tablet 00:00: [place] [facility] methocarbam 2018- Yes Univer s ol 500 mg 0-10 ity of tablet 00:00: [place] [facility] methocarbam 2018- Yes Univer s ol 500 mg 0-10 ity of tablet 00:00: [place] [facility] methocarbam 2018- Yes Univer s ol 500 mg 0-10 ity of tablet 00:00: [place] [facility] methocarbam 2018- Yes Univer s ol 500 mg 0-10 ity of tablet 00:00: [place] [facility] methocarbam 2018-1 Yes Univer s ol 500 mg 0-10 ity of tablet 00:00: [place] [facility] methocarbam 2018-1 Yes Univer s ol 500 mg 0-10 ity of tablet 00:00: [place] [facility] methocarbam 2018-1 Yes Univer s ol 500 mg 0-10 ity of tablet 00:00: [place] [facility] methocarbam 2018-1 Yes Univer s ol 500 mg 0-10 ity of tablet 00:00: [place] [facility] methocarbam 2018-1 Yes Univer s ol 500 mg 0-10 ity of tablet 00:00: [place] [facility] methocarbam 2018-1 Yes Univer s ol 500 mg 0-10 ity of tablet 00:00: [place] [facility] methocarbam 2018-1 Yes Univer s ol 500 mg 0-10 ity of tablet 00:00: [place] [facility] methocarbam 2018-1 Yes Univer s ol 500 mg 0-10 ity of tablet 00:00: [place] [facility] methocarbam 2018-1 Yes Univer s ol 500 mg 0-10 ity of tablet 00:00: [place] [facility] methocarbam 2018-1 Yes Univer s ol 500 mg 0-10 ity of tablet 00:00: [place] [facility] methocarbam 2018-1 Yes Univer s ol 500 mg 0-10 ity of tablet 00:00: [place] [facility] methocarbam 2018-1 Yes Univer s ol 500 mg 0-10 ity of tablet 00:00: [place] [facility] methocarbam 2018-1 Yes Univer s ol 500 mg 0-10 ity of tablet 00:00: [place] [facility] methocarbam 2018-1 Yes Univer s ol 500 mg 0-10 ity of tablet 00:00: [place] [facility] mupirocin 2 2017- Yes [id number] Apply to Univers % ointment 8-18 area(s) 3 ity of 00:00: (three) [place] times Medical daily. Branch mupirocin 2 2017-0 Yes [id number] Apply to Univers % ointment 8-18 area(s) 3 ity of 00:00: (three) [place] times Medical daily. Branch mupirocin 2 2017- Yes [id number] Apply to Univers % ointment 8-18 area(s) 3 ity of 00:00: (three) [place] 00 times Medical daily. Branch mupirocin 2 2018-0 Yes [id number] Apply to Univers % ointment 8-18 area(s) 3 ity of 00:00: (three) [place] 00 times Medical daily. Branch mupirocin 2 2018-0 Yes [id number] Apply to Univers % ointment 8-18 area(s) 3 ity of 00:00: (three) [place] 00 times Medical daily. Branch mupirocin 2 2018-0 Yes [id number] Apply to Univers % ointment 8-18 area(s) 3 ity of 00:00: (three) [place] 00 times Medical daily. Branch mupirocin 2 2018-0 Yes [id number] Apply to Univers % ointment 8-18 area(s) 3 ity of 00:00: (three) [place] 00 times Medical daily. Branch mupirocin 2 2018-0 Yes [id number] Apply to Univers % ointment 8-18 area(s) 3 ity of 00:00: (three) [place] 00 times Medical daily. Branch mupirocin 2 2018-0 Yes [id number] Apply to Univers % ointment 8-18 area(s) 3 ity of 00:00: (three) [place] 00 times Medical daily. Branch mupirocin 2 2018-0 Yes [id number] Apply to Univers % ointment 8-18 area(s) 3 ity of 00:00: (three) [place] 00 times Medical daily. Branch mupirocin 2 2018-0 Yes [id number] Apply to Univers % ointment 8-18 area(s) 3 ity of 00:00: (three) [place] 00 times Medical daily. Branch mupirocin 2 2018-0 Yes [id number] Apply to Univers % ointment 8-18 area(s) 3 ity of 00:00: (three) [place] 00 times Medical daily. Branch mupirocin 2 2018-0 Yes [id number] Apply to Univers % ointment 8-18 area(s) 3 ity of 00:00: (three) [place] 00 times Medical daily. Branch mupirocin 2 2018-0 Yes [id number] Apply to Univers % ointment 8-18 area(s) 3 ity of 00:00: (three) [place] 00 times Medical daily. Branch mupirocin 2 2018-0 Yes [id number] Apply to Univers % ointment 8-18 area(s) 3 ity of 00:00: (three) [place] 00 times Medical daily. Branch mupirocin 2 2018-0 Yes [id number] Apply to Univers % ointment 8-18 area(s) 3 ity of 00:00: (three) [place] 00 times Medical daily. Branch mupirocin 2 2018-0 Yes [id number] Apply to Univers % ointment 8-18 area(s) 3 ity of 00:00: (three) [place] 00 times Medical daily. Branch mupirocin 2 2018-0 Yes [id number] Apply to Univers % ointment 8-18 area(s) 3 ity of 00:00: (three) [place] 00 times Medical daily. Branch mupirocin 2 2018-0 Yes [id number] Apply to Univers % ointment 8-18 area(s) 3 ity of 00:00: (three) [place] 00 times Medical daily. Branch mupirocin 2 2018-0 Yes [id number] Apply to Univers % ointment 8-18 area(s) 3 ity of 00:00: (three) [place] 00 times Medical daily. Branch mupirocin 2 2018-0 Yes [id number] Apply to Univers % ointment 8-18 area(s) 3 ity of 00:00: (three) [place] 00 times Medical daily. Branch mupirocin 2 2018-0 Yes [id number] Apply to Univers % ointment 8-18 area(s) 3 ity of 00:00: (three) [place] 00 times Medical daily. Branch mupirocin 2 2018-0 Yes [id number] Apply to Univers % ointment 8-18 area(s) 3 ity of 00:00: (three) [place] 00 times Medical daily. Branch mupirocin 2 2018-0 Yes [id number] Apply to Univers % ointment 8-18 area(s) 3 ity of 00:00: (three) [place] 00 times Medical daily. Branch Syringe 2017-0 Yes Roberta injection Memoria 3-27 Vo as l 00:00: directed [place] 00 Syringe 2017-0 Yes Roberta injection Memoria 3-27 Vo as l 00:00: [facility] [place] [facility] 40 mg/0.8 1-18 ity of mL 00:00: [place] [facility] 40 mg/0.8 1-18 ity of mL 00:00: [place] [facility] mg/0.8 1-18 ity of mL 00:00: [place] [facility] 40 mg/0.8 1-18 ity of mL 00:00: [place] [facility] 40 mg/0.8 1-18 ity of mL 00:00: [place] [facility] 40 mg/0.8 1-18 ity of mL 00:00: [place] [facility] 40 mg/0.8 1-18 ity of mL 00:00: [place] [facility] 40 mg/0.8 1-18 ity of mL 00:00: [place] [facility] 40 mg/0.8 1-18 ity of mL 00:00: [place] [facility] 40 mg/0.8 1-18 ity of mL 00:00: [place] [facility] 40 mg/0.8 1-18 ity of mL 00:00: [place] [facility] 40 mg/0.8 1-18 ity of mL 00:00: [place] [facility] Univers 40 mg/0.8 1-18 ity of mL 00:00: [place] injection 00 [facility] 40 mg/0.8 1-18 ity of mL 00:00: [place] [facility] 40 mg/0.8 1-18 ity of mL 00:00: [place] injection 00 [facility] HUMIRA PEN 2017- Yes Univers 40 mg/0.8 1-18 ity of mL 00:00: [place] [facility] Yes Univers 40 mg/0.8 1-18 [...] 00:00: [place] injection 00 [facility] Needle 2017-0 Yes Roberta as [facility] (Disp) 5-11 Vo directed l 00:00: [place] 00 Needle 2017-0 Yes Roberta as [facility] (Disp) 5-11 Vo directed l 00:00: [place] 00 proMETHazin 2017-0 Yes 25mg Take 1 [...] tablet by ity of tablet 00:00: mouth [place] [id number] every 4 Medical (four) Branch hours as needed for Nausea and Vomiting (N/V). Needle Yes Roberta as [facility] (Disp) 3-16 Vo directed l 00:00: [place] 00 Needle 2016-0 Yes Roberta as [facility] ia (Disp) 3-16 Vo directed l 00:00: [place] 00 ENBREL 2015-03- No [facility]i SURECLICK 2-30 05-18 st 50 mg/mL 00:00: 00:00 Hospita (0.98 mL) 00 :00 l pen injector ENBREL 2015-03- No Methodi SURECLICK 2-30 05-18 st 50 mg/mL 00:00: 00:00 Hospita (0.98 mL) 00 :00 l pen injector SUMAtriptan 2015-03- No Metho di succinate 04-17-18 st (IMITREX) 6 00:00: 00:00 Hospi ta mg/0.5 mL 00 :00 l solution SUMAtriptan 2015-03- No Metho di succinate 04-17-18 st (IMITREX) 6 00:00: 00:00 Hospi ta mg/0.5 mL 00 :00 l solution Immunizations Ordered Filled Immunization Date Status Comments Sourc e Immunization Name Name Influenza Virus 2017-12-22 Completed Universit y of Vaccine Quad IM 3+ 00:00:00 [facility] Influenza Virus 2017-12-22 Completed Universit y of Vaccine Quad IM 3+ 00:00:00 [facility] Influenza Virus 2017-12-22 Completed Universit y of Vaccine Quad IM 3+ 00:00:00 [facility] Influenza Virus 2017-12-22 Completed Universit y of Vaccine Quad IM 3+ 00:00:00 [facility] Influenza Virus 2017-12-22 Completed Universit y of Vaccine Quad IM 3+ 00:00:00 [facility] Influenza Virus 2017-12-22 Completed Universit y of Vaccine Quad IM 3+ 00:00:00 [facility] Influenza Virus 2017-12-22 Completed Universit y of Vaccine Quad IM 3+ 00:00:00 [facility] Influenza Virus 2017-12-22 Completed Universit y of Vaccine Quad IM 3+ 00:00:00 [facility] Influenza Virus 2017-12-22 Completed Universit y of Vaccine Quad IM 3+ 00:00:00 [facility] Influenza Virus 2017-12-22 Completed Universit y of Vaccine Quad IM 3+ 00:00:00 [facility] Influenza Virus 2017-12-22 Completed Universit y of Vaccine Quad IM 3+ 00:00:00 [facility] Influenza Virus 2017-12-22 Completed Universit y of Vaccine Quad IM 3+ 00:00:00 [facility] Influenza Virus 2017-12-22 Completed Universit y of Vaccine Quad IM 3+ 00:00:00 [facility] Influenza Virus 2017-12-22 Completed Universit y of Vaccine Quad IM 3+ 00:00:00 [facility] Influenza Virus 2017-12-22 Completed Universit y of Vaccine Quad IM 3+ 00:00:00 [facility] Influenza Virus 2017-12-22 Completed Universit y of Vaccine Quad IM 3+ 00:00:00 [facility] Influenza Virus 2017-12-22 Completed Universit y of Vaccine Quad IM 3+ 00:00:00 [facility] Influenza Virus 2017-12-22 Completed Universit y of Vaccine Quad IM 3+ 00:00:00 [facility] Influenza Virus 2017-12-22 Completed Universit y of Vaccine Quad IM 3+ 00:00:00 [facility] Influenza Virus 2017-12-22 Completed Universit y of Vaccine Quad IM 3+ 00:00:00 [facility] Influenza Virus 2017-12-22 Completed Universit y of Vaccine Quad IM 3+ 00:00:00 [facility] Influenza Virus 2017-12-22 Completed Universit y of Vaccine Quad IM 3+ 00:00:00 [facility] Influenza Virus 2017-12-22 Completed Universit y of Vaccine Quad IM 3+ 00:00:00 [facility] Influenza Virus 2017-12-22 Completed Universit y of Vaccine Quad IM 3+ 00:00:00 [facility] TDAP 2016-05-07 Completed University of 00:00:00 [facility] Influenza Virus 2016-05-07 Completed Universit y of Vaccine Quad IM 3+ 00:00:00 [facility] TDAP 2016-05-07 Completed University of 00:00:00 [facility] Influenza Virus 2016-05-07 Completed Universit y of Vaccine Quad IM 3+ 00:00:00 [facility] TDAP 2016-05-07 Completed University of 00:00:00 [facility] Influenza Virus 2016-05-07 Completed Universit y of Vaccine Quad IM 3+ 00:00:00 [facility] TDAP 2016-05-07 Completed University of 00:00:00 [facility] Influenza Virus 2016-05-07 Completed Universit y of Vaccine Quad IM 3+ 00:00:00 [facility] TDAP 2016-05-07 Completed University of 00:00:00 [facility] Influenza Virus 2016-05-07 Completed Universit y of Vaccine Quad IM 3+ 00:00:00 [facility] TDAP 2016-05-07 Completed University of 00:00:00 [facility] Influenza Virus 2016-05-07 Completed Universit y of Vaccine Quad IM 3+ 00:00:00 [facility] TDAP 2016-05-07 Completed University of 00:00:00 [facility] Influenza Virus 2016-05-07 Completed Universit y of Vaccine Quad IM 3+ 00:00:00 [facility] TDAP 2016-05-07 Completed University of 00:00:00 [facility] Influenza Virus 2016-05-07 Completed Universit y of Vaccine Quad IM 3+ 00:00:00 [facility] TDAP 2016-05-07 Completed University of 00:00:00 [facility] Influenza Virus 2016-05-07 Completed Universit y of Vaccine Quad IM 3+ 00:00:00 [facility] TDAP 2016-05-07 Completed University of 00:00:00 [facility] Influenza Virus 2016-05-07 Completed Universit y of Vaccine Quad IM 3+ 00:00:00 [facility] TDAP 2016-05-07 Completed University of 00:00:00 [facility] Influenza Virus 2016-05-07 Completed Universit y of Vaccine Quad IM 3+ 00:00:00 [facility] TDAP 2016-05-07 Completed University of 00:00:00 [facility] Influenza Virus 2016-05-07 Completed Universit y of Vaccine Quad IM 3+ 00:00:00 [facility] TDAP 2016-05-07 Completed University of 00:00:00 [facility] Influenza Virus 2016-05-07 Completed Universit y of Vaccine Quad IM 3+ 00:00:00 [facility] TDAP 2016-05-07 Completed University of 00:00:00 [facility] Influenza Virus 2016-05-07 Completed Universit y of Vaccine Quad IM 3+ 00:00:00 [facility] TDAP 2016-05-07 Completed University of 00:00:00 [facility] Influenza Virus 2016-05-07 Completed Universit y of Vaccine Quad IM 3+ 00:00:00 [facility] TDAP 2016-05-07 Completed University of 00:00:00 [facility] Influenza Virus 2016-05-07 Completed Universit y of Vaccine Quad IM 3+ 00:00:00 [facility] TDAP 2016-05-07 Completed University of 00:00:00 [facility] Influenza Virus 2016-05-07 Completed Universit y of Vaccine Quad IM 3+ 00:00:00 [facility] TDAP 2016-05-07 Completed University of 00:00:00 [facility] Influenza Virus 2016-05-07 Completed Universit y of Vaccine Quad IM 3+ 00:00:00 [facility] TDAP 2016-05-07 Completed University of 00:00:00 [facility] Influenza Virus 2016-05-07 Completed Universit y of Vaccine Quad IM 3+ 00:00:00 [facility] TDAP 2016-05-07 Completed University of 00:00:00 [facility] Influenza Virus 2016-05-07 Completed Universit y of Vaccine Quad IM 3+ 00:00:00 [facility] TDAP 2016-05-07 Completed University of 00:00:00 [facility] Influenza Virus 2016-05-07 Completed Universit y of Vaccine Quad IM 3+ 00:00:00 [facility] TDAP 2016-05-07 Completed University of 00:00:00 [facility] Influenza Virus 2016-05-07 Completed Universit y of Vaccine Quad IM 3+ 00:00:00 [facility] TDAP 2016-05-07 Completed University of 00:00:00 [facility] Influenza Virus 2016-05-07 Completed Universit y of Vaccine Quad IM 3+ 00:00:00 [facility] TDAP 2016-05-07 Completed University of 00:00:00 [facility] Influenza Virus 2016-05-07 Completed Universit y of Vaccine Quad IM 3+ 00:00:00 [facility] FLUZONE QUAD PF 2016-05-07 Completed [facility]af[facility] 00:00:00 [facility] Tdap 2016-05-07 Completed [facility] 00:00:00 Hospital FLUZONE QUAD PF 2016-05-07 Completed [facility] 00:00:00 Hospital Tdap 2016-05-07 Completed [facility] 00:00:00 Hospital FLUZONE QUAD PF 2016-05-07 Completed [facility] 00:00:00 Hospital Tdap 2016-05-07 Completed [facility] 00:00:00 Hospital FLUZONE QUAD PF 2016-05-07 Completed [facility] 00:00:00 Hospital Tdap 2016-05-07 Completed [facility]afari 00:00:00 [facility] Influenza Virus 2014-05-14 Completed Universit y of Vaccine Quad .5 mL 00:00:00 [place] [facility] 6+ MO Branch Influenza Virus 2014-05-14 Completed Universit y of Vaccine (3+ yrs) 00:00:00 [facility] dical Branch Influenza Virus 2014-05-14 Completed Universit y of Vaccine Quad .5 mL 00:00:00 [place] [facility] IM 6+ MO Branch Influenza Virus 2014-05-14 Completed Universit y of Vaccine (3+ yrs) 00:00:00 [facility] dical Branch Influenza Virus 2014-05-14 Completed Universit y of Vaccine Quad .5 mL 00:00:00 [place] [facility] IM 6+ MO Branch Influenza Virus 2014-05-14 Completed Universit y of Vaccine (3+ yrs) 00:00:00 [facility] dical Branch Influenza Virus 2014-05-14 Completed Universit y of Vaccine Quad .5 mL 00:00:00 [facility] IM 6+ MO Branch Influenza Virus 2014-05-14 Completed Universit y of Vaccine (3+ yrs) 00:00:00 [facility] dical Branch Influenza Virus 2014-05-14 Completed Universit y of Vaccine Quad .5 mL 00:00:00 [place] [facility] IM 6+ MO Branch Influenza Virus 2014-05-14 Completed Universit y of Vaccine (3+ yrs) 00:00:00 [facility] dical Branch Influenza Virus 2014-05-14 Completed Universit y of Vaccine Quad .5 mL 00:00:00 [place] [facility] IM 6+ MO Branch Influenza Virus 2014-05-14 Completed Universit y of Vaccine (3+ yrs) 00:00:00 [facility] dical Branch Influenza Virus 2014-05-14 Completed Universit y of Vaccine Quad .5 mL 00:00:00 [place] [facility] IM 6+ MO Branch Influenza Virus 2014-05-14 Completed Universit y of Vaccine (3+ yrs) 00:00:00 [facility] dical Branch Influenza Virus 2014-05-14 Completed Universit y of Vaccine Quad .5 mL 00:00:00 [place] [facility] IM 6+ MO Branch Influenza Virus 2014-05-14 Completed Universit y of Vaccine (3+ yrs) 00:00:00 [facility] dical Branch Influenza Virus 2014-05-14 Completed Universit y of Vaccine Quad .5 mL 00:00:00 [place] [facility] IM 6+ MO Branch Influenza Virus 2014-05-14 Completed Universit y of Vaccine (3+ yrs) 00:00:00 [facility] dical Branch Influenza Virus 2014-05-14 Completed Universit y of Vaccine Quad .5 mL 00:00:00 [facility] IM 6+ MO Branch Influenza Virus 2014-05-14 Completed Universit y of Vaccine (3+ yrs) 00:00:00 [facility] dical Branch Influenza Virus 2014-05-14 Completed Universit y of Vaccine Quad .5 mL 00:00:00 [facility] [place] [facility] 6+ MO Branch Influenza Virus 2014-05-14 Completed Universit y of Vaccine (3+ yrs) 00:00:00 [facility] dical Branch Influenza Virus 2014-05-14 Completed Universit y of Vaccine Quad .5 mL 00:00:00 [facility] [place] [facility] 6+ MO Branch Influenza Virus 2014-05-14 Completed Universit y of Vaccine (3+ yrs) 00:00:00 [facility] dical Branch Influenza Virus 2014-05-14 Completed Universit y of Vaccine Quad .5 mL 00:00:00 [facility] IM 6+ MO Branch Influenza Virus 2014-05-14 Completed Universit y of Vaccine (3+ yrs) 00:00:00 [facility] dical Branch Influenza Virus 2014-05-14 Completed Universit y of Vaccine Quad .5 mL 00:00:00 [facility] IM 6+ MO Branch Influenza Virus 2014-05-14 Completed Universit y of Vaccine (3+ yrs) 00:00:00 [facility] dical Branch Influenza Virus 2014-05-14 Completed Universit y of Vaccine Quad .5 mL 00:00:00 [facility] IM 6+ MO Branch Influenza Virus 2014-05-14 Completed Universit y of Vaccine (3+ yrs) 00:00:00 [facility] dical Branch Influenza Virus 2014-05-14 Completed Universit y of Vaccine Quad .5 mL 00:00:00 [place] [facility] IM 6+ MO Branch Influenza Virus 2014-05-14 Completed Universit y of Vaccine (3+ yrs) 00:00:00 [facility] dical Branch Influenza Virus 2014-05-14 Completed Universit y of Vaccine Quad .5 mL 00:00:00 [facility] IM 6+ MO Branch Influenza Virus 2014-05-14 Completed Universit y of Vaccine (3+ yrs) 00:00:00 [facility] dical Branch Influenza Virus 2014-05-14 Completed Universit y of Vaccine Quad .5 mL 00:00:00 [facility] IM 6+ MO Branch Influenza Virus 2014-05-14 Completed Universit y of Vaccine (3+ yrs) 00:00:00 [facility] dical Branch Influenza Virus 2014-05-14 Completed Universit y of Vaccine Quad .5 mL 00:00:00 [facility] [place] [facility] 6+ MO Branch Influenza Virus 2014-05-14 Completed Universit y of Vaccine (3+ yrs) 00:00:00 [facility] dical Branch Influenza Virus 2014-05-14 Completed Universit y of Vaccine Quad .5 mL 00:00:00 [facility] [place] [facility] 6+ MO Branch Influenza Virus 2014-05-14 Completed Universit y of Vaccine (3+ yrs) 00:00:00 [facility] dical Branch Influenza Virus 2014-05-14 Completed Universit y of Vaccine Quad .5 mL 00:00:00 [facility] [place] [facility] 6+ MO Branch Influenza Virus 2014-05-14 Completed Universit y of Vaccine (3+ yrs) 00:00:00 [facility] dical Branch Influenza Virus 2014-05-14 Completed Universit y of Vaccine Quad .5 mL 00:00:00 [facility] [place] [facility] 6+ MO Branch Influenza Virus 2014-05-14 Completed Universit y of Vaccine (3+ yrs) 00:00:00 [facility] dical Branch Influenza Virus 2014-05-14 Completed Universit y of Vaccine Quad .5 mL 00:00:00 [facility] 6+ MO Branch Influenza Virus 2014-05-14 Completed Universit y of Vaccine (3+ yrs) 00:00:00 [facility] dicny Branch Influenza Virus 2014-05-14 Completed Universit y of Vaccine Quad .5 mL 00:00:00 [facility] [place] [facility] 6+ MO Branch Influenza Virus 2014-05-14 Completed Universit y of Vaccine (3+ yrs) 00:00:00 [facility] Influenza Trivalent 2014-05-14 Completed [facility] dist 00:00:00 Hospital Influenza Trivalent 2014-05-14 Completed [facility] 00:00:00 Hospital Influenza Trivalent 2014-05-14 Completed [facility] 00:00:00 Hospital Influenza Trivalent 2014-05-14 Completed [facility] 00:00:00 Hospital Vital Signs Vital Name Observation Time Observation Value Comments Source Systolic blood 2022-09-22 17:57:00 131 mm[Hg] Univer sity of pressure [facility] Diastolic blood 2022-09-22 17:57:00 84 mm[Hg] Unive rsity of pressure [facility] Heart rate 2022-09-22 17:57:00 76 /min Universi ty of [facility] Body height 2022-09-22 17:57:00 160 cm Universi ty of [facility] Body weight 2022-09-22 17:57:00 85.684 kg Universi ty of [facility] BMI 2022-09-22 17:57:00 33.46 kg/m2 Universi ty of [facility] Systolic blood 2022-08-18 15:11:00 117 mm[Hg] Univer sity of pressure [facility] Diastolic blood 2022-08-18 15:11:00 79 mm[Hg] Unive rsity of pressure [facility] Heart rate 2022-08-18 15:11:00 60 /min Universi ty of [facility] Body height 2022-08-18 15:11:00 160 cm Universi ty of [facility] Body weight 2022-08-18 15:11:00 77.202 kg [facility]i ty of [place] [facility] BMI 2022-08-18 15:11:00 30.15 kg/m2 Universi ty of [facility] Oxygen saturation in 2022-08-18 15:11:00 99 /min University Arterial blood by [facility] Pulse oximetry Branch Systolic blood 2022-05-06 15:09:00 110 mm[Hg] Univer sity of pressure [facility] Diastolic blood 2022-05-06 15:09:00 79 mm[Hg] Unive rsity of pressure [facility] Heart rate 2022-05-06 15:09:00 68 /min Universi ty of [facility] Body height 2022-05-06 15:09:00 165.1 cm [facility] Body weight 2022-05-06 15:09:00 83.054 kg [facility] BMI 2022-05-06 15:09:00 30.47 kg/m2 [facility] Oxygen saturation in 2022-05-06 15:09:00 99 /min University of Arterial blood by [facility] Pulse oximetry Branch Systolic blood 2021-09-17 16:28:25 124 mm[Hg] [facility] [place] [facility] pressure Diastolic blood 2021-09-17 16:28:25 73 mm[Hg] [facility] pressure Heart rate 2021-09-17 16:28:25 68 /min [facility] Body temperature 2021-09-17 16:28:25 36.44 Shannan [facility] Respiratory rate 2021-09-17 16:28:25 18 /min [facility] Oxygen saturation in 2021-09-17 16:28:25 96 /min [facility] Arterial blood by Pulse oximetry Body height 2021-09-11 14:15:00 160 cm [facility] Body weight 2021-09-11 14:15:00 75.751 kg [facility] BMI 2021-09-11 14:15:00 29.58 kg/m2 [facility] Weight 2018-12-07 19:15:00 [facility] Height 2018-12-07 19:15:00 [facility] Heart Rate 2018-12-07 19:15:00 [facility] [place] Diastolic (mm Hg) 2018-12-07 19:15:00 Mem orial [place] Systolic (mm Hg) 2018-12-07 19:15:00 Gun[facility] rial [place] Weight 2018-07-20 16:00:00 [facility] [place] Height 2018-07-20 16:00:00 [facility] [place] Heart Rate 2018-07-20 16:00:00 [facility] [place] Diastolic (mm Hg) 2018-07-20 16:00:00 Mem orial [place] Systolic (mm Hg) 2018-07-20 16:00:00 [facility] [place] Procedures Procedure Date / Time Performing Clinician Source Performed EXTERNAL PROVIDER RECORDS 2022-10-01 05:01:00 Doctor Unassigned, [facility]CIAL 2022-08-18 15:04:13 Doctor Unassigned, Un [facility] POLICY [place] [facility] CBC WITH PLATELET AND 2021-09-17 09:11:00 [facility] [place] BASIC METABOLIC PANEL 2021-09-17 09:11:00 Ulloa [facility] Juan David ESTIMATED GFR 2021-09-17 09:11:00 Pascual [facility] [place] CBC WITH PLATELET AND 2021-09-16 11:23:00 [facility] [place] BASIC METABOLIC PANEL 2021-09-16 11:23:00 [facility] [place] ESTIMATED GFR 2021-09-16 11:23:00 Pascual [facility] spital [place] XR PICC CHEST PORTABLE 2021-09-15 14:59:00 [facility] XR PICC CHEST PORTABLE 2021-09-15 14:58:21 Marcia [facility] P[facility] INSERTION REQUEST 2021-09-15 14:30:34 Nicholas Walters [facility] CBC WITH PLATELET AND 2021-09-15 09:39:00 [facility] [place] BASIC METABOLIC PANEL 2021-09-15 09:39:00 [facility] [place] ESTIMATED GFR 2021-09-15 09:39:00 Pascual [facility] [place] ANAEROBIC CULTURE 2021-09-14 21:31:00 Dagoberto Purdy [facility] FUNGUS CULTURE 2021-09-14 21:31:00 Dagoberto Purdy [facility] AEROBIC CULTURE 2021-09-14 21:31:00 [facility] 2021-09-14 21:31:00 Dagoberto Purdy [facility] GRAM STAIN 2021-09-14 21:31:00 Dagoberto Purdy [facility] AFB STAIN 2021-09-14 21:31:00 Dagoberto Purdy [facility] ANAEROBIC CULTURE 2021-09-14 21:30:00 Dagoberto Purdy [facility] FUNGUS CULTURE 2021-09-14 21:30:00 [facility] 2021-09-14 21:30:00 Juany Purdyr [facility] C[facility] 2021-09-14 21:30:00 [facility]to [facility] GRAM STAIN 2021-09-14 21:30:00 Juany [facility] STAIN 2021-09-14 21:30:00 Juany [facility]urdyr Har[facility] ANAEROBIC C[facility]URE 2021-09-14 21:27:00 [facility]inder [facility] FUNGUS CULTURE 2021-09-14 21:27:00 [facility]oberto [facility] AEROBIC [facility] 2021-09-14 21:27:00 [facility]oberto [facility] C[facility] 2021-09-14 21:27:00 [facility]oberto [facility] GRAM STAIN 2021-09-14 21:27:00 [facility]oberto [facility] STAIN 2021-09-14 21:27:00 [facility] ANAEROBIC C[facility] 2021-09-14 21:26:00 Gurwinder [facility] FUNGUS CULTURE 2021-09-14 21:26:00 Dagoberto [facility] AEROBIC [facility] 2021-09-14 21:26:00 Dagoberto [facility] C[facility]URE 2021-09-14 21:26:00 Dagoberto [facility] GRAM STAIN 2021-09-14 21:26:00 Dagoberto Purdy[facility] STAIN 2021-09-14 21:26:00 Dagoberto [facility] [place] AN ELECTIVE 2021-09-14 21:02:00 [facility] INSERTION OR REVISION, 2021-09-14 20:53:00 Dagoberto Purdy [facility] PUMP, INTRATHECAL SURGICAL PATHOLOGY 2021-09-14 13:27:00 Nelda Kennedymad [facility] REQUEST [place] CBC WITH PLATELET AND 2021-09-14 09:27:00 [facility] DIFFERENTIAL [place] BASIC METABOLIC PANEL 2021-09-14 09:27:00 [facility] Juan David HEPATIC FUNCTION PANEL 2021-09-14 09:27:00 Marcia [facility] [place] ESTIMATED GFR 2021-09-14 09:27:00 Pascual Kennedyist [facility] [place] POC GLUCOSE 2021-09-13 22:39:00 Pascual [facility] [place] COVID-19 QUALITATIVE 2021-09-13 17:53:00 [facility] RT-PCR TYPE AND SCREEN 2021-09-13 17:46:00 [facility] PROTHROMBIN TIME WITH INR 2021-09-13 17:46:00 [facility] PARTIAL THROMBOPLASTIN 2021-09-13 17:46:00 [facility] TIME (PTT) POC GLUCOSE 2021-09-13 17:26:00 Pascual Kennedy [facility] [place] POC GLUCOSE 2021-09-13 14:03:00 Pascual Kennedy [facility] ZZCOVID-19 ANTI-SPIKE IGG 2021-09-13 10:04:00 Juan David Rawls [facility] [place] ANTIBODY TITER Elie CBC WITH PLATELET AND 2021-09-13 10:04:00 [facility] [place] BASIC METABOLIC PANEL 2021-09-13 10:04:00 [facility] Juan David HEPATIC FUNCTION PANEL 2021-09-13 10:04:00 Marcia [facility] Fasat ZZCOVID-19 SEROLOGY 2021-09-13 10:04:00 [facility] Elie ESTIMATED GFR 2021-09-13 10:04:00 [facility] [place] P[facility] GLUCOSE 2021-09-13 01:57:00 [facility] [place] CBC HEMOGRAM 2021-09-12 11:52:00 Nelda [facility] BASIC METABOLIC PANEL 2021-09-12 10:40:00 Richi Ulloa [facility] Juan David HEPATIC FUNCTION PANEL 2021-09-12 10:40:00 [facility] VANCOMYCIN LEVEL, RANDOM 2021-09-12 10:40:00 Kennedy, [facility] [place] Fasat ESTIMATED GFR 2021-09-12 10:40:00 [facility] SEDIMENTATION RATE 2021-09-11 18:43:00 [facility] C-REACTIVE PROTEIN 2021-09-11 18:43:00 [facility] LACTIC ACID LEVEL, SEPSIS 2021-09-11 18:43:00 Kennedy, [facility] - NOW AND REPEAT 2X EVERY [facility] 3 HOURS IR EPIDURAL BLOOD PATCH 2021-09-11 16:05:00 [facility] IR LUMBAR PUNCTURE 2021-09-11 16:04:00 [facility] CSF CULTURE 2021-09-11 15:54:00 [facility] Marlene FUNGUS CULTURE 2021-09-11 15:54:00 [facility] Marlene AFB CULTURE 2021-09-11 15:54:00 [facility] Marlene CRYPTOCOCCAL ANTIGEN 2021-09-11 15:54:00 [facility] SCREEN Marlene GRAM STAIN 2021-09-11 15:54:00 Romeo Cantu Timur [facility] CSF CELL COUNT WITH 2021-09-11 15:51:[facility] Marlene PROTEIN, CSF 2021-09-11 15:51:00 [facility] Marlene GLUCOSE LEVEL, CSF 2021-09-11 15:51:00 Karo Noe [facility] Marlene ECG ED PRELIMINARY 2021-09-11 13:19:55 [facility] INTERPRETATION XR CHEST 1 VW PORTABLE 2021-09-11 12:21:10 [facility] ECG 12-LEAD 2021-09-11 11:42:32 [facility] BLOOD CULTURE, AEROBIC & 2021-09-11 11:30:00 KennedyPascual henley [facility] ANAEROBIC Fasahat CBC WITH PLATELET AND 2021-09-11 11:27:00 [facility] DIFFERENTIAL COMPREHENSIVE METABOLIC 2021-09-11 11:27:00 [facility] PANEL ESTIMATED GFR 2021-09-11 11:27:00 [facility] LACTIC ACID LEVEL, SEPSIS 2021-09-11 11:27:00 Kennedy, [facility] - NOW AND REPEAT 2X EVERY Fasat 3 HOURS TROPONIN T 2021-09-11 11:27:00 [facility] B NATRIURETIC PEPTIDE 2021-09-11 11:27:00 [facility] OR [place] < 1 HOUR 2021-08-18 19:30:00 [facility] INSERTION OR REVISION, 2021-08-18 18:21:00 [facility] PUMP, INTRATHECAL ABO AND RH CONFIRMATION 2021-08-18 17:11:00 [facility] BY PROTOCOL URINE CULTURE 2021-08-13 16:24:00 [facility] URINALYSIS SCREEN AND 2021-08-13 16:24:00 [facility] MICROSCOPY, WITH REFLEX TO CULTURE COVID-19 QUALITATIVE 2021-08-13 16:18:00 [facility] RT-PCR HEMOGLOBIN A1C 2021-08-13 16:18:00 [facility] CBC WITH PLATELET AND 2021-08-13 16:18:00 Radha Blake [facility] DIFFERENTIAL COMPREHENSIVE METABOLIC 2021-08-13 16:18:00 Radha Blake [facility] PANEL ESTIMATED GFR 2021-08-13 16:18:00 [facility] TYPE AND SCREEN 2021-08-13 16:18:00 Dagoberto Purdy [facility] ECG PRE/POST OP 2021-08-13 16:06:06 [facility] CBC WITH PLATELET AND 2021-06-30 10:15:00 [facility] DIFFERENTIAL Navarro B NATRIURETIC PEPTIDE 2021-06-30 10:15:00 [facility] Navarro BASIC METABOLIC PANEL 2021-06-30 10:15:00 [facility] Ramon MAGNESIUM LEVEL 2021-06-30 10:15:00 James Porter [facility] [place] PHOSPHORUS LEVEL 2021-06-30 10:15:00 LemuelLui blanchardoj Rastafari [facility] [place] ESTIMATED GFR 2021-06-30 10:15:00 [facility] Navarro OR [place] < 1 HOUR 2021-06-29 19:09:00 Raheem Cotto [facility] INSERTION OR REVISION, 2021-06-29 18:50:00 [facility] PUMP, INTRATHECAL Plan of Care Planned Activity Planned Date Details Comments Source Future Scheduled 2022-09-27 COVID-19 VACCINE (#1) [facility] Test 07:42:00 [code = COVID-19 VACCINE (#1)] Future Scheduled 2022-09-27 Pneumococcal Vaccine: [facility] Test 07:42:00 Pediatrics (0 to 5 Years) and At-Risk Patients (6 to 64 Years) (1 - PCV) [code = Pneumococcal Vaccine: Pediatrics (0 to 5 Years) and At-Risk Patients (6 to 64 Years) (1 - PCV)] Future Scheduled 2022-09-27 Screening for [facility] Test 07:42:00 malignant neoplasm of cervix (procedure) [code = 661040471] Future Scheduled 2022-09-27 BREAST CANCER [facility] Test 07:42:00 SCREENING [code = BREAST CANCER SCREENING] Future Scheduled 2022-09-27 INFLUENZA VACCINE Method [facility] Test 07:42:00 [code = INFLUENZA VACCINE] Future Scheduled 2022-09-16 COVID-19 VACCINE (#1) [facility] Test 13:42:53 [code = COVID-19 VACCINE (#1)] Future Scheduled 2022-09-16 Pneumococcal Vaccine: [facility] Test 13:42:53 Pediatrics (0 to 5 Years) and At-Risk Patients (6 to 64 Years) (1 - PCV) [code = Pneumococcal Vaccine: Pediatrics (0 to 5 Years) and At-Risk Patients (6 to 64 Years) (1 - PCV)] Future Scheduled 2022-09-16 Screening for [facility] Test 13:42:53 malignant neoplasm of cervix (procedure) [code = 734905115] Future Scheduled 2022-09-16 BREAST CANCER [facility] Test 13:42:53 SCREENING [code = BREAST CANCER SCREENING] Future Scheduled 2022-09-16 INFLUENZA VACCINE Method [facility] Test 13:42:53 [code = INFLUENZA VACCINE] Future Scheduled 2022-03-18 COVID-19 VACCINE (#1) [facility] Test 16:55:45 [code = COVID-19 VACCINE (#1)] Future Scheduled 2022-03-18 Pneumococcal Vaccine: [facility] Test 16:55:45 Pediatrics (0 to 5 Years) and At-Risk Patients (6 to 64 Years) (1 - PCV) [code = Pneumococcal Vaccine: Pediatrics (0 to 5 Years) and At-Risk Patients (6 to 64 Years) (1 - PCV)] Future Scheduled 2022-03-18 Screening for [facility] Test 16:55:45 malignant neoplasm of cervix (procedure) [code = 712141378] Future Scheduled 2022-03-18 BREAST CANCER [facility] Test 16:55:45 SCREENING [code = BREAST CANCER SCREENING] Future Scheduled 2022-03-18 INFLUENZA VACCINE Method [facility] Test 16:55:45 [code = INFLUENZA VACCINE] Future Scheduled 2021-11-25 HEPATITIS B VACCINES Met [facility] Test 09:53:32 (1 of 3 - 3-dose series) [code = HEPATITIS B VACCINES (1 of 3 - 3-dose series)] Future Scheduled 2021-11-25 COVID-19 VACCINE (#1) [facility] Test 09:53:32 [code = COVID-19 VACCINE (#1)] Future Scheduled 2021-11-25 Pneumococcal Vaccine: [facility] Test 09:53:32 Pediatrics (0 to 5 Years) and At-Risk Patients (6 to 64 Years) (1 - PCV) [code = Pneumococcal Vaccine: Pediatrics (0 to 5 Years) and At-Risk Patients (6 to 64 Years) (1 - PCV)] Future Scheduled 2021-11-25 Screening for [facility] Test 09:53:32 malignant neoplasm of cervix (procedure) [code = 545183999] Future Scheduled 2021-11-25 BREAST CANCER [facility] Test 09:53:32 SCREENING [code = BREAST CANCER SCREENING] Future Scheduled 2021-11-25 INFLUENZA VACCINE Method [facility] Test 09:53:32 [code = INFLUENZA VACCINE] Encounters Start End Encounter Admission Attending Care Care Encounter Source Date/Time Date/Time Type Type Clinicians Facility Department ID 2022-09-23 Outpatient [facility] [id number] [place] 08:04:30 [id number] [facility] 2022-11-02 2022-11-02 Outpatient Clotilde MARTIN [facility] [id number] [facility] 13:00:00 13:00:00 ZULY [facility] 2022-10-12 2022-10-12 Outpatient CARLOS GONZALEZ [id number] Memoria 11:15:00 11:15:00 10 l Hector 2022-10-01 2022-10-01 Orders Doctor RICHI 1.2.840.114 [id number] Univers 00:00:00 00:00:00 Only Unassigned, [place] 350.1.13.10 [place]y [place] 4.2.7.2.686 Ac as [id number] [address] 2022-09-27 2022-09-27 Outpatient ZARI ALVES [facility] [id number] [place] 15:00:00 15:00:00 [facility] 2022-09-22 2022-09-22 Outpatient Clotilde BURNETTE [facility] [id number] Univers 12:30:00 13:08:56 CASEY patel [facility] 2022-09-22 2022-09-22 Office Zuly Martin Yuval [facility] 1.2.840 .114 [id number] Univers 12:30:00 13:08:56 Visit Casey Burnette [facility] 350.1.13.10 [place] of [place].2.[place] [id number] [address] OFFICE BUILDING 2022-09-20 2022-09-20 [facility] 1.2.840.114 [id number] Univers 00:00:00 00:00:00 [facility] 350.1.13.10 it y of [place] 4.2.7.2.686 Ac as JESSICA?BLEA [id number] [address] OFFICE [facility] 2022-08-30 2022-08-30 Telephone [facility] 1.2.633.672 [id number] Univers 00:00:00 00:00:00 [facility] 350.1.13.10 it y of [place] 4.2.7.2.686 Ac as JESSICA?BLEA [id number] [address] OFFICE [facility] 2022-08-20 2022-08-20 Telephone [facility] 1.2.853.550 [id number] Univers 00:00:00 00:00:00 [facility] 350.1.13.10 it y of [place] 4.2.7.2.686 Ac as JESSICA?BLEA [id number] [address] OFFICE [facility] 2022-08-18 2022-08-18 Outpatient R ARYA [facility] [id number] Univers 10:00:00 10:45:53 [facility] 2022-08-18 2022-08-18 Office [facility] 1.2.840.114 [id number] Univers 10:00:00 10:15:00 Visit [facility] 350.1.13.10 it y of [place] 4.2.7.2.686 Ac as JESSICA?BLEA [id number] [address] OFFICE [facility] 2022-08-18 2022-08-18 Orders Doctor RICHI 1.2.840.114 [id number] Univers 00:00:00 00:00:00 Only Unassigned, [place] 350.1.13.10 ity of [place] [facility] 4.2.7.2.686 Ac as [id number] [address] 2022-08-17 2022-08-17 Outpatient MHIE SAMANTHA [id number] Memoria 11:30:00 11:30:00 09 violet Young 2022-07-09 2022-07-09 [facility] 1.2.920.797 [id number] Univers 00:00:00 00:00:00 Ankur [facility]ALTH 350.1.13.10 it [facility] 4.2.7.2.686 Ac as JESSICA?BLEA [id number] [address] OFFICE [facility] 2022-07-05 2022-07-05 Patient [facility] 1.2.840.114 [id number] Univers 00:00:00 00:00:00 Secure Msg Ankur HEALTH 350.1.13.10 ity of [place] 4.2.7.2.686 Ac as JESSICA?BLEA [id number] [address] 2022-07-05 2022-07-05 Telephone [facility] 1.2.185.100 [id number] Univers 00:00:00 00:00:00 Ankur HEALTH 350.1.13.10 it [facility] 4.2.7.2.686 Ac as JESSICA?BLEA [id number] [address] OFFICE [facility] 2022-06-29 2022-06-29 Refill [facility] 1.2.840.114 [id number] Univers 00:00:00 00:00:00 Ankur HEALTH 350.1.13.10 it y of [place] 4.2.7.2.686 Ac as JESSICA?BLEA [id number] [address] OFFICE [facility] 2022-06-17 2022-06-17 Outpatient MHIE SAMANTHA [id number] Memoria 14:45:00 14:45:00 08 violet Young 2022-06-15 2022-06-15 Outpatient FOG_Gombera AOSM AOSM [id number] Pearl 00:00:00 00:00:00 _Jonatan [id number] [facility] 2022-06-15 2022-06-15 Outpatient FOG_Gombera AOSM AOSM 650 [id number] Pearl 00:00:00 00:00:00 _Jonatan [id number] [facility] 2022-06-09 2022-06-09 Outpatient FOG_Gombera AOSM AOSM 650 [id number] Pearl 00:00:00 00:00:00 _Jonatan [id number] [facility] 2022-05-17 2022-05-17 Refill [facility] 1.2.840.114 [id number] [facility] 00:00:00 00:00:00 [facility] 350.1.13.10 it y [facility] 4.2.7.2.686 Ac as JESSICA?BLEA [id number] [address] OFFICE BUILDING 2022-05-06 2022-05-06 Outpatient MHIE MHIE [id number] Memoria 15:15:00 15:15:00 07 violet Young 2022-05-06 2022-05-06 [facility] [id number] Univers 09:45:00 10:24:35 ANKUR patel [facility] 2022-05-06 2022-05-06 Creative Consultant Lab, Ang - Db [facility] 1.2.840.1 14 [id number] [facility] 09:45:00 10:00:00 Visit Arya [facility] 350.1.13.10 ity of [place] 4.2.7.2.686 Ac as JESSICA?BLEA [id number] [address] OFFICE BUILDING 2022-05-06 2022-05-06 Office [facility] 1.2.840.114 [id number] Univers 09:00:00 09:30:00 Visit [facility] 350.1.13.10 it y of [place] 4.2.7.2.686 Ac as JESSICA?BLEA [id number] Ak trina LOAIZA[address] OFFICE [facility] 2022-04-16 2022-04-16 Sommer [facility] 1.2.840.114 [id number] Univers 00:00:00 00:00:00 [facility] 350.1.13.10 it y of [place] 4.2.7.2.686 Ac as JESSICA?BLEA [id number] [address] OFFICE [facility] 2022-04-13 2022-04-13 Outpatient MHIE MHIE [id number] Memoria 10:45:00 10:45:00 06 violet Hector 2022-04-13 2022-04-13 Outpatient MHIE MHIE [id number] Memoria 10:45:00 10:45:00 06 [facility] 2022-04-13 2022-04-13 [facility] 1.2.840.114 [id number] Univers 00:00:00 00:00:00 [facility] 350.1.13.10 it y of [place] 4.2.7.2.686 Ac as JESSICA?BLEA [id number] [address] 2022-03-08 2022-03-08 Sommer [facility] 1.2.840.114 [id number] Univers 00:00:00 00:00:00 [facility] 350.1.13.10 it y of [place] 4.2.7.2.686 Ac as JESSICA?BLEA [id number] [address] 2022-01-20 2022-01-20 Outpatient MHIE MHIE [id number] Memoria 13:15:00 13:15:00 05 violet Young 2022-01-20 2022-01-20 Outpatient MHIE MHIE [id number] Memoria 13:15:00 13:15:00 05 violet Young 2021-12-09 2021-12-09 Outpatient MHIE MHIE [id number] Memoria 11:00:00 11:00:00 04 violet Young 2021-12-09 2021-12-09 Outpatient MHIE MHIE [id number] Memoria 11:00:00 11:00:00 04 violet Young 2021-12-04 2021-12-04 Orders Doctor RICHI 1.2.840.114 [id number] Univers 00:00:00 00:00:00 Only Unassigned, [place] 350.1.13.10 it[place] [facility] 4.2.7.2.686 Ac as [id number] [address] 2021-11-25 2021-11-25 Refill [facility] 1.2.840.114 [id number] Univers 00:00:00 00:00:00 Ankur HEALTH 350.1.13.10 it y [facility] 4.2.7.2.686 Ac as JESSICA?BLEA [id number] [address] MEDICAL OFFICE [facility] 2021-11-02 2021-11-02 Office [facility] 1.2.840.114 [id number] Univers 13:00:00 13:15:00 Visit [facility] 350.1.13.10 it y of [place] 4.2.7.2.686 Ac as JESSICA?BLEA [id number] [address] MEDICAL OFFICE [facility] 2021-11-02 2021-11-02 Outpatient Clotilde [facility]ONAN [facility] [id number] Univers 13:00:00 13:00:00 [facility] 2021-11-02 2021-11-02 Outpatient Clotilde [facility] [id number] Univers 13:00:00 13:00:00 [facility] 2021-11-02 2021-11-02 Orders Doctor STODDARD 1.2.840.114 [id number] Univers 00:00:00 00:00:00 Only Unassigned, [place] 350.1.13.10 it[place] of [place] [facility] 4.2.7.2.686 Ac as [id number] [address] 2021-10-13 2021-10-13 Telephone [facility] 1.2.263.763 [id number] Univers 00:00:00 00:00:00 Ankur HEALTH 350.1.13.10 it y of [place] 4.2.7.2.686 Ac as JESSICA?BLEA [id number] [address] OFFICE [facility] 2021-10-13 2021-10-13 Telephone Noonan [facility] 1.2.728.205 [id number] Univers 00:00:00 00:00:00 Ankur Livekick 350.1.13.10 it y of [place] 4.2.7.2.686 Ac as JESSICA?BLEA [id number] [address] 2021-10-06 2021-10-06 Documentat Carr, 1.2.840.1 [id number] Methodi 00:00:00 00:00:00 ion Shailesh You 96242.1.1 676 s t 3.430.2.7 Hospit a .3.022740 l .8 2021-10-06 2021-10-06 Documentat Bruno, 1.2.840.1 [id number] Methodi 00:00:00 00:00:00 ion Shailesh You 22996.1.1 676 s t 3.430.2.7 Hospit a .3.788889 l .8 2021-09-30 2021-09-30 Outpatient [facility] [id number] [facility] 14:30:00 14:30:00 ANKUR patel [facility] 2021-09-21 2021-09-21 Refill [facility] 1.2.840.114 [id number] Univers 00:00:00 00:00:00 [facility] 350.1.13.10 it y of [place] 4.2.7.2.686 Ac as JESSICA?BLEA [id number] [address] 2021-09-18 2021-09-18 Telephone [facility] 1.2.999.608 [id number] Univers 00:00:00 00:00:00 Ankur Livekick 350.1.13.10 it y of [place] 4.2.7.2.686 Ac as JESSICA?BLEA [id number] [address] 2021-09-18 2021-09-18 Orders Doctor STODDARD 1.2.840.114 [id number] Univers 00:00:00 00:00:00 Only Unassigned, [place] 350.1.13.10 ity of [place] HOSPITAL 4.2.7.2.686 Ac as [id number] [place] [address] [place] 2021-09-11 2021-09-17 [facility] Romeo Cantu 1.2.840.1 [id number] Methodi 04:13:00 17:37:00 Encounter KennedyEber henleymontserrat Monae 38450.1.[address] [place]varisto 3.430.2.7 Hospita .3.014731 l .8 2021-09-14 2021-09-14 Surgery Gurwinder, 1.2.840.1 [id number] Methodi 16:10:00 18:05:[address] [place] 3.430.2.7 Hospit a .3.506174 l .8 2021-09-14 2021-09-14 Anesthesia Amee Bravo 1.2.840.1 [id number] Methodi 15:53:00 17:36:00 Event Jose Tom A 08161.1.[address] 3.430.2.7 Hospit a .3.173017 l .8 2021-09-12 2021-09-12 Outpatient PRL - PRL - [id number] eClinic 17:40:00 17:40:00 Rheumatol Rheumatolog alWorks ogy y [facility] 2021-09-11 2021-09-11 Travel 1.2.840.1 1.2.742.320 [id number] Methodi 00:00:00 00:00:[address] 3.430.2.7 0.2.7.3.698 Ho spita .3.114370 084.8 l .8 2021-09-10 2021-09-10 Nurse Freddie 1.2.840.1 [id number] Methodi 00:00:00 00:00:00 Triage Evon 32264.1.[address] 3.430.2.7 Hospit a .3.375900 l .8 2021-09-08 2021-09-08 [facility] [id number] 14:15:00 14:15:00 03 violet Hector 2021-09-08 2021-09-08 [facility] [id number] [facility] 14:15:00 14:15:00 03 violet Young 2021-08-21 2021-08-21 [facility]richar [facility] 1.2.840.114 [id number] Univers 00:00:00 00:00:00 [facility] 350.1.13.10 it y [facility] 4.2.7.2.686 Ac as JESSICA?BLEA [id number] [address] 2021-08-18 2021-08-18 [facility] 1.2.840.1 [id number] Methodi 11:15:00 18:45:00 Encounter Amir 77748.1.[address] [place] 3.430.2.7 Hospit a .3.495414 l .8 2021-08-18 2021-08-18 Surgery [facility] 1.2.840.1 [id number] Methodi 13:15:00 15:20:[address] [place] 3.430.2.7 Hospit a .3.688195 l .8 2021-08-18 2021-08-18 Anesthesia Shivam March 1.2.840.1 [id number] Methodi 13:21:00 15:05:00 Event Radha Blake 25819.1.[address] 3.430.2.7 Hospit a .3.127250 l .8 2021-08-18 2021-08-18 Outpatient SAMANTHA SAMANTHA [id number] Memoria 13:45:00 13:45:00 02 Hector 2021-08-18 2021-08-18 Outpatient [facility] [id number] [facility] 13:45:00 13:45:00 02 l Hector 2021-08-18 2021-08-18 Travel 1.2.840.1 1.2.347.536 [id number] Methodi 00:00:00 00:00:[address] 3.430.2.7 0.2.7.3.698 Ho spita .3.842162 084.8 l .8 2021-08-13 2021-08-13 Pre-Admiss Gurwinder, Dagoberto Patiño 1.2.840.1 [id number] Methodi 10:00:00 11:00:00 ion Radha Blake 87839.1.[address] Testing 3.430.2.7 Hospit a .3.748319 l .8 2021-08-13 2021-08-13 Travel 1.2.840.1 1.2.715.868 6195 [id number] Methodi 00:00:00 00:00:[address] 3.430.2.7 0.2.7.3.698 Ho spita .3.812291 084.8 l .8 2021-08-03 2021-08-03 Prep for Frostproof, 1.2.840.1 [id number] 21 [id number] Methodi 00:00:00 00:00:00 Surgery Evon 84434.1.[address] 3.430.2.7 Hospit a .3.027053 l .8 2021-07-29 2021-07-29 Office Gurwinder, 1.2.840.1 [id number] 1769 Methodi 13:00:00 14:34:30 Visit Amir 62638.1.[address] [place] 3.430.2.7 Hospit a .3.730180 l .8 2021-07-29 2021-07-29 Travel 1.2.840.1 1.2.822.894 [id number] [id number] Methodi 00:00:00 00:00:[address] 3.430.2.7 0.2.7.3.698 Ho spita .3.181574 084.8 l .8 2021-07-27 2021-07-27 Outpatient PRL - PRL - [id number] eClinic 20:52:00 20:52:00 Rheumatol Rheumatolog alWorks ogy y [facility] 2021-07-23 2021-07-23 [facility] 1.2.840.114 [id number] Univers 00:00:00 00:00:00 [facility] 350.1.13.10 it y of [place] 4.2.7.2.686 Ac as JESSICA?BLEA [id number] Ak dical KNEY [address] [place] [address] OFFICE BUILDING 2021-07-21 2021-07-21 [facility] 1.2.840.114 [id number] Univers 00:00:00 00:00:00 [facility] 350.1.13.10 it y of [place] 4.2.7.2.686 Ac as PROFESSIO [phone] Ak dicny NAL [address] [place] [address] OFFICE BUILDING [facility] 2021-07-21 2021-07-21 [facility] 1.2.840.114 [id number] Univers 00:00:00 00:00:00 [facility] 350.1.13.10 it y of [place] 4.2.7.2.686 Ac as PROFESSIO [id number] [address] OFFICE BUILDING ONE 2021-07-13 2021-07-13 Outpatient CHRISTINA - CHRISTINA - [id number] eClinic 13:00:00 13:00:00 Rheumatol Rheumatolog alWorks ogy y [facility] 2021-07-06 2021-07-06 Outpatient MHIE MHIE [id number] Memoria 13:15:00 13:15:00 01 violet Young 2021-07-06 2021-07-06 Outpatient MHIE MHIE [id number] Memoria 13:15:00 13:15:00 01 violet Young 2021-06-29 2021-06-30 [facility] Radames Cottokaj 1.2.840.1 [id number] Methodi 10:52:00 14:32:00 Encounter James Porter 57761.1.[address] 3.430.2.7 Hospit a .3.692584 l .8 2021-06-29 2021-06-29 Anesthesia Ulisses Aleman 1.2.840 .1 [id number] Methodi 13:50:00 14:12:00 Event Len Clark 70524.1.[address] 3.430.2.7 Hospit a .3.520621 l .8 2021-06-29 2021-06-29 Surgery [facility], 1.2.840.1 [id number] Methodi 13:00:00 13:45:[address] 3.430.2.7 Hospit a .3.323169 l .8 2021-06-29 2021-06-29 Documentat [facility], 1.2.840.1 [id number] Methodi 00:00:00 00:00:00 ion Raheem 39967.1.[address] 3.430.2.7 Hospit a .3.050002 l .8 2021-06-29 2021-06-29 Travel 1.2.840.1 1.2.350.788 [id number] Methodi 00:00:00 00:00:[address] 3.430.2.7 0.2.7.3.698 Ho spita .3.468659 084.8 l .8 2021-06-25 2021-06-25 Sommer Noonan [facility] 1.2.840.114 [id number] Univers 00:00:00 00:00:00 [facility] 350.1.13.10 it y of [place] 4.2.7.2.686 Ac as PROFESSIO [id number] [facility] 2021-06-08 2021-06-08 [facility] [id number] Univers 14:30:00 14:30:00 [facility] 2021-06-08 2021-06-08 Outpatient CHRISTINA - CHRISTINA - [id number] eClinic 09:25:00 09:25:00 Rheumatol Rheumatolog alWorks ogy y [facility] 2021-06-02 2021-06-02 [facility] 1.2.840.114 [id number] Univers 00:00:00 00:00:00 [facility] 350.1.13.10 [facility] 4.2.7.2.686 Ac as PROFESSIO [id number] [address] 2021-05-20 2021-05-20 [facility] 1.2.840.114 [id number] Univers 00:00:00 00:00:00 [facility] 350.1.13.10 it y of [place] 4.2.7.2.686 Ac as PROFESSIO [id number] [address] OFFICE [facility] 2021-04-29 2021-04-29 Outpatient MHIE IE [id number] Memoria 15:00:00 15:00:00 00 violet NaylorHector 2021-04-29 2021-04-29 Outpatient MHIE MHIE [id number] Memoria 15:00:00 15:00:00 00 violet NaylorHector 2021-04-27 2021-04-27 [facility] 1.2.840.114 [id number] Univers 00:00:00 00:00:00 [facility] 350.1.13.10 it y [facility] 4.2.7.2.686 Ac as PROFESSIO [phone] [address] 2021-04-21 2021-04-21 Orders Doctor STODDARD 1.2.840.114 [id number] Univers 00:00:00 00:00:00 Only Unassigned, CLAYTON 350.1.13.10 ity of [place] [facility] 4.2.7.2.686 Ac as [phone] [address] 2021-04-09 2021-04-09 Outpatient CHRISTINA Crista CHRISTINA - [id number] eClinic 13:00:00 13:00:00 Rheumatol Rheumatolog alWorks ogy y [facility] 2021-03-23 2021-03-23 Sommer Noonan OKSHERYL 1.2.840.114 [id number] Univers 00:00:00 00:00:00 Ankur HEALTH 350.1.13.10 it y of [place] 4.2.7.2.686 Ac as PROFESSIO [phone] Ak dical NAL 044 [facility] ONE 2021-02-23 2021-02-23 [facility] 1.2.840.114 [id number] Univers 00:00:00 00:00:00 Ankur HEALTH 350.1.13.10 it y of [place] 4.2.7.2.686 Ac as PROFESSIO [phone] Ak dical NAL 044 [facility] ONE 2021-02-17 2021-02-17 Sommer Bueno [facility] 1.2.840.114 [id number] Univers 00:00:00 00:00:00 Len HEALTH 350.1.13.10 it y of [place] 4.2.7.2.686 Ac as PROFESSIO [phone] Ak dical NAL 044 [facility] ONE 2021-02-02 2021-02-02 Outpatient HCRISTINA - CHRISTINA - [id number] eClinic 08:50:00 08:50:00 Rheumatol Rheumatolog alWorks ogy y [facility] 2020-12-27 2020-12-27 Outpatient PRL - PRL - [id number] eClinic 12:53:00 12:53:00 Rheumatol Rheumatolog alWorks ogy y [facility] 2020-12-23 2020-12-23 [facility]richar [facility] 1.2.840.114 [id number] Univers 00:00:00 00:00:00 Ankur Health 350.1.13.10 it y of [place] 4.2.7.2.686 Ac as Professio [phone] Ak dical nal 044 [facility] One 2020-12-23 2020-12-23 Refill [facility] 1.2.840.114 [id number] Univers 00:00:00 00:00:00 [facility] 350.1.13.10 it y of [place] 4.2.7.2.686 Ac as Professio [phone] [address] Office [facility] 2020-12-05 2020-12-05 Outpatient PRL - PRL - [id number] eClinic 09:02:00 09:02:00 Rheumatol Rheumatolog alWorks ogy y [facility] 2020-11-13 2020-11-13 Outpatient CHRISTINA - CHRISTINA - [id number] eClinic 11:20:00 11:20:00 Rheumatol Rheumatolog alWorks ogy y [facility] 2020-10-28 2020-10-28 Outpatient R [facility] [id number] Univers 13:00:00 13:00:00 EKATERINA [facility] 2020-10-24 2020-10-24 Outpatient R [facility] [id number] Univers 13:00:00 13:00:00 KATIA [facility] 2020-09-29 2020-09-29 Office [facility] 1.2.840.114 [id number] Univers 09:53:23 10:08:23 Visit [facility] 350.1.13.10 it y of [place] 4.2.7.2.686 Ac as Professio [phone] [address] Office [facility] 2020-09-29 2020-09-29 Outpatient [facility] [id number] Univers 09:45:00 09:45:00 ANKUR [facility] 2020-09-29 2020-09-29 Orders Doctor STODDARD 1.2.840.114 [id number] Univers 00:00:00 00:00:00 Only Unassigned, CLAYTON 350.1.13.10 ity of [place] [facility] 4.2.7.2.686 Ac as [phone] [address] 2020-09-25 2020-09-25 [facility] 1.2.840.114 [id number] Univers 00:00:00 00:00:00 Len [facility] 350.1.13.10 it y of [place] 4.2.7.2.686 Ac as Professio [phone] [address] One 2020-09-18 2020-09-18 Outpatient Clotilde [facility] [id number] Univers 14:30:00 14:30:00 [facility] 2020-09-16 2020-09-16 Outpatient [facility]ilde [facility] [id number] Univers 07:45:00 07:45:00 [facility] 2020-09-04 2020-09-04 Outpatient Clotilde [facility] [id number] Univers 13:45:00 13:45:00 [facility] 2020-09-04 2020-09-04 [facility] 1.2.840.114 [id number] Univers 00:00:00 00:00:00 [facility] 350.1.13.10 it y of [place] 4.2.7.2.686 Ac as Professio [phone] [address] One 2020-09-01 2020-09-01 [facility] 1.2.840.114 [id number] Univers 00:00:00 00:00:00 Len [facility] 350.1.13.10 it y of [place] 4.2.7.2.686 Ac as Professio [phone] [address] One 2020-08-27 2020-08-27 [facility] 1.2.840.114 [id number] Univers 00:00:00 00:00:00 Ankur [facility] 350.1.13.10 it y of [place] 4.2.7.2.686 Ac as Professio [phone] [address] One 2020-08-26 2020-08-26 [facility] 1.2.840.114 [id number] Univers 00:00:00 00:00:00 [facility] 350.1.13.10 it y of [place] 4.2.7.2.686 Ac as Professio [phone] Ak dical nal 044 [facility] 2020-08-13 2020-08-13 Outpatient CHRISTINA - CHRISTINA - [id number] eClinic 09:20:00 09:20:00 Rheumatol Rheumatolog alWorks ogy y [facility] 2020-07-31 2020-07-31 [facility]richar [facility] 1.2.840.114 [id number] Univers 00:00:00 00:00:00 Ankur [facility] 350.1.13.10 it y of [place] 4.2.7.2.686 Ac as Professio [phone] Ak dical nal 044 [facility] One 2020-07-15 2020-07-15 Outpatient PRL - PRL - [id number] eClinic 13:20:00 13:20:00 Rheumatol Rheumatolog alWorks ogy y [facility] 2020-05-28 2020-05-28 Orders Doctor RICHI 1.2.840.114 [id number] Univers 00:00:00 00:00:00 Only Unassigned, CLAYTON 350.1.13.10 ity of [place] [facility] 4.2.7.2.686 Ac as [phone] [address] 2020-05-19 2020-05-19 Refrichar Noonan OKSHERYL 1.2.840.114 [id number] Univers 00:00:00 00:00:00 Ankur [facility] 350.1.13.10 it y of [place] 4.2.7.2.686 Ac as Professio [phone] Ak dical nal 044 [facility] One 2020-05-16 2020-05-16 Maxx Noonan OKSHERYL 1.2.184.741 [id number] Univers 00:00:00 00:00:00 Ankur [facility] 350.1.13.10 it y of [place] 4.2.7.2.686 Ac as Professio [phone] Ak dical nal 044 [facility] 2020-05-01 2020-05-01 Outpatient PRL - PRL - [id number] eClinic 12:50:00 12:50:00 Rheumatol Rheumatolog alWorks ogy y [facility] 2020-04-17 2020-04-17 Refrichar [facility] 1.2.840.114 [id number] Univers 00:00:00 00:00:00 Ekaterina [place] 350.1.13.10 ity christian [place] 4.2.7.2.686 Acpresley hutchinson Marla [phone] Ak dical nal 134 [facility] 2020-04-14 2020-04-14 Outpatient PRL - PRL - [id number] eClinic 14:40:00 14:40:00 Rheumatol Rheumatolog alWorks ogy y [facility] 2020-04-14 2020-04-14 Outpatient CHRISTINA - CHRISTINA - [id number] eClinic 07:43:00 07:43:00 Rheumatol Rheumatolog alWorks ogy y [facility] 2020-04-10 2020-04-10 Outpatient PRL - PRL - [id number] eClinic 17:16:00 17:16:00 Rheumatol Rheumatolog alWorks ogy y [facility] 2020-04-10 2020-04-10 Outpatient PRL - PRL - [id number] eClinic 17:15:00 17:15:00 Rheumatol Rheumatolog alWorks ogy y [facility] 2020-04-09 2020-04-09 Outpatient PRL - PRL - [id number] eClinic 16:59:00 16:59:00 Rheumatol Rheumatolog alWorks ogy y [facility] 2020-04-07 2020-04-07 Outpatient CHRISTINA - CHRISTINA - [id number] eClinic 15:01:00 15:01:00 Rheumatol Rheumatolog alWorks ogy y [facility] 2020-03-17 2020-03-17 Telephone [facility] 1.2.467.592 [id number] Univers 00:00:00 00:00:00 Ankur [place] 350.1.13.10 [place]2.7.2.[place] Profess[place] [phone] Ak dical nal 044 [facility] 2020-03-05 2020-03-05 Outpatient CHRISTINA JOHNSON - [id number] eClinic 15:55:00 15:55:00 Rheumatol Rheumatolog alWorks ogy y [facility] 2020-02-19 2020-02-19 Outpatient R [facility]YA [facility] [id number] Univers 09:40:00 09:40:00 ANKUR patel [facility] 2020-02-18 2020-02-18 [facility], Adc Fam Pob I [facility] 1.2. 840.114 [id number] Univers 12:37:58 13:31:14 Visit Ankur Noonan [facility] 350.1.13.10 ity of [place] 4.2.7.2.686 Ac as Professio [phone] [address] Office [facility] 2020-02-18 2020-02-18 Office Arya [facility] 1..840.114 [id number] Univers 12:16:38 12:31:38 Visit [facility] 350.1.13.10 it y of [place] 4.2.7.2.686 Ac as Professio [phone] [address] Office [facility] 2020-02-18 2020-02-18 Outpatient Clotilde [facility] [id number] Univers 12:15:00 12:15:00 ANKUR patel [facility] 2020-02-14 2020-02-14 Orders Doctor STODDARD 1..840.114 [id number] Univers 00:00:00 00:00:00 Only Unassigned, CLAYTON 350.1.13.10 ity of [place] [facility] 4.2.7.2.686 Ac as [phone] [address] 2020-02-04 2020-02-04 Outpatient Clotilde [facility]IS [facility] [id number] Univers 10:30:00 10:30:00 FADUMO patel [facility] 2020-01-31 2020-01-31 Refill Arya [facility] 1.2.840.114 [id number] Univers 00:00:00 00:00:00 Ank[facility] 350.1.13.10 it y of [place] 4.2.7.2.686 Ac as Professio [phone] [address] 2020-01-30 2020-01-30 [facility] 1.2.840.114 [id number] Univers 00:00:00 00:00:00 Ankur [facility] 350.1.13.10 it y of [place] 4.2.7.2.686 Ac as Professio [phone] [address] 2020-01-09 2020-01-09 Outpatient CHRISTINA - CHRISTINA - [id number] eClinic 13:17:00 13:17:00 Rheumatol Rheumatolog alWorks ogy y [facility] 2020-01-09 2020-01-09 Outpatient CHRISTINA - CHRISTINA - [id number] eClinic 12:45:00 12:45:00 Rheumatol Rheumatolog alWorks ogy y [facility] 2020-01-07 2020-01-07 Office [facility] 1.2.248.408 [id number] 10:09:02 11:06:03 Visit Fadumo [place] 350.1.13.10 [place] 4.2.7.2.686 Professio [phone] [address] 2020-01-07 2020-01-07 Office [facility] 1.2.098.290 [id number] Univers 10:09:02 11:06:03 Visit Fadumo [place] 350.1.13.10 i ty of [place].2.7.2.[place] Profess[place] [phone] [address] 2020-01-07 2020-01-07 Outpatient R [facility] [id number] Univers 09:45:00 09:45:00 FADUMO renaatchana [facility] 2019-12-24 2019-12-24 Office [facility] 12.112.306 [id number] 6099 [facility] 10:38:16 11:55:33 Visit Fadumo [place] 350.1.13.10 i ty of [place] 4.2.7.2.[place] Profess[place] [phone] Ak dical nal 188 [facility] 2019-12-24 2019-12-24 Outpatient R [facility] [id number] Univers 10:30:00 10:30:00 FADUMO patel [facility] 2019-12-24 2019-12-24 Orders Doctor RICHI 1.2.840.114 [id number] Univers 00:00:00 00:00:00 Only Unassigned, CLAYOTN 350.1.13.10 ity of [place] 4.2.7.2.686 Ac as [id number] [address] 2019-12-11 2019-12-11 Office [facility] 1.2.396.269 [id number] Univers 16:54:05 16:54:05 Visit Fadumo [place] 350.1.13.10 i ty of [place] 4.2.7.2.[place] Profess[place] [phone] Ak dical nal 188 [facility] 2019-12-11 2019-12-11 Outpatient R [facility] [id number] Univers 15:00:00 15:00:00 FADUMO patel [facility] 2019-12-07 2019-12-07 Telephone [facility] 1.2.569.526 [id number] Univers 00:00:00 00:00:00 Ekaterina [place] 350.1.13.10 ity of [place].2.7.2.[place] [phone] Ak dical nal 134 [facility] 2019-12-05 2019-12-05 Office [facility] 1.2.840.114 [id number] Univers 14:00:37 14:15:37 Visit Ankur [facility] 350.1.13.10 it y of [place] 4.2.7.2.686 Ac as Professio [phone] Ak dical nal 044 [place] [address] [facility] One 2019-12-05 2019-12-05 Outpatient R [facility] [id number] Univers 13:45:00 13:45:00 ANKUR patel [facility] 2019-11-28 2019-11-28 [id number] [address] [place] [address] 00:00:00 00:00:[address] RAHEEM [address] 2019-11-13 2019-11-13 Outpatient CHRISTINA - CHRISTINA - [id number] eClinic 15:05:00 15:05:00 Rheumatol Rheumatolog alWorks ogy y [facility] 2019-11-13 2019-11-13 Outpatient PRL - PRL - [id number] eClinic 13:45:00 13:45:00 Rheumatol Rheumatolog alWorks ogy y [facility] 2019-11-05 2019-11-05 Refill [facility] 1.2.840.114 [id number] Univers 00:00:00 00:00:00 [facility] 350.1.13.10 it y of [place] 4.2.7.2.686 Ac as Professio [phone] Ak dical nal 044 [facility] 2019-10-29 2019-10-29 Office [facility] 1.2.840.114 [id number] Univers 13:25:06 14:38:15 Visit Ekaterina [place] 350.1.13.10 ity [facility] 4.2.7.2.[place] Profess[place] [phone] Ak dical nal 134 [facility] 2019-10-29 2019-10-29 Out[facility] [id number] Univers 13:15:00 13:15:00 EKATERINA ity of [facility] 2019-10-08 2019-10-08 Outpatient CHRISTINA - CHRISTINA - [id number] eClinic 15:15:00 15:15:00 Rheumatol Rheumatolog alWorks ogy y [facility] 2019-09-10 2019-09-10 Refill [facility] 1.2.840.114 [id number] Univers 00:00:00 00:00:00 [facility] 350.1.13.10 it y of [place] 4.2.7.2.686 Ac as Professio [phone] Ak dical nal 044 [facility] 2019-09-06 2019-09-06 Telephone [facility] 1.2.915.914 [id number] Univers 00:00:00 00:00:00 [facility] 350.1.13.10 it y of [place] 4.2.7.2.686 Ac as Professio [phone] [address] 2019-09-05 2019-09-05 [facility] 1.2.840.114 [id number] Univers 00:00:00 00:00:00 Ankur Castañeda 350.1.13.10 it y of [place] 4.2.7.2.686 Ac as Professio [id number] [address] 2019-08-03 2019-08-03 [facility] 1.2.840.114 [id number] Univers 00:00:00 00:00:00 [facility] 350.1.13.10 it y of [place] 4.2.7.2.686 Ac as Professio [id number] [address] 2019-07-13 2019-07-13 Outpatient Clotilde BUENO [facility] [id number] Univers 13:30:00 13:30:00 LEN [facility] 2019-07-13 2019-07-13 Telemedici [facility]am[facility] 1.2.840.114 [id number] Univers 07:13:17 07:28:17 ne Visit Len [place] 350.1.13.10 ity of [place] 4.2.7.2.686 [place] Profess[place] [phone] [address] 2019-06-11 2019-06-11 Outpatient PRL - PRL - [id number] eClinic 15:29:00 15:29:00 Rheumatol Rheumatolog alWorks ogy y [facility] 2019-05-21 2019-05-21 Outpatient PRL - PRL - [id number] eClinic 13:01:00 13:01:00 Rheumatol Rheumatolog alWorks ogy y [facility] 2019-05-16 2019-05-16 [facility] 1.2.840.114 [id number] Univers 00:00:00 00:00:00 [facility] 350.1.13.10 it y of [place] 4.2.7.2.686 Ac as Professio [phone] Ak dical nal 044 [facility] One 2019-05-02 2019-05-02 Telephone KALI Noonan 1.2.299.444 [id number] Univers 00:00:00 00:00:00 [facility] 350.1.13.10 it y of [place] 4.2.7.2.686 Ac as Professio [phone] Ak dical nal 044 [facility] One 2019-04-30 2019-04-30 Orders Doctor RICHI 1.2.840.114 [id number] Univers 00:00:00 00:00:00 Only Unassigned, C[place] 350.1.13.10 ity of [place] 4.2.7.2.686 Ac as [id number] [address] 2019-04-18 2019-04-18 Outpatient PRL - PRL - [id number] eClinic 14:33:00 14:33:00 Rheumatol Rheumatolog alWorks ogy y [facility] 2019-04-18 2019-04-18 Outpatient CHRISTINA JOHNSON - [id number] eClinic 12:25:00 12:25:00 Rheumatol Rheumatolog alWorks ogy y [facility] 2019-03-22 2019-03-22 Outpatient PRL - PRL - [id number] eClinic 13:59:00 13:59:00 Rheumatol Rheumatolog alWorks ogy y [facility] 2019-03-12 2019-03-12 Outpatient PRL - PRL - [id number] eClinic 06:20:00 06:20:00 Rheumatol Rheumatolog alWorks ogy y [facility] 2019-02-14 2019-02-14 Outpatient PRL - PRL - [id number] eClinic 20:50:00 20:50:00 Rheumatol Rheumatolog alWorks ogy y [facility] 2019-02-12 2019-02-12 Outpatient PRL - PRL - [id number] eClinic 11:34:00 11:34:00 Rheumatol Rheumatolog alWorks ogy y [facility] 2018-12-30 2018-12-30 Outpatient CHRISTINA JOHNSON - [id number] eClinic 12:48:00 12:48:00 Rheumatol Rheumatolog alWorks ogy y [facility] 2018-12-24 2018-12-24 Outpatient CHRISTINA - CHRISTINA - [id number] eClinic 10:36:00 10:36:00 Rheumatol Rheumatolog alWorks ogy y [facility] 2018-12-15 2018-12-15 Outpatient CHRISTINA - CHRISTINA - [id number] eClinic 15:27:00 15:27:00 Rheumatol Rheumatolog alWorks ogy y [facility] 2018-12-07 2018-12-07 Outpatient CHRITSINA - CHRISTINA - [id number] eClinic 15:29:00 15:29:00 Rheumatol Rheumatolog alWorks ogy y [facility] 2018-12-07 2018-12-07 Outpatient PRL - PRL - [id number] eClinic 14:15:00 14:15:00 Rheumatol Rheumatolog alWorks ogy y [facility] 2018-11-23 2018-11-23 Outpatient CHRISTINA - CHRISTINA - [id number] eClinic 21:44:00 21:44:00 Rheumatol Rheumatolog alWorks ogy y [facility] 2018-08-10 2018-08-10 Outpatient CHRISTINA - CHRISTINA - [id number] eClinic 11:50:00 11:50:00 Rheumatol Rheumatolog alWorks ogy y [facility] 2018-08-10 2018-08-10 Outpatient CHRISTINA - CHRISTINA - [id number] eClinic 11:41:00 11:41:00 Rheumatol Rheumatolog alWorks ogy y [facility] 2018-07-20 2018-07-20 Outpatient PRL - PRL - [id number] eClinic 11:00:00 11:00:00 Rheumatol Rheumatolog alWorks ogy y [facility] Results Test Description Test Time Test Comments Results Result Comments Source AFB culture 2021-10-27 00:14:00 Test Item Value Reference Range Interpretation Comme nts AFB culture isolate No growth after 6 weeks of Specimen InformationSpecimen (test code = 543-9) incubation. Source: FluidSpecimen Site: Abdomen: ABDOMI NAL [facility]ISION # [facility] [id number] 00:14:00 Test Item Value Reference Range Interpretation Comments AFB culture No growth Specimen isolate (test after 6 weeks InformationSp ecimen code = 543-9) of Source: FluidS pecimen incubation. Site: Abdomen: ABDOMINAL INCISION # [facility] [id number] 00:16:00 Test Item Value Reference Range Interpretation Comments Fungus culture No growth Specimen isolate (test after 4 weeks InformationSp ecimen code = 580-1) of Source: FluidS pecimen incubation. Site: Abdomen: ABDOMINAL INCISION # 2 [facility] [id number] 00:16:00 Test Item Value Reference Range Interpretation Comments Fungus culture No growth Specimen isolate (test after 4 weeks InformationSp ecimen code = 580-1) of Source: FluidS pecimen incubation. Site: Abdomen: [facility] [id number] 19:10:14 Test Item Value Reference Range Interpretation Comments Case number (test code = [id number]) Surgical pathology See link below for report (test code = PDF Lab Report 2255) Result status (test code This is Final Report = [id number]) for [id number] [facility] [id number] 19:10:14 Test Item Value Reference Range Interpretation Comments Case number (test code = [id number]) Surgical pathology See link below for report (test code = PDF Lab Report 2255) Result status (test code This is Final Report = [id number]) for [id number] [facility] [id number] 12:15:00 Test Item Value Reference Range Interpretation Comments Anaerobic No anaerobic Specimen culture isolate organisms InformationS pecimen (test code = isolated. Source: FluidSp ecimen 18726-5) Site: Abdomen: [facility]BDOMIN[facility]ISION [facility] [id number] 12:15:00 Test Item Value Reference Range Interpretation Comments Anaerobic No anaerobic Specimen culture isolate organisms InformationS pecimen (test code = isolated. Source: FluidSp ecimen 80832-7) Site: Abdomen: ABDOMINAL INCISION # 2 [facility] [id number] 18:46:00 Test Item Value Reference Range Interpretation Comments Fungus smear No fungi Specimen (test code = observed. InformationSpec imen Source: 1443) FluidSpecimen S ite: Abdomen: ABDOMI NAL INCISION # 2 [facility] [id number] 18:46:00 Test Item Value Reference Range Interpretation Comments Fungus smear No fungi Specimen (test code = observed. InformationSpec imen Source: 1443) FluidSpecimen S ite: Abdomen: ABDOMI NAL INCISION # 2 [facility] [id number] 16:46:00 Test Item Value Reference Range Interpretation Comments AFB stain No acid fast Specimen (test code = bacilli (AFB) InformationSpe cimen 676-7) seen. Source: FluidSp ecimen Site: Abdomen: ABDOMINAL INCISION # 2 [facility] [id number] 16:46:00 Test Item Value Reference Range Interpretation Comments AFB stain No acid fast Specimen (test code = bacilli (AFB) InformationSpe cimen 676-7) seen. Source: FluidSp ecimen Site: Abdomen: ABDOMINAL INCISION # 2 [facility] [id number] 04:10:00 Test Item Value Reference Range Interpretation Comments Gram stain No organisms Specimen isolate (test seen InformationSpe cimen code = 1469) Source: FluidSp ecimen Site: Abdomen: ABDOMINAL INCISION # 2 [facility] [id number] 04:10:00 Test Item Value Reference Range Interpretation Comments Gram stain No organisms Specimen isolate (test seen InformationSpe cimen code = 1469) Source: FluidSp ecimen Site: Abdomen: ABDOMINAL INCISION # 2 [facility] [id number] 22:41:00 Test Item Value Reference Range Interpretation Comments POC glucose (test code 105 mg/dL 65-99 H Opera tor Name: Umesh = 85222-9) GabriyelaDevice ID: [id number] able: [facility] Notified drilling engineer Interpretation Abnormal (test code = 08113-5) [facility] [id number] 22:41:00 Test Item Value Reference Range Interpretation Comments POC glucose (test code 105 mg/dL 65-99 H Opera tor Name: Umesh = 87179-2) GabriyelaDevice ID: [id number] able: [facility] Notified drilling engineer Interpretation Abnormal (test code = 20238-5) [facility] CountySmkbkfbiLSYP-LdF-4 (COVID-19) RNA [Presence] in Respiratory specimen by EMANUEL with probe [id number] 16:44:50 Test Item Value Reference Range Interpretation Comments SARS-CoV-2 (COVID-19) RNA Not detected [Presence] in Respiratory specimen by EMANUEL with probe detection (test code = 86122-3) Whether patient is employed in a Unknown healthcare setting (test code = 80111-1) Whether the patient has symptoms Unknown related to condition of interest (test code = 80670-9) Whether the patient was Unknown hospitalized for condition of interest (test code = 98300-7) Whether the patient was admitted Unknown to intensive care unit (ICU) for condition of interest (test code = 67284-5) Whether patient resides in a Unknown congregate care setting (test code = 60509-9) status (test code = Unknown 67756-0) Date and time of symptom onset Unknown (test code = 36957-1) [address]2022-06-17 16:46:55 Test Item Value Reference Range Interpretation Comments Ventricular rate (test code = 253) Atrial rate (test code = 255) OK interval (test code = 266) QRSD interval (test code = 260) QT interval (test code = 264) QTC interval (test code = 265) P axis 1 (test code = 267) QRS axis 1 (test code = 268) T wave axis (test code = 270) EKG impression (test code Sinus = 273) bradycardia-Electron ically Signed By Kashif Baer MD ([id number]) on 09/11/2021 11:46:52 AM [address]2022-06-17 16:46:55 Test Item Value Reference Range Interpretation Comments Ventricular rate (test code = 253) Atrial rate (test code = 255) OK interval (test code = 266) QRSD interval (test code = 260) QT interval (test code = 264) QTC interval (test code = 265) P axis 1 (test code = 267) QRS axis 1 (test code = 268) T wave axis (test code = 270) EKG impression (test code Sinus = 273) bradycardia-Electron ically Signed By Kashif Baer MD ([id number]) on 09/11/2021 11:46:52 AM [facility] ED Preliminary Interpretation - Not an [id number] 13:19:55 Test Item Value Reference Range Interpretation Comments LILLIAN (test code = LILLIAN) Romeo Cantu MD 09/14/2021 11:16 [facility] ED Preliminary Interpretation - Not an OrderPerformed by: Romeo Cantu MDAuthorized by: Romeo Cantu MD ECG reviewed by ED Physician in the absence of a returned goods repairer: yes Interpretation: Interpretation: abnormal Rate: ECG rate: 50 ECG rate assessment: normal Rhythm: Rhythm: sinus bradycardia QRS: QRS axis: Normal QRS intervals: NormalST segments: ST segments: Normal Lab Interpretation Abnormal (test code = 72441-9) [facility] ED Preliminary Interpretation - Not an [id number] 13:19:55 Test Item Value Reference Range Interpretation Comments LILLIAN (test code = LILLIAN) Romeo Cantu MD 09/14/2021 11:16 [facility] [place] Interpretation - Not an OrderPerformed by: Romeo Cantu MDAuthorized by: Romeo Cantu MD ECG reviewed by ED Physician in the absence of a returned goods repairer: yes Interpretation: Interpretation: abnormal Rate: ECG rate: 50 ECG rate assessment: normal Rhythm: Rhythm: sinus bradycardia QRS: QRS axis: Normal QRS intervals: NormalST segments: ST segments: Normal Lab Interpretation Abnormal (test code = 05901-2) [facility] Pre/Post [id number] 21:49:33 Test Item Value Reference Range Interpretation Comments Ventricular rate (test code = 253) Atrial rate (test code = 255) OK interval (test code = 266) QRSD interval (test code = 260) QT interval (test code = 264) QTC interval (test code = 265) P axis 1 (test code = 267) QRS axis 1 (test code = 268) T wave axis (test code = 270) EKG impression (test code Sinus = 273) bradycardia-Electron ically Signed By Kashif Baer MD ([id number]) on 08/13/2021 4:49:31 PM [facility] Pre/Post [id number] 21:49:33 Test Item Value Reference Range Interpretation Comments Ventricular rate (test code = 253) Atrial rate (test code = 255) OK interval (test code = 266) QRSD interval (test code = 260) QT interval (test code = 264) QTC interval (test code = 265) P axis 1 (test code = 267) QRS axis 1 (test code = 268) T wave axis (test code = 270) EKG impression (test code Sinus = 273) bradycardia-Electron ically Signed By Kashif Baer MD ([id number]) on 08/13/2021 4:49:31 PM [facility] [id number] 17:45:00 Test Item Value Reference Range Interpretation Comments Urine culture (test SEE COMMENT Bacteriu shaq screen code = 1256831) negative. [facility] [id number] 17:45:00 Test Item Value Reference Range Interpretation Comments Urine culture (test SEE COMMENT Bacteriu shaq screen code = 4078689) [facility] [Presence] in Respiratory specimen by EMANUEL with probe [id number] 17:14:40 Test Item Value Reference Range Interpretation Comments SARS-CoV-2 (COVID-19) RNA Not detected [Presence] in Respiratory specimen by EMANUEL with probe detection (test code = 17466-7) Whether patient is employed in a Unknown healthcare setting (test code = 99468-7) Whether the patient has symptoms Unknown related to condition of interest (test code = 10796-8) Whether the patient was Unknown hospitalized for condition of interest (test code = 49058-5) Whether the patient was admitted Unknown to intensive care unit (ICU) for condition of interest (test code = 24077-0) Whether patient resides in a Unknown congregate care setting (test code = 34882-4) status (test code = Unknown 31905-1) Date and time of symptom onset Unknown (test code = 21386-3) ENZO PAN
[2022-10-01] MEDS ORDERED: MORPHINE 4 MG/ML SYR ONE (22:48)
[2022-10-01] MEDS ORDERED: CYCLOBENZAPRINE 10 MG TAB ONE (22:48)
[2022-10-01] MEDS ORDERED: ONDANSETRON 4 MG/2 ML VIAL ONE (22:49)
[2022-10-01] MEDS ORDERED: KETOROLAC 30 MG/ML INJ ONE (22:49)
--- NOTE | 2022-10-02 00:42 | ER ---
Nurse's Notes [facility] Name: Yun Saxena Age: 42 yrs Sex: Female : 1980 Arrival Date: 10/01/2022 Time: 21:54 Bed 2 Private MD: Diagnosis: Fall on same level, unspecified;Low back pain;Bilateral hip pain Presentation: 10/01 22:05 Chief complaint: Patient states: Patient arrived with C-Collar in place with posterior pf1 neck pain of 10, bilateral hip pain and back pain,onset 2014, S/P tripped over the water hose while in the garden, fell and hit neck onto the board frame of the garden. Patient denies any LOC. 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 22:05 Coronavirus screen: Vaccine status: Patient reports being unvaccinated. Client denies pf1 travel out of the [place] in the last 14 days. At this time, the client does not indicate any symptoms associated with coronavirus-19. Ebola Screen: Patient negative for fever greater than or equal to 101.5 degrees Fahrenheit, and additional compatible Ebola Virus Disease symptoms. Initial Sepsis Screen: Does the patient meet any 2 criteria? No. Patient's initial sepsis screen is negative. Does the patient have a suspected source of infection? No. Patient's initial sepsis screen is negative. Risk Assessment: Do you want to hurt yourself or someone else? Patient reports no desire to harm self or others. 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 Last tetanus immunization: < 10 years ago Flu vaccine is not up to date. - Social history:: Smoking status: Patient/guardian denies using tobacco, the patient reports quitting approximately 1 years ago, Patient uses street drugs, marijuana, Patient/guardian denies using alcohol. - Family history:: not pertinent. Screenin:05 [facility] ED Fall Risk Assessment (Adult) History of falling in the last 3 months, pf1 including since admission Yes- single mechanical fall (1 pt) Confusion or Disorientation No (0 pts) Intoxicated or Sedated No (0 pts) Impaired Gait Yes (1 pt) Mobility Assist Device Used No (0 pt) Altered Elimination No (0 pt) Score/Fall Risk Level 0 - 2 = Low Risk Oriented to surroundings, Maintained a safe environment, Educated pt \T\ family on fall prevention, incl call for assistance when getting out of bed, Assessed \T\ reinforced patient's understanding of fall precautions, Provided non-skid footwear, Hourly rounding (assess needs \T\ fall precautionary measures) done, Used ambulatory aids as needed (educated on \T\ assisted with), Used gait belt as appropriate. 22:05 Abuse screen: Denies threats or abuse. Nutritional screening: No deficits noted. pf1 Tuberculosis screening: No symptoms or risk factors identified. Assessment: 22:30 General: Appears in no apparent distress. uncomfortable, well groomed, well developed, pf1 Behavior is calm, cooperative, appropriate for age, quiet. 22:30 Pain: Complains of pain in back of neck pain of 10,bilateral hip pain and lower back pf1 pain Pain currently is 10 out of 10 on a pain scale. Neuro: No deficits noted. Level of Consciousness is awake, alert, obeys commands, Oriented to person, place, time, situation. Cardiovascular: No deficits noted. Capillary refill < 3 seconds Patient's skin is warm and dry. Respiratory: No deficits noted. Airway is patent Respiratory effort is even, unlabored, Respiratory pattern is regular, symmetrical, Breath sounds are clear bilaterally. GI: No deficits noted. No signs and/or symptoms were reported involving the gastrointestinal system. : No deficits noted. No signs and/or symptoms were reported regarding the genitourinary system. EENT: No deficits noted. No signs and/or symptoms were reported regarding the EENT system. Derm: No deficits noted. No signs and/or symptoms reported regarding the dermatologic system. Musculoskeletal: Reports pain in back of neck,bilateral hip pain and lower back pain. 23:30 Reassessment: Patient appears in no apparent distress at this time. Patient is alert, pf1 oriented x 3, equal unlabored respirations, skin warm/dry/pink. Patient states feeling better. Patient states symptoms have improved. Vital Signs: 22:05 BP 135 / 86; Pulse 97; Resp 20; Temp 98.8; Pulse Ox 99% on R/A; Weight 79.38 kg; Height pf1 5 ft. 3 in. ; Pain 10/10; 23:00 BP 130 / 81; Pulse 89; Resp 16; Pulse Ox 97% on R/A; Pain 7/10; pf1 07 00:00 BP 102 / 72; Pulse 74; Resp 17; Pulse Ox 97% on R/A; pf1 01:23 BP 98 / 61; Pulse 67; Resp 16; Temp 98; Pulse Ox 97% on R/A; rv 10/01 22:05 Body Mass Index 31.00 (79.38 kg, 160.02 cm) pf1 10/01 22:05 Pain Scale: Adult pf1 23:00 Pain Scale: Adult pf1 Jc Coma Score: 01:23 Eye Response: spontaneous(4). Motor Response: obeys commands(6). Verbal Response: rv oriented(5). Total: 15. ED Course: 10/01 22:05 Patient arrived in ED. wm 22:05 No provider procedures requiring assistance completed. Maintain EMS IV. Gauge \T\ site: pf1 20gauge to LFA. 22:08 Shailesh Montenegro MD is Attending Physician. rt 22:23 Luz Serna, ИВАН is Primary Nurse. pf1 22:28 Triage completed. pf1 22:30 Patient has correct armband on for positive identification. Bed in low position. Call pf1 light in reach. Side rails up X2. 23:00 Inserted saline lock: 22 gauge in right forearm, using aseptic technique. pf1 23:05 Hip Left 2 View XRAY In Process Unspecified. EDMS 23:05 Hip Right 2 View XRAY In Process Unspecified. EDMS 23:06 Knee Left 3 View XRAY In Process Unspecified. EDMS 23:45 CT C Spine In Process Unspecified. EDMS 23:46 Thoracic Spine WO Cont CT In Process Unspecified. EDMS 23:46 CT Lumbar Spine Wo Con In Process Unspecified. EDMS 10/02 00:02 IV discontinued, intact, bleeding controlled, No redness/swelling at site. Pressure pf1 dressing applied, IV removed per patient's request to LFA 20gauge. Administered Medications: 10/01 22:36 Drug: morphine IVP or IV 4 mg Route: IVP; Infused Over: 4 mins; Site: right forearm; rv 23:30 Follow up: Response: No adverse reaction; Marked relief of symptoms; Pain is decreased pf1 22:40 Drug: Ondansetron IVP 4 mg Route: IVP; Site: right forearm; rv 23:40 Follow up: Response: No adverse reaction; Marked relief of symptoms pf1 23:50 Drug: Cyclobenzaprine PO 10 mg Route: PO; pf1 10/02 00:50 Follow up: Response: No adverse reaction; Marked relief of symptoms; Pain is decreased pf1 10/01 23:53 Drug: Ketorolac IVP 15 mg Route: IVP; Site: right forearm; pf1 10/02 00:50 Follow up: Response: No adverse reaction; Marked relief of symptoms; Pain is decreased pf1 Medication: 01:24 VIS not applicable for this client. rv Outcome: 00:41 Discharge ordered by . rt 01:24 Discharged to home ambulatory, with family. rv 01:24 Condition: improved 01:24 Discharge instructions given to patient, Instructed on discharge instructions, follow up and referral plans. Demonstrated understanding of instructions, follow-up care. 01:24 Instructed on medication usage, Demonstrated understanding of medications, rv Prescriptions given X 1. 01:25 Patient left the ED. rv Signatures: Dispatcher [employer] EDMS Rob Etienne, CIGARETTE TIPPER-C CIGARETTE TIPPER-Cla1 Julio César Chamberlain RN RN rv [place]atima [place]aud[place] [id number] Shailesh Montenegro MD MD rt Luz Serna RN RN pf1 Corrections: (The following items were deleted from the chart) 10/01 22:51 22:29 Radiology exam delayed due to test not completed at this time. [place] [id number] 22:56 22:47 Ondansetron IVP 4 mg IVP in right forearm la1 rv :56 22:47 morphine IVP or IV 4 mg IVP in right forearm over 4 mins la1 rv
--- NOTE | 2022-10-02 00:42 | EDPHYS ---
Physician Documentation [facility] Name: Yun Saxena Age: 42 yrs Sex: Female : 1980 Arrival Date: 10/01/2022 Time: 21:54 Bed 2 Private MD: ED Physician Shailesh Montenegro HPI: 10/02 02:51 This 42 yrs old Female presents to ER via EMS with complaints of Fall Injury. rt 02:51 Patient presents to the ED following a mechanical trip and fall. Patient was in her rt garden when she tripped over a hose landing on the ground. She denies significant head trauma but does report pain to her neck, back as well as her bilateral hips and left knee. The patient denies loss of consciousness. She denies headache. She denies other acute complaints at this time. Pain is aching nature, nonradiating, no other aggravating or elevating factors. 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 Last tetanus immunization: < 10 years ago Flu vaccine is not up to date. - Social history:: Smoking status: Patient/guardian denies using tobacco, the patient reports quitting approximately 1 years ago, Patient uses street drugs, marijuana, Patient/guardian denies using alcohol. - Family history:: not pertinent. ROS: 10/02 02:51 Constitutional: Negative for fever, chills, and weight loss, Cardiovascular: Negative rt for chest pain, palpitations, and edema, Respiratory: Negative for shortness of breath, cough, wheezing, and pleuritic chest pain, Abdomen/GI: Negative for abdominal pain, nausea, vomiting, diarrhea, and constipation, Skin: Negative for injury, rash, and discoloration, Neuro: Negative for headache, weakness, numbness, tingling, and seizure, Psych: Negative for depression, anxiety, suicide ideation, homicidal ideation, and hallucinations. Back: Positive for pain at rest, pain with movement. MS/extremity: Positive for pain, Negative for decreased range of motion. Exam: 02:51 Constitutional: This is a well developed, well nourished patient who is awake, alert, rt and in no acute distress. Head/Face: Normocephalic, atraumatic. Chest/axilla: Normal chest wall appearance and motion. Nontender with no deformity. No lesions are appreciated. Cardiovascular: Regular rate and rhythm with a normal S1 and S2. No gallops, murmurs, or rubs. Normal PMI, no JVD. No pulse deficits. Respiratory: Lungs have equal breath sounds bilaterally, clear to auscultation and percussion. No rales, rhonchi or wheezes noted. No increased work of breathing, no retractions or nasal flaring. Abdomen/GI: Soft, non-tender, with normal bowel sounds. No distension or tympany. No guarding or rebound. No evidence of tenderness throughout. Skin: Warm, dry with normal turgor. Normal color with no rashes, no lesions, and no evidence of cellulitis. Neuro: Awake and alert, GCS 15, oriented to person, place, time, and situation. Cranial nerves II-XII grossly intact. Motor strength 5/5 in all extremities. Sensory grossly intact. Cerebellar exam normal. Normal gait. Psych: Awake, alert, with orientation to person, place and time. Behavior, mood, and affect are within normal limits. 02:51 Musculoskeletal/extremity: Mild tenderness without deformity to the bilateral hips, left knee, full range of motion, pulses, motor, sensation intact. Vital Signs: 10/01 22:05 BP 135 / 86; Pulse 97; Resp 20; Temp 98.8; Pulse Ox 99% on R/A; Weight 79.38 kg; Height pf1 5 ft. 3 in. ; Pain 10/10; 23:00 BP 130 / 81; Pulse 89; Resp 16; Pulse Ox 97% on R/A; Pain 7/10; pf1 10/02 00:00 BP 102 / 72; Pulse 74; Resp 17; Pulse Ox 97% on R/A; pf1 01:23 BP 98 / 61; Pulse 67; Resp 16; Temp 98; Pulse Ox 97% on R/A; rv 10/01 22:05 Body Mass Index 31.00 (79.38 kg, 160.02 cm) pf1 10/01 22:05 Pain Scale: Adult pf1 23:00 Pain Scale: Adult pf1 [place] Coma Score: 01:23 Eye Response: spontaneous(4). Motor Response: obeys commands(6). Verbal Response: rv oriented(5). Total: 15. MDM: 10/01 22:21 Patient medically screened. rt 10/02 02:51 Differential diagnosis: Spinal fracture, hip fracture, contusion, muscle spasm. Data rt reviewed: vital signs, nurses notes, radiologic studies. Independent interpretation of the following test(s) in the Emergency Department X-Ray: My interpretation is No fracture seen on interpretation of the x-ray images. Test considered but Not performed: CT: Denies head trauma, loss of consciousness, headache, CT scan of the head not indicated. Counseling: I had a detailed discussion with the patient and/or guardian regarding: the historical points, exam findings, and any diagnostic results supporting the discharge/admit diagnosis, radiology results, the need for outpatient follow up. Response to treatment: the patient's symptoms have markedly improved after treatment. 10/01 22:27 Order name: CT C Spine rt 10/01 22:27 Order name: Thoracic Spine WO Cont CT rt 10/01 22:27 Order name: CT Lumbar Spine Wo Con rt 10/01 22:27 Order name: Hip Left 2 View XRAY rt 10/01 22:27 Order name: Hip Right 2 View XRAY rt 10/01 22:27 Order name: Knee Left 3 View XRAY rt Administered Medications: 10/01 22:36 Drug: morphine IVP or IV 4 mg Route: IVP; Infused Over: 4 mins; Site: right forearm; rv 23:30 Follow up: Response: No adverse reaction; Marked relief of symptoms; Pain is decreased pf1 22:40 Drug: Ondansetron IVP 4 mg Route: IVP; Site: right forearm; rv 23:40 Follow up: Response: No adverse reaction; Marked relief of symptoms pf1 23:50 Drug: Cyclobenzaprine PO 10 mg Route: PO; pf1 10/02 00:50 Follow up: Response: No adverse reaction; Marked relief of symptoms; Pain is decreased pf1 10/01 23:53 Drug: Ketorolac IVP 15 mg Route: IVP; Site: right forearm; pf1 10/02 00:50 Follow up: Response: No adverse reaction; Marked relief of symptoms; Pain is decreased pf1 Disposition Summary: 10/02/22 00:41 Discharge Ordered Location: Home rt Problem: new rt Symptoms: have improved rt Condition: Stable rt Diagnosis - Fall on same level, unspecified rt - Low back pain rt - Bilateral hip pain rt Followup: rt - With: Private Physician - When: 2 - 3 days - Reason: Discharge Instructions: - Discharge Summary Sheet rt - Acute Back Pain, Adult rt Forms: - Medication Reconciliation Form rt - Thank You Letter rt - Antibiotic Education rt - Prescription Opioid Use rt - [email or web address] rt Prescriptions: - Cyclobenzaprine 10 mg Oral Tablet - take 1 tablet by ORAL route every 8 hours As needed; 15 tablet; Refills: 0, rt Product Selection Permitted Signatures: Dispatcher [employer] Rob Mitchell, PROOF TECHNICIAN-C PROOF TECHNICIAN-Cla1 Julio César Chamberlain RN RN rv Shailesh Montenegro MD MD rt Luz Serna RN RN pf1
[2022-10-02 02:45] VITALS: O2SAT 97
[2022-10-02 02:48] VITALS: BP 98/61; TEMP 98
--- NOTE | 2022-10-02 22:40 | RAD REPORT ---
EXAM DESCRIPTION: CT - Thoracic Spine W/o Cont - 10/02/2022 6:28 am CLINICAL HISTORY: 42 years, Female, PAIN, FALL COMPARISON: None TECHNIQUE: Multiple axial CT images through the thoracic spine were obtained at 2 mm slice thickness at 2 mm interval reconstruction. In addition 2-D multiplanar reformats and the sagittal coronal plan e were performed and reviewed. This exam was performed according to our departmental dose-optimization protocol, which includes auto mated exposure control, adjustment of the mA and/or kV according to patient size and/or use of iterat mickey reconstruction technique. FINDINGS: The alignment, vertebral body heights, and disc spaces are normal. There is no evidence of fracture or subluxation. There are no significant degenerative changes. The spinal canal demonstra te no evidence for significant stenosis. Neural foramina demonstrate to be unremarkable. The spinous processes demonstrate to be within normal limits. There is no prevertebral soft tissue swelling. Sa gittal coronal reformatted images demonstrate no subluxation or bony abnormalities. IMPRESSION: Unremarkable CT scan of the thoracic spine. Electronically signed by: Vladimir Gregg MD 10/02/2022 12:05 AM CDT Due to temporary technical issues with the PACS/Fluency reporting system, reports are being signed by the in house radiologists without review as a courtesy to insure prompt reporting. The interpreting radiologist is fully responsible for the content of the report.
--- NOTE | 2022-10-02 22:45 | RAD REPORT ---
EXAM DESCRIPTION: RAD - Knee Left 3 View - 10/01/2022 11:04 pm CLINICAL HISTORY: PAIN TECHNIQUE: Three views of the left knee are submitted. COMPARISON: None available for comparison FINDINGS: Bones: No acute fracture or dislocation. Joints: Joint spaces are unremarkable. Soft tissues: No radiopaque foreign bodies. IMPRESSION: Normal radiographic appearance of the left knee. Electronically signed by: Gerry Ferguson MD 10/01/2022 11:44 PM CDT Due to temporary technical issues with the PACS/Fluency reporting system, reports are being signed by the in house radiologists without review as a courtesy to insure prompt reporting. The interpreting radiologist is fully responsible for the content of the report.
--- NOTE | 2022-10-02 22:46 | RAD REPORT ---
EXAM DESCRIPTION: RAD - Hip Left 2 View - 10/01/2022 11:03 pm CLINICAL HISTORY: 42 years Female PAIN COMPARISON: None TECHNIQUE: 2 images of the left hip were obtained. FINDINGS: Satisfactory articulation left femoral head with acetabular region. No acute fractures see n. Overlying artifact. Normal bony mineralization. No erosive or lytic lesions seen. IMPRESSION: No acute fracture or dislocation seen. No significant degenerative change. Electronically signed by: Aruna Negron MD 10/01/2022 11:40 PM CDT Due to temporary technical issues with the PACS/Fluency reporting system, reports are being signed by the in house radiologists without review as a courtesy to insure prompt reporting. The interpreting radiologist is fully responsible for the content of the report.
--- NOTE | 2022-10-02 22:47 | RAD REPORT ---
EXAM DESCRIPTION: RAD - Hip Right 2 View - 10/01/2022 11:03 pm CLINICAL HISTORY: 42 years, Female, PAIN Hip Right 2 View COMPARISON: None FINDINGS: 2 views of the hip (frontal view of the right hip and frogleg view of the right hip) were obtained. No areas of acute bony injuries were demonstrated. No gross soft tissue abnormality is id entified. There are no gross intraosseous lesions. Injection granulomas are identified within the r ight gluteal region No periosteal reaction were seen. No definitive displaced fracture are identified , if symptoms persist, clinical correlation and/or further evaluation with CT scan and/or MRI could b e of assistance. IMPRESSION: No acute bony injuries were demonstrated. Injection granulomas are identified within the right gluteal region. Electronically signed by: Vladimir Gregg MD 10/01/2022 11:41 PM CDT Due to temporary technical issues with the PACS/Fluency reporting system, reports are being signed by the in house radiologists without review as a courtesy to insure prompt reporting. The interpreting radiologist is fully responsible for the content of the report.
--- NOTE | 2022-10-02 22:49 | RAD REPORT ---
EXAM DESCRIPTION: CT - C Spine Wo Con - 10/02/2022 6:28 am\\ CLINICAL HISTORY: PAIN, FALL TECHNIQUE: Contiguous axial CT images obtained through the cervical spine without IV contrast. Cor onal and sagittal reformatted images also provided. This exam was performed according to our departmental dose-optimization program, which includes autom ated exposure control, adjustment of the mA and/or kV according to patient size and/or use of iterati ve reconstruction technique. COMPARISON: April 17 FINDINGS: Vertebra: No acute fracture or subluxation. Degenerative changes: Intervertebral disc spaces are fairly well maintained. No critical canal stenos is. Foramina appear patent. Prevertebral soft tissues: Unremarkable Lung apices: Clear IMPRESSION: No acute cervical spine fracture or malalignment. Electronically signed by: Gerry Ferguson MD 10/02/2022 12:07 AM CDT Due to temporary technical issues with the PACS/Fluency reporting system, reports are being signed by the in house radiologists without review as a courtesy to insure prompt reporting. The interpreting radiologist is fully responsible for the content of the report.
--- NOTE | 2022-10-02 22:51 | RAD REPORT ---
EXAM DESCRIPTION: CT - Spine Lumbar Wo Con - 10/02/2022 6:28 am CLINICAL HISTORY: 42 years Female PAIN, FALL COMPARISON: None TECHNIQUE: Images were obtained in axial, sagittal, and coronal planes. This exam was performed according to our departmental dose-optimization program which includes use of Automated Exposure Control, adjustment of the mA and/or kV according to patient size and/or use of i terative reconstruction technique. FINDINGS: Height of the vertebral bodies is intact. Satisfactory alignment articular facets. Posteri or elements intact all levels. Intact pedicles and transverse processes. No sacral fracture. No focal disc protrusion. No focal narrowing of spinal canal at any level. No significant degenerative changes. IMPRESSION No acute fracture or subluxation seen. No significant degenerative change. Electronically signed by: Aruna Negron MD 10/02/2022 12:08 AM CDT Due to temporary technical issues with the PACS/Fluency reporting system, reports are being signed by the in house radiologists without review as a courtesy to insure prompt reporting. The interpreting radiologist is fully responsible for the content of the report.
== END 2022-10-02 01:25 | disposition home or self-care (01) ==
LOC: ER 21:54
DX: S39.92XA Unspecified injury of lower back, initial encounter (principal); W01.0XXA Fall on same level from slipping, tripping and stumbling without subsequent striking against object, initial encounter; Y93.H2 Activity, gardening and landscaping; Y92.017 Garden or yard in single-family (private) house as the place of occurrence of the external cause; Y99.9 Unspecified external cause status; Z87.891 Personal history of nicotine dependence; F12.90 Cannabis use, unspecified, uncomplicated; F15.90 Other stimulant use, unspecified, uncomplicated; M54.50 Low back pain, unspecified; M25.552 Pain in left hip; M25.551 Pain in right hip
CPT/HCPCS: 72131; 72125; 72128; 73502 ×2; 73562; 96375; 96374; 99284; J2405

== ENCOUNTER → 2023-03-22 | Emergency (ER) | payer BC ==
[~2023-03-22] MED LIST: DIPHENHYDRAMINE 50 MG/ML VIAL ONE; HALOPERIDOL LACT 5 MG/ML INJ ONE; KETOROLAC 30 MG/ML INJ ONE; METHYLPREDNISOLONE 125 MG INJ ONE; METOCLOPRAMIDE 10 MG/2mL INJ ONE; Magnesium Sulfate 2gm IVPB 2 G/50 ML BAG IV ONE; NA CHLORIDE 0.9% 1,000 ML ONE; PANTOPRAZOLE 40 MG INJ ONE
--- NOTE | 2023-03-22 13:54 | RAD REPORT ---
EXAM DESCRIPTION: MRI - Brain Wo Cont - 03/22/2023 1:36 pm CLINICAL HISTORY: MS Flare COMPARISON: MRI BRAIN W WO CONTRAST dated 06/01/2012 TECHNIQUE: Sagittal T1-weighted images were obtained along with PD/heavily T2-weighted and T2-FLAIR images. Axial DWI and ADC mapping sequences were also obtained along with coronal heavily T2-weighted images were obtained. FINDINGS: No intracranial hemorrhage, mass or acute infarction. There is no edema or shift of midlin e structures. No extra-axial fluid collections. Signal voids are seen as a normal finding in the [place] r intracranial vessels. A single focus of T2/FLAIR hyperintensities present in the right frontal lobe . This is best seen on the sagittal FLAIR sequence image 37, series 9. Mastoid air cells and paranasal sinuses are clear. IMPRESSION: No acute intracranial abnormality. Single nonspecific T2/FLAIR hyperintense focus in the right frontal lobe which could be related to demyelinating disease but is not uncommon given the pat ient's age. No diffusion restriction.
[2023-03-22 14:11] LABS: Absolute Lymphocytes (CBC) 3.2 K/uL (0.7-4.9); Hematocrit 39.4 % (36.0-45.0); MCV 91.5 fL (80-100); MPV 7.1 fL (7.6-11.3); Platelets 164 thou/uL (152-406); RBC Red Blood Cell Count 4.31 M/uL (3.86-4.86)
--- NOTE | 2023-03-22 14:26 | RAD REPORT ---
EXAM DESCRIPTION: RAD - Chest Single View - 03/22/2023 2:21 pm CLINICAL HISTORY: eval for pna COMPARISON: <Comparisons> FINDINGS: Lines: None. Lungs: No evidence of edema or pneumonia. Pleural: No significant pleural effusions or pneumothorax. Cardiac: The heart size is within normal limits. Mediastinum: Within normal limits. Bones: No acute fractures. Other: None IMPRESSION: No acute cardiopulmonary disease.
--- NOTE | 2023-03-22 14:57 | ER ---
Nurse's Notes [facility] Name: Yun Saxena Age: 42 yrs Sex: Female : 1980 Arrival Date: 03/22/2023 Time: 11:43 Bed 17 Private MD: Diagnosis: Multiple sclerosis Presentation: 03/22 12:00 Chief complaint: Patient states: Loss of vision since last night. Sent by opthmologist ll1 for IV steroids. Having MS flare-up with body/legs hurting, migraine SCOTT, and vision loss. Coronavirus screen: Client denies travel out of the [place] in the last 14 days. fatigue, muscle pain, Client presents with at least one sign or symptom that may indicate coronavirus-19. Standard/surgical mask placed on the client. Ebola Screen: Patient denies travel to an Ebola-affected area in the 21 days before illness onset. Initial Sepsis Screen: Does the patient meet any 2 criteria? No. Patient's initial sepsis screen is negative. Does the patient have a suspected source of infection? Yes: Other: eye problems/blurred vision. Risk Assessment: Do you want to hurt yourself or someone else? Patient reports no desire to harm self or others. Onset of symptoms was March 21, 2023. 12:00 Method Of Arrival: Ambulatory ll1 12:00 Acuity: JEAN PIERRE 3 ll1 Triage Assessment: 12:02 General: Appears uncomfortable, Behavior is calm, cooperative, appropriate for age. ll1 Pain: Complains of pain in head Pain currently is 8 out of 10 on a pain scale. Quality of pain is described as aching, throbbing. EENT: Reports blurred vision. Neuro: Reports blurred vision headache. Neuro: Reports. Musculoskeletal: Reports pain in right leg and left leg. 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 - Social history:: Smoking status: Reported history of juuling and/or vaping. Screenin:14 [facility] ED Fall Risk Assessment (Adult) History of falling in the last 3 months, me1 including since admission No falls in past 3 months (0 pts) Confusion or Disorientation No (0 pts) Intoxicated or Sedated No (0 pts) Impaired Gait No (0 pts) Mobility Assist Device Used No (0 pt) Altered Elimination No (0 pt) Score/Fall Risk Level 0 - 2 = Low Risk Maintained a safe environment, Provided non-skid footwear, Hourly rounding (assess needs \T\ fall precautionary measures) done. Abuse screen: Denies threats or abuse. Nutritional screening: No deficits noted. Tuberculosis screening: No symptoms or risk factors identified. Assessment: 13:14 General: Appears uncomfortable, ill, well groomed, well developed, well nourished, me1 Behavior is calm, cooperative, appropriate for age, Reports Loss of vision since last night. Sent by opthmologist for IV steroids. Having MS flare-up with body/legs hurting, migraine SCOTT, and vision loss. Pain: Complains of pain in head and left leg and right leg Pain does not radiate. Pain currently is 8 out of 10 on a pain scale. Quality of pain is described as aching, throbbing, Pain began gradually, 1 day ago. Is continuous. Neuro: Level of Consciousness is awake, alert, obeys commands, Oriented to person, place, time, situation, Appropriate for age. Cardiovascular: Capillary refill < 3 seconds Patient's skin is warm and dry. Respiratory: Airway is patent Respiratory effort is even, unlabored, Respiratory pattern is regular, symmetrical. EENT: Reports blurred vision since yesterday photophobia Loss of vision since last night. Sent by opthmologist for IV steroids. Having MS flare-up with body/legs hurting, migraine SCOTT, and vision loss.. Musculoskeletal: Reports pain in left leg and right leg. 17:24 General: Visual Acuity Right 20/50. Left 20/70.. me1 Vital Signs: 12:00 BP 128 / 77; Pulse 75; Resp 17; Temp 97.7; Pulse Ox 100% ; Weight 78.93 kg; Height 5 ll1 ft. 3 in. ; Pain 8/10; 12:30 BP 108 / 66; Pulse 68; Resp 17; Pulse Ox 99% on R/A; me1 12:30 BP 105 / 67; Pulse 68; Resp 16; Pulse Ox 99% on R/A; me1 13:44 BP 116 / 69; Pulse 68; Resp 16; Pulse Ox 98% ; me1 14:30 BP 110 / 60; Pulse 68; Resp 17; Pulse Ox 97% on R/A; me1 16:37 BP 118 / 74; Pulse 72; Resp 15; Pulse Ox 96% on R/A; me1 17:14 BP 126 / 73; Pulse 80; Resp 18; Pulse Ox 96% on R/A; me1 18:00 BP 132 / 89; Pulse 72; Resp 21; Pulse Ox 95% on R/A; me1 20:02 BP 122 / 75; Pulse 78; Resp 15 S; Pulse Ox 95% on R/A; ha1 12:00 Body Mass Index 30.82 (78.93 kg, 160.02 cm) ll1 12:00 Pain Scale: Adult 1 ED Course: 11:46 Patient arrived in ED. mr 11:49 Luis Angel Yung MD is Attending Physician. ec2 12:02 Triage completed. ll1 12:02 Arm band placed on. ll1 12:27 Marlene Billy, ИВАН is Primary Nurse. me1 13:12 Inserted saline lock: 24 gauge in left ,using aseptic technique. 2nd digit. me1 13:13 CMP Sent. me1 13:13 CBC with Diff Sent. me1 13:13 Influenza Screen (a \T\ B) Sent. me1 13:13 COVID-19 SARS RT PCR Sent. me1 13:14 Patient has correct armband on for positive identification. Bed in low position. Call me1 light in reach. Side rails up X 1. Provided Education on: POC. Verbalized understanding. . 13:14 No provider procedures requiring assistance completed. me1 13:22 MRI - Brain Wo Cont In Process Unspecified. EDMS 14:11 Inserted saline lock: 24 gauge in right upper arm, using aseptic technique. Blood ds4 collected. 14:22 CXR XRAY In Process Unspecified. EDMS 14:56 Tram Kennedy MD is Hospitalizing Provider. ec2 16:05 Initiated transfer to [facility]. mc5 17:59 patient accepted to [facility] by Dr Strong to 12 tower 1227, admin approval given mc5 by Jami Sandoval. 18:09 contacted [facility] to request transport, 45 min ETA. mc5 19:41 Patient transferred, IV remains in place. me1 Administered Medications: 13:12 Drug: Ketorolac IVP 15 mg IVP once Route: IVP; Site: left hand; me1 15:02 Follow up: Response: No adverse reaction; Pain is unchanged, physician notified me1 13:12 Drug: metoCLOPramide IVP 10 mg IVP once; over 1 to 2 minutes Route: IVP; Site: left me1 hand; 15:02 Follow up: Response: No adverse reaction me1 13:13 Drug: MethylPrednisoLONE IVP 1000 mg IVP once Route: IVP; Site: left hand; me1 15:01 Follow up: Response: No adverse reaction me1 13:13 Drug: NS 0.9% IV 1000 ml IV at 1 bolus Per protocol; 1000 mL bolus Route: IV; Rate: 1 me1 bolus; Site: left hand; 18:38 Follow up: IV Status: Completed infusion; IV Intake: 1000ml me1 13:13 Drug: diphenhydrAMINE IVP 25 mg IVP once Route: IVP; Site: left hand; me1 15:01 Follow up: Response: No adverse reaction me1 15:01 Drug: Magnesium Sulfate IVPB 2 grams IVPB once over 2 hrs Route: IVPB; Infused Over: 2 me1 hrs; Site: right antecubital; 16:47 Follow up: IV Status: Completed infusion me1 15:01 Drug: Haloperidol IVP 2.5 mg IVP once Route: IVP; Site: right antecubital; me1 15:42 Follow up: Response: No adverse reaction; Pain is decreased me1 17:23 Drug: Pantoprazole IVP 40 mg IVP once Route: IVP; Site: right antecubital; me1 18:37 Follow up: Response: No adverse reaction me1 Medication: 13:14 VIS not applicable for this client. me1 Intake: 18:38 IV: 1000ml; Total: 1000ml. me1 Outcome: 14:56 Decision to Hospitalize by Provider. ec2 16:09 ER care complete, transfer ordered by MD. ec2 19:[address] [facility], [facility], Transfer form completed. Note: Report me1 given to ИВАН Peña 19:40 Condition: stable 19:40 Instructed on the need for transfer, 20:03 Patient left the ED. ha1 Signatures: Dispatcher [employer] ED Mary Hodge, Royer Reg Simone Gomez ds4 Kaylee Jung RN RN ll1 Nellie Parra RN RN 1 Marlene Billy RN RN mt1 Mariza Staples 5 Luis Angel Yung MD MD ec2 Corrections: (The following items were deleted from the chart) 12:03 12:00 BP 128 / 77; Pulse 75bpm; Resp 17bpm; Pulse Ox 100%; Temp 97.7F; Pain 8/10, ll1 Adult; ll1 13:14 12:00 Chief complaint: Patient states: Loss of vision since last night. Sent by me1 opthmologist for IV steroids. Having MS flare-up with body/legs hurting, migraine SCOTT, and vision loss. 1
--- NOTE | 2023-03-22 14:57 | EDPHYS ---
Physician Documentation [facility] Name: Yun Saxena Age: 42 yrs Sex: Female : 1980 Arrival Date: 03/22/2023 Time: 11:43 Bed 17 Private MD: ED Physician Luis Angel Yung HPI: 03/22 12:08 This 42 yrs old Female presents to ER via Ambulatory with complaints of MS flare up, ec2 Vision Problem. 12:08 Patient arrives today due to concern for vision issues. States that she was seen by her 2 neuro-propulsion engineer today and was told that she had corneal inflammation and that she needed IV steroids. Patient reports that she has a history of MS, states that she has no bowel or bladder incontinence, has no focal weakness. States that she has some general blurry vision. Patient also with complaints of general head pain. Reports history of migraines.. 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 - Social history:: Smoking status: Reported history of juuling and/or vaping. ROS: 12:08 Constitutional: as per hpi ec2 Exam: 12:08 Constitutional: GEN: NAD Head: atraumatic Eyes: EOMI Ears: External ears are ec2 normal. CV: regular rate LUNGS: no respiratory distress ABD: non-distended SKIN: no evidence of rashes MSK: no evidence of trauma NEURO: moves all extremities equally, cranial nerves II through XII intact, strength intact all 4 extremities. Vital Signs: 12:00 BP 128 / 77; Pulse 75; Resp 17; Temp 97.7; Pulse Ox 100% ; Weight 78.93 kg; Height 5 ll1 ft. 3 in. ; Pain 8/10; 12:30 BP 108 / 66; Pulse 68; Resp 17; Pulse Ox 99% on R/A; me1 12:30 BP 105 / 67; Pulse 68; Resp 16; Pulse Ox 99% on R/A; me1 13:44 BP 116 / 69; Pulse 68; Resp 16; Pulse Ox 98% ; me1 14:30 BP 110 / 60; Pulse 68; Resp 17; Pulse Ox 97% on R/A; me1 16:37 BP 118 / 74; Pulse 72; Resp 15; Pulse Ox 96% on R/A; me1 17:14 BP 126 / 73; Pulse 80; Resp 18; Pulse Ox 96% on R/A; me1 18:00 BP 132 / 89; Pulse 72; Resp 21; Pulse Ox 95% on R/A; me1 20:02 BP 122 / 75; Pulse 78; Resp 15 S; Pulse Ox 95% on R/A; ha1 12:00 Body Mass Index 30.82 (78.93 kg, 160.02 cm) ll1 12:00 Pain Scale: Adult ll1 MDM: 12:07 Patient medically screened. ec2 12:08 Data reviewed: vital signs. ED course: Patient arrives today for evaluation of blurry ec2 vision in the setting of known history of MS. Examination remarkable for neuro intact individual is otherwise in no acute distress. Will obtain lab work, MR imaging and give the patient steroids. Currently suspect MS flare. Will evaluate for underlying triggers including electrolyte disturbances, anemia, UTI.. 14:42 ED course: CBC is reassuring. Negative COVID and flu testing. Chest x-ray shows no ec2 acute intrathoracic process. MR shows hyperintense focus in the right frontal lobe, possibly secondary to demyelinating disease which would be consistent with the patient's known diagnosis of MS. . 14:55 ED course: I discussed case with Dr. Gonzales, neurology's who agrees to consult on the ec2 patient. Will admit for MS flare, headache management.. 15:11 ED course: EKG independently reviewed and interpreted by me, shows normal sinus rhythm, ec2 rate of 72, no acute ST segment elevations, intervals are nonconcerning.. 16:12 ED course: Hospitalist Dr. Rojas declines admission, states patient requires transfer, ec2 will work on transferring.. 16:59 ED course: Discussed case w/ Dr. Yao [facility], hospitalist who agrees to ec2 accept the patient. . 17:10 ED course: I discussed the case with ophthalmology, neurology as well as hospitalist at ec2 [facility] who agreed to help manage this patient.. 03/22 12:11 Order name: CBC with Diff; Complete Time: 16:10 ec2 03/22 12:11 Order name: CMP; Complete Time: 16:10 ec2 03/22 12:11 Order name: COVID-19 SARS RT PCR; Complete Time: 14:41 ec2 03/22 12:11 Order name: Influenza Screen (a \T\ B); Complete Time: 14:41 ec2 03/22 15:06 Order name: CBC Smear Scan; Complete Time: 16:10 EDMS 03/22 12:11 Order name: MRI - Brain Wo Cont; Complete Time: 14:41 ec2 03/22 12:11 Order name: CXR XRAY; Complete Time: 14:41 ec2 03/22 12:11 Order name: EKG; Complete Time: 12:12 ec2 03/22 12:11 Order name: EKG - Nurse/Tech; Complete Time: 15:11 ec2 03/22 13:23 Order name: Labs - recollect needed: please recollect lavender top please; Complete mc5 Time: 14:11 03/22 13:42 Order name: Labs - recollect needed: Also recollect a green top please, per lab mc5 notification at 1341; Complete Time: 14:11 03/22 16:10 Order name: Visual Acuity; Complete Time: 17:23 ec2 Administered Medications: 13:12 Drug: Ketorolac IVP 15 mg IVP once Route: IVP; Site: left hand; me1 15:02 Follow up: Response: No adverse reaction; Pain is unchanged, physician notified me1 13:12 Drug: metoCLOPramide IVP 10 mg IVP once; over 1 to 2 minutes Route: IVP; Site: left me1 hand; 15:02 Follow up: Response: No adverse reaction me1 13:13 Drug: MethylPrednisoLONE IVP 1000 mg IVP once Route: IVP; Site: left hand; me1 15:01 Follow up: Response: No adverse reaction me1 13:13 Drug: NS 0.9% IV 1000 ml IV at 1 bolus Per protocol; 1000 mL bolus Route: IV; Rate: 1 me1 bolus; Site: left hand; 18:38 Follow up: IV Status: Completed infusion; IV Intake: 1000ml me1 13:13 Drug: diphenhydrAMINE IVP 25 mg IVP once Route: IVP; Site: left hand; me1 15:01 Follow up: Response: No adverse reaction me1 15:01 Drug: Magnesium Sulfate IVPB 2 grams IVPB once over 2 hrs Route: IVPB; Infused Over: 2 me1 hrs; Site: right antecubital; 16:47 Follow up: IV Status: Completed infusion me1 15:01 Drug: Haloperidol IVP 2.5 mg IVP once Route: IVP; Site: right antecubital; me1 15:42 Follow up: Response: No adverse reaction; Pain is decreased me1 17:23 Drug: Pantoprazole IVP 40 mg IVP once Route: IVP; Site: right antecubital; me1 18:37 Follow up: Response: No adverse reaction me1 Disposition Summary: 03/22/23 16:09 Transfer Ordered Notes: Transfer Location: Other Acute Care Facility ec2 Reason: Higher level of care ec2 Condition: Stable(03/22/23 16:09) ec2 Problem: an acute exacerbation(03/22/23 16:09) ec2 Symptoms: are unchanged(03/22/23 16:09) ec2 Accepting Physician: Dr. Yao (03/22/23 20:03) [facility] Diagnosis - Multiple sclerosis(03/22/23 16:09) ec2 Forms: - Medication Reconciliation Form ec2 - SBAR form ec2 Signatures: Dispatcher [employer] EDKaylee Tijerina RN RN [facility] Nellie Parra RN RN 1 Marlene Billy RN RN pa1 Mariza Staples 5 Luis Angel Yung MD MD ec2 Corrections: (The following items were deleted from the chart) 12:12 12:08 Patient arrives today due to concern for vision issues. States that she was seen ec2 by her neuro-propulsion engineer today and was told that she had corneal inflammation and that she needed IV steroids. Patient reports that she has a history of MS, states that she has no bowel or bladder incontinence, has no focal weakness. States that she has some general blurry vision.. ec2 16:09 14:56 Inpatient Admission ec2 ec2 16:09 14:56 Tram Kennedy ec2 ec2 16:09 14:56 Telemetry/MedSurg (Inpatient) ec2 ec2 16:09 14:56 Stable ec2 ec2 16:09 14:56 an acute exacerbation ec2 ec2 16:09 14:56 are unchanged ec2 ec2 16:09 14:56 Standard ec2 ec2 16:09 14:56 ec2 ec2 16:09 14:56 Multiple sclerosis ec2 ec2 16:59 16:09 transferring doc ec2 ec2 20:03 16:59 Dr. Yao ec2 ha1
[2023-03-22 15:05] LABS: Blood Morphology Comment NOT SEEN (NOT SEEN); Platelet Estimate ADEQ; White Blood Cell Scan OK (OK)
[2023-03-22 15:08] LABS: Albumin 3.6 g/dL (3.4-5.0); Bilirubin Total 0.5 mg/dL (0.2-1.0); Potassium 3.6 mEq/L (3.5-5.1); Protein, Total 8.2 g/dL (6.4-8.2)
[2023-03-23 00:29] VITALS: TEMP 97.7
[2023-03-23 00:37] VITALS: BP 122/75; O2SAT 95
--- NOTE | 2023-03-24 13:26 | EKG ---
Test Date: 2023-03-22 Test Time: 15:05:28 Compound Mixer: DOREEN MEASUREMENT RESULTS: Intervals: Rate: 72 DE: 176 QRSD: 106 QT: 422 QTc: 462 [place]: P: 56 DE: 176 QRS: 75 T: 35 INTERPRETIVE STATEMENTS: Normal sinus rhythm Normal ECG Compared to ECG 04/17/2022 09:32:34 Sinus tachycardia no longer present Electronically Signed On 03-24-23 13:22:25 GAS COMPRESSOR TURBINE OPERATOR by Luis Rg
== END ==
LOC: ER 11:43
DX: G35 Multiple sclerosis (principal); R51.9 Headache, unspecified; Z11.52 Encounter for screening for COVID-19; Z88.8 Allergy status to other drugs, medicaments and biological substances
CPT/HCPCS: 93005; 85025; 36415; 80053; 87635; 87804 ×2; 71045; 70551; 99285; J3475; J1630; J2765; J1200; C9113; J2930; J7030

== ENCOUNTER → 2023-05-13 | Emergency (ER) | payer BC ==
[2023-05-13 13:19] LABS: Specific Gravity < 1.005 (1.005-1.030); Urine Bilirubin NEGATIVE (Negative); Urine Blood Negative (Negative); Urine Clarity Clear (Clear); Urine Color Colorless (Yellow); Urine Glucose NEGATIVE (Negative); Urine Protein NEGATIVE (Negative); Urine Urobilinogen Normal (Normal); Urine pH 5.5 (5.0-7.0)
[2023-05-13 13:57] LABS: Protime INR 1.02
[2023-05-13 14:01] LABS: Absolute Lymphocytes (CBC) 1.7 K/uL (0.7-4.9); Hematocrit 38.2 % (36.0-45.0); Lymphocytes % 21.9 % (15.3-44.8); MCV 91.3 fL (80-100); MPV 6.8 fL (7.6-11.3); Platelets 255 thou/uL (152-406); RBC Red Blood Cell Count 4.18 M/uL (3.86-4.86)
[2023-05-13 14:32] LABS: Albumin 3.4 g/dL (3.4-5.0); Bilirubin Total 0.3 mg/dL (0.2-1.0); Protein, Total 7.8 g/dL (6.4-8.2)
--- NOTE | 2023-05-13 15:24 | RAD REPORT ---
EXAM DESCRIPTION: CT - Abdomen Pelvis W Contrast - 05/13/2023 3:01 pm CLINICAL HISTORY: lower abd pain, vaginal bleeding, rectal bleeding;Abd pain COMPARISON: Abdomen Pelvis W Contrast dated 04/23/2019; Abdomen Pelvis W Contrast dated 07/25/2017 ; CT ABD PELVIS W CONTRAST dated 01/03/2013 TECHNIQUE: Thin cut axial CT imaging of the abdomen and pelvis was performed following intravenous a dministration of iodinated contrast. Multiplanar reformats were generated and reviewed. All CT scans are performed using dose optimization technique as appropriate and may include automated exposure control or mA/KV adjustment according to patient size. FINDINGS: No suspicious findings in the lung bases. The liver, spleen, adrenal glands, and pancreas show no suspicious findings. Gallbladder was surgical ly removed. Symmetric renal function is seen with no hydronephrosis or suspicious renal mass. No dilated bowel loops or bowel wall thickening. No free air, free fluid or inflammatory stranding. N o hernia, mass or bulky lymphadenopathy. The urinary bladder is without significant finding. No suspicious bony findings. IMPRESSION: No acute or suspicious intra-abdominal process.
--- NOTE | 2023-05-13 15:37 | EDPHYS ---
Physician Documentation [facility] Name: Yun Saxena Age: 43 yrs Sex: Female : 1980 Arrival Date: 05/13/2023 Time: 12:24 Bed 9 Private MD: ED Physician Wood Manzanares HPI: 05/13 14:03 This 43 yrs old Female presents to ER via Ambulatory with complaints of Vaginal rn Bleeding, Rectal Bleeding, Dizziness. 14:03 Patient reports rectal bleeding and light vaginal bleeding that began today. No fever. rn No vomiting. No chest pain. No shortness of breath. Reports dark stool that was red with wiping. Also noted light vaginal bleeding and suprapubic cramping. Is confused because she states has had a total hysterectomy in the past. No trauma or intercourse recently. Does not take blood thinners.. Onset: The symptoms/episode began/occurred this morning. Severity of symptoms: At their worst the symptoms were mild in the emergency department the symptoms are unchanged. The patient has not experienced similar symptoms in the past. The patient has not recently seen a physician. 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 - Hospitalizations: : No recent hospitalization is reported. ROS: 14:03 Constitutional: Negative for fever, chills, and weight loss, Eyes: Negative for injury, rn pain, redness, and discharge, ENT: Negative for injury, pain, and discharge, Neck: Negative for injury, pain, and swelling, Cardiovascular: Negative for chest pain, palpitations, and edema, Respiratory: Negative for shortness of breath, cough, wheezing, and pleuritic chest pain, Abdomen/GI: Positive for suprapubic pressure and blood in stool Back: Negative for injury and pain, : Positive for light vaginal bleeding MS/Extremity: Negative for injury and deformity, Neuro: Negative for headache, weakness, numbness, tingling, and seizure, Exam: 14:03 Constitutional: This is a well developed, well nourished patient who is awake, alert, rn and in no acute distress. Head/Face: Normocephalic, atraumatic. Eyes: No pale conjunctiva noted Cardiovascular: Regular rate and rhythm. No pulse deficits. Respiratory: No increased work of breathing, no retractions or nasal flaring. Abdomen/GI: Soft, mild suprapubic tenderness. No distention. No rebound. Pelvic Exam: Normal external genitalia. Speculum exam normal without laceration or wound, no bleeding noted or blood in vault. No external rash or evidence of trauma. MS/ Extremity: Pulses equal, no cyanosis Neuro: Awake and alert, GCS 15 Vital Signs: 12:31 BP 123 / 74; Pulse 94; Resp 16; Temp 97.9; Pulse Ox 100% on R/A; Weight 78.93 kg; iw Height 5 ft. 3 in. ; Pain 5/10; 12:31 Body Mass Index 30.82 (78.93 kg, 160.02 cm) iw 12:31 Pain Scale: Adult iw MDM: 12:37 Patient medically screened. rn 15:35 Differential Diagnosis GI bleed, diverticulitis, colitis, proctitis. Data reviewed: rn vital signs, nurses notes, lab test result(s), radiologic studies, CT scan, and as a result, I will discharge patient. Counseling: I had a detailed discussion with the patient and/or guardian regarding the historical points, exam findings, and any diagnostic results supporting the discharge/admit diagnosis, lab results, radiology results, the need for outpatient follow up, to return to the emergency department if symptoms worsen or persist or if there are any questions or concerns that arise at home. Response to treatment: the patient's symptoms have mildly improved after treatment, and as a result, I will discharge patient. Special discussion: Based on the patient's Hx, exam, and Dx evaluation, there is no indication for emergent surgery or inpatient Tx. It is understood by the patient/guardian that if the Sx's persist or worsen they need to return immediately for re-evaluation. I discussed with the patient/guardian in detail that at this point there is no indication for admission to the hospital. It is understood, however, that if the symptoms persist or worsen the patient needs to return immediately for re-evaluation. ED course: No acute findings on imaging or blood. Normal H\T\H. Stable vitals. I have personally reviewed all of the results, including but not limited to blood tests and imaging deemed necessary to safely discharge this patient at this time. All results given to and printed out for patient. I personally went over all the results with the patient and answered all questions. Patient will follow-up with PCP and or specialist as discussed. Return precautions given and understood.. 05/13 12:43 Order name: CBC with Diff; Complete Time: 14:07 05/13 12:43 Order name: CMP; Complete Time: 14:36 rn 05/13 12:43 Order name: Lipase; Complete Time: 14:36 rn 05/13 12:43 Order name: Urinalysis w/ reflexes; Complete Time: 14:02 05/13 12:43 Order name: Protime (+inr); Complete Time: 14:02 05/13 12:43 Order name: Ptt, Activated; Complete Time: 14:02 05/13 12:43 Order name: CT Abd/Pelvis - IV Contrast Only; Complete Time: 15:27 05/13 12:43 Order name: EKG; Complete Time: 12:43 rn 05/13 12:43 Order name: IV Saline Lock; Complete Time: 13:44 05/13 12:43 Order name: Labs collected and sent; Complete Time: 13:44 05/13 12:43 Order name: EKG - Nurse/Tech; Complete Time: 13:51 rn Administered Medications: No medications were administered Disposition Summary: 05/13/23 15:36 Discharge Ordered Notes: Location: Home rn Problem: new rn Symptoms: have improved rn Condition: Stable rn Diagnosis - Lower abdominal pain, unspecified rn - Rectal bleeding rn Followup: rn - With: George Zhang MD - When: As needed - Reason: Recheck today's complaints, Re-evaluation by your physician Discharge Instructions: - Discharge Summary Sheet rn - Abdominal Pain, Adult rn - Pain Without a Known Cause rn Forms: - Medication Reconciliation Form rn - Thank You Letter rn - Antibiotic learn to swim instructor - Prescription Opioid Use rn - Patient Portal Instructions rn - Leadership Thank You Letter rn Prescriptions: - Flagyl 500 mg Oral Tablet - take 1 tablet ORAL route every 12 hours for 7 days; 14 tablet; Refills: 0, rn Product Selection Permitted - Cipro 500 mg Oral Tablet - take 1 tablet ORAL route every 12 hours for 7 days; 14 tablet; Refills: 0, rn Product Selection Permitted Signatures: Dispatcher [employer] Verona Nix RN RN iw Wood Manzanares MD MD government employee: (The following items were deleted from the chart) 12:35 12:33 PMHx: Reflective Sympathetic Dystrophy; [facility] 14:27 14:03 Constitutional: This is a well developed, well nourished patient who is awake, rn alert, and in no acute distress. Head/Face: Normocephalic, atraumatic. Eyes: No pale conjunctiva noted Cardiovascular: Regular rate and rhythm. No pulse deficits. Respiratory: No increased work of breathing, no retractions or nasal flaring. Abdomen/GI: Soft, mild suprapubic tenderness. No distention. No rebound. MS/ Extremity: Pulses equal, no cyanosis Neuro: Awake and alert, GCS 15 rn
--- NOTE | 2023-05-13 15:37 | ER ---
Nurse's Notes [facility] Name: Yun Saxena Age: 43 yrs Sex: Female : 1980 Arrival Date: 05/13/2023 Time: 12:24 Bed 9 Private MD: Diagnosis: Lower abdominal pain, unspecified;Rectal bleeding Presentation: 05/13 12:31 Chief complaint: Patient states: bleeding from my vagina and rectum, bright red blood, iw noticed it an hour ago, my stool was black and super soft, the bleeding is when she wipes, she has cramping in lower abd , the blood is mainly from her rectum, my bladder feels full, hx of complete hysterectomy , cramping like she is having a period. Coronavirus screen: At this time, the client does not indicate any symptoms associated with coronavirus-19. Ebola Screen: Patient negative for fever greater than or equal to 101.5 degrees Fahrenheit, and additional compatible Ebola Virus Disease symptoms Patient denies exposure to infectious person. Patient denies travel to an Ebola-affected area in the 21 days before illness onset. No symptoms or risks identified at this time. Initial Sepsis Screen: Does the patient meet any 2 criteria? No. Patient's initial sepsis screen is negative. Does the patient have a suspected source of infection? No. Patient's initial sepsis screen is negative. Risk Assessment: Do you want to hurt yourself or someone else? Patient reports no desire to harm self or others. Onset of symptoms was May 13, 2023. 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 - Hospitalizations: : No recent hospitalization is reported. Screenin:33 [facility] ED Fall Risk Assessment (Adult) Score/Fall Risk Level 0 - 2 = Low Risk. Abuse iw screen: Denies threats or abuse. Denies injuries from another. Nutritional screening: No deficits noted. Tuberculosis screening: No symptoms or risk factors identified. 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 General: Appears in no apparent iw distress. Behavior is calm, cooperative. : Genitalia appear normal Reports vaginal bleeding that is bright red, spotty. Vital Signs: 12:31 BP 123 / 74; Pulse 94; Resp 16; Temp 97.9; Pulse Ox 100% on R/A; Weight 78.93 kg; iw Height 5 ft. 3 in. ; Pain 5/10; 12:31 Body Mass Index 30.82 (78.93 kg, 160.02 cm) iw 12:31 Pain Scale: Adult iw ED Course: 12:28 Patient arrived in ED. im 12:33 Triage completed. iw 12:33 Arm band placed on. iw 12:37 Wood Manzanares MD is Attending Physician. rn 13:44 Initial lab(s) drawn, by tx, sent to lab. Inserted saline lock: 22 gauge in left jl7 forearm, using aseptic technique. Blood collected. 14:34 Patient has correct armband on for positive identification. Provided Education on: . iw 15:03 CT Abd/Pelvis - IV Contrast Only In Process Unspecified. EDMS 15:36 George Zhang MD is Referral Physician. rn Administered Medications: No medications were administered Medication: 14:34 VIS not applicable for this client. iw Outcome: 15:36 Discharge ordered by . rn 16:39 Patient left the ED. iw Signatures: Dispatcher [employer] EDMS Verona Giraldo RN RN Wood Manzanares MD MD rn Leal, Jahala, RN RN jl7 Angely Meraz im Corrections: (The following items were deleted from the chart) 12:34 12:31 BP 123 / 74; Pulse 94bpm; Resp 16bpm; Pulse Ox 100% RA; Temp 97.9F; iw iw 12:35 12:33 PMHx: Reflective Sympathetic Dystrophy; iw iw 14:33 14:27 : Genitalia appear normal Reports vaginal bleeding that is iw iw
[2023-05-13 17:03] VITALS: BP 123/74; TEMP 97.9; O2SAT 100
--- NOTE | 2023-05-16 11:04 | EKG ---
Test Date: 2023-05-13 Test Time: 13:49:32 Agronomy Manager: MAGDALENOW MEASUREMENT RESULTS: Intervals: Rate: 83 [place]: 156 QRSD: 88 QT: 364 QTc: 427 [place]: P: 56 NJ: 156 QRS: 86 T: 39 INTERPRETIVE STATEMENTS: Normal sinus rhythm Normal ECG Compared to ECG 03/22/2023 15:05:28 No significant changes Electronically Signed On 05-16-23 10:59:19 COMMUNITY AIDE by Jozef Rubio
== END ==
LOC: ER 12:24
DX: K62.5 Hemorrhage of anus and rectum (principal); Z88.8 Allergy status to other drugs, medicaments and biological substances
CPT/HCPCS: 85025; 36415; 85610; 85730; 81003; 83690; 80053; 74177; 99283; Q9967; 93005

== ENCOUNTER 2024-04-10 15:45 | Emergency (ER) | payer BC ==
--- NOTE | 2024-04-10 17:15 | RAD REPORT ---
EXAM: CT brain without contrast HISTORY: Headache COMPARISON: 2022 TECHNIQUE: Multiple contiguous axial images were obtained and a CT of the brain without contrast.. Sagittal and coronal reconstruction performed. Automated exposure control, adjustment of the mA and/or kV according to patient size, and/or iterative reconstruction. Unless otherwise specified, incidental f indings do not require dedicated imaging follow-up FINDINGS: An intracranial bleed is not seen Ventricles are normal caliber No extra-axial fluid collection noted No significant hypodensity within the brain Fluid within maxillary, ethmoid and sphenoid sinuses likely acute sinusitis IMPRESSION: No acute intracranial abnormality noted. Acute sinusitis
[2024-04-10] MEDS ORDERED: ACETAMINOPHEN 500 MG TAB ONE (17:17)
[2024-04-10] MEDS ORDERED: KETOROLAC 30 MG/ML INJ ONE (17:17)
[2024-04-10] MEDS ORDERED: DIPHENHYDRAMINE 50 MG/ML VIAL ONE (17:18)
[2024-04-10] MEDS ORDERED: METOCLOPRAMIDE 10 MG/2mL INJ ONE (17:18)
[2024-04-10] MEDS ORDERED: NA CHLORIDE 0.9% 1,000 ML ONE (17:18)
[2024-04-10 18:44] LABS: ALT/SGPT 29 U/L (13-56); AST/SGOT 27 U/L (15-37); Albumin 3.5 g/dL (3.4-5.0); Albumin/Globulin Ratio 0.8 (1.1-1.8); Alkaline Phosphatase 80 U/L (45-117); Anion Gap 8.6 mEq/L (5.0-15.0); BUN Blood Urea Nitrogen 13 mg/dL (7-18); Bicarbonate 29 mEq/L (21-32); Bilirubin Total 0.2 mg/dL (0.2-1.0); Globulin 4.6 g/dL (2.3-3.5); Glomerular Filtration Rate 74 ml/min (=/>90); Glucose Level 109 mg/dL (74-106); Potassium 3.6 mEq/L (3.5-5.1); Protein, Total 8.1 g/dL (6.4-8.2); Sodium Level 138 mEq/L (136-145)
[2024-04-10 18:45] LABS: Bilirubin Direct < 0.2 mg/dL (0-0.2); Troponin High Sensitivity < 3.0 pg/mL (<58.9)
--- NOTE | 2024-04-10 19:14 | EDPHYS ---
Physician Documentation [facility] Name: Yun Saxena Age: 44 yrs Sex: Female : 1980 Arrival Date: 04/10/2024 Time: 15:45 Bed 17 Private MD: ED Physician Shailesh Montenegro HPI: 04/10 18:20 This 44 yrs old Female presents to ER via Ambulatory with complaints of High Blood rt Pressure. 18:20 Patient presents to the ED with headache, reports of high blood pressure since rt yesterday. Patient states that was in the 160s to 110s. She has a history migraines, significant headaches are different than her regular migraines. Denies other complaints at this time, symptoms are moderate severity, no other aggravating or alleviating factors.. 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 - Infectious Disease History:: Denies. - Social history:: Smoking status: Reported history of juuling and/or vaping. - Family history:: not pertinent. ROS: 18:20 Constitutional: Negative for fever, chills, and weight loss, Cardiovascular: Negative rt for chest pain, palpitations, and edema, Respiratory: Negative for shortness of breath, cough, wheezing, and pleuritic chest pain, Abdomen/GI: Negative for abdominal pain, nausea, vomiting, diarrhea, and constipation, MS/Extremity: Negative for injury and deformity, Skin: Negative for injury, rash, and discoloration, 18:20 Neuro: Positive for headache, Negative for syncope, Exam: 18:20 Constitutional: This is a well developed, well nourished patient who is awake, alert, rt and in no acute distress. Head/Face: Normocephalic, atraumatic. Chest/axilla: Normal chest wall appearance and motion. Nontender with no deformity. No lesions are appreciated. Cardiovascular: Regular rate and rhythm with a normal S1 and S2. No gallops, murmurs, or rubs. Normal PMI, no JVD. No pulse deficits. Respiratory: Lungs have equal breath sounds bilaterally, clear to auscultation and percussion. No rales, rhonchi or wheezes noted. No increased work of breathing, no retractions or nasal flaring. Abdomen/GI: Soft, non-tender, with normal bowel sounds. No distension or tympany. No guarding or rebound. No evidence of tenderness throughout. Skin: Warm, dry with normal turgor. Normal color with no rashes, no lesions, and no evidence of cellulitis. MS/ Extremity: Pulses equal, no cyanosis. Neurovascular intact. Full, normal range of motion. Neuro: Awake and alert, GCS 15, oriented to person, place, time, and situation. Cranial nerves II-XII grossly intact. Motor strength 5/5 in all extremities. Sensory grossly intact. Cerebellar exam normal. Normal gait. 18:20 ECG was reviewed by the Attending Physician. Vital Signs: 16:20 BP 144 / 91; Pulse 96; Resp 15; Temp 98.2; Pulse Ox 95% on R/A; Weight 82.55 kg; Height cm10 5 ft. 3 in. ; Pain 7/10; 17:48 BP 127 / 73; Pulse 72; Resp 18; Temp 98.2; Pulse Ox 91% on R/A; kj2 17:49 Pulse Ox 97% on 2 lpm NC; kj2 19:05 BP 131 / 81; Pulse 78; Resp 20; Pulse Ox 100% on R/A; kj2 16:20 Body Mass Index 32.24 (82.55 kg, 160.02 cm) cm10 16:20 Pain Scale: Adult cm10 MDM: 16:33 Medical Screening Exam initiated rt 19:13 Differential diagnosis: hypertensive crisis, Intracranial hemorrhage, benign headache. rt Data reviewed: vital signs, nurses notes, lab test result(s), EKG, radiologic studies. Consideration of Admission/Observation Escalation of care including admission/observation considered. No evidence of endorgan dysfunction, headache resolved with treatment, stable for outpatient care, return precautions discussed. I considered the following discharge prescriptions or medication management in the emergency department Medications were administered in the Emergency Department. See MAR. Independent interpretation of the following test(s) in the Emergency Department CT Scan: My interpretation is No intracranial hemorrhage seen on my interpretation of CT scan images. Care significantly affected by the following chronic conditions: Migraine headaches. Counseling: I had a detailed discussion with the patient and/or guardian regarding the historical points, exam findings, and any diagnostic results supporting the discharge/admit diagnosis, lab results, radiology results, the need for outpatient follow up, to return to the emergency department if symptoms worsen or persist or if there are any questions or concerns that arise at home. Response to treatment: the patient's symptoms have markedly improved after treatment. 04/10 16:31 Order name: Basic Metabolic Panel; Complete Time: 19:10 rt 04/10 16:31 Order name: LFT's; Complete Time: 19:10 rt 04/10 16:31 Order name: Troponin HS; Complete Time: 19:10 rt 04/10 16:31 Order name: CT Head Brain wo Cont; Complete Time: 17:28 rt 04/10 16:31 Order name: Cardiac monitoring; Complete Time: 17:50 rt 04/10 16:31 Order name: EKG - Nurse/Tech; Complete Time: 17:50 rt 04/10 16:31 Order name: IV Saline Lock; Complete Time: 17:50 rt 04/10 16:31 Order name: Labs collected and sent; Complete Time: 18:17 rt 04/10 16:31 Order name: O2 Per Protocol; Complete Time: 17:50 rt 04/10 16:31 Order name: O2 Sat Monitoring; Complete Time: 17:50 rt 04/10 18:43 Order name: Labs - recollect needed: recollect lavender top bd EC:20 Rate is 72 beats/min. Rhythm is regular, Normal Sinus Rhythm with No ectopy. QRS [place] rt is Normal. LA interval is normal. QRS interval is normal. QT interval is normal. No Q waves. T waves are Normal. No ST changes noted. Administered Medications: 17:32 Drug: Acetaminophen PO 1000 mg PO once Route: PO; kj2 19:21 Follow up: Response: No adverse reaction kj2 18:30 Drug: Ketorolac IVP 15 mg IVP once Route: IVP; Site: right antecubital; kj2 19:21 Follow up: Response: No adverse reaction kj2 18:31 Drug: NS 0.9% IV 1000 ml IV at 1 bolus Per protocol; to be given as a bolus over 60 kj2 minutes Route: IV; Rate: 1 bolus; Site: right antecubital; 19:29 Follow up: IV Status: Completed infusion; IV Intake: 1000ml kj2 18:31 Drug: metoCLOPramide IVP 10 mg IVP once; over 1 to 2 minutes Route: IVP; Site: right kj2 antecubital; 19:22 Follow up: Response: No adverse reaction kj2 18:31 Drug: diphenhydrAMINE IVP 25 mg IVP once Route: IVP; Site: right antecubital; kj2 19:21 Follow up: Response: No adverse reaction kj2 Disposition Summary: 04/10/24 19:13 Discharge Ordered Notes: Location: Home rt Problem: new rt Symptoms: have improved rt Condition: Stable rt Diagnosis - Headache rt Followup: rt - With: Private Physician - When: 2 - 3 days - Reason: Discharge Instructions: - Discharge Summary Sheet rt - General Headache Without Cause rt Forms: - Medication Reconciliation Form rt - Antibiotic Education rt - Prescription Opioid Use rt - Patient Portal Instructions rt - Leadership Thank You Letter rt Signatures: Dispatcher [employer] Char Yung Ryan, MD MD rt Razia Lopez, RN RN cm10 Vanesa Villalta, ИВАН RN kj2 Corrections: (The following items were deleted from the chart) 16:32 16:32 Head Brain Wo Cont+CT.RAD.BRZ ordered. JESSY JIMÉNEZ
--- NOTE | 2024-04-10 19:14 | ER ---
Nurse's Notes [facility] Name: Yun Saxena Age: 44 yrs Sex: Female : 1980 Arrival Date: 04/10/2024 Time: 15:45 Bed 17 Private MD: Diagnosis: Headache Presentation: 04/10 16:20 Chief complaint: Patient states: High blood pressure, headache and shortness of breath cm10 onset 2 days ago. PT states that her BP was 166/110. Pt denies a history of HTN. Coronavirus screen: Client denies travel out of the [place] in the last 14 days. Ebola Screen: Patient denies travel to an Ebola-affected area in the 21 days before illness onset. Initial Sepsis Screen: Does the patient meet any 2 criteria? HR > 90 bpm. Does the patient have a suspected source of infection? No. Patient's initial sepsis screen is negative. Risk Assessment: Do you want to hurt yourself or someone else? Patient reports no desire to harm self or others. Onset of symptoms was April 09, 2024. 16:20 Method Of Arrival: Ambulatory cm10 16:20 Acuity: JEAN PIERRE 3 cm10 Triage Assessment: 16:21 General: Appears in no apparent distress. uncomfortable, Behavior is calm, cooperative. cm10 Pain: Complains of pain in head Pain does not radiate. Pain currently is 7 out of 10 on a pain scale. Quality of pain is described as pressure, throbbing. Neuro: No deficits noted. Level of Consciousness is awake, alert, obeys commands, Oriented to person, place, time, situation, Appropriate for age. Neuro: Reports blurred vision headache. Respiratory: No deficits noted. Airway is patent Respiratory effort is even, unlabored, Respiratory pattern is regular, symmetrical. Musculoskeletal: No deficits noted. Range of motion: intact in all extremities. 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 - Infectious Disease History:: Denies. - Social history:: Smoking status: Reported history of juuling and/or vaping. - Family history:: not pertinent. Screenin:00 [facility] ED Fall Risk Assessment (Adult) History of falling in the last 3 months, kj2 including since admission No falls in past 3 months (0 pts) Confusion or Disorientation No (0 pts) Intoxicated or Sedated No (0 pts) Impaired Gait No (0 pts) Mobility Assist Device Used No (0 pt) Altered Elimination No (0 pt) Score/Fall Risk Level 0 - 2 = Low Risk Maintained a safe environment, Hourly rounding (assess needs \T\ fall precautionary measures) done. Abuse screen: Denies threats or abuse. Denies injuries from another. Nutritional screening: No deficits noted. Tuberculosis screening: No symptoms or risk factors identified. Assessment: 17:00 General: Appears in no apparent distress. uncomfortable, Behavior is calm, cooperative. kj2 Pain: Complains of pain in head Pain currently is 5 out of 10 on a pain scale. Neuro: Level of Consciousness is Oriented to person, place, time, situation. Cardiovascular: Patient's skin is warm and dry. Respiratory: No deficits noted. Airway is patent Respiratory effort is even, unlabored. GI: No signs and/or symptoms were reported involving the gastrointestinal system. : No signs and/or symptoms were reported regarding the genitourinary system. 18:02 Reassessment: Patient appears in no apparent distress at this time. Patient and/or kj2 family updated on plan of care and expected duration. Pain level reassessed. Patient is alert, oriented x 3, equal unlabored respirations, skin warm/dry/pink. 19:05 Reassessment: Patient appears in no apparent distress at this time. Patient and/or kj2 family updated on plan of care and expected duration. Pain level reassessed. Patient is alert, oriented x 3, equal unlabored respirations, skin warm/dry/pink. Vital Signs: 16:20 BP 144 / 91; Pulse 96; Resp 15; Temp 98.2; Pulse Ox 95% on R/A; Weight 82.55 kg; Height cm10 5 ft. 3 in. ; Pain 7/10; 17:48 BP 127 / 73; Pulse 72; Resp 18; Temp 98.2; Pulse Ox 91% on R/A; kj2 17:49 Pulse Ox 97% on 2 lpm NC; kj2 19:05 BP 131 / 81; Pulse 78; Resp 20; Pulse Ox 100% on R/A; kj2 16:20 Body Mass Index 32.24 (82.55 kg, 160.02 cm) cm10 16:20 Pain Scale: Adult cm10 ED Course: 15:50 Patient arrived in ED. al6 16:03 Shailesh Montenegro MD is Attending Physician. rt 16:21 Triage completed. cm10 16:22 Arm band placed on right wrist. Patient placed in waiting room. cm10 16:57 Vanesa Villalta, RN is Primary Nurse. kj2 17:00 Patient has correct armband on for positive identification. Call light in reach. Adult kj2 w/ patient. Provided Education on: call light. 17:07 CT Head Brain wo Cont In Process Unspecified. EDMS 18:13 Initial lab(s) drawn, by me, sent to lab. Inserted saline lock: 24 gauge in right upper bc6 arm, using aseptic technique. Blood collected. Flushed with 10 mL NS. 18:17 Basic Metabolic Panel Sent. bc6 18:17 CBC with Diff Sent. bc6 18:17 LFT's Sent. bc6 18:17 Troponin HS Sent. bc6 19:20 No provider procedures requiring assistance completed. IV discontinued, intact, kj2 bleeding controlled, No redness/swelling at site. Pressure dressing applied. Administered Medications: 17:32 Drug: Acetaminophen PO 1000 mg PO once Route: PO; kj2 19:21 Follow up: Response: No adverse reaction kj2 18:30 Drug: Ketorolac IVP 15 mg IVP once Route: IVP; Site: right antecubital; kj2 19:21 Follow up: Response: No adverse reaction kj2 18:31 Drug: NS 0.9% IV 1000 ml IV at 1 bolus Per protocol; to be given as a bolus over 60 kj2 minutes Route: IV; Rate: 1 bolus; Site: right antecubital; 19:29 Follow up: IV Status: Completed infusion; IV Intake: 1000ml kj2 18:31 Drug: metoCLOPramide IVP 10 mg IVP once; over 1 to 2 minutes Route: IVP; Site: right kj2 antecubital; 19:22 Follow up: Response: No adverse reaction kj2 18:31 Drug: diphenhydrAMINE IVP 25 mg IVP once Route: IVP; Site: right antecubital; kj2 19:21 Follow up: Response: No adverse reaction kj2 Medication: 17:49 VIS not applicable for this client. kj2 Intake: 19:29 IV: 1000ml; Total: 1000ml. kj2 Outcome: 19:13 Discharge ordered by MD. rt 19:20 Discharged to home ambulatory, kj2 19:20 Condition: stable 19:20 Discharge instructions given to patient, Instructed on discharge instructions, follow up and referral plans. 19:28 Patient left the ED. kj2 Signatures: Dispatcher [employer] EDMS Shailesh Montenegro MD MD rt Aliza Fried bc6 Razia Lopez RN RN cm10 Vanesa Villalta RN RN kj2 Mara Hairston6
--- NOTE | 2024-04-12 11:55 | EKG ---
Test Date: 2024-04-10 Test Time: 17:40:56 [facility] Former: [facility] MEASUREMENT RESULTS: Intervals: Rate: 72 MN: 160 QRSD: 88 QT: 398 QTc: 435 [place]: P: 70 MN: 160 QRS: 63 T: 70 INTERPRETIVE STATEMENTS: Normal sinus rhythm Normal ECG Compared to ECG 05/13/2023 13:49:32 No significant changes Electronically Signed On 04-12-24 11:53:46 TOOTH INSPECTOR by Jozef Rubio
[2024-04-13 01:38] VITALS: BP 131/81; TEMP 98.2; O2SAT 100
== END 2024-04-10 19:28 | disposition home or self-care (01) ==
LOC: ER 15:45
DX: R51.9 Headache, unspecified (principal)
CPT/HCPCS: 96361; 93005; 80048; 36415; 80076; 84484; 70450; 96375; 96374; 99284; J2765; J1200; J7030

== ENCOUNTER 2024-06-20 17:08 | Inpatient (IN) | payer BC ==
[2024-06-20] MEDS ORDERED: ONDANSETRON 4 MG/2 ML VIAL ONE (18:01)
[2024-06-20] MEDS ORDERED: NA CHLORIDE 0.9% 1,000 ML ONE (18:01)
[2024-06-20] MEDS ORDERED: FAMOTIDINE 20 MG/2 ML VIAL IV ONE (18:01)
[2024-06-20] MEDS ORDERED: MORPHINE 4 MG/ML SYR ONE ×2 (18:01→21:40)
[2024-06-20 18:33] LABS: Absolute Basophils 0.1 K/uL (0-0.5); Absolute Lymphocytes (CBC) 0.6 K/uL (0.7-4.9); Absolute Monocytes 0.2 K/uL (0.1-1.3); Absolute Neutrophil 15.6 K/uL (1.8-8.0); Basophils % 0.4 % (0-1.3); Hematocrit 38.9 % (36.0-45.0); Hemoglobin 12.7 g/dL (12.0-15.0); Lymphocytes % 3.6 % (15.3-44.8); MCH 28.9 pg (27.0-35.0); MCHC 32.5 g/dL (32.0-36.0); MCV 88.9 fL (80-100); MPV 6.7 fL (7.6-11.3); Monocytes % 1.3 % (3.3-12.3); Neutrophils % 94.7 % (41.7-73.7); Nucleated Red Blood Cells % 0.2 % (0-0); Platelets 371 thou/uL (152-406); RBC Red Blood Cell Count 4.38 M/uL (3.86-4.86); Red Cell Distribution Width 14.7 % (12.1-15.2)
[2024-06-20 18:47] LABS: Albumin 3.7 g/dL (3.4-5.0); Albumin/Globulin Ratio 0.8 (1.1-1.8); Anion Gap 18.1 mEq/L (5.0-15.0); Bilirubin Total 0.4 mg/dL (0.2-1.0); Globulin 4.7 g/dL (2.3-3.5); Potassium 4.1 mEq/L (3.5-5.1); Protein, Total 8.4 g/dL (6.4-8.2)
[2024-06-20] MEDS ORDERED: PROMETHAZINE INJ 25 MG/ML AMP ONE ×2 (19:17→20:47)
--- NOTE | 2024-06-20 19:56 | RAD REPORT ---
EXAMINATION: CT ABDOMEN AND PELVIS WITH CONTRAST CLINICAL INDICATION: Abdominal pain TECHNIQUE: CT abdomen and pelvis was performed, after the administration of 100 cc Isovue-300.. Sagit gabriele and coronal reconstructions were obtained. One or more of the following dose reduction techniques were used: Automated exposure control, adjustment of the mA and kV according to patient si ze, and iterative reconstruction. Unless otherwise specified, incidental findings do not require dedicated imaging follow-up. [id number]. Oral contrast was not given which limits evaluation of bowel and appendix. COMPARISON: FINDINGS: Mild fatty liver. Cholecystectomy. The pancreas, adrenals and kidneys unremarkable. Normal appendix. The wall of most of the colon is mildly to moderately thickened. This is most prominent in the transv erse colon. This is compatible with colitis. Test analysis does not seen. Trace amount of free fluid is present. Hysterectomy. No adnexal mass. : IMPRESSION: Mild to moderate paredes colitis.
--- NOTE | 2024-06-20 21:00 | ER ---
Nurse's Notes [facility] Name: Yun Saxena Age: 44 yrs Sex: Female : 1980 Arrival Date: 06/20/2024 Time: 17:08 Bed 28 Private MD: Diagnosis: Pancolitis Presentation: 06/20 17:45 Chief complaint: Patient states: abd pain , n/v/d started yesterday. Coronavirus iw screen: At this time, the client does not indicate any symptoms associated with coronavirus-19. Ebola Screen: No symptoms or risks identified at this time. Initial Sepsis Screen: Does the patient meet any 2 criteria? No. Patient's initial sepsis screen is negative. Does the patient have a suspected source of infection?. Risk Assessment: Do you want to hurt yourself or someone else? Patient reports no desire to harm self or others. Onset of symptoms was June 19, 2024. 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 - Infectious Disease History:: Denies. - Family history:: not pertinent. - Social history:: Smoking status: Patient denies any tobacco usage or history of. Screenin:08 [facility] ED Fall Risk Assessment (Adult) History of falling in the last 3 months, ph including since admission No falls in past 3 months (0 pts) Confusion or Disorientation No (0 pts) Intoxicated or Sedated No (0 pts) Impaired Gait No (0 pts) Mobility Assist Device Used No (0 pt) Altered Elimination No (0 pt) Score/Fall Risk Level 0 - 2 = Low Risk Oriented to surroundings, Maintained a safe environment, Hourly rounding (assess needs \T\ fall precautionary measures) done. Abuse screen: Denies threats or abuse. Denies injuries from another. Nutritional screening: No deficits noted. Tuberculosis screening: No symptoms or risk factors identified. Assessment: 18:08 General: Appears in no apparent distress. uncomfortable, Behavior is calm, cooperative. ph Pain: Complains of pain in abdomen. Neuro: Level of Consciousness is awake, alert, obeys commands, Oriented to person, place, time, situation. Cardiovascular: Capillary refill < 3 seconds in bilateral fingers Patient's skin is warm and dry. Respiratory: Airway is patent Respiratory effort is even, unlabored. GI: Abdomen is non-distended, Reports upper abdominal pain, nausea, vomiting. Derm: Skin is pink, warm \T\ dry. 19:24 General: Appears in no apparent distress. uncomfortable, Behavior is calm, cooperative. al5 Pain: Complains of pain in abdomen. Neuro: Level of Consciousness is awake, alert, obeys commands, Oriented to person, place, time, situation. Cardiovascular: Capillary refill < 3 seconds Patient's skin is warm and dry. Respiratory: Airway is patent Respiratory effort is even, unlabored, Respiratory pattern is regular, symmetrical. GI: Abdomen is flat, non-distended, Reports upper abdominal pain, nausea, vomiting. : No signs and/or symptoms were reported regarding the genitourinary system. EENT: No signs and/or symptoms were reported regarding the EENT system. Derm: Skin is intact, is healthy with good turgor, Skin is pink, warm \T\ dry. normal. Musculoskeletal: No signs and/or symptoms reported regarding the musculoskeletal system. Vital Signs: 17:45 BP 168 / 89; Pulse 79; Resp 16; Temp 98.4; Pulse Ox 97% on R/A; Weight 81.65 kg; Height iw 5 ft. 3 in. ; Pain 8/10; 18:28 BP 148 / 76; Pulse 77; Resp 18; Pulse Ox 100% on R/A; ph 20:06 BP 158 / 81; Pulse 80; Resp 18; Pulse Ox 99% ; cp4 17:45 Body Mass Index 31.89 (81.65 kg, 160.02 cm) iw 17:45 Pain Scale: Adult iw ED Course: 17:20 Patient arrived in ED. gm2 17:20 Yanick Barker MD is Attending Physician. emily 17:46 Triage completed. iw 17:54 Pamela Concepcion FNP-C is PHCP. kb 17:55 Argenis Wilkinson, RN is Primary Nurse. ph 18:08 Radiology exam delayed due to lab results not completed at this time. (BUN/Creatinine) sj test not completed at this time. IV insertion attempt and/or patient not having appropriate IV at this time. 18:08 Patient has correct armband on for positive identification. Bed in low position. Call ph light in reach. Side rails up X 1. Pulse ox on. NIBP on. Door closed. Noise minimized. Warm blanket given. 18:09 Arm band placed on Patient placed in an exam room. ph 18:09 EKG done, by ED staff, reviewed by Pamela HUSAIN. ph 18:27 Initial lab(s) drawn, by me, sent to lab. Inserted saline lock: 24 gauge in right ph antecubital area, using aseptic technique. Blood collected. Flushed with 10 mL NS. 18:40 Radiology exam delayed due to lab results not completed at this time. (BUN/Creatinine). nj 19:22 Primary Nurse role handed off by Argenis Wilkinson, RN rv1 19:24 Radha Rayo, ИВАН is Primary Nurse. al5 19:41 CT Abd/Pelvis - IV Contrast Only In Process Unspecified. EDMS 20:59 Prince Bassett MD is Hospitalizing Provider. kb 21:49 Linen changed. vk 06/21 02:52 No provider procedures requiring assistance completed. Patient did not have IV access vc1 during this emergency room visit. 02:55 Provided Education on: pain meds. vc1 Administered Medications: 06/20 18:27 Drug: Famotidine IVP 20 mg IVP once; dilute with 10 mL 0.9% NaCl; give over 2 minutes ph Route: IVP; Site: right antecubital; 18:27 Drug: Ondansetron IVP 4 mg IVP once; over 2 minutes Route: IVP; Site: right antecubital;ph 18:27 Drug: morphine IVP or IV 4 mg IVP once over 4 mins Route: IVP; Infused Over: 4 mins; ph Site: right antecubital; 18:27 Drug: NS 0.9% IV 1000 ml IV at 1 bolus Per protocol; to be given as a bolus over 60 ph minutes Route: IV; Rate: 1 bolus; Site: right antecubital; 19:24 Drug: Promethazine IVP 12.5 mg IVP once Route: IVP; Site: right antecubital; al5 20:56 Drug: Promethazine IVP 12.5 mg IVP once Route: IVP; Site: right antecubital; cp4 21:48 Not Given (Physician Discretion): [id number] mg 200 ml IVPB once over 60 mins cp4 21:48 Not Given (Physician Discretion): [id number] mg 100 ml IVPB at 200 ml/hr once cp4 over 30 mins 22:03 Drug: morphine IVP or IV 4 mg IVP once over 4 mins Route: IVP; Infused Over: 4 mins; cp4 Site: right hand; Medication: 18:09 VIS not applicable for this client. ph Outcome: 21:00 Decision to Hospitalize by Provider. kb 06/21 02:52 Admitted to ER Hold. Please see komoot for further documentation. vc1 Condition: stable Instructed on the need for admit, 17:04 Patient left the ED. ss Signatures: Dispatcher [employer] EDMS Pamela Concepcion, BUS STARTER-C BUS STARTER-Ckb Yanick Barker MD MD cha Jones, Susan sj Williams, Irene, RN ИВАН Samanta Curran RN RN Argenis Wilkinson RN RN ph Jordan, Nathan nj Calcote, Vanessa, RN RN vc1 Yanni Santiago [place] cp4 Rea Turner Vivian vk Langhorst, Amanda, RN RN al5
--- NOTE | 2024-06-20 21:01 | EDPHYS ---
Physician Documentation [facility] Name: Yun Saxena Age: 44 yrs Sex: Female : 1980 Arrival Date: 06/20/2024 Time: 17:08 Bed 28 Private MD: KATELYNN Physician Yanick Barker HPI: 06/20 17:24 This 44 yrs old Female presents to ER via Unassigned with complaints of emily Nausea/Vomiting, Decreased Appetite, Weakness, Abdominal Pain. 17:24 The patient presents to the emergency department with nausea, vomiting, diarrhea, that emily is continuous, abdominal pain. Onset: The symptoms/episode began/occurred 1 day(s) ago. Possible causes: bad food exposure, flare up of bowel problem, sick contacts. The symptoms are aggravated by nothing. The symptoms are alleviated by nothing. Associated signs and symptoms: The patient has no apparent associated signs or symptoms. Severity of symptoms: At their worst the symptoms were mild moderate in the emergency department the symptoms are unchanged. The patient has experienced similar episodes in the past, a few times. 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 - Infectious Disease History:: Denies. - Family history:: not pertinent. - Social history:: Smoking status: Patient denies any tobacco usage or history of. ROS: 17:27 Constitutional: Negative for fever, chills, and weight loss, Eyes: Negative for injury, emily pain, redness, and discharge, ENT: Negative for injury, pain, and discharge, Neck: Negative for injury, pain, and swelling, Cardiovascular: Negative for chest pain, palpitations, and edema, Respiratory: Negative for shortness of breath, cough, wheezing, and pleuritic chest pain, Back: Negative for injury and pain, : Negative for injury, bleeding, discharge, and swelling, MS/Extremity: Negative for injury and deformity, Skin: Negative for injury, rash, and discoloration, Neuro: Negative for headache, weakness, numbness, tingling, and seizure, Psych: Negative for depression, anxiety, suicide ideation, homicidal ideation, and hallucinations, Allergy/Immunology: Negative for hives, rash, and allergies, Endocrine: Negative for neck swelling, polydipsia, polyuria, polyphagia, and marked weight changes, Hematologic/Lymphatic: Negative for swollen nodes, abnormal bleeding, and unusual bruising, 17:27 Abdomen/GI: Positive for abdominal pain, nausea and vomiting, diarrhea, of the right upper quadrant, left upper quadrant, right lower quadrant and left lower quadrant, Exam: 17:27 Constitutional: This is a well developed, well nourished patient who is awake, alert, emily and in no acute distress. Head/Face: Normocephalic, atraumatic. Eyes: Pupils equal round and reactive to light, extra-ocular motions intact. Lids and lashes normal. Conjunctiva and sclera are non-icteric and not injected. Cornea within normal limits. Periorbital areas with no swelling, redness, or edema. ENT: Nares patent. No nasal discharge, no septal abnormalities noted. Tympanic membranes are normal and external auditory canals are clear. Oropharynx with no redness, swelling, or masses, exudates, or evidence of obstruction, uvula midline. Mucous membranes moist. Neck: Trachea midline, no thyromegaly or masses palpated, and no cervical lymphadenopathy. Supple, full range of motion without nuchal rigidity, or vertebral point tenderness. No Meningismus. Chest/axilla: Normal chest wall appearance and motion. Nontender with no deformity. No lesions are appreciated. Cardiovascular: Regular rate and rhythm with a normal S1 and S2. No gallops, murmurs, or rubs. Normal PMI, no JVD. No pulse deficits. Respiratory: Lungs have equal breath sounds bilaterally, clear to auscultation and percussion. No rales, rhonchi or wheezes noted. No increased work of breathing, no retractions or nasal flaring. Back: No spinal tenderness. No costovertebral tenderness. Full range of motion. Skin: Warm, dry with normal turgor. Normal color with no rashes, no lesions, and no evidence of cellulitis. MS/ Extremity: Pulses equal, no cyanosis. Neurovascular intact. Full, normal range of motion., bilateral aka Neuro: Awake and alert, GCS 15, oriented to person, place, time, and situation. Cranial nerves II-XII grossly intact. Motor strength 5/5 in all extremities. Sensory grossly intact. Cerebellar exam normal. Normal gait. Psych: Awake, alert, with orientation to person, place and time. Behavior, mood, and affect are within normal limits. 17:27 Abdomen/GI: Inspection: distension, that is mild, Bowel sounds: active, all quadrants, Palpation: mild abdominal tenderness, in all quadrants, Liver: no appreciated palpable abnormalities, Hernia: not appreciated, 17:27 Musculoskeletal/extremity: Circulation is intact in all extremities. Sensation intact. Compartment Syndrome exam of affected extremity: is normal. Weight bearing: able to fully bear weight, DVT Exam: No signs of deep vein thrombosis. no pain, no swelling, no tenderness, negative Homans' sign noted on exam, no appreciated bluish discoloration, no erythema, no increased warmth, 17:27 Neuro: Orientation: is normal, appropriate for stated age, no acute changes, Mentation: is normal, appropriate for stated age, no acute changes, Memory: is normal, appropriate for stated age, no acute changes, Cranial nerves: grossly normal, is grossly normal based on the patient's age, no acute changes, Cerebellar function: is grossly normal, is grossly normal based on the patient's age, no acute changes, Motor: is normal, is grossly normal based on the patient's age, Sensation: is normal, no obvious gross deficits, appropriate Gait: not applicable seizure activity, is not displayed by the patient, 18:48 ECG was reviewed by the Attending Physician. kb Vital Signs: 17:45 BP 168 / 89; Pulse 79; Resp 16; Temp 98.4; Pulse Ox 97% on R/A; Weight 81.65 kg; Height iw 5 ft. 3 in. ; Pain 8/10; 18:28 BP 148 / 76; Pulse 77; Resp 18; Pulse Ox 100% on R/A; ph 20:06 BP 158 / 81; Pulse 80; Resp 18; Pulse Ox 99% ; cp4 17:45 Body Mass Index 31.89 (81.65 kg, 160.02 cm) iw 17:45 Pain Scale: Adult iw MDM: 17:20 Medical Screening Exam initiated emily 17:30 Differential diagnosis: Nonspecific abd pain, gastritis, pancreatitis, diverticulitis, emily viral gastroenteritis, gastroenteritis. Data reviewed: vital signs, nurses notes, lab test result(s), EKG, radiologic studies, CT scan, plain films. Consideration of Admission/Observation Patient was admitted/placed on observation. Escalation of care including admission/observation considered. I considered the following discharge prescriptions or medication management in the emergency department Medications were administered in the Emergency Department. See MAR. Independent interpretation of the following test(s) in the Emergency Department EKG: See my EKG interpretation above. Test considered but Not performed: Ultrasound no abd usg. Historians other than the Patient: pt well informed. Care significantly affected by the following chronic conditions: Obesity, ms, ra. Counseling: I had a detailed discussion with the patient and/or guardian regarding the historical points, exam findings, and any diagnostic results supporting the discharge/admit diagnosis, lab results, radiology results. 17:46 Medical Screening Exam initiated emily 20:23 Management of patient was discussed with the following: Hospitalist: Dr Bassett accepts kb pt for admission. Counseling: I had a detailed discussion with the patient and/or guardian regarding the need for further work-up and treatment in the hospital. 06/20 17:24 Order name: CBC with Diff; Complete Time: 18:47 [facility] 06/20 17:24 Order name: CMP; Complete Time: 18:48 [facility] 06/20 17:24 Order name: Lipase; Complete Time: 18:48 [facility] 06/20 17:24 Order name: Urinalysis w/ reflexes; Complete Time: 13:51 [facility] 06/20 18:49 Order name: Troponin High Sensitivity; Complete Time: 22:36 kb 06/20 20:05 Order name: Blood Culture Adult (2); Complete Time: 13:51 kb 06/20 20:05 Order name: Lactate w/ 2H reflex if indic.; Complete Time: 22:36 kb 06/20 20:05 Order name: Protime (+inr); Complete Time: 21:56 kb 06/20 20:05 Order name: Ptt, Activated; Complete Time: 21:56 kb 06/20 21:10 Order name: Magnesium [facility] 06/20 21:10 Order name: Phosphorus [facility] 06/20 21:10 Order name: Urinalysis w/ reflexes [facility] 06/20 21:10 Order name: Basic Metabolic Panel [facility] 06/20 21:10 Order name: Basic Metabolic Panel; Complete Time: 13:51 [facility] 06/20 21:10 Order name: Basic Metabolic Panel; Complete Time: 13:51 [facility] 06/20 21:10 Order name: Basic Metabolic Panel; Complete Time: 13:51 [facility] 06/20 21:10 Order name: CBC with Automated Diff [facility] 06/20 21:10 Order name: CBC with Automated Diff; Complete Time: 13:51 [facility] 06/20 21:10 Order name: CBC with Automated Diff; Complete Time: 13:51 [facility] 06/20 21:10 Order name: CBC with Automated Diff; Complete Time: 13:51 [facility] 06/20 21:12 Order name: C.difficile GDH Ag [facility] 06/20 21:12 Order name: Calprotectin, Stool [facility] 06/20 21:12 Order name: Fat Screen, Stool [facility] 06/20 21:12 Order name: Lactoferrin, Stool [facility] 06/20 21:12 Order name: Ova and Parasites [facility] 06/20 21:12 Order name: Stool Culture [facility] 06/21 05:51 Order name: Phosphorus; Complete Time: 13:51 [facility] 06/21 05:51 Order name: Magnesium; Complete Time: 13:51 [facility] 06/20 17:24 Order name: CT Abd/Pelvis - IV Contrast Only; Complete Time: 19:57 [facility] 06/21 06:04 Order name: RAD; Complete Time: 13:51 [facility] 06/20 17:24 Order name: EKG; Complete Time: 17:25 [facility] 06/20 17:24 Order name: IV Saline Lock; Complete Time: 18:27 [facility] 06/20 17:24 Order name: Labs collected and sent; Complete Time: 18:27 [facility] 06/20 17:24 Order name: EKG - Nurse/Tech; Complete Time: 18:09 [facility] 06/20 20:05 Order name: Vital Signs; Complete Time: 20:06 kb EC:48 Rate is 77 beats/min. Rhythm is regular. QRS [place] is Normal. [place] interval is normal at kb 148 msec. QRS interval is normal at 82 msec. QT interval is normal at 454 msec. Administered Medications: 18:27 Drug: Famotidine IVP 20 mg IVP once; dilute with 10 mL 0.9% NaCl; give over 2 minutes ph Route: IVP; Site: right antecubital; 18:27 Drug: Ondansetron IVP 4 mg IVP once; over 2 minutes Route: IVP; Site: right antecubital;ph 18:27 Drug: morphine IVP or IV 4 mg IVP once over 4 mins Route: IVP; Infused Over: 4 mins; ph Site: right antecubital; 18:27 Drug: NS 0.9% IV 1000 ml IV at 1 bolus Per protocol; to be given as a bolus over 60 ph minutes Route: IV; Rate: 1 bolus; Site: right antecubital; 19:24 Drug: Promethazine IVP 12.5 mg IVP once Route: IVP; Site: right antecubital; al5 20:56 Drug: Promethazine IVP 12.5 mg IVP once Route: IVP; Site: right antecubital; cp4 21:48 Not Given (Physician Discretion): [id number] mg 200 ml IVPB once over 60 mins cp4 21:48 Not Given (Physician Discretion): [id number] mg 100 ml IVPB at 200 ml/hr once cp4 over 30 mins 22:03 Drug: morphine IVP or IV 4 mg IVP once over 4 mins Route: IVP; Infused Over: 4 mins; cp4 Site: right hand; Disposition Summary: 06/20/24 21:00 Hospitalization Ordered Notes: Hospitalization Status: Observation kb Provider: Prince della Bassett Condition: Stable kb Problem: new kb Symptoms: are unchanged kb Bed/Room Type: Standard kb Location: Telemetry/MedSurg (observation)(06/21/24 15:51) kb3 Room Assignment: 408(06/21/24 15:51) kb3 Diagnosis - Pancolitis kb Forms: - Medication Reconciliation Form kb - SBAR form kb - Leadership Thank You Letter kb Addendum: 06/26/2024 15:25 Co-signature as Attending Physician, Yanick Barker MD I agree with the assessment and c parikh plan of care. Signatures: Dispatcher [employer] Pamela Whitfield, CHILI PEPPER GRINDER-C CHILI PEPPER GRINDER-CkYanick Solorzano MD MD cha Williams, Irene, RN RN iw Argenis Wilkinson RN RN Maddison Mathews RN RN vc1 Rula Stockton RN RN kb3 Aliza Fried bc6 [place] cp4 Radha Rayo, RN RN al5 Corrections: (The following items were deleted from the chart) 06/20 20:05 20:05 BLOOD CULTURE*+BA.LAB.BRZ ordered. EDMS EDMS 20:05 20:05 LACTATE+C.LAB.BRZ ordered. EDMS EDMS 20:05 20:05 PROTIME (+INR)+COAG.LAB.BRZ ordered. EDMS EDMS 20:05 20:05 PTT, ACTIVATED+COAG.LAB.BRZ ordered. EDMS EDMS 22:00 21:00 Telemetry/MedSurg (observation) kb vc1 22:00 21:00 kb vc1 06/21 13:12 06/20 22:00 [facility] ER HOLD vc1 bc6 06/21 13:12 06/20 22:00 ERHOLD- vc1 bc6 06/21 13:38 13:12 Telemetry/MedSurg (Inpatient) bc6 bc6 13:38 13:12 416 bc6 bc6 13:55 13:38 bc6 kb3 15:51 13:38 [facility] ER HOLD bc6 kb3 15:51 13:55 ERHOLD- kb3 kb3
[2024-06-20] MEDS: PANTOPRAZOLE 40 MG INJ IVP SCH (21:08)
[2024-06-20] MEDS: PIPER TAZO 3.375 GM in NA CHLORIDE 0.9% 100 ML IV SCH (21:08)
--- NOTE | 2024-06-20 21:16 | P.HP ---
Certification for Inpatient Patient admitted to: Inpatient With expected LOS: >2 Midnights Practitioner: I am a practitioner with admitting privileges, knowledge of patient current condition, hospital course, and medical plan of care. Services: Services provided to patient in accordance with Admission requirements found in Title 42 Section 412.3 of the Code of Federal Regulations Patient History Date of Service: 06/20/24 Reason for admission: bloody stools, pancolitis History of Present Illness: Patient is a 44 year old female with a PMH of Multiple Sclerosis, RA, Bipolar and Seizure disorder. She presents to the ER with acutely worsening abdominal pain. She is describing a diffuse abdominal pain associated with bloody stool and low grade fever. She had a temperature of 100.1 degrees. Associated symptoms include intractable nausea and vomiting. CT A/P in the ER showed pancolitis. She has no history of IBD. Case discussed with GI, Dr. Zhang. She will most likely need a COL in 2-3 weeks. In the meantime, will admit for infectious colitis. Allergies gabapentin Allergy (Severe, Verified 09/09/15 22:10) Shortness of breath Home Medications: Estrogens,Conjugated [Premarin] 1.25 mg PO DAILY 06/05/11 Promethazine HCl 25 mg PO Q8HP PRN 08/06/15 Alprazolam [Xanax Xr] 2 mg PO DAILY 09/09/15 Fluoxetine HCl [Prozac*] 20 mg PO DAILY 09/09/15 Adalimumab [Humira 40 MG/0.8 ML*] 0.8 ml SQ Q14D 07/26/17 Folic Acid 1 mg PO DAILY 07/26/17 Methotrexate Sodium/Pf [Methotrexate 25 mg/ml Vial] 0.8 ml SQ Q7D 07/26/17 Tizanidine HCl 4 mg PO TIDP PRN 07/26/17 Topiramate 150 mg PO DAILY 07/26/17 fentaNYL [Fentanyl] 1 patch TOP Q72H 07/26/17 ondansetron HCL [Zofran] 8 mg PO PRN PRN 07/26/17 - Past Medical/Surgical History Diabetic: No -: Chronic pain syndrome -: Adult defecit disorder -: Depression -: Migraine headache -: Hormone replacement therapy -: Fibromyalgia -: RA -: Pain pump -: hysterectomy -: rufina - Family History Father -: Heart disease, Stroke - Social History Alcohol use: No CD- Drugs: No Caffeine use: No Physical Examination - Physical Exam General: Severe distress HEENT: Atraumatic, Normocephalic Cardiovascular: No edema Gastrointestinal: Soft and benign, Tenderness Neurological: Normal speech - Studies Laboratory Data (last 24 hrs) 06/20/24 06/20/24 18:18 18:18 WBC 16.50 H Hgb 12.7 Hct 38.9 Plt Count 371 Sodium 135 L Potassium 4.1 BUN 11 Creatinine 0.95 Glucose 143 H Total Bilirubin 0.4 AST 23 ALT 30 Alkaline Phosphatase 90 Lipase 18 Assessment and Plan - Problems (Diagnosis) (1) Multiple sclerosis Current Visit: Yes Status: Acute (2) Rheumatoid arthritis Current Visit: Yes Status: Acute (3) Pancolitis Current Visit: Yes Status: Acute (4) Intractable vomiting Onset Date: 10/06/15 Current Visit: No Status: Acute - Plan Assessment Patient is a 44 year old female who is being admitted for acute pancolitis. She is in a lot of pain. Pancolitis Leukocytosis MS RA Bipolar disorder Seizure disorder PLAN: Admit inpatient Volume repletion for NS infusion NPO for bowel rest IV Zofran PRN, SCHEDULED PPI Empiric abx with Zosyn Stool work up sent including c. difficile, stool cx, ova and parasites Case discussed with GI. GI to see tomorrow No chemoppx due to bloody stools Resume rest of home medications upon reconciliation. - Advance Directives Does patient have a Living Will: No Does patient have a Durable POA for Healthcare: No
[2024-06-20] MEDS ORDERED: METOCLOPRAMIDE 10 MG/2mL INJ ONE (21:50)
[2024-06-20] MEDS ORDERED: PANTOPRAZOLE 40 MG INJ ONE (21:50)
[2024-06-20 21:53] LABS: PT Prothrombin Time 13.3 SECONDS (10-13.0); PTT, Activated Partial Thromb 28.8 SECONDS (27.2-37.4); Protime INR 1.18
[2024-06-20] MEDS: NA CHLORIDE 0.9% 1,000 ML IV SCH (22:00)
[2024-06-20] MEDS: METOCLOPRAMIDE 10 MG/2mL INJ IV PRN (22:05)
[2024-06-20] MEDS ORDERED: PIPERACIL/TAZO 3.375 GM VIAL IV ONE (22:21)
[2024-06-20] MEDS ORDERED: NA CHLORIDE 0.9% 100 ML ONE (22:21)
[2024-06-21] MEDS ORDERED: HYDROMORPHONE HCL 1 MG/ML INJ ONE ×3 (01:25→15:10)
[2024-06-21] MEDS ORDERED: ONDANSETRON 4 MG/2 ML VIAL ONE ×2 (01:25→09:23)
[2024-06-21] MEDS: HYDROMORPHONE HCL 2 MG/ML inj IV PRN (01:36)
[2024-06-21] MEDS: ONDANSETRON 4 MG/2 ML VIAL IV PRN (01:37)
[2024-06-21] MEDS ORDERED: NA CHLORIDE 0.9% 1,000 ML ONE ×2 (05:12→15:30)
[2024-06-21] MEDS ORDERED: METOCLOPRAMIDE 10 MG/2mL INJ ONE ×2 (05:12→15:10)
[2024-06-21] MEDS ORDERED: NA CHLORIDE 0.9% 100 ML ONE ×2 (05:29→14:44)
[2024-06-21] MEDS ORDERED: PIPERACIL/TAZO 3.375 GM VIAL IV ONE ×2 (05:29→14:45)
[2024-06-21 05:45] LABS: Anion Gap 12.8 mEq/L (5.0-15.0); Magnesium 2.1 mg/dL (1.6-2.4); Phosphorus 4.1 mg/dL (2.5-4.9); Potassium 3.8 mEq/L (3.5-5.1)
[2024-06-21 05:56] LABS: Absolute Basophils 0.1 K/uL (0-0.5); Absolute Lymphocytes (CBC) 1.9 K/uL (0.7-4.9); Absolute Monocytes 1.1 K/uL (0.1-1.3); Basophils % 0.4 % (0-1.3); Hematocrit 33.2 % (36.0-45.0); Hemoglobin 11.3 g/dL (12.0-15.0); Lymphocytes % 11.4 % (15.3-44.8); MCH 29.5 pg (27.0-35.0); MCHC 33.9 g/dL (32.0-36.0); MCV 87.2 fL (80-100); Monocytes % 6.4 % (3.3-12.3); Neutrophils % 81.8 % (41.7-73.7); Platelets 349 thou/uL (152-406); RBC Red Blood Cell Count 3.81 M/uL (3.86-4.86); Red Cell Distribution Width 14.9 % (12.1-15.2)
--- NOTE | 2024-06-21 06:04 | RAD REPORT ---
CLINICAL HISTORY: picc line place. COMPARISON: None. TECHNIQUE: Single view AP chest radiograph(s). FINDINGS: Left PICC terminates in the mid SVC. No pulmonary infiltrate or edema identified. No pleural effusi on. No pneumothorax. Nonenlarged cardiomediastinal silhouette. No significant osseous abnormality. IMPRESSION: Well-positioned left PICC. Electronically signed by: Kimberly Rinaldi MD 06/20/2024 11:46 PM CDT RP Due to temporary technical issues with the [email or web address] reporting system, reports are being signed by the in-house radiologist without review as a courtesy to ensure prompt reporting the interpreting radiologist is fully responsible for the content of the report. Transcribed Date/Time: 06/21/2024 6:04 AM
[2024-06-21] MEDS: POTASSIUM 25 MEQ EFFERV TAB PO ONE (06:52)
--- NOTE | 2024-06-21 07:02 | P.PN ---
Date of Service: 06/21/24 Subjective: feeling better - still with nausea and loose stool, but some improvement no worsening reports h/o c.diff colitis ~7yrs ago recently took ~2 weeks of Bactrim for wound after breast augmentation, finished in last week or so ROS: 10 point ROS as noted above, otherwise negative Physical Exam: GEN: Alert, oriented, NAD CV: Regular rate and rhythm, no edema Pulm: Nonlabored respirations on room air, clear bilaterally ABD: soft, diffuse tenderness, nondistended Neuro: Normal speech, normal affect Problem List: Acute Pancolitis Chronic pain syndrome Rheumatoid Arthritis Depression/Anxiety/Bipolar Disorder Hx Seizure disorder Hx Multiple Sclerosis Hx Diverticulitis Hx MRSA (2011) hx C.diff colitis ~7yrs ago on admission, presents with intractable nausea/vomiting associated with diffuse abdominal pain, blood tinged stool, fever. Per EMR, patient did recently fill prescriptions for Bactrim; 10 day course on 05/25 and 5 day course on 06/12 CT abd/pelvis (06/20): mild-moderate Pancolitis. Mild fatty liver. h/o c diff colitis ~7yrs ago, recently completing 2 weeks of bactrim pt seen mid day today, reporte ~3 loose stools stool sample still not collected / sent r/o c diff pt states doesn't smell/feel like how she did 7 yrs ago when had cdiff Given IVF, zofran, Phenergan in ED. Continue empiric zosyn (06/20-) Dr. Zhang, GI consulted Bowel rest, NPO pain control, antiemetics, IVF IV PPI daily Lipase, LFTs wnl Check UA, Follow blood cultures placed on isolation precautions would benefit from c-scope, likely outpatient in next few weeks vs inpatient confirm home meds, restart as appropriate VTE: SCD Code: Full Dispo: Home, ~2 days Pending GI recs, nausea/vomiting improve Time Spent Managing Pts Care (In Minutes): 55
--- NOTE | 2024-06-21 08:35 | EKG ---
Test Date: 2024-06-20 Test Time: 18:04:45 Music Orchestrator: PH MEASUREMENT RESULTS: Intervals: Rate: 77 DC: 148 QRSD: 82 QT: 402 QTc: 454 Deep [place]: P: DC: 148 QRS: 163 T: 156 INTERPRETIVE STATEMENTS: Normal sinus rhythm with sinus arrhythmia ST & T wave abnormality, consider inferior ischemia Abnormal ECG Compared to ECG 04/10/2024 17:40:56 ST (T wave) deviation now present Possible ischemia now present Electronically Signed On 06-21-24 08:35:02 CDT by Jozef Rubio
[2024-06-21] MEDS: Mupirocin NASAL 2 APPL/1 GM TUBE NAS SCH (09:00)
[2024-06-21] MEDS ORDERED: PANTOPRAZOLE 40 MG INJ ONE (09:08)
[2024-06-21] MEDS ORDERED: Mupirocin NASAL 2 APPL/1 GM TUBE NAS ONE (09:08)
[2024-06-21] MEDS: SODIUM CHLORIDE 0.9% 10ML INJ IV PRN (09:24)
[2024-06-21] MEDS ORDERED: NA CHLORIDE 0.9% 50 ML ONE (15:10)
[2024-06-21 17:07] LABS: Specific Gravity > 1.030 (1.005-1.030); Urine Bacteria <20 /HPF (<20); Urine Bilirubin NEGATIVE (Negative); Urine Blood Negative (Negative); Urine Clarity Extremely Turbid (Clear); Urine Color Yellow (Yellow); Urine Crystals Unidentified Many /HPF (None Seen); Urine Culture Reflex Order NOT NEEDED; Urine Glucose NEGATIVE (Negative); Urine Ketones 1+ (Negative); Urine Microscopic Reflex YN ORDER UMIC; Urine Mucus 2+ /HPF (None Seen); Urine Nitrite NEGATIVE (Negative); Urine Protein 1+ (Negative); Urine RBC <5 /HPF (None Seen); Urine Urobilinogen Normal (Normal)
[2024-06-21] MEDS: BUSPIRONE HCL 5 MG TABLET PO SCH (21:35)
[2024-06-21] MEDS: lamoTRIgine 150 MG TAB PO SCH (22:07)
[2024-06-22 05:56] VITALS: BMI 30.9
[2024-06-22 06:54] LABS: Anion Gap 8.6 mEq/L (5.0-15.0); Magnesium 2.1 mg/dL (1.6-2.4); Potassium 3.6 mEq/L (3.5-5.1)
[2024-06-22] MEDS: TOPIRAMATE 100 MG TAB PO SCH (08:03)
[2024-06-22] MEDS: FLUOXETINE 20 MG CAP PO SCH (08:03)
[2024-06-22] MEDS: PREGABALIN 75 MG CAP PO SCH (08:04)
[2024-06-22] MEDS: POTASSIUM CL SA 10 MEQ TAB PO ONE (08:04)
[2024-06-22 08:40] LABS: Absolute Basophils 0.1 K/uL (0-0.5); Absolute Eosinophils 0.4 K/uL (0-0.5); Absolute Lymphocytes (CBC) 2.9 K/uL (0.7-4.9); Absolute Neutrophil 6.7 K/uL (1.8-8.0); Basophils % 0.8 % (0-1.3); Eosinophils % 3.5 % (0-4.4); Hematocrit 32.2 % (36.0-45.0); Hemoglobin 10.7 g/dL (12.0-15.0); Lymphocytes % 26.1 % (15.3-44.8); MCH 29.4 pg (27.0-35.0); MCHC 33.3 g/dL (32.0-36.0); MCV 88.3 fL (80-100); MPV 6.7 fL (7.6-11.3); Monocytes % 9.1 % (3.3-12.3); Neutrophils % 60.5 % (41.7-73.7); Nucleated Red Blood Cells % 0.1 % (0-0); Platelets 260 thou/uL (152-406); RBC Red Blood Cell Count 3.64 M/uL (3.86-4.86); Red Cell Distribution Width 14.6 % (12.1-15.2)
[2024-06-22] MEDS ORDERED: HOME MED 1 EA UNK (Fluoxetine Hcl [Prozac] 40 MG Capsule) PO SCH (09:00)
[2024-06-22 09:16] VITALS: O2SAT 97
--- NOTE | 2024-06-22 10:17 | P.PN ---
Date of Service: 06/22/24 Subjective: feeling better today tolerating clear liquids without issues hasn't had a BM since before admission afebrile ROS: 10 point ROS as noted above, otherwise negative Physical Exam: GEN: Alert, oriented, NAD CV: Regular rate and rhythm, no edema Pulm: Nonlabored respirations on room air, clear bilaterally ABD: soft, diffuse tenderness, nondistended Neuro: Normal speech, normal affect Problem List: Acute Pancolitis Chronic pain syndrome Rheumatoid Arthritis Depression/Anxiety/Bipolar Disorder Hx Seizure disorder Hx Multiple Sclerosis Hx Diverticulitis hx C.diff colitis ~7yrs ago Hx MRSA (2011) Acute Pancolitis hx C.diff colitis ~7yrs ago Hx Diverticulitis on admission, presents with intractable nausea/vomiting associated with diffuse abdominal pain, blood tinged stool, fever. Per EMR, patient did recently take ~2 weeks of Bactrim earlier this month for wound after breast augmentation CT abd/pelvis (06/20): mild-moderate Pancolitis. Mild fatty liver. h/o c diff colitis ~7yrs ago, recently completing 2 weeks of bactrim Pt states doesn't smell/feel like how she did 7 yrs ago when had cdiff Given IVF, zofran, Phenergan in ED. Continue empiric zosyn (06/20-) Blood cx (06/20): NGTD Dr. Zhang, GI consulted would benefit from c-scope, likely outpatient in next few weeks vs inpatient 06/21 - pt seen mid day today, reported ~3 loose stools IV PPI, pain control, antiemetics, IVF Lipase, LFTs wnl 06/22 - Feeling better. Tolerating clear liquid diet without issues C. diff uncollected. Patient hasn't had a bowel movement since before admission. dc isolation precautions -since she has improved without treatment for C. difficile, unlikely to be C. difficile Advance to soft foods for lunch add oral norco 5/325 Chronic pain syndrome Rheumatoid Arthritis Depression/Anxiety/Bipolar Disorder Hx Seizure disorder Hx Multiple Sclerosis confirm home meds, restart as appropriate VTE: SCD Code: Full Dispo: Home, ~1-2 days Pending N/V improve, tolerating diet. Time Spent Managing Pts Care (In Minutes): 55
[2024-06-22] MEDS: HYDROCODONE/APAP 5/325 MG TAB PO PRN (12:37)
[2024-06-22] MEDS: MORPHINE 4 MG/ML SYR IV PRN (13:53)
[2024-06-23 06:01] LABS: Absolute Basophils 0.1 K/uL (0-0.5); Absolute Eosinophils 0.4 K/uL (0-0.5); Absolute Lymphocytes (CBC) 3.2 K/uL (0.7-4.9); Absolute Monocytes 0.5 K/uL (0.1-1.3); Absolute Neutrophil 4.2 K/uL (1.8-8.0); Basophils % 0.7 % (0-1.3); Eosinophils % 4.4 % (0-4.4); Hematocrit 29.5 % (36.0-45.0); Hemoglobin 9.9 g/dL (12.0-15.0); MCH 30.1 pg (27.0-35.0); MCHC 33.7 g/dL (32.0-36.0); MPV 6.2 fL (7.6-11.3); Monocytes % 6.6 % (3.3-12.3); Neutrophils % 50.3 % (41.7-73.7); Nucleated Red Blood Cells % 0.1 % (0-0); Platelets 285 thou/uL (152-406); RBC Red Blood Cell Count 3.31 M/uL (3.86-4.86); Red Cell Distribution Width 14.7 % (12.1-15.2)
[2024-06-23 06:10] LABS: Anion Gap 8.9 mEq/L (5.0-15.0); Potassium 3.9 mEq/L (3.5-5.1)
[2024-06-23 08:27] VITALS: TEMP 98.2
--- NOTE | 2024-06-23 10:48 | P.DS ---
Admission Date: 06/20/24 Discharge Date: 06/23/24 Disposition: ROUTINE DISCHARGE Discharge Condition: GOOD Reason for Admission: bloody stools, pancolitis Consultations: GI - Dr. Zhang Brief History of Present Illness: 44yo F, PMH: Multiple Sclerosis, RA, Bipolar and Seizure disorder. She presents to the ER with acutely worsening abdominal pain. She is describing a diffuse abdominal pain associated with bloody stool and low grade fever. She had a temperature of 100.1 degrees. Associated symptoms include intractable nausea and vomiting. CT A/P in the ER showed pancolitis. She has no history of IBD. Case discussed with GI, Dr. Zhang. She will most likely need a COL in 2- 3 weeks. In the meantime, will admit for infectious colitis. Hospital Course: Problem List: Acute Pancolitis Chronic pain syndrome Rheumatoid Arthritis Depression/Anxiety/Bipolar Disorder Hx Seizure disorder Hx Multiple Sclerosis Hx Diverticulitis hx C.diff colitis ~7yrs ago Hx MRSA (2011) Physician discharge instructions: Patient presented with intractable nausea/vomiting associated with diffuse abdominal pain, blood tinged stool, fever secondary to acute pancolitis. CT abdomen on admission consistent with acute pancolitis, also noted mild fatty liver. GI was consulted. Patient had improvement with bowel rest, IV hydration, empiric antibiotics. There was some initial concern for C. diff given her risk factors of previous cdiff infection ~7 yrs ago, and just recently completed 2 weeks of bactrim. No sample was collected for testing as diarrhea improved and was more formed. Isolations precautions were discontinued 06/22 since diarrhea improved without treatment for C. Diff. Diet was slowly advanced as her nausea and pain improved. Patient was feeling better, abdominal pain improved, nausea/vomiting resolved, and was deemed stable for discharge. Advised patient to follow up with GI in the next few weeks for outpatient colonoscopy to further evaluate once this acute episode has resolved. Continue soft diet for next 3-5 days. Can slowly ease back into regular diet over the next week. Avoid high fiber diet in the short term Patient is to complete 10 more days of oral Augmentin on discharge. Medications: [place] 5/325 10 pills as needed for pain Augmentin 875 mg twice daily for 10 days Follow up: PCP 3-5 days PCP within 3-5 days GI in next few weeks Please call to schedule / confirm appointments Physical Exam: GEN: Alert, oriented, NAD CV: Regular rate and rhythm, no edema Pulm: Nonlabored respirations on room air, clear bilaterally ABD: soft, nontender, nondistended Neuro: Normal speech, normal affect Vital Signs/Physical Exam: Temp Pulse Resp BP Pulse Ox 98.2 F 64 16 81/49 L 94 06/23/24 08:00 06/23/24 08:00 06/23/24 08:00 06/23/24 08:00 06/23/24 08:00 Laboratory Data at Discharge: WBC 8.30 thou/uL (4.3-10.9) 06/23/24 05:45 Hgb 9.9 g/dL (12.0-15.0) L 06/23/24 05:45 Hct 29.5 % (36.0-45.0) L 06/23/24 05:45 Plt Count 285 thou/uL (152-406) 06/23/24 05:45 PT 13.3 SECONDS (10-13.0) H 06/20/24 21:34 INR 1.18 06/20/24 21:34 APTT 28.8 SECONDS (27.2-37.4) 06/20/24 21:34 Sodium 139 mEq/L (136-145) 06/23/24 05:45 Potassium 3.9 mEq/L (3.5-5.1) 06/23/24 05:45 BUN 9 mg/dL (7-18) 06/23/24 05:45 Creatinine 1.00 mg/dL (0.55-1.02) 06/23/24 05:45 Glucose 108 mg/dL (74-106) H 06/23/24 05:45 Phosphorus 4.1 mg/dL (2.5-4.9) 06/21/24 05:13 Magnesium 2.1 mg/dL (1.6-2.4) 06/22/24 06:15 Total Bilirubin 0.4 mg/dL (0.2-1.0) 06/20/24 18:18 AST 23 U/L (15-37) 06/20/24 18:18 ALT 30 U/L (13-56) 06/20/24 18:18 Alkaline Phosphatase 90 U/L (45-117) 06/20/24 18:18 Lipase 18 U/L (13-75) 06/20/24 18:18 Home Medications: Alprazolam [Xanax Xr] 2 mg PO DAILY 09/09/15 Methotrexate Sodium/Pf [Methotrexate 25 mg/ml Vial] 0.8 ml SQ Q7D 07/26/17 Tizanidine HCl 4 mg PO DAILY 07/26/17 Topiramate 200 mg PO DAILY 07/26/17 Baclofen 75 mg PO BID 06/21/24 Brexpiprazole [Rexulti] 2 mg PO DAILY 06/21/24 Buspirone HCl 5 mg PO BID 06/21/24 Estrogens, Conjugated [Premarin] 1.25 mg PO DAILY 06/21/24 Estrogens, Conjugated [Premarin] 1.25 mg PO DAILY 06/21/24 Eszopiclone [Lunesta] 2 mg PO DAILY 06/21/24 Fluoxetine HCl [Prozac] 80 mg PO DAILY 06/21/24 Lamotrigine [Lamictal] 150 mg PO BID 06/21/24 Pregabalin [Lyrica] 75 mg PO DAILY 06/21/24 Amox/Clavulanate [Augmentin 875-125 Tab] 1 each PO BID 10 Days #20 tab 06/23/24 Hydrocodone 5/APAP 325 [[place] 5/325*] 1 tab PO Q8H PRN #10 tab 06/23/24 New Medications: Amox/Clavulanate [Augmentin 875-125 Tab] 1 each PO BID 10 Days #20 tab Hydrocodone 5/APAP 325 [[place] 5/325*] 1 tab PO Q8H PRN #10 tab PRN Reason: Pain Scale 5-7 (Moderate) Physician Discharge Instructions: Physician discharge instructions: Patient presented with intractable nausea/vomiting associated with diffuse abdominal pain, blood tinged stool, fever secondary to acute pancolitis. CT abdomen on admission consistent with acute pancolitis, also noted mild fatty liver. GI was consulted. Patient had improvement with bowel rest, IV hydration, empiric antibiotics. There was some initial concern for C. diff given her risk factors of previous cdiff infection ~7 yrs ago, and just recently completed 2 weeks of bactrim. No sample was collected for testing as diarrhea improved and was more formed. Isolations precautions were discontinued 06/22 since diarrhea improved without treatment for C. Diff. Diet was slowly advanced as her nausea and pain improved. Patient was feeling better, abdominal pain improved, nausea/vomiting resolved, and was deemed stable for discharge. Advised patient to follow up with GI in the next few weeks for outpatient colonoscopy to further evaluate once this acute episode has resolved. Continue soft diet for next 3-5 days. Can slowly ease back into regular diet over the next week. Avoid high fiber diet in the short term Patient is to complete 10 more days of oral Augmentin on discharge. Medications: [place] 5/325 10 pills as needed for pain Augmentin 875 mg twice daily for 10 days Follow up: PCP 3-5 days PCP within 3-5 days GI in next few weeks Please call to schedule / confirm appointments Followup: Ankur Koenig MD [Primary Care Provider] - Time spent managing pt's care (in minutes): 45
[2024-06-23 11:55] VITALS: BP 102/57
== END 2024-06-23 12:23 | disposition home or self-care (01) | DRG 392 ==
LOC: ER 17:08 → ERHOLD 21:04 → 4TH 06-21 13:18 → ERHOLD 06-21 13:27 → 4TH 06-21 16:36
PROVIDERS: ADMIT Internal Medicine; ATTEND Hospitalist
PROC: 02HV33Z Insertion of Infusion Device into Superior Vena Cava, Percutaneous Approach (ICD-10-PCS; principal; 2024-06-20)
DX: A09 Infectious gastroenteritis and colitis, unspecified (principal); M06.9 Rheumatoid arthritis, unspecified; G89.4 Chronic pain syndrome; M79.7 Fibromyalgia; G35 Multiple sclerosis; F41.9 Anxiety disorder, unspecified; F31.9 Bipolar disorder, unspecified; K76.0 Fatty (change of) liver, not elsewhere classified; H54.62 Unqualified visual loss, left eye, normal vision right eye; G40.909 Epilepsy, unspecified, not intractable, without status epilepticus; Z88.8 Allergy status to other drugs, medicaments and biological substances; Z86.14 Personal history of Methicillin resistant Staphylococcus aureus infection; Z90.710 Acquired absence of both cervix and uterus
CPT/HCPCS: 36415; 36569; 71045; 74177; 80048; 80053; 81001; 83605; 83690; 83735; 84100; 84484; 85025; 85610; 85730; 87040; 93005; 99285; J1171; J2405; J2470; J2543; J2550; J2765; J7030; Q9967